=== PATIENT | female | born 1935 | race Caucasian/White ===

== ENCOUNTER → 2017-11-07 12:40 | Outpatient (CLI) | payer OTHER, SELFPAY ==
[2017-11-07 14:00] LABS: Urine Amphetamines Negative (Negative); Urine Barbiturates Negative (Negative); Urine Benzodiazepines Negative (Negative); Urine Cocaine Negative (Negative); Urine MDMA Negative (Negative); Urine Methadone Negative (Negative); Urine Methamphetamines Negative (Negative); Urine Morphine/Opi cutoff 2000 Negative (Negative); Urine Oxycodone Positive (Negative); Urine Phencyclidine Negative (Negative); Urine Tetrahydrocannabinol Negative (Negative); Urine Tricyclic Antidepressant Negative (Negative)
== END ==
PROVIDERS: PCP Internal Medicine; Visit Provider Internal Medicine
DX: Z79.899 Other long term (current) drug therapy (principal)
CPT/HCPCS: 80305

== ENCOUNTER → 2017-11-22 13:54 | Outpatient (CLI) | payer OTHER, SELFPAY ==
[2017-11-22 14:29] LABS: Add Manual Diff / Slide Review NO; Basophils Percent Auto 0.5 % (0-2); Eosinophils Percent Auto 2.9 % (2-4); Hematocrit 40.4 % (36-46); Hemoglobin 13.3 g/dL (12.0-16.0); Lymphocytes Percent Auto 23.5 % (25-40); Mean Corpuscular HGB Conc 32.8 % (30-36); Mean Corpuscular Hemoglobin 29.3 PG (26-34); Mean Corpuscular Volume 89.1 fL (80-100); Monocytes Percent Auto 13.1 % (3-14); Neutrophils Absolute Auto 4000 /uL (3000-5900); Platelet Count 133 X10^3/uL (150-400); Red Blood Cell Count 4.54 X10^6/uL (4.0-5.2); Red Cell Distribution Width 14.6 % (11.6-14.8); White Blood Cell Count 6.6 X10^3/uL (4.5-11.0)
[2017-11-22 14:40] LABS: Alanine Aminotransferase 21 IU/L (9-52); Albumin Globulin Ratio 1.4 (1.0-2.8); Alkaline Phosphatase 94 U/L (38-126); Aspartate Aminotransferase 25 IU/L (14-36); BUN Creatinine Ratio 36.7 (6-22); Bilirubin Total 0.7 mg/dL (0.2-1.3); Blood Urea Nitrogen 22 mg/dL (7-17); Calcium 8.8 mg/dL (8.4-10.2); Carbon Dioxide 35 mmol/L (22-32); Chloride 103 mmol/L (98-107); Estimated Glomerular Filt Rate > 60.0 mL/min (>60); Globulin 2.9 g/dL (1.7-4.1); Glucose 83 mg/dL (80-110); HEMOLYSIS < 15 (0-50); Potassium 4.8 mmol/L (3.4-5.1); Sodium 144 mmol/L (137-145); Total Protein 6.9 g/dL (6.3-8.2)
[2017-11-22 14:44] LABS: HEMOLYSIS < 15 (0-50); Iron 53 ug/dL (37-170)
[2017-11-22 14:54] LABS: Percent Iron Saturation 18 % (15-50); Total Iron Binding Capacity 296 ug/dL (265-497); Transferrin 226 mg/dL (206-381)
--- NOTE | 2017-11-22 16:47 | PC.NURSE ---
provider visit set for 11/24 to review labs
== END ==
PROVIDERS: Family Provider Internal Medicine; PCP Internal Medicine; Visit Provider Nurse Practitioner Gerontology
DX: D50.8 Other iron deficiency anemias (principal)
CPT/HCPCS: 36415; 80053; 83540; 83550; 85025

== ENCOUNTER 2018-01-09 09:51 | Observation (INO) | payer OTHER, SELFPAY ==
[2018-01-09] VITALS (10 sets, daily range): BP systolic 104–146; BP diastolic 52–79; PULSE 66–105; RESP 16–18; TEMP 36.3–37.2; O2SAT 92–100; BMI 33.3
--- NOTE | 2018-01-09 | DI.MRI.S_ITS ---
PROCEDURE: MR ANGIO HEAD WO CON INDICATIONS: CVA TECHNIQUE: Noncontrast axial 3-D [id number] MR angiogram, with 3-dimensional maximum intensity projection (MIP) reformats of the internal carotid arteries and posterior circulation then performed. COMPARISON: [facility], , STROKE PROTOCOL A, 12/25/2007, 10:51. FINDINGS: Image quality: Degraded by motion artifact. Flow is grossly present within the bilateral internal carotid arteries, the bilateral anterior and middle cerebral arteries. Flow is grossly present within the bilateral vertebral arteries, the basilar arteries, and the bilateral posterior cerebral arteries. Assessment for stenoses, aneurysms is significantly limited. IMPRESSION: Limited examination demonstrating grossly intact flow within the major intracranial vasculature. Dictated by: Ju Bran M.D. on 01/09/2018 at 16:55 Approved by: Ju Bran M.D. on 01/09/2018 at 16:56
--- NOTE | 2018-01-09 10:41 | PC.NURSE ---
Patient with no new motor deficits; No sensations deficits noted; Patient confused last night around 3am. found patient looking into her purse to shut off her alarm; Also, this morning, patient unable to answer simple question.
--- NOTE | 2018-01-09 10:46 | DI.CT.S_ITS ---
PROCEDURE: CT HEAD/BRAIN WO CON INDICATIONS: AMS TECHNIQUE: Noncontrast 4.5 mm thick angled axial sections acquired from the foramen magnum to the vertex, with coronal and sagittal reformats. For radiation dose reduction, the following was used: automated exposure control, adjustment of mA and/or kV according to patient size. COMPARISON: [facility], , STROKE PROTOCOL A, 12/25/2007, 10:51. FINDINGS: Image quality: Diagnostic. CSF spaces: Basal cisterns are patent. No extra-axial fluid collections. Ventricles are mildly prominent. There is corresponding parenchymal volume loss. Brain: No midline shift. No intracranial masses or hemorrhage. Aponte-white matter interface is normal. Subtle areas of low attenuation within the deep white matter of the supratentorial brain is present. There is a partly calcified ovoid mass that appears to be extra-axial and dural-based identified adjacent to the left occipital lobe that is positioned just above the level of the folds, measuring 1.5 x 1.4 cm x 2.0 cm. In retrospect, this lesion was present on the previous MRI from 12/25/07 and has not significantly changed in size, compatible with a benign process. Skull and face: Calvarium and visualized facial bones are intact, without suspicious lesions. Hyperostosis frontalis is present. Sinuses: Visualized sinuses and mastoids are clear. IMPRESSION: 1. No acute intracranial hemorrhage. 2. Mild chronic small vessel ischemic changes and parenchymal volume loss. 3. Probable meningioma along the posterior right occipital region, not significantly changed in retrospect since 2007. Dictated by: Armani Carlisle M.D. on 01/09/2018 at 10:31 Approved by: Armani Carlisle M.D. on 01/09/2018 at 10:37
--- NOTE | 2018-01-09 10:53 | ED.GENADULT ---
HPI - General Adult General Chief complaint: Neuro Symptoms/Deficit Stated complaint: Confusion, difficulty with urination Time Seen by Provider: 01/09/18 10:26 Source: patient and family Mode of arrival: EMS Limitations: no limitations History of Present Illness HPI narrative: Patient is an 82-year-old female brought in by in by EMS for concerns of possible urinary symptoms and also confusion. The patient's is with her. He states that every night they set her alarm to go off at 3 o'clock in the morning for the patient to get up and urinate. Patient's states that the alarm did go off and the patient woke up however when he woke up he found the patient very confused. He stated that in talking with her she was confused and was slurring her words. He states that the symptoms lasted less than 5 min. He stated that he got her to the bathroom where she urinated then put her back in bed. He states that when they woke up this morning he talked with her and she seemed normal and then when he brought her some tea in bed he again thought that she was confused and was slurring her words. Again the symptoms lasted less than 5 min. The patient denies any other symptoms at the time. Related Data Home Medications Medication Instructions Recorded Confirmed cyanocobalamin (vitamin B-12) 50 mcg PO BID #0 03/05/11 01/09/18 [Vitamin B-12] [VITAMIN D] 1 cap PO BID #0 04/20/17 01/09/18 metoprolol succinate [Toprol XL] 50 mg PO SEE INSTRUCTIONS #0 06/27/17 01/09/18 aspirin 81 mg PO BID 08/29/17 01/09/18 furosemide [Lasix] 20 mg PO DAILY PRN 08/29/17 01/09/18 omega-3 fatty acids-fish oil [Fish 500 mg QAM 08/29/17 01/09/18 Oil] Wheelchair: Manual Lightweight 1 ea MISCELLANEOUS DIRECTED 01/09/18 01/09/18 folic acid 4 tab PO DAILY 01/09/18 01/09/18 gabapentin [Neurontin] 600 mg PO QIDP PRN 01/09/18 01/09/18 pantoprazole 40 mg PO BID 01/09/18 01/09/18 Previous Rx's Medication Instructions Recorded citalopram 20 mg PO QDAY #60 tab 09/06/16 solifenacin 10 mg tablet 10 mg PO HS #90 tab 11/28/17 mirabegron ER 50 mg 50 mg PO DAILY #90 tab 12/26/17 tablet,extended release 24 hr oxycodone 10 mg tablet 10 - 20 mg PO Q4HP PRN #150 tab 01/03/18 triamcinolone acetonide 0.025 % 1 applictn TOP TID PRN #80 gram 01/03/18 topical cream Allergies Allergy/AdvReac Type Severity Reaction Status Date / Time meloxicam [MELOXICAM] AdvReac Mild bloody Verified 01/03/18 14:17 dark stool Review of Systems Constitutional Denies fever(s) and Denies headache(s) Eyes Denies change in vision and Denies diplopia ENT Ears, Nose, Mouth, and Throat: Denies dizziness and Denies headache(s) Cardiovascular Denies chest pain, Denies syncope, Denies palpitations and Denies dyspnea Respiratory Denies dyspnea Gastrointestinal Gastrointestinal: Denies abdominal pain, Denies nausea and Denies vomiting Genitourinary Reports dysuria Musculoskeletal Denies myalgias and Denies arthralgias Integumentary/Breasts Denies rash Neurologic Reports abnormal speech, Reports confusion, Denies dizziness, Denies syncope, Denies headache(s) and Reports lack of coordination Psychiatric Reports confusion Endocrine Denies palpitations Hematologic/Lymphatic Denies easy bleeding and Denies easy bruising [facility] Medical History Asthma (Chronic) Other iron deficiency anemia (Chronic 12/02/14) Paroxysmal atrial fibrillation (Chronic) Low back pain (Chronic 10/02/13) Mixed hyperlipidemia (Chronic) Essential hypertension (Chronic) Cardiac dysrhythmia, unspecified (Chronic) Gastroesophageal reflux disease without esophagitis (Chronic) 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) Peripheral edema (Chronic 11/01/16) Surgical History Anesthesia (Resolved) History of cholecystectomy (Resolved) History of gastric bypass (~03/2004) S/P total abdominal hysterectomy and bilateral salpingo-oophorectomy Status post appendectomy Status post discectomy Social History marital status: number of children: 1 household members: spouse lives independently: Yes caregiver/support person: No housing: house pets and animals: Yes education level: college occupational status: other (Retired) current occupational exposures/hazards: No Previous occupational history: [employer]: [place] travel history: over 6 months ago ([employer].) leisure activities: reading and other (Watch TV, Movies, Cooking) Smoking Status: Never smoker Tobacco: How many years used: 0 quit status: quit date established (Never Started) second hand exposure: No alcohol intake: never substance use type: marijuana (In the past) Exam Initial Vital Signs Initial Vital Signs: Vital Signs Temperature 98.3 F 01/09/18 10:16 Pulse Rate 73 01/09/18 10:16 Respiratory Rate 16 01/09/18 10:16 Blood Pressure 118/69 01/09/18 10:16 Pulse Oximetry 98 01/09/18 10:16 Const General: cooperative, comfortable, well developed, well groomed and No acute distress Orientation: alert, awake and oriented x3 HENMT Head: normal to inspection and normocephalic Eyes Pupils: PERRL EOM: EOM intact bilaterally Resp Effort & Inspection: normal respiratory effort Auscultation: clear to auscultation bilaterally Cardio Rate: regular rate Rhythm: abnormal rhythm Pulses: radial pulses present GI Inspection: non-distended Palpation: soft and No tender Skin Lesions: no lesions Rashes: no rashes Neuro General: alert, awake and oriented x3 Cranial Nerves: CN's II-XI intact bilaterally Speech: speech normal Other: 3/5 strength left lower extremity 4/5 strength right lower extremity. This decrease in strength left lower extremity is not new for her. 5/5 strength bilateral upper extremities Extrem General: normal to inspection and capillary refill normal Course Orders Ordered: ED Orders 01/09/18 12:30 Urine Culture Stat Urine Microscopic Stat 01/09/18 13:47 MR stroke Stat US carotid doppler BI Stat Education, smoking cessation ONGOING 01/09/18 14:27 Consult to Physical Therapy Evaluate & Treat Aspirin (Aspirin Ec) 81 mg PO BID JOHANN Citalopram Hydrobromide (Celexa) 20 mg PO DAILY JOHANN Cyanocobalamin (Vitamin B-12) 50 mcg PO BID JOHANN Enoxaparin Sodium (Lovenox) 95 mg 1 mg/kg (95 mg) SUBCUT BID [facility] Folic Acid (Folic Acid) 1 mg PO DAILY [facility] Metoprolol Succinate (Toprol Xl) 75 mg PO QPM [facility] Last Admin: 01/09/18 17:07 Dose: 75 mg Myrbetriq 50 Mg 50 mg PO DAILY [facility] Oxycodone HCl (Percolone) 10 mg PO Q4H PRN PRN Reason: Pain, Mild (1-3) Oxycodone HCl (Percolone) 20 mg PO Q4HR PRN PRN Reason: Pain, Moderate (4-6) Last Admin: 01/09/18 17:07 Dose: 20 mg Pantoprazole Sodium (Protonix) 40 mg PO DAILY [facility] Solifenacin (Vesicare) 10 mg PO BEDTIME [facility] Discontinued Medications Aspirin (Aspirin Chew) 324 mg PO NOW ONE Stop: 01/09/18 12:30 Last Admin: 01/09/18 12:49 Dose: 324 mg Enoxaparin Sodium (Lovenox) 90 mg 1 mg/kg (90 mg) SUBCUT NOW ONE Stop: 01/09/18 13:48 Last Admin: 01/09/18 17:12 Dose: 90 mg Oxycodone/Acetaminophen (Percocet 5/325) 2 tab PO NOW ONE Stop: 01/09/18 12:45 Last Admin: 01/09/18 12:48 Dose: 2 tab Vital Signs - 8 hr 01/09/18 13:07 01/09/18 14:13 01/09/18 16:11 Temperature 97.4 F L Pulse Rate 76 Respiratory Rate 16 Blood Pressure 110/64 146/79 H Pulse Oximetry 100 95 01/09/18 19:39 Temperature 98.9 F Pulse Rate 92 H Respiratory Rate 16 Blood Pressure 104/52 L Pulse Oximetry 92 Medical Decision Making Lab Data Lab results reviewed: Yes I reviewed the patient's lab results. Result diagrams: 01/09/18 11:00 01/09/18 11:00 Lab Results 01/09/18 01/09/18 01/09/18 Range/Units 11:00 11:00 11:00 WBC 6.6 (4.5-11.0) X10^3/uL RBC 4.62 (4.0-5.2) X10^6/uL Hgb 13.7 (12.0-16.0) g/dL Hct 41.6 (36-46) % MCV 90.0 (80-100) fL MCH 29.6 (26-34) PG MCHC 32.9 (30-36) % RDW 14.4 (11.6-14.8) % Plt Count 141 L (150-400) X10^3/uL Neut % (Auto) 57.3 (50-75) % Lymph % (Auto) 26.9 (25-40) % [place] % (Auto) 12.4 (3-14) % Eos % (Auto) 2.9 (2-4) % Baso % (Auto) 0.5 (0-2) % Neut # (Auto) 3800 (9437-4188) /uL PT 13.4 H (10.1-12.7) SECONDS INR 1.2 (0.9-1.3) APTT 31 (26.4-36.2) SECONDS Sodium (137-145) mmol/L Potassium (3.4-5.1) mmol/L Chloride (98-107) mmol/L Carbon Dioxide (22-32) mmol/L BUN (7-17) mg/dL Creatinine (0.52-1.04) mg/dL Estimated GFR (>60) mL/min BUN/Creatinine Ratio (6-22) Glucose (80-110) mg/dL Calcium (8.4-10.2) mg/dL Ammonia < 9.0 L (9-30) umol/L Urine RBC (0-5/HPF) Urine WBC (0-5/HPF) Ur Squamous Epith Cells Ur Transition Epith Cell (0-5/HPF) Urine Bacteria (None) Urine Mucus (Negative) Ur Culture Indicated? Micro UA Comment 01/09/18 01/09/18 Range/Units 11:00 12:30 WBC (4.5-11.0) X10^3/uL RBC (4.0-5.2) X10^6/uL Hgb (12.0-16.0) g/dL Hct (36-46) % MCV (80-100) fL MCH (26-34) PG MCHC (30-36) % RDW (11.6-14.8) % Plt Count (150-400) X10^3/uL Neut % (Auto) (50-75) % Lymph % (Auto) (25-40) % [place] % (Auto) (3-14) % Eos % (Auto) (2-4) % Baso % (Auto) (0-2) % Neut # (Auto) (5135-4131) /uL PT (10.1-12.7) SECONDS INR (0.9-1.3) APTT (26.4-36.2) SECONDS Sodium 142 (137-145) mmol/L Potassium 4.7 (3.4-5.1) mmol/L Chloride 100 (98-107) mmol/L Carbon Dioxide 33 H (22-32) mmol/L BUN 17 (7-17) mg/dL Creatinine 0.60 (0.52-1.04) mg/dL Estimated GFR > 60.0 (>60) mL/min BUN/Creatinine Ratio 28.3 H (6-22) Glucose 94 (80-110) mg/dL Calcium 9.3 (8.4-10.2) mg/dL Ammonia (9-30) umol/L Urine RBC 5-10/hpf H (0-5/HPF) Urine WBC 10-30/hpf H (0-5/HPF) Ur Squamous Epith Cells 1-5 /hpf Ur Transition Epith Cell 1-5/hpf (0-5/HPF) Urine Bacteria Many (>30) H (None) Urine Mucus 2+ H (Negative) Ur Culture Indicated? Specimen cultured Micro UA Comment Not Reportable Urine Dip Bedside Urine Glucose Negative Bedside Urine Bilirubin - Negative Bedside Urine Ketone - Negative Urine Specific Hermann 1.025 Bedside Urine Occult Blood ++ Bedside Urine pH 6.0 Bedside Urine Protein + 30 Bedside Urine Urobilinogen 1+ 2mg Bedside Urine Nitrite + Positive Bedside Urine Leukocytes +++ 500 Esterase Point of care testing: Urine Dip Bedside Urine Glucose Negative Bedside Urine Bilirubin - Negative Bedside Urine Ketone - Negative Urine Specific Hermann 1.025 Bedside Urine Occult Blood ++ Bedside Urine pH 6.0 Bedside Urine Protein + 30 Bedside Urine Urobilinogen 1+ 2mg Bedside Urine Nitrite + Positive Bedside Urine Leukocytes +++ [address] scan - head: Radiologist's impression: PROCEDURE: CT HEAD/BRAIN WO CON INDICATIONS: AMS TECHNIQUE: Noncontrast 4.5 mm thick angled axial sections acquired from the foramen magnum to the vertex, with coronal and sagittal reformats. For radiation dose reduction, the following was used: automated exposure control, adjustment of mA and/or kV according to patient size. COMPARISON: [facility], , STROKE PROTOCOL A, 12/25/2007, 10:51. FINDINGS: Image quality: Diagnostic. CSF spaces: Basal cisterns are patent. No extra-axial fluid collections. Ventricles are mildly prominent. There is corresponding parenchymal volume loss. Brain: No midline shift. No intracranial masses or hemorrhage. Aponte-white matter interface is normal. Subtle areas of low attenuation within the deep white matter of the supratentorial brain is present. There is a partly calcified ovoid mass that appears to be extra-axial and dural-based identified adjacent to the left occipital lobe that is positioned just above the level of the folds, measuring 1.5 x 1.4 cm x 2.0 cm. In retrospect, this lesion was present on the previous MRI from 12/25/07 and has not significantly changed in size, compatible with a benign process. Skull and face: Calvarium and visualized facial bones are intact, without suspicious lesions. Hyperostosis frontalis is present. Sinuses: Visualized sinuses and mastoids are clear. IMPRESSION: 1. No acute intracranial hemorrhage. 2. Mild chronic small vessel ischemic changes and parenchymal volume loss. 3. Probable meningioma along the posterior right occipital region, not significantly changed in retrospect since 2007. Dictated by: Armani Carlisle M.D. on 01/09/2018 at 10:31 Approved by: Armani Carlisle M.D. on 01/09/2018 at 10:37 ECG Data Attestation: I personally reviewed and interpreted this ECG as follows: Prior ECG tracings: not available for review Interpretation: Atrial fibrillation Ventricular rate is 78 LVH Normal QRS Normal QTC Nonspecific ST T wave changes MDM Narrative Medical decision making narrative: Patient does have nitrite positive urine which does explain her dysuria. She did have fairly well-defined episodes of confusion last evening and then also this morning. Given her history of atrial fibrillation there is concern for TIA. Head CT shows no signs of a head bleed. Discussed case with Dr. Bland who will admit for a TIA workup. I discussed the admission with the patient and her were at bedside. They expressed understanding and agreement this plan. Discharge Plan Departure Patient Disposition: Admitted as Observation Clinical Impression: TIA (transient ischemic attack) Discharge Date/Time: 01/09/18 13:26 Interventions: ED Discharge Assessment Last Done: 01/09/18 13:07 Admit Date/Time: 01/09/18 12:33 Admit Provider: Oj Bland
--- NOTE | 2018-01-09 10:53 | PC.NURSE ---
Left leg weakness - chronic;
[2018-01-09 11:13] LABS: Add Manual Diff / Slide Review NO; Basophils Percent Auto 0.5 % (0-2); Eosinophils Percent Auto 2.9 % (2-4); Hematocrit 41.6 % (36-46); Hemoglobin 13.7 g/dL (12.0-16.0); Lymphocytes Percent Auto 26.9 % (25-40); Mean Corpuscular HGB Conc 32.9 % (30-36); Mean Corpuscular Hemoglobin 29.6 PG (26-34); Monocytes Percent Auto 12.4 % (3-14); Neutrophils Absolute Auto 3800 /uL (3000-5900); Neutrophils Percent Auto 57.3 % (50-75); Platelet Count 141 X10^3/uL (150-400); Red Blood Cell Count 4.62 X10^6/uL (4.0-5.2); Red Cell Distribution Width 14.4 % (11.6-14.8); White Blood Cell Count 6.6 X10^3/uL (4.5-11.0)
[2018-01-09 11:21] LABS: INR 1.2 (0.9-1.3); Prothrombin Time 13.4 SECONDS (10.1-12.7)
[2018-01-09 11:23] LABS: PTT Partial Thromboplastin Tim 31 SECONDS (26.4-36.2)
[2018-01-09 11:26] LABS: Ammonia (NH3) < 9.0 umol/L (9-30)
[2018-01-09 11:27] LABS: BUN Creatinine Ratio 28.3 (6-22); Blood Urea Nitrogen 17 mg/dL (7-17); Calcium 9.3 mg/dL (8.4-10.2); Carbon Dioxide 33 mmol/L (22-32); Chloride 100 mmol/L (98-107); Estimated Glomerular Filt Rate > 60.0 mL/min (>60); Glucose 94 mg/dL (80-110); HEMOLYSIS < 15 (0-50); Potassium 4.7 mmol/L (3.4-5.1); Sodium 142 mmol/L (137-145)
[2018-01-09] MEDS: OXYCODONE/ACETAMINOPHEN 5/325 TABLET 2 TAB PO (12:48)
[2018-01-09] MEDS: ASPIRIN 81 MG TAB 324 MG PO (12:49)
--- NOTE | 2018-01-09 12:52 | PM.HP.1 ---
History of Present Illness Date Patient Seen: 01/09/18 Time Patient Seen: 14:13 Chief complaint: Confusion, difficulty with urination Narrative: Very pleasant 82-year-old female who apparently he has had some confusion. Patient has difficulty with urinary incontinence so set an alarm to get up in the night to make sure she empties her bladder. awoke hearing the alarm going off inpatient not answering the alarm. He found her room injuring through her person was confused disoriented. He helped her to the restroom where she did manage to empty her bladder went back to bed and he did not think much of it When they both awoke the next morning spouse says patient seemed to be fine in normal state of health and mental status Later he found her confused disoriented and decided at that point he should summoned medics. She was transported [facility] where she may have had some altered affect but no clear or focal neurologic findings. Patient has been reporting increased weakness and difficulty with transfers and basic ambulation, to the point where she did not really want her to leave her to go to town for food etc. This is highly unusual for this patient. Did have a low-grade fever after which she received a flu shot in the clinic last week and has off and on urinary symptoms chronically perhaps slightly exaggerated currently Initial workup in the ED was unremarkable Patient with history of paroxysmal atrial fibrillation now found to be back in atrial fibrillation. She has not been felt to be a candidate for anticoagulation because of evidence of bleeding as well as chronic iron deficiency anemia. 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) Peripheral edema (Chronic 11/01/16) Surgical History Anesthesia (Resolved) History of cholecystectomy (Resolved) History of gastric bypass (~03/2004) S/P total abdominal hysterectomy and bilateral salpingo-oophorectomy Status post appendectomy Status post discectomy Family & Social History Family History: Reviewed 01/09/18 by Oj Bland MD Social History: household members spouse lives independently Yes caregiver/support person No Safety & Behavioral: Feels Safe in Current Yes Environment Been Physically Hurt or No Threatened By a Person Tobacco & Substance use: Smoking Status Never smoker alcohol intake current Meds Home Medications Medication Instructions Recorded Confirmed Type cyanocobalamin (vitamin B-12) 50 mcg PO BID #0 03/05/11 01/09/18 History [Vitamin B-12] citalopram 20 mg PO QDAY #60 tab 09/06/16 01/09/18 Rx [VITAMIN D] 1 cap PO BID #0 04/20/17 01/09/18 History metoprolol succinate [Toprol XL] 50 mg PO SEE INSTRUCTIONS #0 06/27/17 01/09/18 History aspirin 81 mg PO BID 08/29/17 01/09/18 History furosemide [Lasix] 20 mg PO DAILY PRN 08/29/17 01/09/18 History omega-3 fatty acids-fish oil [Fish 500 mg QAM 08/29/17 01/09/18 History Oil] solifenacin 10 mg tablet 10 mg PO HS #90 tab 11/28/17 01/09/18 Rx mirabegron ER 50 mg 50 mg PO DAILY #90 tab 12/26/17 01/09/18 Rx tablet,extended release 24 hr oxycodone 10 mg tablet 10 - 20 mg PO Q4HP PRN #150 tab 01/03/18 01/09/18 Rx triamcinolone acetonide 0.025 % 1 applictn TOP TID PRN #80 gram 01/03/18 01/09/18 Rx topical cream Wheelchair: Manual Lightweight 1 ea MISCELLANEOUS DIRECTED 01/09/18 01/09/18 History folic acid 4 tab PO DAILY 01/09/18 01/09/18 History gabapentin [Neurontin] 600 mg PO QIDP PRN 01/09/18 01/09/18 History pantoprazole 40 mg PO BID 01/09/18 01/09/18 History Allergies Allergy/AdvReac Type Severity Reaction Status Date / Time meloxicam [MELOXICAM] AdvReac Mild bloody Verified 01/03/18 14:17 dark stool Review of Systems Constitutional Constitutional: Denies excessive sweating, Denies fever(s), Denies headache(s), Reports weakness, Denies weight gain and Denies weight loss Eyes Eyes: Denies change in vision, Denies itchy eyes, Denies loss of vision and Denies other visual disturbances ENT Ears, Nose, Mouth, and Throat: No difficulty swallowing, No headache(s) and No neck pain Cardiovascular Cardiovascular: Denies chest pain, Denies fainting, Denies fast heart rate, Denies irregular heart rhythm, Denies rapid, pounding, or irregular heartbeat, Denies shortness of breath, Denies shortness of breath with activity and Denies slow heart rate Respiratory Respiratory: Denies dyspnea and Denies dyspnea on exertion Gastrointestinal Gastrointestinal: Denies abdominal pain, Denies bloating, Denies change in bowel habits, Denies change in stool character, Denies dysphagia, Denies nausea, Denies vomiting and Denies hematemesis Genitourinary Genitourinary: Denies hematuria, Reports urinary frequency ( chronic off and on), Reports difficulty voiding ( chronic) and Reports urinary incontinence ( chronic) Musculoskeletal Musculoskeletal: Denies myalgias, Denies arthralgias, Denies limited range of motion and Denies neck pain Integumentary/Breasts Skin/Breast: Denies bleeding lesions, Denies change in pigmentation, Denies changing lesions, Denies new lesions, Denies rash, Denies skin swelling, Denies sores and Denies jaundice Neurologic Neurologic: Denies behavioral changes, Denies syncope, Denies headache(s), Denies loss of vision, Denies memory loss and Reports weakness Psychiatric Psychiatric: Denies behavioral changes, Denies change in appetite, Denies difficulty concentrating, Denies auditory hallucinations, Denies memory loss, Denies mood swings and Denies suicidal ideation Endocrine Endocrine: Denies excessive sweating and Denies palpitations Hematologic/Lymphatic Hematologic/Lymphatic: Denies easy bleeding, Denies easy bruising and Denies lymphadenopathy Allergic/Immunologic Allergic/Immunologic: Denies itchy eyes Exam Vital Signs (past 8 hours): - 01/09/18 10:16 01/09/18 11:29 Temperature 98.3 F Pulse Rate 73 105 H Respiratory Rate 16 17 Blood Pressure 118/69 Blood Pressure [Right Arm] 130/76 Pulse Oximetry 98 94 Oxygen Delivery Method Room Air Narrative Exam Narrative: HEENT-unremarkable, normocephalic atraumatic Neck-no lymphadenopathy no bruits Lungs-clear anteriorly and posteriorly no wheezes no crackles good breath sounds Heart-irregular rate and rhythm no murmur rub or gallop normal S1-S2 Abdomen-positive bowel tones soft nontender nondistended no hepatosplenomegaly no masses palpable Neuro-normal to screening exam, gait not tested Extremities-no cyanosis clubbing or edema Objective Labs Result Diagrams: 01/09/18 11:00 01/09/18 11:00 Labs: Laboratory Results - last 24 hr 01/09/18 01/09/18 01/09/18 11:00 11:00 11:00 WBC 6.6 RBC 4.62 Hgb 13.7 Hct 41.6 MCV 90.0 MCH 29.6 MCHC 32.9 RDW 14.4 Plt Count 141 L Neut % (Auto) 57.3 Lymph % (Auto) 26.9 [place] % (Auto) 12.4 Eos % (Auto) 2.9 Baso % (Auto) 0.5 Neut # (Auto) 3800 PT 13.4 H INR 1.2 APTT 31 Sodium Potassium Chloride Carbon Dioxide BUN Creatinine Estimated GFR BUN/Creatinine Ratio Glucose Calcium Ammonia < 9.0 L 01/09/18 11:00 WBC RBC Hgb Hct MCV MCH MCHC RDW Plt Count Neut % (Auto) Lymph % (Auto) [place] % (Auto) Eos % (Auto) Baso % (Auto) Neut # (Auto) PT INR APTT Sodium 142 Potassium 4.7 Chloride 100 Carbon Dioxide 33 H BUN 17 Creatinine 0.60 Estimated GFR > 60.0 BUN/Creatinine Ratio 28.3 H Glucose 94 Calcium 9.3 Ammonia Assessment & Plan Plan: Assessment/Plan Narrative: 1. Probable TIA-patient with symptoms of increased weakness and confusion consistent with a TIA. Etiology most likely would be related to her recurrent paroxysmal atrial fibrillation and lack of anticoagulation. However she could also have some other metabolic issues such as UTI or perhaps some reaction to her influenza vaccination. At this point she will be undergoing a neurologic workup with an MRI stroke protocol of the brain which includes angiography as well as a carotid ultrasound. I do think she would be more likely to benefit from anticoagulation then be harmed at this point given that her anemia has been felt to be due to poor absorption and has been corrected as well as lack of evidence of GI bleeding with normal blood count here fairly recently. Therefore I will give her Lovenox and depending on outcome of results will decide if that should be long-term anticoagulation or not If she shows evidence of a UTI or some other infectious etiology will treat as appropriate 2. Weakness - patient with significant difficulty transferring out of the wheelchair to the bed. Will have Physical therapy see her as well prior to her returning home 3. Atrial fibrillation - patient with adequate rate control for now. Continue with her metoprolol which is a chronic medication. Again anticoagulation probable as above 4. Iron deficiency anemia -when last checked iron levels and anemia were corrected. Continue with oral iron 5. Hypertension - continue usual medications 6. Reflux- continue with usual medications 7. VTE prophylaxis- patient will be anticoagulated because of the atrial fibrillation as above 8. Code status- patient has previously requested full code which is her current status.
--- NOTE | 2018-01-09 13:47 | DI.MRI.S_ITS ---
PROCEDURE: MR HEAD/BRAIN WO CON INDICATIONS: TIA/CONFUSION TECHNIQUE: Non-contrast axial T1 spin echo, axial T2 fast spin echo, sagittal and axial FLAIR, coronal T2 fast spin echo, axial gradient echo, axial diffusion and ADC through the brain. COMPARISON: [facility], MR, STROKE PROTOCOL A, 12/25/2007, 10:51. [facility], CT, CT HEAD/BRAIN WO CON, 01/09/2018, 11:03. FINDINGS: Image quality: Prominent artifact is present throughout the examination, limiting areas of fine detail evaluation. CSF spaces: Ventricles appear symmetric in size and shape. Basal cisterns are patent. No extra-axial fluid collections. Brain: No intracranial bleeds or mass effects. There is cerebral volume loss for age. There are periventricular and deep white matter chronic small vessel ischemic changes. Brainstem appears normal. Diffusion-weighted images show no acute ischemic insults. No chronic ischemic insults. Normal intravascular flow voids are present. Empty sella is incidentally noted, consistent with congenital variation. Skull and face: Calvarial bone marrow is normal in signal. Orbits are normal. Sinuses: Sinuses and mastoids are clear. IMPRESSION: 1. Significantly limited exam secondary to artifact. 2. No gross acute intracranial process. However, as noted above, multiple areas of the exam are significantly limited in evaluation. Dictated by: Adrienne Soliman M.D. on 01/09/2018 at 16:40 Approved by: Adrienne Soliman M.D. on 01/09/2018 at 16:43
--- NOTE | 2018-01-09 13:47 | DI.US.S_ITS ---
PROCEDURE: US CAROTID DOPPLER BI INDICATIONS: TIA TECHNIQUE: Color and pulse Doppler interrogation was performed of both carotid systems, with image documentation and velocity measurements. COMPARISON: None. FINDINGS: Stenosis calculations are based on SRU (Society of Radiologists in Ultrasound) criteria. Right side: The right common carotid artery is normal in course and caliber. Echogenic plaque is evident within the region of the right carotid bulb with approximately 20-30% narrowing of the lumen of the vessel. An additional plaque is noted within the proximal aspect of the right proximal internal carotid artery, which results in approximately 40% narrowing of the lumen of the vessel. This plaque is somewhat irregular. An irregular heartbeat is noted. Waveforms and flow velocities within the right carotid system are within normal limits. Brachial blood pressure: 117/82 mm Hg. Common carotid artery peak systolic velocity: 70 cm/sec. Internal carotid artery peak systolic velocity: 66 cm/sec. Internal carotid artery end diastolic velocity: 12 cm/sec. External carotid artery peak systolic velocity: 87 cm/sec. ICA/CCA peak systolic ratio: 0.95. Percent internal carotid artery stenosis: Less than 50%. Vertebral artery: Flow direction is antegrade. Left side: The left common carotid artery is normal in course and caliber without significant atherosclerosis. However, there is atherosclerotic echogenic plaque identified within the left carotid bulb, which narrows the lumen of the vessel by approximately 20%. No additional plaque is evident. Flow velocities and waveforms throughout the left carotid system are within normal limits. Incidental note is made of an irregular heartbeat. Brachial blood pressure: 146/79 mm Hg. Common carotid artery peak systolic velocity: 78 cm/sec. Internal carotid artery peak systolic velocity: 69 cm/sec. Internal carotid artery end diastolic velocity: 10 cm/sec. External carotid artery peak systolic velocity: 51 cm/sec. ICA/CCA peak systolic ratio: 0.89. Percent internal carotid artery stenosis: Less than 50%. Vertebral artery: Flow direction is antegrade. IMPRESSION: 1. Mild atherosclerosis of the bilateral carotid arteries (right greater than left) without evidence of a hemodynamically significant stenosis. 2. Irregular plaque is noted within the proximal right internal carotid artery which is of uncertain significance. Dictated by: Armani Carlisle M.D. on 01/09/2018 at 13:57 Approved by: Armani Carlisle M.D. on 01/09/2018 at 14:02
[2018-01-09 14:37] LABS: Bacteria Urine Many (>30); Culture Indicated Urine Specimen Cultured; Mucus Urine 2+ (Negative); RBC Urine 5-10/HPF (0-5/HPF); Squamous Epithelial Cell Urine 1-5 /HPF; Transitional Epi Cells Urine 1-5/HPF (0-5/HPF); WBC Urine 10-30/HPF (0-5/HPF)
--- NOTE | 2018-01-09 15:03 | PT.IPTN ---
Physical Therapy Treatment Note M3 PT-IP Subjective Start: 01/09/18 15:03 Freq: NEEDED Status: Active Protocol: Document 01/09/18 14:40 [facility] (Rec: 01/09/18 15:03 [facility] [id number]) Subjective Physical Therapy Visit Type Type Patient Unavailable Visit Start Time 14:40 Notes Checked on pt and pt was not in room. Will check back in AM .
[2018-01-09] MEDS: METOPROLOL ER 25 MG TABLET 75 MG PO (17:07)
[2018-01-09] MEDS: OXYCODONE IR 5 MG TABLET 20 MG PO ×2 (17:07→23:46)
[2018-01-09] MEDS: ENOXAPARIN 100 MG/ML SYRINGE 90 MG SUBCUT (17:12)
--- NOTE | 2018-01-09 19:47 | PC.NURSE ---
Pt having relatively uneventful evening. Alert/oriented. Two person assist to BSC. HL intact/patent. Tele shows a-fib per ICU staff. Med w/ percolone at 1700 w/ good relief. Call light w/in reach, bed alarm on for pt safety. Continue w/plan of care.
[2018-01-10 00:47] VITALS: BP 138/93; PULSE 102; RESP 20; TEMP 36.8; O2SAT 92
[2018-01-10 01:34] VITALS: O2SAT 95
--- NOTE | 2018-01-10 01:44 | PC.NURSE ---
Pt assisted to BSC w/o incidence. Denies discomfort. HL intact/patent. Tele shows NSR per ICU staff. Call light w/in reach, bed al;arm on for pt safety.
[2018-01-10 04:16] VITALS: BP 149/89; PULSE 76; RESP 20; TEMP 36.7; O2SAT 96
[2018-01-10] MEDS: OXYCODONE IR 5 MG TABLET 20 MG PO ×3 (04:20→12:24)
[2018-01-10 07:00] VITALS: BP 155/98; PULSE 93; RESP 18; TEMP 36.6; O2SAT 95
[2018-01-10 07:50] VITALS: O2SAT 98
[2018-01-10] MEDS: CITALOPRAM 20 MG TABLET PO (08:25)
[2018-01-10] MEDS: PANTOPRAZOLE 40 MG TABLET PO (08:25)
[2018-01-10] MEDS: CYANOCOBALAMIN (VITAMIN B-12) 100 MCG TABLET 50 MCG PO (08:25)
[2018-01-10] MEDS: FOLIC ACID 1 MG TABLET PO (08:26)
--- NOTE | 2018-01-10 08:45 | PM.PN.1 ---
Subjective Date Patient Seen: 01/10/18 Time Patient Seen: 08:45 Interval history: Patient has not yet been up with physical therapy No new obvious issues. Remains in atrial fibrillation. Exam Vital Signs (past 8 hours): - 01/10/18 00:47 01/10/18 01:34 01/10/18 04:16 Temperature 98.2 F 98.1 F Pulse Rate 102 H 76 Respiratory Rate 20 20 Blood Pressure 138/93 H 149/89 H Pulse Oximetry 92 95 96 Oxygen Delivery Method Room Air Oxygen Flow Rate 0 Narrative Exam Narrative: Unchanged from previous Objective Imaging MRI - head: Radiologist's impression: No obvious issues/stroke/mass etc. Angiography appears normal although significant motion artifact affects details ECG: Remains in atrial fibrillation on telemetry Labs Result Diagrams: 01/09/18 11:00 01/09/18 11:00 Labs: Laboratory Results - last 24 hr 01/09/18 01/09/18 01/09/18 11:00 11:00 11:00 WBC 6.6 RBC 4.62 Hgb 13.7 Hct 41.6 MCV 90.0 MCH 29.6 MCHC 32.9 RDW 14.4 Plt Count 141 L Neut % (Auto) 57.3 Lymph % (Auto) 26.9 [place] % (Auto) 12.4 Eos % (Auto) 2.9 Baso % (Auto) 0.5 Neut # (Auto) 3800 PT 13.4 H INR 1.2 APTT 31 Sodium Potassium Chloride Carbon Dioxide BUN Creatinine Estimated GFR BUN/Creatinine Ratio Glucose Calcium Ammonia < 9.0 L Urine RBC Urine WBC Ur Squamous Epith Cells Ur Transition Epith Cell Urine Bacteria Urine Mucus Ur Culture Indicated? Micro UA Comment 01/09/18 01/09/18 11:00 12:30 WBC RBC Hgb Hct MCV MCH MCHC RDW Plt Count Neut % (Auto) Lymph % (Auto) [place] % (Auto) Eos % (Auto) Baso % (Auto) Neut # (Auto) PT INR APTT Sodium 142 Potassium 4.7 Chloride 100 Carbon Dioxide 33 H BUN 17 Creatinine 0.60 Estimated GFR > 60.0 BUN/Creatinine Ratio 28.3 H Glucose 94 Calcium 9.3 Ammonia Urine RBC 5-10/hpf H Urine WBC 10-30/hpf H Ur Squamous Epith Cells 1-5 /hpf Ur Transition Epith Cell 1-5/hpf Urine Bacteria Many (>30) H Urine Mucus 2+ H Ur Culture Indicated? Specimen cultured Micro UA Comment Not Reportable Assessment & Plan Plan: Assessment/Plan Narrative: 1. Probable TIA-patient's imaging has been unremarkable. Still believe atrial fibrillation is most likely etiology and she would benefit more than be harmed by long-term anticoagulation. Continue with Lovenox this morning by will plan to initiate Pradaxa either this evening or upon discharge later today Patient's UA is positive in that could be a source of symptoms. Patient does report increased urinary incontinence. Will also treat with oral antibiotic therapy. 2. Weakness - patient with significant difficulty transferring out of the wheelchair to the bed. Has yet to be seen by Physical therapy as she was out of or off the floor for her scan when they came yesterday. Still like that to happen before consideration of discharge 3. Atrial fibrillation - patient with adequate rate control for now. Continue with her metoprolol which is a chronic medication. Planning for Pradaxa as an outpatient. 4. Iron deficiency anemia -when last checked iron levels and anemia were corrected. Continue with oral iron 5. Hypertension - continue usual medications 6. Reflux- continue with usual medications 7. VTE prophylaxis- patient will be anticoagulated because of the atrial fibrillation as above Quality VTE Deep Vein Thrombosis/Pulmonary Embolism Present on Admission: No
--- NOTE | 2018-01-10 09:08 | CM.DANOTE ---
DCP: Case received, EMR reviewed and met with patient. Introduced self and role. DCP template completeed with information currently available. Patient is an 82 year old female who admitted yesterday afternoon to the care of the hospitalist team. PCP: Dr. Bland. Payer: confirmed: [facility]. Patient came to hospital with symptoms of increased confusion and weakness. Patient carries diagnosis of A-Fib. Met with patient in room. Alert and oriented. Stated that she lives with her , who is very supportive. P: DCP to follow closely. Goal if for patient to return home when stable. Nazia Maguire RN/It Help Desk Analyst
[2018-01-10] MEDS: ENOXAPARIN 100 MG/ML SYRINGE 95 MG SUBCUT (09:11)
--- NOTE | 2018-01-10 10:12 | PT.IIE ---
Addendum entered and electronically signed by Christa Chowdhury PT 01/10/18 12:19: I certify I directly supervised and guided this session. Beatriz Chowdhury DPT Original Note: Current Diagnoses Other iron deficiency anemias (01/09/18) Surgical History (Last Reviewed 01/09/18 @ 20:07 by Brandan Pollard DO) Anesthesia (Resolved) History of cholecystectomy (Resolved) History of gastric bypass (~03/2004) S/P total abdominal hysterectomy and bilateral salpingo-oophorectomy Status post appendectomy Status post discectomy Medical History (Last Reviewed 01/09/18 @ 20:07 by Brandan Pollard DO) Asthma (Chronic) Other iron deficiency anemia (Chronic 12/02/14) Paroxysmal atrial fibrillation (Chronic) Low back pain (Chronic 10/02/13) Mixed hyperlipidemia (Chronic) Essential hypertension (Chronic) Cardiac dysrhythmia, unspecified (Chronic) Gastroesophageal reflux disease without esophagitis (Chronic) 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 Mobility and Gait Prior ambulation tolerances were modified independent ~50 ft with 4ww mostly for getting to/from the car for outings and for inhome mobility. A power wheelchair is used for longer distances (mod indep). Pt avoided stairs, total assist required when forced to use stairs. Prior Functional Level (Other details) Pt occasionally needed physical assist to get in/out of bed. Her reports this was < 10% of the time. reports the patient has had 1 fall in the last month and estimates she fell 4 -5X in the last year. Social History Household Members spouse Living Arrangements House Number of Floors (Floors) One Floor Number of Stairs To Enter/Railing? Ramp for access. Another entry by stairs, but pt does not use. Home Environment High Toilet Walk in Shower Ramp Home Equipment Front Wheel Walker Four Wheel Walker Power Wheelchair/Scooter Grab Bars Near Toilet Grab Bars In Shower Additional Social History Comment avaliable for / assist. Daughter lives in [place] and can be avaliable for occasional assist. Also several closeby neighbors/friends that could help intermittently if needed. M2 PT-IP Current Condition Start: 01/09/18 15:03 Freq: NEEDED Status: Active Protocol: Document 01/10/18 10:12 (Rec: 01/10/18 11:39 [email or web address]) Physical Therapy Current Condition Current Condition Evaluation Date 01/10/18 Treatment Diagnosis difficulty walking; s/p TIA Onset Date 01/09/2018 Weight Bearing Status Weight Bearing Status Full Weight Bearing M3 PT-IP Subjective Start: 01/09/18 15:03 Freq: NEEDED Status: Active Protocol: Document 01/10/18 10:12 (Rec: 01/10/18 11:39 [email or web address]) Subjective Physical Therapy Visit Type Type Initial Evaluation Visit Start Time 10:12 Visit Stop Time 10:54 Total Visit Minutes 42 Number of SENIOR BUSINESS DEVELOPMENT MANAGER Visits 0 Physical Therapy Visit Comments Patient Comments Pt states feeling ok. Not excited to be in the hospital but agreeable to mobilize with PT today including ambulation . Patient Goals Pt plans to return home with her . M4 PT-IP Mobility and Gait Start: 01/09/18 15:03 Freq: NEEDED Status: Active Protocol: Document 01/10/18 10:12 (Rec: 01/10/18 11:39 [email or web address]) PT-Bed Mobility Assessment Supine to Sit Supine to Sit Standby Assistance Sit to Supine Sit to Supine Standby Assistance Scooting Scooting to Edge of Bed Standby Assistance PT-Transfer Assessment Sit to and From Stand Sit to and from Stand Minimal Assistance 1 Person Assistance Equipment Transfer Assistive Device Gait Belt Front Wheeled Walker Orthotic/Prosthetic Devices or Brace: No Transfers Transfer Destination Bed Chair Comments Mobility Comments Pt performs supine <> seated EOB slowly with SBA by pivoting on her buttocks and moves legs in small increments but is able to complete. Sit > stand with fww is completed with [place] x1 especially at intiaition and then to help her balance while she reaches for her walker. Stand > sit is completed with min A to help control decent and not plop down at the last second. Gait Assessment Gait Gait Assistance Required: Contact Guard Assist Distance (Feet) 10 Able to Maintain Weight Bearing Status Yes During Gait Assistive Devices Assistive Device Front Wheeled Walker Orthotic/Prosthetic Devices or Brace: No Gait Deviations General Gait Pattern Antalgic Decreased Stride Length Decreased Feet Clearance Flexed Trunk Factors Limiting Gait Function Factors Limiting Gait Function Decreased Activity Tolerance Decreased Strength Limited Range of Motion Pain Poor Balance Poor Safety Awareness Comments Gait Comments Pt ambulates 3 x10 ft. with CGA for balance with a forefoot strike pattern L > R. She maneuvers fww needing no cues. PT-Balance Assessment Sitting Balance and Reactions Static Sitting Balance Ability Good Dynamic Sitting Balance Ability Fair Standing Balance and Reactions Static Standing Balance Ability Poor Dynamic Standing Balance Ability Poor Device Used fww M5 PT-IP Objective Assessments Start: 01/09/18 15:03 Freq: NEEDED Status: Active Protocol: Document 01/10/18 10:12 (Rec: 01/10/18 11:39 [email or web address]) Orientation Orientation/Cognition Level of Alertness Alert Orientation Name Birthday Place Situation Language Function Ability Word Finding Difficulties Safety Awareness Decreased Safety Awareness Comments Pt needs increased time for responses and had difficulty remembering the year of her . Strength Lower Extremity Strength Assessment Bilaterally Impaired Comments Strength Comments R leg grossly 4-/5. L leg 3-/ 5. Pt lacks active L dorsiflexion. Other Assessments Other Other Assessments VSS supine/HOB elevated BP 122 /56 HR 92 Standing EOB after 15 steps [id number] BP 121/87 HR 116. After ambulation 10 ft. BP 150/85 HR 109. Pt denies nausea or dizziness throughout session. M6 PT-IP Treatment Start: 01/09/18 15:03 Freq: NEEDED Status: Active Protocol: Document 01/10/18 10:12 (Rec: 01/10/18 11:39 [email or web address]) Physical Therapy Treatment Other Treatments Other Treatment Performed Caregiver/Spouse training included gait belt doning/ doffing and hand placement. Also included safeguarding during sit <> stand transfers and ambulation. Caregiver/ Spouse was able to demonstrate all these techniques appropriately with PT as SBA for safety and states feeling comfortable with concepts and performance. M7 PT-IP Assessment and Plan Start: 01/09/18 15:03 Freq: NEEDED Status: Active Protocol: Document 01/10/18 10:12 (Rec: 01/10/18 11:39 [email or web address]) PT Summary Assessment and Plan Potential Rehabilitation Potential Good Status of Condition at Evaluation Stable Summary Impairments Pain ROM Strength Balance Cognition Bed Mobility Transfers Gait Activity Tolerance Progress Towards Goals Progressing Toward Goals Assessment Summary Pt with impaired mobility, difficulty walking and increased risk for falls s/p TIA. She is currently requiring [place] x1 for sit <> stands, and CGA for balance during ambulation with fww. Her demonstrates good safehandling technique during caregiver training. Recommend d/c home with 24/7 assist of her as well as HH to f /u on progressing pt functional mobilities and strategies to reduce fall risk . Goals Bed Mobility Goal Independent Transfer Goal Standby Assistance Gait Goal Standby Assistance Gait Distance 50 Other Goals STG: Pt will walk 50 ft with fww CGA. LTG: Pt will walk 50 ft with 4ww SBA. Days to Meet Goals 3 Frequency of Treatment Frequency Of Treatment Once a Day Treatment Plan Physical Therapy Treatment Plan Bed Mobility Training Transfer Training Gait Training Therapeutic Exercise Balance Retraining Discharge Planning Neuromuscular Re-ed Coordination Retraining Other Recommendations and Next Treatment Ambulation. LE strengthening. Focus Balance. Recommendations To Nursing Amount of Assist Needed 1 Person Assist Discharge Recommendations PT Discharge Recommendations Home with 24/7 Assist Home Health Equipment Needed for Home Before Recommended shower bench/chair Discharge
[2018-01-10 11:02] VITALS: TEMP 36.8
--- NOTE | 2018-01-10 12:09 | PM.DS.1 ---
History of Present Illness Chief complaint: Confusion, difficulty with urination Narrative: Very pleasant 82-year-old female who apparently he has had some confusion. Patient has difficulty with urinary incontinence so set an alarm to get up in the night to make sure she empties her bladder. awoke hearing the alarm going off inpatient not answering the alarm. He found her room injuring through her person was confused disoriented. He helped her to the restroom where she did manage to empty her bladder went back to bed and he did not think much of it When they both awoke the next morning spouse says patient seemed to be fine in normal state of health and mental status Later he found her confused disoriented and decided at that point he should summoned medics. She was transported [facility] Emergency Department where she may have had some altered affect but no clear or focal neurologic findings. Patient has been reporting increased weakness and difficulty with transfers and basic ambulation, to the point where she did not really want her to leave her to go to town for food etc. This is highly unusual for this patient. Did have a low-grade fever after which she received a flu shot in the clinic last week and has off and on urinary symptoms chronically perhaps slightly exaggerated currently Initial workup in the ED was unremarkable Patient with history of paroxysmal atrial fibrillation now found to be back in atrial fibrillation. She has not been felt to be a candidate for anticoagulation because of evidence of bleeding as well as chronic iron deficiency anemia. 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 Metabolic encephalopathy (question TIA verses urinary tract infection) 2. Probable TIA 3. UTI 4. Obesity 5. Chronic atrial fibrillation 6. Iron deficiency anemia, resolved 7. Weakness Hospital Course: Patient was admitted because of confusion increased weakness. Certainly seem like a possible TIA with high risk features including her chronic atrial fibrillation for which she has not been anticoagulated due to issues with iron deficiency anemia and previous GI bleeding. In addition she had a positive UA as well as symptoms to suggest possible urinary tract source of infection as a possible cause of her increased weakness and confusion MRI of the brain failed to reveal anything remarkable although poor study because of motion artifact. Carotid ultrasound was essentially unremarkable. Patient continued to be somewhat weaker than baseline but overall mental status seemed to improve the time of discharge. She was felt safe to go home with home health services by Physical therapy She will be continued on antibiotic therapy for UTI in addition she was started on chronic anticoagulation with Pradaxa and had her aspirin discontinue. Was felt as though the risk of non anticoagulation in the setting of this possible TIA outweigh the risk of continued given that it has been many many many months since she had evidence of GI bleed in her anemia has been corrected with oral supplementation. Her knee was felt to be due to poor absorption because of her prior bariatric surgery Her other medical problems including her obesity her atrial fibrillation etc were stable during this hospitalization Status at Discharge Cognitive/behavioral status at discharge: Back to baseline Functional status at discharge: uses cane/walker Overall status at discharge: patient is progressing back to baseline Time Spent with Patient Less than 30 minutes Exam Vital Signs (past 8 hours): - 01/10/18 04:16 01/10/18 07:00 01/10/18 11:02 Temperature 98.1 F 97.8 F 98.2 F Pulse Rate 76 93 H Respiratory Rate 20 18 Blood Pressure 149/89 H 155/98 H Pulse Oximetry 96 95 Oxygen Delivery Method Room Air Oxygen Flow Rate 0 Objective Labs Result Diagrams: 01/09/18 11:00 01/09/18 11:00 Labs: Laboratory Results - last 24 hr 01/09/18 12:30 Urine RBC 5-10/hpf H Urine WBC 10-30/hpf H Ur Squamous Epith Cells 1-5 /hpf Ur Transition Epith Cell 1-5/hpf Urine Bacteria Many (>30) H Urine Mucus 2+ H Ur Culture Indicated? Specimen cultured Micro UA Comment Not Reportable Discharge Plan Discharge Plan Patient Disposition: Home Health Service Transfer to: Home Health, Other Discharge comment: Home Health PT/OT Discharge Med Rec/Prescriptions Prescriptions: New sulfamethoxazole-trimethoprim 800-160 mg Tablet 1 tab PO BID Qty: 14 RF: 0 pantoprazole 40 mg Tablet,Delayed Release (Dr/Ec) 40 mg PO DAILY Qty: 30 RF: 4 folic acid 1 mg Tablet 1 mg PO DAILY Qty: 90 RF: 0 dabigatran etexilate [Pradaxa] 75 mg Capsule 150 mg PO BID Qty: 60 RF: 3 Continue cyanocobalamin (vitamin B-12) [Vitamin B-12] 50 MCG tablet 50 mcg PO BID Qty: 0 RF: 0 citalopram 10 MG tablet 20 mg PO QDAY Qty: 60 RF: 9 [VITAMIN D] 1 cap PO BID Qty: 0 RF: 0 metoprolol succinate [Toprol XL] 50 MG tablet extended release 24 hr 50 mg PO SEE INSTRUCTIONS Qty: 0 RF: 0 solifenacin [Vesicare] 10 mg tablet 10 mg PO HS Qty: 90 RF: 3 mirabegron [Myrbetriq] 50 mg tablet extended release 24 hr 50 mg PO DAILY Qty: 90 RF: 3 oxycodone 10 mg tablet 10 - 20 mg PO Q4HP PRN (Reason: pain) Qty: 150 RF: 0 triamcinolone acetonide 0.025 % cream 1 applictn TOP TID PRN (Reason: rash) Qty: 80 RF: 3 furosemide [Lasix] 20 mg Tablet 20 mg PO DAILY PRN (Reason: Edema) RF: 0 omega-3 fatty acids-fish oil [Fish Oil] 300-500 mg Capsule 500 mg QAM RF: 0 gabapentin [Neurontin] 600 mg tablet 600 mg PO QIDP PRN (Reason: pain) RF: 0 pantoprazole 40 mg tablet,delayed release (DR/EC) 40 mg PO BID RF: 0 folic acid 1 mg tablet 4 tab PO DAILY RF: 0 Wheelchair: Manual Lightweight 1 ea miscellaneous DIRECTED RF: 0 Discontinued aspirin 81 mg Tablet,Delayed Release (Dr/Ec) 81 mg PO BID RF: 0 Follow up/Referrals: Oj Mathew MD [Primary Care Provider] - 2 Weeks (appt:01/23 @ 3:30 (check in at 3:15) with dr mathew [phone]) Provider Discharge Instructions Diet: Diet as Tolerated and Regular Visit Report/Discharge Packet Instructions: DI for Transient Ischemic Attack, DI for Urinary Tract Infection (UTI) Visit Report Forms: Stroke Signs & Symptoms Discharge Data Primary Care Provider: Oj Mathew Attending Provider: Oj Mathew Admit Date/Time: 01/09/18 12:33 Quality VTE Deep Vein Thrombosis/Pulmonary Embolism Present on Admission: No
[2018-01-10] MEDS: ASPIRIN EC 81 MG TABLET PO (12:29)
[2018-01-10] MEDS: TRIMETH/SULFA 160/800 (DS) TABLET 1 TAB PO (12:29)
--- NOTE | 2018-01-10 14:13 | CM.DPC ---
DCP Cont: Patient is to be discharged today. Dr. Bland put in order for home health physical and occupational therapy. Had him sign face to face. Called [facility] health, per 's selection. Fiona Katya, has Medicare/[place]. Faxed order and face to face. P: Patient to discharge home today, and will receive home health services for physical and occupational therapy. Nazia Maguire RN/Paint Line Production Supervisor
--- NOTE | 2018-01-10 14:40 | PC.NURSE ---
Discharge: Feels ready for d/c home. Seen by PT and cleared by them, will be getting home PT. Seen by md this am and questions were answered then by him. Spouse feels ready for d/c home. Reviewed d/c instructions w/patient and spouse. New rx called to their pharmacy. Questions answered. Pt d/c home via auto w/spouse.
[2018-01-17 22:24] LABS: Acetylcholine Rec Blocking AB <15 (<15)
== END 2018-01-10 14:30 | disposition home health service (06) ==
LOC: ED 12:33 → AC 12:34
PROVIDERS: Admitting Provider Internal Medicine; Emergency Provider Emergency Medicine; PCP Internal Medicine; Visit Provider Internal Medicine
DX: R29.818 Other symptoms and signs involving the nervous system (principal); R53.1 Weakness; I48.0 Paroxysmal atrial fibrillation; D50.9 Iron deficiency anemia, unspecified; I10 Essential (primary) hypertension; K21.9 Gastro-esophageal reflux disease without esophagitis; R41.0 Disorientation, unspecified
CPT/HCPCS: 36415; 70450; 70544; 70553; 80048; 81003; 81015; 82140; 83519; 85025; 85610; 85730; 87077; 87086; 87186; 93005; 93010; 93880; 97162; 97530; 99219; 99225; 99283; 99285; 99291; G0378; A9579; J1650

== ENCOUNTER → 2018-02-21 14:44 | Outpatient (CLI) | payer OTHER, SELFPAY ==
[2018-01-09 14:13] VITALS: BMI 33.3
[2018-02-21 15:34] LABS: Hematocrit 42.3 % (36-46); Hemoglobin 13.7 g/dL (12.0-16.0); Mean Corpuscular HGB Conc 32.4 % (30-36); Mean Corpuscular Hemoglobin 29.5 PG (26-34); Mean Corpuscular Volume 91.1 fL (80-100); Platelet Count 150 X10^3/uL (150-400); Red Blood Cell Count 4.64 X10^6/uL (4.0-5.2); Red Cell Distribution Width 14.4 % (11.6-14.8); White Blood Cell Count 7.2 X10^3/uL (4.5-11.0)
[2018-02-21 16:43] LABS: HEMOLYSIS < 15 (0-50); Iron 85 ug/dL (37-170)
[2018-02-21 16:52] LABS: Transferrin 202 mg/dL (206-381)
[2018-02-21 16:54] LABS: Percent Iron Saturation 32 % (15-50); Total Iron Binding Capacity 266 ug/dL (265-497)
== END ==
PROVIDERS: PCP Internal Medicine; Visit Provider Internal Medicine
DX: D50.8 Other iron deficiency anemias (principal)
CPT/HCPCS: 36415; 83540; 83550; 85027

== ENCOUNTER → 2018-03-30 15:54 | Outpatient (CLI) | payer OTHER, SELFPAY ==
[2018-01-09 14:13] VITALS: BMI 33.3
== END ==
PROVIDERS: PCP Internal Medicine; Visit Provider Specialist
DX: N39.46 Mixed incontinence (principal)
CPT/HCPCS: 87077; 87086; 87186

== ENCOUNTER 2018-04-13 15:05 | Emergency (ER) | payer OTHER, SELFPAY ==
[2018-01-09 14:13] VITALS: BMI 33.3
[2018-04-13 15:14] VITALS: BP 123/77; PULSE 63; RESP 15; TEMP 37.2; O2SAT 100; BMI 32.4
--- NOTE | 2018-04-13 15:23 | DI.CT.S_ITS ---
PROCEDURE: CT HEAD/BRAIN WO CON INDICATIONS: head injury,blood thinners TECHNIQUE: Noncontrast 4.5 mm thick angled axial sections acquired from the foramen magnum to the vertex, with coronal and sagittal reformats. For radiation dose reduction, the following was used: automated exposure control, adjustment of mA and/or kV according to patient size. COMPARISON: [facility], MR, STROKE PROTOCOL A, 12/25/2007, 10:51. [facility], CT, CT HEAD/BRAIN WO CON, 01/09/2018, 11:03. FINDINGS: Image quality: Excellent. CSF spaces: Basal cisterns are patent. No extra-axial fluid collections. The ventricles are symmetric in size and shape. Brain: No intracranial bleeds or new masses. At the posterior right occipital lobe contiguous with the tentorium laterally there is a faintly calcified ovoid structure with maximal craniocaudad dimension of 2 cm, previously present, and most consistent with a meningioma with reference to a prior MRI didn't include this portion of the brain in 2007. There is cerebral volume loss for age, with resultant ventricular and sulcal prominence. There are periventricular and deep white matter chronic small vessel ischemic changes. There is intracranial internal carotid artery atherosclerosis. Skull and face: Calvarium and visualized facial bones appear intact, without suspicious lesions. Sinuses: Visualized sinuses and mastoids are clear. IMPRESSION: No acute disease, no intracranial hemorrhage found. Faintly calcified meningioma at the tentorium laterally of the area of the posterior right occipital lobe. This was also present in 2008. Dictated by: Ken Gonzalez M.D. on 04/13/2018 at 15:46 Approved by: Ken Gonzalez M.D. on 04/13/2018 at 15:50
--- NOTE | 2018-04-13 15:49 | ED_ITS ---
HPI - Head Injury General Chief complaint: Head Injury Stated complaint: glf hit head on stool,says on blood thinners Time Seen by Provider: 04/13/18 15:49 Source: patient Mode of arrival: EMS Limitations: no limitations History of Present Illness HPI Narrative: Patient is an 82-year-old female on anticoagulation who stated that she slipped off a stool that she was standing on at home. She did fall and hit the back of her head. No loss of consciousness. No other injuries reported from the event. Was ambulatory afterwards. No interventions prior to arrival. Related Data Home Medications Medication Instructions Recorded Confirmed cyanocobalamin (vitamin B-12) 50 mcg PO BID #0 03/05/11 03/23/18 [Vitamin B-12] [VITAMIN D] 1 cap PO BID #0 04/20/17 03/23/18 metoprolol succinate [Toprol XL] 50 mg PO QAM #0 06/27/17 04/13/18 furosemide [Lasix] 20 mg PO DAILY PRN 08/29/17 03/23/18 omega-3 fatty acids-fish oil [Fish 500 mg QAM 08/29/17 03/23/18 Oil] Wheelchair: Manual Lightweight 1 ea MISCELLANEOUS DIRECTED 01/09/18 03/23/18 citalopram 20 mg PO DAILY 04/13/18 04/13/18 metoprolol succinate 75 mg PO QPM 04/13/18 04/13/18 pantoprazole 40 mg PO BID 04/13/18 04/13/18 Previous Rx's Medication Instructions Recorded solifenacin 10 mg tablet 10 mg PO HS #90 tab 11/28/17 mirabegron ER 50 mg 50 mg PO DAILY #90 tab 12/26/17 tablet,extended release 24 hr triamcinolone acetonide 0.025 % 1 applictn TOP TID PRN #80 gram 01/03/18 topical cream dabigatran etexilate 150 mg capsule 150 mg PO BID #60 cap 01/12/18 trimethoprim 100 mg tablet 100 mg PO BEDTIME #30 tab 01/23/18 sulfamethoxazole 800 1 tab PO BID #14 tab 01/27/18 mg-trimethoprim 160 mg tablet gabapentin 600 mg tablet 600 mg PO QIDP PRN #120 tab 01/30/18 folic acid 1 mg tablet 2 mg PO BID #360 tab 02/21/18 oxycodone 10 mg tablet 10 - 20 mg PO Q4HP PRN #150 tab 04/10/18 Allergies Allergy/AdvReac Type Severity Reaction Status Date / Time meloxicam [MELOXICAM] AdvReac Mild bloody Verified 04/13/18 15:14 dark stool Review of Systems Constitutional Denies fatigue, Denies frequent falls and Denies headache(s) Eyes Denies blurry vision and Denies diplopia ENT Ears, Nose, Mouth, and Throat: Denies vertigo, Denies dizziness and Denies headache(s) Cardiovascular Denies chest pain, Denies palpitations and Denies dyspnea Respiratory Denies dyspnea Gastrointestinal Gastrointestinal: Denies abdominal pain, Denies nausea and Denies vomiting Genitourinary Denies dysuria Musculoskeletal Denies back pain, Denies myalgias, Denies arthralgias and Denies limited range of motion Integumentary/Breasts Denies lesions and Denies rash Neurologic Denies behavioral changes, Denies confusion, Denies vertigo, Denies dizziness, Denies frequent falls and Denies headache(s) Psychiatric Denies behavioral changes and Denies confusion Endocrine Denies fatigue and Denies palpitations Hematologic/Lymphatic Reports easy bleeding PFSH Social History marital status: number of children: 1 household members: spouse lives independently: Yes caregiver/support person: No housing: house pets and animals: Yes education level: college occupational status: other (Retired) current occupational exposures/hazards: No 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: [employer] travel history: over 6 months ago ([employer]ots of Travels.) leisure activities: reading and other (Watch TV, Movies, Cooking) Smoking Status: Never smoker Tobacco: How many years used: 0 quit status: quit date established (Never Started) second hand exposure: No alcohol intake: never substance use type: marijuana (In the past) Exam Initial Vital Signs Initial Vital Signs: Vital Signs Temperature 98.9 F 04/13/18 15:14 Pulse Rate 63 04/13/18 15:14 Respiratory Rate 15 04/13/18 15:14 Blood Pressure 123/77 04/13/18 15:14 Pulse Oximetry 100 04/13/18 15:14 Const General: cooperative, healthy appearing, comfortable, well developed, well groomed and No acute distress Orientation: alert, awake and oriented x3 HENMT Head: normal to inspection, normocephalic and atraumatic Chest Chest: normal inspection of the chest Resp Effort & Inspection: normal respiratory effort Auscultation: clear to auscultation bilaterally Cardio Rate: regular rate Back/Spine/Pelvis Cervical Spine: cervical muscular tenderness, No cervical spinal tenderness, No step off deformity and No cervical ROM abnormal Skin Rashes: no rashes Wounds: no wounds Neuro General: alert, awake and oriented x3 Cranial Nerves: CN's II-XI intact bilaterally Cognition: normal cognition Speech: speech normal Extrem General: normal to inspection, full ROM, capillary refill normal and No edema Psych Appearance: grossly normal and well kempt Course Orders Ordered: ED Orders 04/13/18 15:23 CT head/brain wo con Stat Vital Signs - 8 hr 04/13/18 15:14 04/13/18 16:37 04/13/18 16:44 Temperature 98.9 F Pulse Rate 63 75 75 Respiratory Rate 15 16 20 Blood Pressure 123/77 125/90 Pulse Oximetry 100 100 95 MDM - Head Injury Imaging Data CT scan - head: Radiologist's impression: PROCEDURE: CT HEAD/BRAIN WO CON INDICATIONS: head injury,blood thinners TECHNIQUE: Noncontrast 4.5 mm thick angled axial sections acquired from the foramen magnum to the vertex, with coronal and sagittal reformats. For radiation dose reduction, the following was used: automated exposure control, adjustment of mA and/or kV according to patient size. COMPARISON: [facility], MR, STROKE PROTOCOL A, 12/25/2007, 10:51. [facility], CT, CT HEAD/BRAIN WO CON, 01/09/2018, 11:03. FINDINGS: Image quality: Excellent. CSF spaces: Basal cisterns are patent. No extra-axial fluid collections. The ventricles are symmetric in size and shape. Brain: No intracranial bleeds or new masses. At the posterior right occipital lobe contiguous with the tentorium laterally there is a faintly calcified ovoid structure with maximal craniocaudad dimension of 2 cm, previously present, and most consistent with a meningioma with reference to a prior MRI didn't include this portion of the brain in 2007. There is cerebral volume loss for age, with resultant ventricular and sulcal prominence. There are periventricular and deep white matter chronic small vessel ischemic changes. There is intracranial internal carotid artery atherosclerosis. Skull and face: Calvarium and visualized facial bones appear intact, without suspicious lesions. Sinuses: Visualized sinuses and mastoids are clear. IMPRESSION: No acute disease, no intracranial hemorrhage found. Faintly calcified meningioma at the tentorium laterally of the area of the posterior right occipital lobe. This was also present in 2008. Dictated by: Ken Gonzalez M.D. on 04/13/2018 at 15:46 Approved by: Ken Gonzalez M.D. on 04/13/2018 at 15:50 [facility] Narrative Medical decision making narrative: Patient was initially classified as a modified trauma secondary to a fall with hitting her head on anticoagulation. Her cervical spine was cleared by nexus criteria. Head CT shows no signs of bleed. Her head CT was performed before any blood was drawn. I did not feel the need to draw all coagulation studies on her given her negative head CT. There was no other findings found on her physical exam. She did ambulate around the emergency department that any problems. Hold on further workup for now. Patient was given return precautions. She expressed understanding and agreement plan. Discharge Plan Departure Patient Disposition: Home Clinical Impression: Fall, Closed head injury Discharge Date/Time: 04/13/18 16:44 Interventions: ED Discharge Assessment Last Done: 04/13/18 16:44 Instructions: How to Prevent Falls Activity Restrictions/Additional Instructions: call your primary care doctor for follow-up. Continue all of your medications. Return to the emergency department for any new or worsening symptoms Prescriptions: No Action cyanocobalamin (vitamin B-12) [Vitamin B-12] 50 MCG tablet 50 mcg PO BID Qty: 0 RF: 0 [VITAMIN D] 1 cap PO BID Qty: 0 RF: 0 metoprolol succinate [Toprol XL] 50 MG tablet extended release 24 hr 50 mg PO QAM Qty: 0 RF: 0 solifenacin [Vesicare] 10 mg tablet 10 mg PO HS Qty: 90 RF: 3 mirabegron [Myrbetriq] 50 mg tablet extended release 24 hr 50 mg PO DAILY Qty: 90 RF: 3 dabigatran etexilate 150 mg capsule 150 mg PO BID Qty: 60 RF: 6 sulfamethoxazole-trimethoprim [Bactrim DS] 800-160 mg tablet 1 tab PO BID Qty: 14 RF: 0 gabapentin [Neurontin] 600 mg tablet 600 mg PO QIDP PRN (Reason: pain) Qty: 120 RF: 1 oxycodone 10 mg tablet 10 - 20 mg PO Q4HP PRN (Reason: pain) Qty: 150 RF: 0 trimethoprim 100 mg tablet 100 mg PO BEDTIME Qty: 30 RF: 2 folic acid 1 mg tablet 2 mg PO BID Qty: 360 RF: 3 triamcinolone acetonide 0.025 % cream 1 applictn TOP TID PRN (Reason: rash) Qty: 80 RF: 3 metoprolol succinate 50 mg Tablet Extended Release 24 Hr 75 mg PO QPM RF: 0 citalopram 10 MG tablet 20 mg PO DAILY RF: 0 pantoprazole 40 mg tablet,delayed release (DR/EC) 40 mg PO BID RF: 0 furosemide [Lasix] 20 mg Tablet 20 mg PO DAILY PRN (Reason: Edema) RF: 0 omega-3 fatty acids-fish oil [Fish Oil] 300-500 mg Capsule 500 mg QAM RF: 0 Wheelchair: Manual Lightweight 1 ea miscellaneous DIRECTED RF: 0
[2018-04-13 16:37] VITALS: PULSE 75; RESP 16; O2SAT 100
[2018-04-13 16:44] VITALS: BP 125/90; PULSE 75; RESP 20; O2SAT 95
== END 2018-04-13 16:44 | disposition home or self-care (01) ==
PROVIDERS: Emergency Provider Emergency Medicine; PCP Internal Medicine
DX: S09.90XA Unspecified injury of head, initial encounter (principal); W19.XXXA Unspecified fall, initial encounter
CPT/HCPCS: 70450; 99283

== ENCOUNTER 2018-05-29 09:57 | Emergency (ER) | payer OTHER, SELFPAY ==
[2018-01-09 14:13] VITALS: BMI 33.3
--- NOTE | 2018-05-29 11:09 | ED.EXTPRO ---
HPI - Extremity Problem General Chief complaint: Extremity Problem,Nontraumatic Stated complaint: POSSIBLE BLOOD CLOT IN LEFT LEG Time Seen by Provider: 05/29/18 11:08 Source: patient Mode of arrival: ambulatory Limitations: no limitations History of Present Illness HPI Narrative: Patient is an 82-year-old female who presents with bilateral leg pain. He is worried that she may have a blood clot in her left leg. She has no prior history of DVT. She says her left leg is definitely more swollen and red that has been. It has been ongoing for the last 3 days. She is followed by Oncology for iron deficiency anemia but no known cancer. She denies any recent trips or car rides. He has no fever or chills. She has not had any fever MD Complaint: extremity pain and extremity swelling Onset (ago): day(s) (3) Location: left Related Data Home Medications Medication Instructions Recorded Confirmed Vitamin B-12 50 mcg PO BID #0 03/05/11 05/29/18 [VITAMIN D] 1 cap PO BID #0 04/20/17 05/29/18 metoprolol succinate [Toprol XL] 50 mg PO QAM #0 06/27/17 05/29/18 furosemide [Lasix] 20 mg PO DAILY PRN 08/29/17 05/29/18 Wheelchair: Manual Lightweight 1 ea MISCELLANEOUS DIRECTED 01/09/18 05/29/18 citalopram 20 mg PO DAILY 04/13/18 05/29/18 metoprolol succinate 75 mg PO QPM 04/13/18 05/29/18 Vesicare 10 mg PO BEDTIME 05/29/18 05/29/18 Previous Rx's Medication Instructions Recorded mirabegron ER 50 mg 50 mg PO DAILY #90 tab 12/26/17 tablet,extended release 24 hr triamcinolone acetonide 0.025 % 1 applictn TOP TID PRN #80 gram 01/03/18 topical cream dabigatran etexilate 150 mg capsule 150 mg PO BID #60 cap 01/12/18 folic acid 1 mg tablet 2 mg PO BID #360 tab 02/21/18 trimethoprim 100 mg tablet 100 mg PO BEDTIME #30 tab 04/17/18 gabapentin 600 mg tablet 600 mg PO QIDP PRN #120 tab 05/08/18 oxycodone 10 mg tablet 10 - 20 mg PO Q4HP PRN #150 tab 05/23/18 cephalexin 500 mg PO TID #21 tab 05/29/18 pantoprazole 40 mg tablet,delayed 40 mg PO BID #60 tab 05/29/18 release Allergies Allergy/AdvReac Type Severity Reaction Status Date / Time meloxicam [MELOXICAM] AdvReac Mild bloody Verified 05/11/18 14:11 dark stool Review of Systems Review of Systems ROS Unobtainable: All systems reviewed & are unremarkable except as noted in HPI and below Constitutional Denies chills, Denies fever(s), Denies lethargy and Denies weakness Cardiovascular Denies chest pain, Denies irregular heart rhythm, Denies lightheadedness, Denies palpitations, Denies dyspnea, Denies dyspnea on exertion and Denies orthopnea Respiratory Denies cough, Denies dyspnea, Denies dyspnea on exertion and Denies wheezing Gastrointestinal Gastrointestinal: Denies abdominal pain, Denies change in bowel habits, Denies diarrhea, Denies nausea and Denies vomiting Musculoskeletal Reports as per HPI, Denies back pain, Denies muscle weakness, Denies numbness and Denies tingling Integumentary/Breasts Reports erythema Neurologic Denies numbness, Denies tingling and Denies weakness Endocrine Denies palpitations Allergic/Immunologic Denies wheezing [facility] Medical History Asthma (Chronic) Other iron deficiency anemia (Chronic 12/02/14) Paroxysmal atrial fibrillation (Chronic) Low back pain (Chronic 10/02/13) Mixed hyperlipidemia (Chronic) Essential hypertension (Chronic) Cardiac dysrhythmia, unspecified (Chronic) Gastroesophageal reflux disease without esophagitis (Chronic) 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) Peripheral edema (Chronic 11/01/16) Surgical History Anesthesia (Resolved) History of cholecystectomy (Resolved) History of gastric bypass (~03/2004) S/P total abdominal hysterectomy and bilateral salpingo-oophorectomy Status post appendectomy Status post discectomy Social History marital status: number of children: 1 household members: spouse lives independently: Yes caregiver/support person: No housing: house pets and animals: Yes education level: college occupational status: other (Retired) current occupational exposures/hazards: No 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: [employer] travel history: over 6 months ago ([place] Travels.) leisure activities: reading and other (Watch TV, Movies, Cooking) Smoking Status: Never smoker Tobacco: How many years used: 0 quit status: quit date established (Never Started) second hand exposure: No alcohol intake: never substance use type: marijuana (In the past) Social History marital status: number of children: 1 household members: spouse lives independently: Yes caregiver/support person: No housing: house pets and animals: Yes education level: college occupational status: other (Retired) current occupational exposures/hazards: No 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: [employer] travel history: over 6 months ago ([place]ots of Travels.) leisure activities: reading and other (Watch TV, Movies, Cooking) Smoking Status: Never smoker Tobacco: How many years used: 0 quit status: quit date established (Never Started) second hand exposure: No alcohol intake: never substance use type: marijuana (In the past) Exam Initial Vital Signs Initial Vital Signs: Vital Signs Temperature 98 F 05/29/18 11:24 Pulse Rate 60 05/29/18 11:24 Respiratory Rate 14 05/29/18 11:24 Blood Pressure 100/72 05/29/18 11:24 Pulse Oximetry 96 05/29/18 11:24 GENERAL: Alert pleasant well-appearing female HEENT: Head atraumatic,EOMI, pupils reactive, CARDIOVASCULAR: Regular rate and rhythm without murmurs, rubs or gallops. RESPIRATORY: Breath sounds equal bilaterally, no wheezes rales or rhonchi. ABDOMEN: Soft, nontender. Normoactive bowel sounds all 4 quadrants. No guarding or rebound. : No CVA tenderness EXTREMITIES: Normal range of motion, no clubbing or edema. Neurovascularly intact NEUROLOGICAL: Alert and oriented x4.Normal gait and speech. SKIN: Left leg minimal erythema slight swelling. Erythema seem a scattered, non circumferential but does not go beyond mid leg. Definitely before knee. Course Orders Ordered: ED Orders 05/29/18 11:15 Basic Metabolic Panel Stat Complete Blood Count AUTO DIFF Stat 05/29/18 11:21 periph venous low extrem lt Stat Vital Signs - 8 hr 05/29/18 11:24 05/29/18 13:07 Temperature 98 F Pulse Rate 60 60 Respiratory Rate 14 18 Blood Pressure 100/72 130/76 Pulse Oximetry 96 MDM - Extremity (Nontraumatic) Lab Data Result diagrams: 05/29/18 11:15 05/29/18 11:15 Lab Results 05/29/18 05/29/18 Range/Units 11:15 11:15 WBC 6.4 (4.5-11.0) X10^3/uL RBC 4.61 (4.0-5.2) X10^6/uL Hgb 13.7 (12.0-16.0) g/dL Hct 42.2 (36-46) % MCV 91.6 (80-100) fL MCH 29.8 (26-34) PG MCHC 32.5 (30-36) % RDW 14.1 (11.6-14.8) % Plt Count 140 L (150-400) X10^3/uL Neut % (Auto) 52.7 (50-75) % Lymph % (Auto) 29.9 (25-40) % [place] % (Auto) 13.0 (3-14) % Eos % (Auto) 3.7 (2-4) % Baso % (Auto) 0.7 (0-2) % Neut # (Auto) 3400 (7334-2282) /uL Lymph # (Auto) 1900 (6076-2023) /uL [place] # (Auto) 800 (0-900) /uL Eos # (Auto) 200 (0-450) /uL Baso # (Auto) 0 (0-100) /uL Sodium 138 (137-145) mmol/L Potassium 4.4 (3.4-5.1) mmol/L Chloride 99 (98-107) mmol/L Carbon Dioxide 33 H (22-32) mmol/L BUN 17 (7-17) mg/dL Creatinine 0.70 (0.52-1.04) mg/dL Estimated GFR > 60.0 (>60) mL/min BUN/Creatinine Ratio 24.3 H (6-22) Glucose 81 (80-110) mg/dL Calcium 9.0 (8.4-10.2) mg/dL Imaging Data Venous US: Radiologist's impression: PROCEDURE: US PERIPH VENOUS LOW EXTREM LT INDICATIONS: EDEMA, PAIN, ERYTHEMA TECHNIQUE: Real-time imaging, as well as color and pulse Doppler interrogation, were performed of the lower extremity deep veins from the inguinal ligament to the popliteal fossa. COMPARISON: [facility], [place], PVE UNILATERAL LEFT, 07/29/2016, 17:48. [facility], , PVE UNILATERAL LEFT, 11/13/2015, 15:07. FINDINGS: The deep veins are normally compressible, and free of intraluminal thrombus. Color and pulse Doppler demonstrate normal phasic intraluminal flow. There is normal augmentation response to distal compression maneuver. IMPRESSION: 1. No evidence of deep venous thrombosis in the left lower extremity. Dictated by: Paul Stafford M.D. on 05/29/2018 at 11:[address] [facility] Narrative Medical decision making narrative: At this time patient has mild erythema no signs of sepsis. At this time recommend outpatient antibiotics close follow-up. Discharge Plan Departure Patient Disposition: Home Clinical Impression: Cellulitis and abscess of left leg Discharge Date/Time: 05/29/18 13:08 Interventions: ED Discharge Assessment Last Done: 05/29/18 13:07 Instructions: DI for Cellulitis -- Adult Activity Restrictions/Additional Instructions: *You have been diagnosed with cellulitis left leg *What to do: Monitor redness, at this time no indication for hospitalization *Continue to take medications as directed -->safeway in [place] Keflex 500 mg 3 times a day *Follow up with your primary care provider in 2-3 days *Return to ER if you should have worsening redness, fever, confusion or any new, worsening or concerning symptoms Prescriptions: New cephalexin 500 mg tablet 500 mg PO TID Qty: 21 RF: 0 No Action Vitamin B-12 50 MCG tablet 50 mcg PO BID Qty: 0 RF: 0 [VITAMIN D] 1 cap PO BID Qty: 0 RF: 0 metoprolol succinate [Toprol XL] 50 MG tablet extended release 24 hr 50 mg PO QAM Qty: 0 RF: 0 mirabegron [Myrbetriq] 50 mg tablet extended release 24 hr 50 mg PO DAILY Qty: 90 RF: 3 dabigatran etexilate 150 mg capsule 150 mg PO BID Qty: 60 RF: 6 trimethoprim 100 mg tablet 100 mg PO BEDTIME Qty: 30 RF: 2 gabapentin [Neurontin] 600 mg tablet 600 mg PO QIDP PRN (Reason: pain) Qty: 120 RF: 1 oxycodone 10 mg tablet 10 - 20 mg PO Q4HP PRN (Reason: pain) Qty: 150 RF: 0 pantoprazole 40 mg tablet,delayed release (DR/EC) 40 mg PO BID Qty: 60 RF: 3 folic acid 1 mg tablet 2 mg PO BID Qty: 360 RF: 3 triamcinolone acetonide 0.025 % cream 1 applictn TOP TID PRN (Reason: rash) Qty: 80 RF: 3 metoprolol succinate 50 mg Tablet Extended Release 24 Hr 75 mg PO QPM RF: 0 citalopram 10 MG tablet 20 mg PO DAILY RF: 0 Vesicare 10 mg tablet 10 mg PO BEDTIME RF: 0 furosemide [Lasix] 20 mg Tablet 20 mg PO DAILY PRN (Reason: Edema) RF: 0 Wheelchair: Manual Lightweight 1 ea miscellaneous DIRECTED RF: 0 Referrals: Oj Bland MD [Primary Care Provider] -
--- NOTE | 2018-05-29 11:21 | DI.US.S_ITS ---
PROCEDURE: US PERIPH VENOUS LOW EXTREM LT INDICATIONS: EDEMA, PAIN, ERYTHEMA TECHNIQUE: Real-time imaging, as well as color and pulse Doppler interrogation, were performed of the lower extremity deep veins from the inguinal ligament to the popliteal fossa. COMPARISON: [facility], , PVE UNILATERAL LEFT, 07/29/2016, 17:48. [facility], , PVE UNILATERAL LEFT, 11/13/2015, 15:07. FINDINGS: The deep veins are normally compressible, and free of intraluminal thrombus. Color and pulse Doppler demonstrate normal phasic intraluminal flow. There is normal augmentation response to distal compression maneuver. IMPRESSION: 1. No evidence of deep venous thrombosis in the left lower extremity. Dictated by: Paul Stafford M.D. on 05/29/2018 at 11:02 Approved by: Paul Stafford M.D. on 05/29/2018 at 11:03
[2018-05-29 11:24] VITALS: BP 100/72; PULSE 60; RESP 14; TEMP 36.6; O2SAT 96
--- NOTE | 2018-05-29 11:39 | PC.NURSE ---
Unable to doppler pulse in left foot but could palpate right foot pedal pulse without difficulty. Then Makenzie from [place] showed up for a doppler study.
[2018-05-29 11:57] LABS: Add Manual Diff / Slide Review NO; Basophils Absolute Auto 0 /uL (0-100); Basophils Percent Auto 0.7 % (0-2); Eosinophils Absolute Auto 200 /uL (0-450); Eosinophils Percent Auto 3.7 % (2-4); Hematocrit 42.2 % (36-46); Hemoglobin 13.7 g/dL (12.0-16.0); Lymphocytes Absolute Auto 1900 /uL (1100-4500); Lymphocytes Percent Auto 29.9 % (25-40); Mean Corpuscular HGB Conc 32.5 % (30-36); Mean Corpuscular Hemoglobin 29.8 PG (26-34); Mean Corpuscular Volume 91.6 fL (80-100); Monocytes Absolute Auto 800 /uL (0-900); Neutrophils Absolute Auto 3400 /uL (1500-7000); Neutrophils Percent Auto 52.7 % (50-75); Platelet Count 140 X10^3/uL (150-400); Red Blood Cell Count 4.61 X10^6/uL (4.0-5.2); Red Cell Distribution Width 14.1 % (11.6-14.8); White Blood Cell Count 6.4 X10^3/uL (4.5-11.0)
[2018-05-29 12:08] LABS: BUN Creatinine Ratio 24.3 (6-22); Blood Urea Nitrogen 17 mg/dL (7-17); Carbon Dioxide 33 mmol/L (22-32); Chloride 99 mmol/L (98-107); Estimated Glomerular Filt Rate > 60.0 mL/min (>60); Glucose 81 mg/dL (80-110); HEMOLYSIS < 15 (0-50); Potassium 4.4 mmol/L (3.4-5.1); Sodium 138 mmol/L (137-145)
[2018-05-29 13:07] VITALS: BP 130/76; PULSE 60; RESP 18
== END 2018-05-29 13:08 | disposition home or self-care (01) ==
PROVIDERS: Emergency Provider Emergency Medicine; Family Provider Internal Medicine; PCP Internal Medicine
DX: L03.116 Cellulitis of left lower limb (principal); L02.416 Cutaneous abscess of left lower limb
CPT/HCPCS: 36415; 80048; 85025; 93971; 99282; 99284

== ENCOUNTER → 2018-08-17 12:14 | Outpatient (CLI) | payer OTHER, SELFPAY ==
[2018-01-09 14:13] VITALS: BMI 33.3
== END ==
PROVIDERS: Family Provider Internal Medicine; PCP Internal Medicine; Visit Provider Specialist
DX: N39.46 Mixed incontinence (principal); R30.0 Dysuria
CPT/HCPCS: 87077; 87086; 87186

== ENCOUNTER 2018-09-23 10:16 | Emergency (ER) | payer OTHER, SELFPAY ==
[2018-01-09 14:13] VITALS: BMI 33.3
--- NOTE | 2018-09-23 10:22 | ED.FALL ---
HPI - Fall General Chief Complaint: Head Injury Stated Complaint: GLF/ Hit head on blood thinners Time Seen by Provider: 09/23/18 10:22 Source: EMS Limitations: no limitations History of Present Illness HPI Narrative: Patient is an 83-year-old female on Pradaxa for atrial fibrillation presenting after ground level fall. She was getting up out of bed when she says her left knee gave out on her and she fell backwards hitting her head. She did not lose consciousness she has no laceration. She says her knee gives out on her often. She is able to bend and flex it. She has no hip pain no numbness or tingling. She was not dizzy lightheaded or having heart palpitations prior to her fall. She says she gets around by walker and has a gait belt. Unknown if she falls frequently. MD complaint: fall Related Data Home Medications Medication Instructions Recorded Confirmed Vitamin B-12 50 mcg PO BID #0 03/05/11 08/17/18 [VITAMIN D] 1 cap PO BID #0 04/20/17 08/17/18 metoprolol succinate [Toprol XL] 50 mg PO QAM #0 06/27/17 08/17/18 Wheelchair: Manual Lightweight 1 ea MISCELLANEOUS DIRECTED 01/09/18 08/17/18 metoprolol succinate 75 mg PO QPM 04/13/18 08/17/18 Vesicare 10 mg PO BEDTIME 05/29/18 08/17/18 Previous Rx's Medication Instructions Recorded mirabegron ER 50 mg 50 mg PO DAILY #90 tab 12/26/17 tablet,extended release 24 hr triamcinolone acetonide 0.025 % 1 applictn TOP TID PRN #80 gram 01/03/18 topical cream folic acid 1 mg tablet 2 mg PO BID #360 tab 02/21/18 citalopram 10 mg tablet 20 mg PO DAILY #90 tab 07/14/18 dabigatran etexilate 150 mg capsule 150 mg PO BID #60 cap 08/18/18 furosemide 20 mg tablet 20 mg PO DAILY #30 tab 08/24/18 trimethoprim 100 mg tablet 100 mg PO BEDTIME #90 tab 08/25/18 gabapentin 600 mg tablet 600 mg PO QIDP PRN #120 tab 09/08/18 oxycodone 10 mg tablet 10 - 20 mg PO Q4HP PRN #150 tab 09/14/18 pantoprazole 40 mg tablet,delayed 40 mg PO BID #60 tab 09/22/18 release Allergies Allergy/AdvReac Type Severity Reaction Status Date / Time meloxicam [MELOXICAM] AdvReac Mild bloody Verified 08/17/18 12:05 dark stool Review of Systems Review of Systems ROS Unobtainable: All systems reviewed & are unremarkable except as noted in HPI and below Constitutional Denies chills, Denies fever(s), Denies lethargy and Denies weakness Eyes Denies blurry vision, Denies change in vision, Denies diplopia, Denies eye discharge, Denies irritation and Denies loss of vision ENT Ears, Nose, Mouth, and Throat: Denies change in voice, Denies neck pain and Denies sore throat Cardiovascular Denies chest pain, Reports irregular heart rhythm, Denies lightheadedness, Denies dyspnea and Denies dyspnea on exertion Respiratory Denies cough, Denies dyspnea, Denies dyspnea on exertion and Denies wheezing Gastrointestinal Gastrointestinal: Denies abdominal pain, Denies change in bowel habits, Denies diarrhea, Denies nausea and Denies vomiting Genitourinary Denies hematuria, Denies flank pain, Denies urinary incontinence and Denies urinary urgency Musculoskeletal Denies neck pain Integumentary/Breasts Denies pruritus, Denies erythema, Denies rash and Denies wounds Neurologic Denies loss of vision and Denies weakness Allergic/Immunologic Denies wheezing Exam Initial Vital Signs Initial Vital Signs: Vital Signs Temperature 98.5 F 09/23/18 10:25 Pulse Rate 84 09/23/18 10:25 Respiratory Rate 16 09/23/18 10:25 Blood Pressure 109/65 09/23/18 10:25 Pulse Oximetry 96 09/23/18 10:25 GENERAL: Alert overweight female no acute distress a and O x3 HEENT: Head small contusion noted on the superior scalp area no lacerations no depressions no crepitation. EOMI, LILIA Neck is supple no vertebral tenderness no step-off CARDIOVASCULAR: Irregularly irregular no murmurs RESPIRATORY: Breath sounds equal bilaterally, no wheezes rales or rhonchi. ABDOMEN: Soft, nontender. Normoactive bowel sounds all 4 quadrants. No guarding or rebound. EXTREMITIES: Normal range of motion, no clubbing or edema. Neurovascularly intact. Pelvis is stable no pain with either hip with internal and external rotation. She is able to flex and extend her left knee peripheral pulses intact. NEUROLOGICAL: Alert and oriented x4.Normal gait and speech. Cranial nerves II through XII grossly intact. Service Order Expediter strength equal bilaterally able to push and pull equally. SKIN: Warm, dry, no laceration, no petechiae, no rashes or lesions. 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) Peripheral edema (Chronic 11/01/16) Surgical History Anesthesia (Resolved) History of cholecystectomy (Resolved) History of gastric bypass (~03/2004) S/P total abdominal hysterectomy and bilateral salpingo-oophorectomy Status post appendectomy Status post discectomy Social History marital status: number of children: 1 household members: spouse lives independently: Yes caregiver/support person: No housing: house pets and animals: Yes education level: college occupational status: other (Retired) current occupational exposures/hazards: No 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[employer] travel history: over 6 months ago ([employer] Travel[employer].) leisure activities: reading and other (Watch TV, Movies, Cooking) Smoking Status: Never smoker Tobacco: How many years used: 0 quit status: quit date established (Never Started) second hand exposure: No alcohol intake: never substance use type: marijuana (In the past) Social History marital status: number of children: 1 household members: spouse lives independently: Yes caregiver/support person: No housing: house pets and animals: Yes education level: college occupational status: other (Retired) current occupational exposures/hazards: No 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[employer] travel history: over 6 months ago ([employer] Travel[employer].) leisure activities: reading and other (Watch TV, Movies, Cooking) Smoking Status: Never smoker Tobacco: How many years used: 0 quit status: quit date established (Never Started) second hand exposure: No alcohol intake: never substance use type: marijuana (In the past) Course Orders Ordered: ED Orders 09/23/18 10:31 CT head/brain wo con Stat Vital Signs - 8 hr 09/23/18 10:25 Temperature 98.5 F Pulse Rate 84 Respiratory Rate 16 Blood Pressure [Left Arm] 109/65 Pulse Oximetry 96 MDM - Fall Imaging Data CT scan - head: Radiologist's impression: PROCEDURE: CT HEAD/BRAIN WO CON INDICATIONS: fall on coumadin TECHNIQUE: Noncontrast 4.5 mm thick angled axial sections acquired from the foramen magnum to the vertex, with coronal and sagittal reformats. For radiation dose reduction, the following was used: automated exposure control, adjustment of mA and/or kV according to patient size. COMPARISON: [facility], CT, CT HEAD/BRAIN WO CON, 04/13/2018, 15:28. FINDINGS: Image quality: Diagnostic. CSF spaces: Basal cisterns are patent. No extra-axial fluid collections. Ventricles are normal in size and shape. Brain: No midline shift. No intracranial hemorrhage. There continues to be a partly calcified dural-based mass identified involving the right inferior occipital region along the tentorium, measuring up to 1.7 cm in diameter, which is similar to the previous exam. No additional parenchymal lesions are evident. Aponte-white matter interface is normal. Skull and face: Calvarium and visualized facial bones are intact, without suspicious lesions. Sinuses: Visualized sinuses and mastoids are clear. IMPRESSION: 1. No acute intracranial hemorrhage. 2. Unchanged meningioma overlying the right tentorium. Dictated by: Armani Carlisle M.D. on 09/23/2018 at 10:00 [facility] Narrative Medical decision making narrative: Patient has no other signs of injury. Head CT is stable meningioma is stable. No intracranial bleeding. Patient feels able to go home. Discharge Plan Departure Patient Disposition: Home Clinical Impression: Head injury Qualifiers: Encounter type: initial encounter Qualified Code(s): S09.90XA - Unspecified injury of head, initial encounter Discharge Date/Time: 09/23/18 11:57 Interventions: ED Discharge Assessment Last Done: 09/23/18 11:45 Activity Restrictions/Additional Instructions: *You have been diagnosed with closed head injury *What to do: You are on blood thinners which can still cause bleeding in her brain. However head CT today is no different from previous head CTs. You do have a known meningioma in your brain which remains unchanged *Continue to take medications as directed Please speak with your PCP in regards to continuing your anticoagulation. Frequent falls can put 2 at risk for bleeding *Follow up with your primary care provider in 2-3 days *Return to ER if you should have confusion, difficulty speaking, weakness, facial droop or any new, worsening or concerning symptoms Prescriptions: No Action Vitamin B-12 50 MCG tablet 50 mcg PO BID Qty: 0 RF: 0 [VITAMIN D] 1 cap PO BID Qty: 0 RF: 0 metoprolol succinate [Toprol XL] 50 MG tablet extended release 24 hr 50 mg PO QAM Qty: 0 RF: 0 mirabegron [Myrbetriq] 50 mg tablet extended release 24 hr 50 mg PO DAILY Qty: 90 RF: 3 citalopram 10 mg tablet 20 mg PO DAILY Qty: 90 RF: 3 dabigatran etexilate 150 mg capsule 150 mg PO BID Qty: 60 RF: 6 furosemide [Lasix] 20 mg tablet 20 mg PO DAILY Qty: 30 RF: 6 trimethoprim 100 mg tablet 100 mg PO BEDTIME Qty: 90 RF: 1 gabapentin [Neurontin] 600 mg tablet 600 mg PO QIDP PRN (Reason: pain) Qty: 120 RF: 11 oxycodone 10 mg tablet 10 - 20 mg PO Q4HP PRN (Reason: pain) Qty: 150 RF: 0 pantoprazole 40 mg tablet,delayed release (DR/EC) 40 mg PO BID Qty: 60 RF: 3 folic acid 1 mg tablet 2 mg PO BID Qty: 360 RF: 3 triamcinolone acetonide 0.025 % cream 1 applictn TOP TID PRN (Reason: rash) Qty: 80 RF: 3 metoprolol succinate 50 mg Tablet Extended Release 24 Hr 75 mg PO QPM RF: 0 Vesicare 10 mg tablet 10 mg PO BEDTIME RF: 0 Wheelchair: Manual Lightweight 1 ea miscellaneous DIRECTED RF: 0 Referrals: Oj Bland MD [Primary Care Provider] -
[2018-09-23 10:25] VITALS: BP 109/65; PULSE 84; RESP 16; TEMP 36.9; O2SAT 96
--- NOTE | 2018-09-23 10:31 | DI.CT.S_ITS ---
PROCEDURE: CT HEAD/BRAIN WO CON INDICATIONS: fall on coumadin TECHNIQUE: Noncontrast 4.5 mm thick angled axial sections acquired from the foramen magnum to the vertex, with coronal and sagittal reformats. For radiation dose reduction, the following was used: automated exposure control, adjustment of mA and/or kV according to patient size. COMPARISON: [facility], CT, CT HEAD/BRAIN WO CON, 04/13/2018, 15:28. FINDINGS: Image quality: Diagnostic. CSF spaces: Basal cisterns are patent. No extra-axial fluid collections. Ventricles are normal in size and shape. Brain: No midline shift. No intracranial hemorrhage. There continues to be a partly calcified dural-based mass identified involving the right inferior occipital region along the tentorium, measuring up to 1.7 cm in diameter, which is similar to the previous exam. No additional parenchymal lesions are evident. Aponte-white matter interface is normal. Skull and face: Calvarium and visualized facial bones are intact, without suspicious lesions. Sinuses: Visualized sinuses and mastoids are clear. IMPRESSION: 1. No acute intracranial hemorrhage. 2. Unchanged meningioma overlying the right tentorium. Dictated by: Armani Carlisle M.D. on 09/23/2018 at 10:00 Approved by: Armani Carlisle M.D. on 09/23/2018 at 10:03
--- NOTE | 2018-09-23 11:03 | PC.NURSE ---
Pt refusing q15 vitals, They already did them and I don't want to do anymore.
== END 2018-09-23 11:57 | disposition home or self-care (01) ==
PROVIDERS: Emergency Provider Emergency Medicine; PCP Internal Medicine
DX: S09.90XA Unspecified injury of head, initial encounter (principal); W06.XXXA Fall from bed, initial encounter; Z79.02 Long term (current) use of antithrombotics/antiplatelets
CPT/HCPCS: 70450; 99282; 99284

== ENCOUNTER 2018-10-02 17:01 | Emergency (ER) | payer OTHER, SELFPAY ==
[2018-01-09 14:13] VITALS: BMI 33.3
[2018-10-02 17:08] VITALS: BP 138/108; PULSE 80; RESP 22; TEMP 37.1; O2SAT 95
--- NOTE | 2018-10-02 17:32 | DI.RAD.S_ITS ---
PROCEDURE: XR CHEST 1V INDICATIONS: shortness of breath TECHNIQUE: One view of the chest was acquired. COMPARISON: [facility], CHEST 1 VIEW, 07/29/2016, 18:45. [facility], CHEST 2 VIEW, 05/24/2017, 15:05. FINDINGS: Surgical changes and devices: Postsurgical changes are redemonstrated within the lower cervical spine and right upper quadrant of the abdomen. Lungs and pleura: Lungs are clear. There is mild elevation of the left hemidiaphragm again noted. No pleural effusions or pneumothorax. Mediastinum: Mediastinal contours appear unchanged. Heart size is mildly enlarged. Bones and chest wall: No suspicious bony lesions. Overlying soft tissues appear unremarkable. IMPRESSION: 1. No acute cardiopulmonary disease. Dictated by: Paul Stafford M.D. on 10/02/2018 at 17:48 Approved by: Paul Stafford M.D. on 10/02/2018 at 17:50
--- NOTE | 2018-10-02 17:37 | ED.WEAKNESS ---
HPI - Weakness <Adela MooreELISA - Last Filed: 10/02/18 22:09> General Chief complaint: Weakness Stated complaint: General weakness Time Seen by Provider: 10/02/18 17:17 Source: patient and family Mode of arrival: ambulatory Limitations: no limitations History of Present Illness HPI Narrative: 83-year-old female who is currently on Pradaxa for atrial fibrillation and with a history of week knees that occasionally give out, presents emergency department today, complaining of increased weakness and fatigue. She states that this has started yesterday and she noticed it was more difficult to stand. Her had to use a gait belt and was unable to bear her weight completely because of the weakness. She complains of shortness of breath and that she had an irregular stool 2 days ago but has since then had a regular stool. She has also stated that she has diffuse abdominal pain. Patient reports she is unable to control her bowels or bladder occasionally but she states this has been going on for a over a year. Denies chest pain, numbness and tingling, saddle paresthesias, syncope, falls, head trauma, vomiting, diarrhea, dysuria, flank pain, or edema. Patient states she has been taking her medication as directed. Complaint: generalized weakness Onset (ago): day(s) Duration: constant Location: generalized Migration: none Relieving factors: none Exacerbating factors: none Related Data Home Medications Medication Instructions Recorded Confirmed Vitamin B-12 50 mcg PO BID #0 03/05/11 10/02/18 [VITAMIN D] 1 cap PO BID #0 04/20/17 10/02/18 Wheelchair: Manual Lightweight 1 ea MISCELLANEOUS DIRECTED 01/09/18 10/02/18 metoprolol succinate 75 mg PO QPM 04/13/18 10/02/18 solifenacin [Vesicare] 10 mg PO BEDTIME 05/29/18 10/02/18 metoprolol succinate [Toprol XL] 50 mg PO QAM 10/02/18 10/02/18 Previous Rx's Medication Instructions Recorded mirabegron ER 50 mg 50 mg PO DAILY #90 tab 12/26/17 tablet,extended release 24 hr triamcinolone acetonide 0.025 % 1 applictn TOP TID PRN #80 gram 01/03/18 topical cream folic acid 1 mg tablet 2 mg PO BID #360 tab 02/21/18 citalopram 10 mg tablet 20 mg PO DAILY #90 tab 07/14/18 dabigatran etexilate 150 mg capsule 150 mg PO BID #60 cap 08/18/18 furosemide 20 mg tablet 20 mg PO DAILY #30 tab 08/24/18 trimethoprim 100 mg tablet 100 mg PO BEDTIME #90 tab 08/25/18 gabapentin 600 mg tablet 600 mg PO QIDP PRN #120 tab 09/08/18 pantoprazole 40 mg tablet,delayed 40 mg PO BID #60 tab 09/22/18 release oxycodone 10 mg tablet 10 - 20 mg PO Q4HP PRN #150 tab 09/27/18 nitrofurantoin macrocrystal 100 mg PO QID 5 Days #20 cap 10/02/18 Allergies Allergy/AdvReac Type Severity Reaction Status Date / Time meloxicam [MELOXICAM] AdvReac Mild bloody Verified 09/29/18 11:23 dark stool Review of Systems <ELISA Goss - Last Filed: 10/02/18 22:09> Review of Systems REVIEW OF SYSTEMS: GENERAL: Denies fever, chills, malaise, or wt. loss. HENT: No head trauma, hearing loss, rhinorrhea, epistaxis, sinus pressure, sore throat, or dysphagia. EYES: No loss of vision, double vision, eye pain, or irritation. CARDIOVASCULAR: No chest pain, palpitations, edema, syncope, or orthopnea. RESPIRATORY: No shortness of breath, cough, or wheeze. GASTROINTESTINAL: Complains of nausea and abdominal pain, see HPI. GENITOURINARY: No flank pain, urinary incontinence, hesitancy, frequency, or dysuria. MUSCULOSKELETAL: No pain, weakness, or deformities. INTEGUMENTARY: No rash, lesions, or pruritus. NEURO: No numbness, tingling, memory loss, confusion, or headaches. PSYCH: No behavior or mood changes. ENDOCRINOLOGY: No hair loss of temperature intolerance. HEMATOLOGY: No easy bruising. LYMPHATIC: No lymphadenopathy. 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) Peripheral edema (Chronic 11/01/16) Surgical History Anesthesia (Resolved) History of cholecystectomy (Resolved) History of gastric bypass (~03/2004) S/P total abdominal hysterectomy and bilateral salpingo-oophorectomy Status post appendectomy Status post discectomy Social History marital status: number of children: 1 household members: spouse lives independently: Yes caregiver/support person: No housing: house pets and animals: Yes education level: college occupational status: other (Retired) current occupational exposures/hazards: No 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: [employer] travel history: over 6 months ago ([employer] Travel[employer].) leisure activities: reading and other (Watch TV, Movies, Cooking) Smoking Status: Never smoker Tobacco: How many years used: 0 quit status: quit date established (Never Started) second hand exposure: No alcohol intake: never substance use type: marijuana (In the past) Social History marital status: number of children: 1 household members: spouse lives independently: Yes caregiver/support person: No housing: house pets and animals: Yes education level: college occupational status: other (Retired) current occupational exposures/hazards: No 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: [employer] travel history: over 6 months ago ([employer] Travel[employer].) leisure activities: reading and other (Watch TV, Movies, Cooking) Smoking Status: Never smoker Tobacco: How many years used: 0 quit status: quit date established (Never Started) second hand exposure: No alcohol intake: never substance use type: marijuana (In the past) Exam <ELISA Goss - Last Filed: 10/02/18 22:09> Initial Vital Signs Initial Vital Signs: Vital Signs Temperature 98.7 F 10/02/18 17:08 Pulse Rate 80 10/02/18 17:08 Respiratory Rate 22 10/02/18 17:08 Blood Pressure 138/108 H 10/02/18 17:08 Pulse Oximetry 95 10/02/18 17:08 PHYSICAL EXAMINATION: GENERAL: Well groomed, alert, and cooperative Answers questions promptly and appropriately. Vital signs noted. is at bedside. HENT: Normocephalic, atraumatic. Oral mucosa is pink and moist, no caries or lesions present. Pharynx without erythema. EYES: PERRLA, EOMIs, conjunctiva pink, sclera white, no periorbital swelling. LYMPH: No lymphadenopathy. CARDIOVASCULAR: S1 and S2 sounds normal. Regular rate and rhythm, no murmurs, clicks, or bruits. No pedal edema. RESPIRATORY: Normal respiratory rate, trachea midline, airway patent. No stridor, nasal flaring or accessory muscle use. Lungs are clear in all germain without wheeze, rhonchi, or crackles. GASTROINTESTINAL: Bowel sounds normoactive. Abdomen is soft and non-tender. No organomegaly. MUSCULOSKELETAL: Patient was not able to ambulate, her norm per her was that she has decreased strength in her legs. However this was increased due to her weakness. Equal tone and mass bilaterally. EXTREMITIES: CMS intact. No pedal edema. SKIN: Warm, dry, soft, appropriate color for ethnicity. No lesions, rashes, or wounds. NEURO: Alert and Oriented X 3. No sensory deficit PSYCH: Appropriate affect and mood. <Masha Lewis DO - Last Filed: 10/03/18 00:43> Initial Vital Signs Initial Vital Signs: Vital Signs Temperature 98.7 F 10/02/18 17:08 Pulse Rate 80 10/02/18 17:08 Respiratory Rate 22 10/02/18 17:08 Blood Pressure 138/108 H 10/02/18 17:08 Pulse Oximetry 95 10/02/18 17:08 Course <ELISA Goss - Last Filed: 10/02/18 22:09> Orders Ordered: ED Orders 10/02/18 17:11 EKG-12 Lead Routine 10/02/18 17:32 XR chest 1V Stat 10/02/18 17:51 Complete Blood Count AUTO DIFF Stat Comprehensive Metabolic Panel Stat Partial Thromboplastin Time Stat Prothrombin Time INR Stat Troponin & CK Cardiac Panel Stat 10/02/18 17:53 CT head/brain wo con Stat 10/02/18 18:53 Urinalysis and Microscopic Stat Urine Culture Stat Discontinued Medications Nitrofurantoin Macrocrystals (Macrobid 100mg Prepack) 1 bottle MISC SEEINSTR ONE Stop: 10/02/18 19:53 Last Admin: 10/02/18 20:09 Dose: 1 bottle Consultations Consultation #1: Spoke with Dr. Bland about possible admit as patient exhibits increasing weakness, and has been was requesting patient be admitted as it is difficult to care for her. However, as per discussion she does not meet any admission criteria this has been ongoing problem. Dr. Bland has agreed to initiate home health care. Consultation #2: Patient staffed with Dr. Lewis. Vital Signs - 8 hr 10/02/18 17:08 10/02/18 18:30 10/02/18 19:30 Temperature 98.7 F Pulse Rate 80 54 L Respiratory Rate 22 23 21 Blood Pressure 138/108 H Blood Pressure [Right Arm] 125/81 126/58 L Pulse Oximetry 95 94 100 <Masha Lewis DO - Last Filed: 10/03/18 00:43> Orders Ordered: ED Orders 10/02/18 17:11 EKG-12 Lead Routine 10/02/18 17:32 XR chest 1V Stat 10/02/18 17:51 Complete Blood Count AUTO DIFF Stat Comprehensive Metabolic Panel Stat Partial Thromboplastin Time Stat Prothrombin Time INR Stat Troponin & CK Cardiac Panel Stat 10/02/18 17:53 CT head/brain wo con Stat 10/02/18 18:53 Urinalysis and Microscopic Stat Urine Culture Stat Discontinued Medications Nitrofurantoin Macrocrystals (Macrobid 100mg Prepack) 1 bottle MISC SEEINSTR ONE Stop: 10/02/18 19:53 Last Admin: 10/02/18 20:09 Dose: 1 bottle Vital Signs - 8 hr 10/02/18 17:08 10/02/18 18:30 10/02/18 19:30 Temperature 98.7 F Pulse Rate 80 54 L Respiratory Rate 22 23 21 Blood Pressure 138/108 H Blood Pressure [Right Arm] 125/81 126/58 L Pulse Oximetry 95 94 100 MDM - Weakness <ELISA Goss - Last Filed: 10/02/18 22:09> Medical Records Attestation: I reviewed the patient's medical records. Lab Data Attestation: I reviewed the patient's lab results. Result diagrams: 10/02/18 17:51 10/02/18 17:51 Lab Results 10/02/18 10/02/18 10/02/18 Range/Units 17:51 17:51 17:51 WBC 7.3 (4.5-11.0) X10^3/uL RBC 4.59 (4.0-5.2) X10^6/uL Hgb 13.4 (12.0-16.0) g/dL Hct 42.3 (36-46) % MCV 92.2 (80-100) fL MCH 29.1 (26-34) PG MCHC 31.6 (30-36) % RDW 14.4 (11.6-14.8) % Plt Count 151 (150-400) X10^3/uL Neut % (Auto) 64.2 (50-75) % Lymph % (Auto) 20.4 L (25-40) % Lucas % (Auto) 12.5 (3-14) % Eos % (Auto) 2.4 (2-4) % Baso % (Auto) 0.5 (0-2) % Neut # (Auto) 4700 (0569-9195) /uL Lymph # (Auto) 1500 (6773-6334) /uL Lucas # (Auto) 900 (0-900) /uL Eos # (Auto) 200 (0-450) /uL Baso # (Auto) 0 (0-100) /uL PT 14.1 H (10.1-12.7) SECONDS INR 1.2 (0.9-1.3) APTT 33 D (26.4-36.2) SECONDS Sodium 141 (137-145) mmol/L Potassium 4.4 (3.4-5.1) mmol/L Chloride 98 (98-107) mmol/L Carbon Dioxide 35 H (22-32) mmol/L BUN 16 (7-17) mg/dL Creatinine 0.60 (0.52-1.04) mg/dL Estimated GFR > 60.0 (>60) mL/min BUN/Creatinine Ratio 26.7 H (6-22) Glucose 105 (80-110) mg/dL Calcium 9.0 (8.4-10.2) mg/dL Total Bilirubin 1.0 (0.2-1.3) mg/dL AST 25 (14-36) IU/L ALT 18 (9-52) IU/L Alkaline Phosphatase 110 (38-126) U/L Total Creatine Kinase 37 (30-135) U/L CK-MB (CK-2) TNP CK-MB (CK-2) Rel Index TNP Troponin I < 0.012 (0.01-0.034) ng/mL Total Protein 7.2 (6.3-8.2) g/dL Albumin 4.0 (3.5-5.0) g/dL Globulin 3.2 (1.7-4.1) g/dL Albumin/Globulin Ratio 1.3 (1.0-2.8) Urine Color Urine Appearance Urine pH (4.5-8.0) Ur Specific Warren (1.000-1.035) Urine Protein (Negative) Urine Glucose (UA) (Negative) g/dL Urine Ketones (NEGATIVE) Urine Occult Blood (Negative) Urine Nitrate (Negative) Urine Bilirubin (NEGATIVE) Urine Urobilinogen (0.2) E.U./dL Ur Leukocyte Esterase (NEGATIVE) Urine RBC (0-5/HPF) Urine WBC (0-5/HPF) Ur Squamous Epith Cells (0-5/HPF) Urine Bacteria (None) Ur Culture Indicated? 10/02/18 Range/Units 18:53 WBC (4.5-11.0) X10^3/uL RBC (4.0-5.2) X10^6/uL Hgb (12.0-16.0) g/dL Hct (36-46) % MCV (80-100) fL MCH (26-34) PG MCHC (30-36) % RDW (11.6-14.8) % Plt Count (150-400) X10^3/uL Neut % (Auto) (50-75) % Lymph % (Auto) (25-40) % Lucas % (Auto) (3-14) % Eos % (Auto) (2-4) % Baso % (Auto) (0-2) % Neut # (Auto) (3335-6466) /uL Lymph # (Auto) (0756-0608) /uL Lucas # (Auto) (0-900) /uL Eos # (Auto) (0-450) /uL Baso # (Auto) (0-100) /uL PT (10.1-12.7) SECONDS INR (0.9-1.3) APTT (26.4-36.2) SECONDS Sodium (137-145) mmol/L Potassium (3.4-5.1) mmol/L Chloride (98-107) mmol/L Carbon Dioxide (22-32) mmol/L BUN (7-17) mg/dL Creatinine (0.52-1.04) mg/dL Estimated GFR (>60) mL/min BUN/Creatinine Ratio (6-22) Glucose (80-110) mg/dL Calcium (8.4-10.2) mg/dL Total Bilirubin (0.2-1.3) mg/dL AST (14-36) IU/L ALT (9-52) IU/L Alkaline Phosphatase (38-126) U/L Total Creatine Kinase (30-135) U/L CK-MB (CK-2) CK-MB (CK-2) Rel Index Troponin I (0.01-0.034) ng/mL Total Protein (6.3-8.2) g/dL Albumin (3.5-5.0) g/dL Globulin (1.7-4.1) g/dL Albumin/Globulin Ratio (1.0-2.8) Urine Color Yellow Urine Appearance Slightly cloudy Urine pH 8.0 (4.5-8.0) Ur Specific Warren 1.015 (1.000-1.035) Urine Protein Negative (Negative) Urine Glucose (UA) Negative (Negative) g/dL Urine Ketones Negative (NEGATIVE) Urine Occult Blood Trace-intact (Negative) Urine Nitrate Positive (Negative) Urine Bilirubin Negative (NEGATIVE) Urine Urobilinogen 1.0 (0.2) E.U./dL Ur Leukocyte Esterase 3+ H (NEGATIVE) Urine RBC None seen (0-5/HPF) Urine WBC >100/hpf H (0-5/HPF) Ur Squamous Epith Cells 1-5 /hpf (0-5/HPF) Urine Bacteria Many (>30) H (None) Ur Culture Indicated? Specimen cultured ECG Data Interpretation: Rate 94, QTC 401, atrial fibrillation. No axis deviation, T-wave inversion in V1 and lead 3. No ST depression or elevation, no ectopy. This EKG was also viewed by Dr. Pollard. [facility] Narrative Medical decision making narrative: I suspect patient's increased weakness is due to her urinary tract infection, Macrobid was prescribed as this was 1 of the only antibiotics that was susceptible on her last urine culture as per patient's chart. Attempted admission due to social aspect of difficulty moving around her house, patient did not meet admission criteria. Less likely cardiac in nature due to negative enzymes, negative chest x-ray, and EKG without acute changes (other than AFib which she is normally in), less likely an acute abdomen due to lack of abdominal pain or elevated white blood cells. Patient did not exhibit any symptoms of urosepsis at this time as she does not exhibited fever, no white blood cell count, or altered mental status. Close follow-up instructions were given and return precautions discussed. Extensive conversation with had with patient and they were encouraged to obtain home healthcare to their primary care provider. <Masha Lewis, DO - Last Filed: 10/03/18 00:43> Lab Data Attestation: I reviewed the patient's lab results. Lab Results 10/02/18 10/02/18 10/02/18 Range/Units 17:51 17:51 17:51 WBC 7.3 (4.5-11.0) X10^3/uL RBC 4.59 (4.0-5.2) X10^6/uL Hgb 13.4 (12.0-16.0) g/dL Hct 42.3 (36-46) % MCV 92.2 (80-100) fL MCH 29.1 (26-34) PG MCHC 31.6 (30-36) % RDW 14.4 (11.6-14.8) % Plt Count 151 (150-400) X10^3/uL Neut % (Auto) 64.2 (50-75) % Lymph % (Auto) 20.4 L (25-40) % Lucas % (Auto) 12.5 (3-14) % Eos % (Auto) 2.4 (2-4) % Baso % (Auto) 0.5 (0-2) % Neut # (Auto) 4700 (5783-9305) /uL Lymph # (Auto) 1500 (0135-2427) /uL Lucas # (Auto) 900 (0-900) /uL Eos # (Auto) 200 (0-450) /uL Baso # (Auto) 0 (0-100) /uL PT 14.1 H (10.1-12.7) SECONDS INR 1.2 (0.9-1.3) APTT 33 D (26.4-36.2) SECONDS Sodium 141 (137-145) mmol/L Potassium 4.4 (3.4-5.1) mmol/L Chloride 98 (98-107) mmol/L Carbon Dioxide 35 H (22-32) mmol/L BUN 16 (7-17) mg/dL Creatinine 0.60 (0.52-1.04) mg/dL Estimated GFR > 60.0 (>60) mL/min BUN/Creatinine Ratio 26.7 H (6-22) Glucose 105 (80-110) mg/dL Calcium 9.0 (8.4-10.2) mg/dL Total Bilirubin 1.0 (0.2-1.3) mg/dL AST 25 (14-36) IU/L ALT 18 (9-52) IU/L Alkaline Phosphatase 110 (38-126) U/L Total Creatine Kinase 37 (30-135) U/L CK-MB (CK-2) TNP CK-MB (CK-2) Rel Index TNP Troponin I < 0.012 (0.01-0.034) ng/mL Total Protein 7.2 (6.3-8.2) g/dL Albumin 4.0 (3.5-5.0) g/dL Globulin 3.2 (1.7-4.1) g/dL Albumin/Globulin Ratio 1.3 (1.0-2.8) Urine Color Urine Appearance Urine pH (4.5-8.0) Ur Specific Warren (1.000-1.035) Urine Protein (Negative) Urine Glucose (UA) (Negative) g/dL Urine Ketones (NEGATIVE) Urine Occult Blood (Negative) Urine Nitrate (Negative) Urine Bilirubin (NEGATIVE) Urine Urobilinogen (0.2) E.U./dL Ur Leukocyte Esterase (NEGATIVE) Urine RBC (0-5/HPF) Urine WBC (0-5/HPF) Ur Squamous Epith Cells (0-5/HPF) Urine Bacteria (None) Ur Culture Indicated? 07/15/19 Range/Units 18:53 WBC (4.5-11.0) X10^3/uL RBC (4.0-5.2) X10^6/uL Hgb (12.0-16.0) g/dL Hct (36-46) % MCV (80-100) fL MCH (26-34) PG MCHC (30-36) % RDW (11.6-14.8) % Plt Count (150-400) X10^3/uL Neut % (Auto) (50-75) % Lymph % (Auto) (25-40) % Lucas % (Auto) (3-14) % Eos % (Auto) (2-4) % Baso % (Auto) (0-2) % Neut # (Auto) (6110-9313) /uL Lymph # (Auto) (2404-2197) /uL Lucas # (Auto) (0-900) /uL Eos # (Auto) (0-450) /uL Baso # (Auto) (0-100) /uL PT (10.1-12.7) SECONDS INR (0.9-1.3) APTT (26.4-36.2) SECONDS Sodium (137-145) mmol/L Potassium (3.4-5.1) mmol/L Chloride (98-107) mmol/L Carbon Dioxide (22-32) mmol/L BUN (7-17) mg/dL Creatinine (0.52-1.04) mg/dL Estimated GFR (>60) mL/min BUN/Creatinine Ratio (6-22) Glucose (80-110) mg/dL Calcium (8.4-10.2) mg/dL Total Bilirubin (0.2-1.3) mg/dL AST (14-36) IU/L ALT (9-52) IU/L Alkaline Phosphatase (38-126) U/L Total Creatine Kinase (30-135) U/L CK-MB (CK-2) CK-MB (CK-2) Rel Index Troponin I (0.01-0.034) ng/mL Total Protein (6.3-8.2) g/dL Albumin (3.5-5.0) g/dL Globulin (1.7-4.1) g/dL Albumin/Globulin Ratio (1.0-2.8) Urine Color Yellow Urine Appearance Slightly cloudy Urine pH 8.0 (4.5-8.0) Ur Specific Warren 1.015 (1.000-1.035) Urine Protein Negative (Negative) Urine Glucose (UA) Negative (Negative) g/dL Urine Ketones Negative (NEGATIVE) Urine Occult Blood Trace-intact (Negative) Urine Nitrate Positive (Negative) Urine Bilirubin Negative (NEGATIVE) Urine Urobilinogen 1.0 (0.2) E.U./dL Ur Leukocyte Esterase 3+ H (NEGATIVE) Urine RBC None seen (0-5/HPF) Urine WBC >100/hpf H (0-5/HPF) Ur Squamous Epith Cells 1-5 /hpf (0-5/HPF) Urine Bacteria Many (>30) H (None) Ur Culture Indicated? Specimen cultured ECG Data Attestation: I personally reviewed and interpreted this ECG as follows: Prior ECG tracings: available for review Interpretation: Atrial fibrillation rate [address] changes similar to previous EKGs Discharge Plan Departure Patient Disposition: Home Clinical Impression: Weakness Urinary tract infection Qualifiers: Urinary tract infection type: acute cystitis Hematuria presence: without hematuria Qualified Code(s): N30.00 - Acute cystitis without hematuria Discharge Date/Time: 10/02/18 20:19 Interventions: ED Discharge Assessment Last Done: 10/02/18 20:16 Instructions: DI for Urinary Tract Infection (UTI) Activity Restrictions/Additional Instructions: Thank you for entrusting me with your care today. As discussed, you have a urinary tract infection. The rest of your labs are unremarkable. I prescribed an antibiotic, please take this as directed. Call tomorrow make a follow-up appointment with your primary care provider for recheck this week. Return to the emergency department if he develops fevers, chest pain, vomiting, significant worsening weakness, or shortness of breath. I also spoke with Dr. Bland who states that he will work on getting home health care arranged. Please follow up with him for this. Your prescriptions were sent to [facility]. Prescriptions: New nitrofurantoin macrocrystal 100 mg capsule 100 mg PO QID 5 Days Qty: 20 RF: 0 No Action Vitamin B-12 50 MCG tablet 50 mcg PO BID Qty: 0 RF: 0 [VITAMIN D] 1 cap PO BID Qty: 0 RF: 0 mirabegron [Myrbetriq] 50 mg tablet extended release 24 hr 50 mg PO DAILY Qty: 90 RF: 3 citalopram 10 mg tablet 20 mg PO DAILY Qty: 90 RF: 3 dabigatran etexilate 150 mg capsule 150 mg PO BID Qty: 60 RF: 6 furosemide [Lasix] 20 mg tablet 20 mg PO DAILY Qty: 30 RF: 6 trimethoprim 100 mg tablet 100 mg PO BEDTIME Qty: 90 RF: 1 gabapentin [Neurontin] 600 mg tablet 600 mg PO QIDP PRN (Reason: pain) Qty: 120 RF: 11 pantoprazole 40 mg tablet,delayed release (DR/EC) 40 mg PO BID Qty: 60 RF: 3 folic acid 1 mg tablet 2 mg PO BID Qty: 360 RF: 3 triamcinolone acetonide 0.025 % cream 1 applictn TOP TID PRN (Reason: rash) Qty: 80 RF: 3 oxycodone 10 mg tablet 10 - 20 mg PO Q4HP PRN (Reason: pain) Qty: 150 RF: 0 metoprolol succinate 50 mg Tablet Extended Release 24 Hr 75 mg PO QPM RF: 0 solifenacin [Vesicare] 10 mg tablet 10 mg PO BEDTIME RF: 0 metoprolol succinate [Toprol XL] 50 mg tablet extended release 24 hr 50 mg PO QAM RF: 0 Wheelchair: Manual Lightweight 1 ea miscellaneous DIRECTED RF: 0 Referrals: Oj Bland MD [Primary Care Provider] - <Masha Lewis DO - Last Filed: 10/03/18 00:43> Cosign ED Attending Josie Attestation: I was immediately available in the department for consultation. Documentation has been reviewed. I agree with assessment and plan.
--- NOTE | 2018-10-02 17:41 | ED_ITS ---
HPI - Weakness <Adela MooreELISA - Last Filed: 10/02/18 22:09> General Chief complaint: Weakness Stated complaint: General weakness Time Seen by Provider: 10/02/18 17:17 Source: patient and family Mode of arrival: ambulatory Limitations: no limitations History of Present Illness HPI Narrative: 83-year-old female who is currently on Pradaxa for atrial fibrillation and with a history of week knees that occasionally give out, presents emergency department today, complaining of increased weakness and fatigue. She states that this has started yesterday and she noticed it was more difficult to stand. Her had to use a gait belt and was unable to bear her weight completely because of the weakness. She complains of shortness of breath and that she had an irregular stool 2 days ago but has since then had a regular stool. She has also stated that she has diffuse abdominal pain. Patient reports she is unable to control her bowels or bladder occasionally but she states this has been going on for a over a year. Denies chest pain, numbness and tingling, saddle paresthesias, syncope, falls, head trauma, vomiting, diarrhea, dysuria, flank pain, or edema. Patient states she has been taking her medication as directed. Complaint: generalized weakness Onset (ago): day(s) Duration: constant Location: generalized Migration: none Relieving factors: none Exacerbating factors: none Related Data Home Medications Medication Instructions Recorded Confirmed Vitamin B-12 50 mcg PO BID #0 03/05/11 10/02/18 [VITAMIN D] 1 cap PO BID #0 04/20/17 10/02/18 Wheelchair: Manual Lightweight 1 ea MISCELLANEOUS DIRECTED 01/09/18 10/02/18 metoprolol succinate 75 mg PO QPM 04/13/18 10/02/18 solifenacin [Vesicare] 10 mg PO BEDTIME 05/29/18 10/02/18 metoprolol succinate [Toprol XL] 50 mg PO QAM 10/02/18 10/02/18 Previous Rx's Medication Instructions Recorded mirabegron ER 50 mg 50 mg PO DAILY #90 tab 12/26/17 tablet,extended release 24 hr triamcinolone acetonide 0.025 % 1 applictn TOP TID PRN #80 gram 01/03/18 topical cream folic acid 1 mg tablet 2 mg PO BID #360 tab 02/21/18 citalopram 10 mg tablet 20 mg PO DAILY #90 tab 07/14/18 dabigatran etexilate 150 mg capsule 150 mg PO BID #60 cap 08/18/18 furosemide 20 mg tablet 20 mg PO DAILY #30 tab 08/24/18 trimethoprim 100 mg tablet 100 mg PO BEDTIME #90 tab 08/25/18 gabapentin 600 mg tablet 600 mg PO QIDP PRN #120 tab 09/08/18 pantoprazole 40 mg tablet,delayed 40 mg PO BID #60 tab 09/22/18 release oxycodone 10 mg tablet 10 - 20 mg PO Q4HP PRN #150 tab 09/27/18 nitrofurantoin macrocrystal 100 mg PO QID 5 Days #20 cap 10/02/18 Allergies Allergy/AdvReac Type Severity Reaction Status Date / Time meloxicam [MELOXICAM] AdvReac Mild bloody Verified 09/29/18 11:23 dark stool Review of Systems <ELISA Goss - Last Filed: 10/02/18 22:09> Review of Systems REVIEW OF SYSTEMS: GENERAL: Denies fever, chills, malaise, or wt. loss. HENT: No head trauma, hearing loss, rhinorrhea, epistaxis, sinus pressure, sore throat, or dysphagia. EYES: No loss of vision, double vision, eye pain, or irritation. CARDIOVASCULAR: No chest pain, palpitations, edema, syncope, or orthopnea. RESPIRATORY: No shortness of breath, cough, or wheeze. GASTROINTESTINAL: Complains of nausea and abdominal pain, see HPI. GENITOURINARY: No flank pain, urinary incontinence, hesitancy, frequency, or dysuria. MUSCULOSKELETAL: No pain, weakness, or deformities. INTEGUMENTARY: No rash, lesions, or pruritus. NEURO: No numbness, tingling, memory loss, confusion, or headaches. PSYCH: No behavior or mood changes. ENDOCRINOLOGY: No hair loss of temperature intolerance. HEMATOLOGY: No easy bruising. LYMPHATIC: No lymphadenopathy. 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) Peripheral edema (Chronic 11/01/16) Surgical History Anesthesia (Resolved) History of cholecystectomy (Resolved) History of gastric bypass (~03/2004) S/P total abdominal hysterectomy and bilateral salpingo-oophorectomy Status post appendectomy Status post discectomy Social History marital status: number of children: 1 household members: spouse lives independently: Yes caregiver/support person: No housing: house pets and animals: Yes education level: college occupational status: other (Retired) current occupational exposures/hazards: No 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: [employer] travel history: over 6 months ago ([employer] Travel[employer].) leisure activities: reading and other (Watch TV, Movies, Cooking) Smoking Status: Never smoker Tobacco: How many years used: 0 quit status: quit date established (Never Started) second hand exposure: No alcohol intake: never substance use type: marijuana (In the past) Social History marital status: number of children: 1 household members: spouse lives independently: Yes caregiver/support person: No housing: house pets and animals: Yes education level: college occupational status: other (Retired) current occupational exposures/hazards: No 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: [employer] travel history: over 6 months ago ([employer] Travel[employer].) leisure activities: reading and other (Watch TV, Movies, Cooking) Smoking Status: Never smoker Tobacco: How many years used: 0 quit status: quit date established (Never Started) second hand exposure: No alcohol intake: never substance use type: marijuana (In the past) Exam <ELISA Goss - Last Filed: 10/02/18 22:09> Initial Vital Signs Initial Vital Signs: Vital Signs Temperature 98.7 F 10/02/18 17:08 Pulse Rate 80 10/02/18 17:08 Respiratory Rate 22 10/02/18 17:08 Blood Pressure 138/108 H 10/02/18 17:08 Pulse Oximetry 95 10/02/18 17:08 PHYSICAL EXAMINATION: GENERAL: Well groomed, alert, and cooperative Answers questions promptly and appropriately. Vital signs noted. is at bedside. HENT: Normocephalic, atraumatic. Oral mucosa is pink and moist, no caries or lesions present. Pharynx without erythema. EYES: PERRLA, EOMIs, conjunctiva pink, sclera white, no periorbital swelling. LYMPH: No lymphadenopathy. CARDIOVASCULAR: S1 and S2 sounds normal. Regular rate and rhythm, no murmurs, clicks, or bruits. No pedal edema. RESPIRATORY: Normal respiratory rate, trachea midline, airway patent. No stridor, nasal flaring or accessory muscle use. Lungs are clear in all germain without wheeze, rhonchi, or crackles. GASTROINTESTINAL: Bowel sounds normoactive. Abdomen is soft and non-tender. No organomegaly. MUSCULOSKELETAL: Patient was not able to ambulate, her norm per her was that she has decreased strength in her legs. However this was increased due to her weakness. Equal tone and mass bilaterally. EXTREMITIES: CMS intact. No pedal edema. SKIN: Warm, dry, soft, appropriate color for ethnicity. No lesions, rashes, or wounds. NEURO: Alert and Oriented X 3. No sensory deficit PSYCH: Appropriate affect and mood. <Masha Lewis DO - Last Filed: 10/03/18 00:43> Initial Vital Signs Initial Vital Signs: Vital Signs Temperature 98.7 F 10/02/18 17:08 Pulse Rate 80 10/02/18 17:08 Respiratory Rate 22 10/02/18 17:08 Blood Pressure 138/108 H 10/02/18 17:08 Pulse Oximetry 95 10/02/18 17:08 Course <ELISA Goss - Last Filed: 10/02/18 22:09> Orders Ordered: ED Orders 10/02/18 17:11 EKG-12 Lead Routine 10/02/18 17:32 XR chest 1V Stat 10/02/18 17:51 Complete Blood Count AUTO DIFF Stat Comprehensive Metabolic Panel Stat Partial Thromboplastin Time Stat Prothrombin Time INR Stat Troponin & CK Cardiac Panel Stat 10/02/18 17:53 CT head/brain wo con Stat 10/02/18 18:53 Urinalysis and Microscopic Stat Urine Culture Stat Discontinued Medications Nitrofurantoin Macrocrystals (Macrobid 100mg Prepack) 1 bottle MISC SEEINSTR ONE Stop: 10/02/18 19:53 Last Admin: 10/02/18 20:09 Dose: 1 bottle Consultations Consultation #1: Spoke with Dr. Bland about possible admit as patient exhibits increasing weakness, and has been was requesting patient be admitted as it is difficult to care for her. However, as per discussion she does not meet any admission criteria this has been ongoing problem. Dr. Bland has agreed to initiate home health care. Consultation #2: Patient staffed with Dr. Lewis. Vital Signs - 8 hr 10/02/18 17:08 10/02/18 18:30 10/02/18 19:30 Temperature 98.7 F Pulse Rate 80 54 L Respiratory Rate 22 23 21 Blood Pressure 138/108 H Blood Pressure [Right Arm] 125/81 126/58 L Pulse Oximetry 95 94 100 <Masha Lewis DO - Last Filed: 10/03/18 00:43> Orders Ordered: ED Orders 10/02/18 17:11 EKG-12 Lead Routine 10/02/18 17:32 XR chest 1V Stat 10/02/18 17:51 Complete Blood Count AUTO DIFF Stat Comprehensive Metabolic Panel Stat Partial Thromboplastin Time Stat Prothrombin Time INR Stat Troponin & CK Cardiac Panel Stat 10/02/18 17:53 CT head/brain wo con Stat 10/02/18 18:53 Urinalysis and Microscopic Stat Urine Culture Stat Discontinued Medications Nitrofurantoin Macrocrystals (Macrobid 100mg Prepack) 1 bottle MISC SEEINSTR ONE Stop: 10/02/18 19:53 Last Admin: 10/02/18 20:09 Dose: 1 bottle Vital Signs - 8 hr 10/02/18 17:08 10/02/18 18:30 10/02/18 19:30 Temperature 98.7 F Pulse Rate 80 54 L Respiratory Rate 22 23 21 Blood Pressure 138/108 H Blood Pressure [Right Arm] 125/81 126/58 L Pulse Oximetry 95 94 100 MDM - Weakness <ELISA Goss - Last Filed: 10/02/18 22:09> Medical Records Attestation: I reviewed the patient's medical records. Lab Data Attestation: I reviewed the patient's lab results. Result diagrams: 10/02/18 17:51 10/02/18 17:51 Lab Results 10/02/18 10/02/18 10/02/18 Range/Units 17:51 17:51 17:51 WBC 7.3 (4.5-11.0) X10^3/uL RBC 4.59 (4.0-5.2) X10^6/uL Hgb 13.4 (12.0-16.0) g/dL Hct 42.3 (36-46) % MCV 92.2 (80-100) fL MCH 29.1 (26-34) PG MCHC 31.6 (30-36) % RDW 14.4 (11.6-14.8) % Plt Count 151 (150-400) X10^3/uL Neut % (Auto) 64.2 (50-75) % Lymph % (Auto) 20.4 L (25-40) % Harrison % (Auto) 12.5 (3-14) % Eos % (Auto) 2.4 (2-4) % Baso % (Auto) 0.5 (0-2) % Neut # (Auto) 4700 (6934-5057) /uL Lymph # (Auto) 1500 (9673-9242) /uL Harrison # (Auto) 900 (0-900) /uL Eos # (Auto) 200 (0-450) /uL Baso # (Auto) 0 (0-100) /uL PT 14.1 H (10.1-12.7) SECONDS INR 1.2 (0.9-1.3) APTT 33 D (26.4-36.2) SECONDS Sodium 141 (137-145) mmol/L Potassium 4.4 (3.4-5.1) mmol/L Chloride 98 (98-107) mmol/L Carbon Dioxide 35 H (22-32) mmol/L BUN 16 (7-17) mg/dL Creatinine 0.60 (0.52-1.04) mg/dL Estimated GFR > 60.0 (>60) mL/min BUN/Creatinine Ratio 26.7 H (6-22) Glucose 105 (80-110) mg/dL Calcium 9.0 (8.4-10.2) mg/dL Total Bilirubin 1.0 (0.2-1.3) mg/dL AST 25 (14-36) IU/L ALT 18 (9-52) IU/L Alkaline Phosphatase 110 (38-126) U/L Total Creatine Kinase 37 (30-135) U/L CK-MB (CK-2) TNP CK-MB (CK-2) Rel Index TNP Troponin I < 0.012 (0.01-0.034) ng/mL Total Protein 7.2 (6.3-8.2) g/dL Albumin 4.0 (3.5-5.0) g/dL Globulin 3.2 (1.7-4.1) g/dL Albumin/Globulin Ratio 1.3 (1.0-2.8) Urine Color Urine Appearance Urine pH (4.5-8.0) Ur Specific [place] (1.000-1.035) Urine Protein (Negative) Urine Glucose (UA) (Negative) g/dL Urine Ketones (NEGATIVE) Urine Occult Blood (Negative) Urine Nitrate (Negative) Urine Bilirubin (NEGATIVE) Urine Urobilinogen (0.2) E.U./dL Ur Leukocyte Esterase (NEGATIVE) Urine RBC (0-5/HPF) Urine WBC (0-5/HPF) Ur Squamous Epith Cells (0-5/HPF) Urine Bacteria (None) Ur Culture Indicated? 10/02/18 Range/Units 18:53 WBC (4.5-11.0) X10^3/uL RBC (4.0-5.2) X10^6/uL Hgb (12.0-16.0) g/dL Hct (36-46) % MCV (80-100) fL MCH (26-34) PG MCHC (30-36) % RDW (11.6-14.8) % Plt Count (150-400) X10^3/uL Neut % (Auto) (50-75) % Lymph % (Auto) (25-40) % Harrison % (Auto) (3-14) % Eos % (Auto) (2-4) % Baso % (Auto) (0-2) % Neut # (Auto) (5578-2610) /uL Lymph # (Auto) (8186-6038) /uL Harrison # (Auto) (0-900) /uL Eos # (Auto) (0-450) /uL Baso # (Auto) (0-100) /uL PT (10.1-12.7) SECONDS INR (0.9-1.3) APTT (26.4-36.2) SECONDS Sodium (137-145) mmol/L Potassium (3.4-5.1) mmol/L Chloride (98-107) mmol/L Carbon Dioxide (22-32) mmol/L BUN (7-17) mg/dL Creatinine (0.52-1.04) mg/dL Estimated GFR (>60) mL/min BUN/Creatinine Ratio (6-22) Glucose (80-110) mg/dL Calcium (8.4-10.2) mg/dL Total Bilirubin (0.2-1.3) mg/dL AST (14-36) IU/L ALT (9-52) IU/L Alkaline Phosphatase (38-126) U/L Total Creatine Kinase (30-135) U/L CK-MB (CK-2) CK-MB (CK-2) Rel Index Troponin I (0.01-0.034) ng/mL Total Protein (6.3-8.2) g/dL Albumin (3.5-5.0) g/dL Globulin (1.7-4.1) g/dL Albumin/Globulin Ratio (1.0-2.8) Urine Color Yellow Urine Appearance Slightly cloudy Urine pH 8.0 (4.5-8.0) Ur Specific [place] 1.015 (1.000-1.035) Urine Protein Negative (Negative) Urine Glucose (UA) Negative (Negative) g/dL Urine Ketones Negative (NEGATIVE) Urine Occult Blood Trace-intact (Negative) Urine Nitrate Positive (Negative) Urine Bilirubin Negative (NEGATIVE) Urine Urobilinogen 1.0 (0.2) E.U./dL Ur Leukocyte Esterase 3+ H (NEGATIVE) Urine RBC None seen (0-5/HPF) Urine WBC >100/hpf H (0-5/HPF) Ur Squamous Epith Cells 1-5 /hpf (0-5/HPF) Urine Bacteria Many (>30) H (None) Ur Culture Indicated? Specimen cultured ECG Data Interpretation: Rate 94, QTC 401, atrial fibrillation. No axis deviation, T- wave inversion in V1 and lead 3. No ST depression or elevation, no ectopy. This EKG was also viewed by Dr. Pollard. MDM Narrative Medical decision making narrative: I suspect patient's increased weakness is due to her urinary tract infection, Macrobid was prescribed as this was 1 of the onl y antibiotics that was susceptible on her last urine culture as per patient's chart. Attempted admission due to social aspect of difficulty moving around her house, patient did not meet admission criteria. Less likely cardiac in nature due to negative enzymes, negative chest x-ray, and EKG without acute changes (other than AFib which she is normally in), less likely an acute abdomen due to lack of abdominal pain or elevated white blood cells. Patient did not exhibit any symptoms of urosepsis at this time as she does not exhibited fever, no white blood cell count, or altered mental status. Close follow-up instructions were given and return precautions discussed. Extensive conversation with had with patient and they were encouraged to obtain home healthcare to their primary care provider. <Masha Lewis, DO - Last Filed: 10/03/18 00:43> Lab Data Attestation: I reviewed the patient's lab results. Lab Results 10/02/18 10/02/18 10/02/18 Range/Units 17:51 17:51 17:51 WBC 7.3 (4.5-11.0) X10^3/uL RBC 4.59 (4.0-5.2) X10^6/uL Hgb 13.4 (12.0-16.0) g/dL Hct 42.3 (36-46) % MCV 92.2 (80-100) fL MCH 29.1 (26-34) PG MCHC 31.6 (30-36) % RDW 14.4 (11.6-14.8) % Plt Count 151 (150-400) X10^3/uL Neut % (Auto) 64.2 (50-75) % Lymph % (Auto) 20.4 L (25-40) % Harrison % (Auto) 12.5 (3-14) % Eos % (Auto) 2.4 (2-4) % Baso % (Auto) 0.5 (0-2) % Neut # (Auto) 4700 (4570-0656) /uL Lymph # (Auto) 1500 (2526-8698) /uL Harrison # (Auto) 900 (0-900) /uL Eos # (Auto) 200 (0-450) /uL Baso # (Auto) 0 (0-100) /uL PT 14.1 H (10.1-12.7) SECONDS INR 1.2 (0.9-1.3) APTT 33 D (26.4-36.2) SECONDS Sodium 141 (137-145) mmol/L Potassium 4.4 (3.4-5.1) mmol/L Chloride 98 (98-107) mmol/L Carbon Dioxide 35 H (22-32) mmol/L BUN 16 (7-17) mg/dL Creatinine 0.60 (0.52-1.04) mg/dL Estimated GFR > 60.0 (>60) mL/min BUN/Creatinine Ratio 26.7 H (6-22) Glucose 105 (80-110) mg/dL Calcium 9.0 (8.4-10.2) mg/dL Total Bilirubin 1.0 (0.2-1.3) mg/dL AST 25 (14-36) IU/L ALT 18 (9-52) IU/L Alkaline Phosphatase 110 (38-126) U/L Total Creatine Kinase 37 (30-135) U/L CK-MB (CK-2) TNP CK-MB (CK-2) Rel Index TNP Troponin I < 0.012 (0.01-0.034) ng/mL Total Protein 7.2 (6.3-8.2) g/dL Albumin 4.0 (3.5-5.0) g/dL Globulin 3.2 (1.7-4.1) g/dL Albumin/Globulin Ratio 1.3 (1.0-2.8) Urine Color Urine Appearance Urine pH (4.5-8.0) Ur Specific [place] (1.000-1.035) Urine Protein (Negative) Urine Glucose (UA) (Negative) g/dL Urine Ketones (NEGATIVE) Urine Occult Blood (Negative) Urine Nitrate (Negative) Urine Bilirubin (NEGATIVE) Urine Urobilinogen (0.2) E.U./dL Ur Leukocyte Esterase (NEGATIVE) Urine RBC (0-5/HPF) Urine WBC (0-5/HPF) Ur Squamous Epith Cells (0-5/HPF) Urine Bacteria (None) Ur Culture Indicated? 07/15/19 Range/Units 18:53 WBC (4.5-11.0) X10^3/uL RBC (4.0-5.2) X10^6/uL Hgb (12.0-16.0) g/dL Hct (36-46) % MCV (80-100) fL MCH (26-34) PG MCHC (30-36) % RDW (11.6-14.8) % Plt Count (150-400) X10^3/uL Neut % (Auto) (50-75) % Lymph % (Auto) (25-40) % Harrison % (Auto) (3-14) % Eos % (Auto) (2-4) % Baso % (Auto) (0-2) % Neut # (Auto) (0597-6186) /uL Lymph # (Auto) (6793-0358) /uL Harrison # (Auto) (0-900) /uL Eos # (Auto) (0-450) /uL Baso # (Auto) (0-100) /uL PT (10.1-12.7) SECONDS INR (0.9-1.3) APTT (26.4-36.2) SECONDS Sodium (137-145) mmol/L Potassium (3.4-5.1) mmol/L Chloride (98-107) mmol/L Carbon Dioxide (22-32) mmol/L BUN (7-17) mg/dL Creatinine (0.52-1.04) mg/dL Estimated GFR (>60) mL/min BUN/Creatinine Ratio (6-22) Glucose (80-110) mg/dL Calcium (8.4-10.2) mg/dL Total Bilirubin (0.2-1.3) mg/dL AST (14-36) IU/L ALT (9-52) IU/L Alkaline Phosphatase (38-126) U/L Total Creatine Kinase (30-135) U/L CK-MB (CK-2) CK-MB (CK-2) Rel Index Troponin I (0.01-0.034) ng/mL Total Protein (6.3-8.2) g/dL Albumin (3.5-5.0) g/dL Globulin (1.7-4.1) g/dL Albumin/Globulin Ratio (1.0-2.8) Urine Color Yellow Urine Appearance Slightly cloudy Urine pH 8.0 (4.5-8.0) Ur Specific [place] 1.015 (1.000-1.035) Urine Protein Negative (Negative) Urine Glucose (UA) Negative (Negative) g/dL Urine Ketones Negative (NEGATIVE) Urine Occult Blood Trace-intact (Negative) Urine Nitrate Positive (Negative) Urine Bilirubin Negative (NEGATIVE) Urine Urobilinogen 1.0 (0.2) E.U./dL Ur Leukocyte Esterase 3+ H (NEGATIVE) Urine RBC None seen (0-5/HPF) Urine WBC >100/hpf H (0-5/HPF) Ur Squamous Epith Cells 1-5 /hpf (0-5/HPF) Urine Bacteria Many (>30) H (None) Ur Culture Indicated? Specimen cultured ECG Data Attestation: I personally reviewed and interpreted this ECG as follows: Prior ECG tracings: available for review Interpretation: Atrial fibrillation rate [address] changes similar to previous EKGs Discharge Plan Departure Patient Disposition: Home Clinical Impression: Weakness Urinary tract infection Qualifiers: Urinary tract infection type: acute cystitis Hematuria presence: without hematuria Qualified Code(s): N30.00 - Acute cystitis without hematuria Discharge Date/Time: 10/02/18 20:19 Interventions: ED Discharge Assessment Last Done: 10/02/18 20:16 Instructions: DI for Urinary Tract Infection (UTI) Activity Restrictions/Additional Instructions: Thank you for entrusting me with your care today. As discussed, you have a urinary tract infection. The rest of your labs are unremarkable. I prescribed an antibiotic, please take this as directed. Call tomorrow make a follow-up ap pointment with your primary care provider for recheck this week. Return to the emergency department if he develops fevers, chest pain, vomiting, significant worsening weakness, or shortness of breath. I also spoke with Dr. Bland who states that he will work on getting home health care arranged. Please follow up with him for this. Your prescriptions were sent to [facility]. Prescriptions: New nitrofurantoin macrocrystal 100 mg capsule 100 mg PO QID 5 Days Qty: 20 RF: 0 No Action Vitamin B-12 50 MCG tablet 50 mcg PO BID Qty: 0 RF: 0 [VITAMIN D] 1 cap PO BID Qty: 0 RF: 0 mirabegron [Myrbetriq] 50 mg tablet extended release 24 hr 50 mg PO DAILY Qty: 90 RF: 3 citalopram 10 mg tablet 20 mg PO DAILY Qty: 90 RF: 3 dabigatran etexilate 150 mg capsule 150 mg PO BID Qty: 60 RF: 6 furosemide [Lasix] 20 mg tablet 20 mg PO DAILY Qty: 30 RF: 6 trimethoprim 100 mg tablet 100 mg PO BEDTIME Qty: 90 RF: 1 gabapentin [Neurontin] 600 mg tablet 600 mg PO QIDP PRN (Reason: pain) Qty: 120 RF: 11 pantoprazole 40 mg tablet,delayed release (DR/EC) 40 mg PO BID Qty: 60 RF: 3 folic acid 1 mg tablet 2 mg PO BID Qty: 360 RF: 3 triamcinolone acetonide 0.025 % cream 1 applictn TOP TID PRN (Reason: rash) Qty: 80 RF: 3 oxycodone 10 mg tablet 10 - 20 mg PO Q4HP PRN (Reason: pain) Qty: 150 RF: 0 metoprolol succinate 50 mg Tablet Extended Release 24 Hr 75 mg PO QPM RF: 0 solifenacin [Vesicare] 10 mg tablet 10 mg PO BEDTIME RF: 0 metoprolol succinate [Toprol XL] 50 mg tablet extended release 24 hr 50 mg PO QAM RF: 0 Wheelchair: Manual Lightweight 1 ea miscellaneous DIRECTED RF: 0 Referrals: Oj Bland MD [Primary Care Provider] - <Masha Lewis DO - Last Filed: 10/03/18 00:43> Cosign ED Attending Cosalecature Attestation: I was immediately available in the department for consultation. Documentation has been reviewed. I agree with assessment and plan.
--- NOTE | 2018-10-02 17:53 | DI.CT.S_ITS ---
PROCEDURE: CT HEAD/BRAIN WO CON INDICATIONS: Worst headache post fall 1 week ago. TECHNIQUE: Noncontrast 4.5 mm thick angled axial sections acquired from the foramen magnum to the vertex, with coronal and sagittal reformats. For radiation dose reduction, the following was used: automated exposure control, adjustment of mA and/or kV according to patient size. COMPARISON: [facility], CT, CT HEAD/BRAIN WO CON, 01/09/2018, 11:03. [facility], MR, MR HEAD/BRAIN WO CON, 01/09/2018, 16:04. [facility], CT, CT HEAD/BRAIN WO CON, 04/13/2018, 15:28. [facility], CT, CT HEAD/BRAIN WO CON, 09/23/2018, 10:33. FINDINGS: Image quality: There is mild motion artifact. CSF spaces: Basal cisterns are patent. No extra-axial fluid collections. The ventricles are symmetric in size and shape. There is mild cerebral volume loss, with resultant ventricular and sulcal prominence. Brain: No intracranial hemorrhage or midline shift. There is a calcified right extra-axial mass along the tentorium redemonstrated measuring up to approximately 1.7 x 1.5 cm in transverse dimension by 2.0 cm in craniocaudal dimension. The findings are compatible with a meningioma. There are subcortical, periventricular and deep white matter hypodensities consistent with mild chronic small vessel ischemic changes. There is intracranial internal carotid artery atherosclerosis. Skull and face: Calvarium and visualized facial bones appear intact, without suspicious lesions. Sinuses: Visualized sinuses and mastoids are clear. IMPRESSION: 1. No definite acute intracranial abnormality. 2. Mild chronic white matter small vessel ischemic changes and cerebral volume loss. 3. Right extra-axial mass along the tentorium consistent with meningioma appears stable compared to the prior studies. Dictated by: Paul Stafford M.D. on 10/02/2018 at 18:16 Approved by: Paul Stafford M.D. on 10/02/2018 at 18:20
[2018-10-02 18:01] LABS: Add Manual Diff / Slide Review NO; Basophils Absolute Auto 0 /uL (0-100); Basophils Percent Auto 0.5 % (0-2); Eosinophils Absolute Auto 200 /uL (0-450); Eosinophils Percent Auto 2.4 % (2-4); Hematocrit 42.3 % (36-46); Hemoglobin 13.4 g/dL (12.0-16.0); Lymphocytes Absolute Auto 1500 /uL (1100-4500); Lymphocytes Percent Auto 20.4 % (25-40); Mean Corpuscular HGB Conc 31.6 % (30-36); Mean Corpuscular Hemoglobin 29.1 PG (26-34); Mean Corpuscular Volume 92.2 fL (80-100); Monocytes Absolute Auto 900 /uL (0-900); Monocytes Percent Auto 12.5 % (3-14); Neutrophils Absolute Auto 4700 /uL (1500-7000); Neutrophils Percent Auto 64.2 % (50-75); Platelet Count 151 X10^3/uL (150-400); Red Blood Cell Count 4.59 X10^6/uL (4.0-5.2); Red Cell Distribution Width 14.4 % (11.6-14.8); White Blood Cell Count 7.3 X10^3/uL (4.5-11.0)
[2018-10-02 18:18] LABS: Alanine Aminotransferase 18 IU/L (9-52); Albumin Globulin Ratio 1.3 (1.0-2.8); Alkaline Phosphatase 110 U/L (38-126); Aspartate Aminotransferase 25 IU/L (14-36); BUN Creatinine Ratio 26.7 (6-22); Blood Urea Nitrogen 16 mg/dL (7-17); Carbon Dioxide 35 mmol/L (22-32); Chloride 98 mmol/L (98-107); Creatine Kinase 37 U/L (30-135); Estimated Glomerular Filt Rate > 60.0 mL/min (>60); Globulin 3.2 g/dL (1.7-4.1); Glucose 105 mg/dL (80-110); HEMOLYSIS 23 (0-50); INR 1.2 (0.9-1.3); Potassium 4.4 mmol/L (3.4-5.1); Prothrombin Time 14.1 SECONDS (10.1-12.7); Sodium 141 mmol/L (137-145); Total Protein 7.2 g/dL (6.3-8.2)
[2018-10-02 18:21] LABS: PTT Partial Thromboplastin Tim 33 SECONDS (26.4-36.2)
[2018-10-02 18:30] VITALS: BP 125/81; PULSE 54; RESP 23; O2SAT 94
[2018-10-02 18:30] LABS: Troponin I < 0.012 ng/mL (0.01-0.034)
[2018-10-02 18:59] LABS: RBC Urine None Seen (0-5/HPF)
[2018-10-02 19:00] LABS: Bilirubin Urine UA NEGATIVE (NEGATIVE); Color Urine UA YELLOW; Glucose Urine UA NEGATIVE (Negative); Ketones Urine UA NEGATIVE (NEGATIVE); Leukocyte Esterase Urine UA 3+ (NEGATIVE); Nitrite Urine UA POSITIVE (Negative); Occult Blood Urine UA TRACE-INTACT (Negative); Protein Urine UA NEGATIVE (Negative); Specific Gravity Urine UA 1.015 (1.000-1.035)
--- NOTE | 2018-10-02 19:04 | PC.NURSE ---
I/O catheter for sample only. Pt incontinent and did trisha care along with changed underwear with fresh pads.
[2018-10-02 19:13] LABS: Appearance Urine UA Slightly Cloudy; Bacteria Urine Many (>30); Culture Indicated Urine Specimen Cultured; Squamous Epithelial Cell Urine 1-5 /HPF (0-5/HPF); WBC Urine >100/HPF (0-5/HPF)
[2018-10-02 19:30] VITALS: BP 126/58; RESP 21; O2SAT 100
--- NOTE | 2018-10-02 19:49 | PC.NURSE ---
Pt required assistance with changing urinairy incontenence pad. Pt has great difficulties with bed mobility, unable to fully roll from one side to the other without heavy 1 assist. Provider notified and aware.
[2018-10-02] MEDS: NITROFURANTOIN 100MG PREPACK 1 BOTTLE MISC (20:09)
== END 2018-10-02 20:19 | disposition home or self-care (01) ==
PROVIDERS: Emergency Provider Nurse Practitioner; PCP Internal Medicine
DX: R53.1 Weakness (principal); N30.00 Acute cystitis without hematuria; R51 Headache; I48.91 Unspecified atrial fibrillation; W19.XXXA Unspecified fall, initial encounter; Z79.01 Long term (current) use of anticoagulants
CPT/HCPCS: 36591; 70450; 71045; 80053; 81001; 82550; 84484; 85025; 85610; 85730; 87077; 87086; 87186; 93005; 99283; 99285

== ENCOUNTER 2018-10-03 17:05 | Observation (INO) | payer OTHER, SELFPAY ==
[2018-01-09 14:13] VITALS: BMI 33.3
--- NOTE | 2018-10-03 17:10 | DI.RAD.S_ITS ---
PROCEDURE: XR CHEST 1V INDICATIONS: Shortness of breath TECHNIQUE: One view of the chest was acquired. COMPARISON: [facility], , XR CHEST 1V, 10/02/2018, 17:39. FINDINGS: Surgical changes and devices: Stable postoperative changes from prior anterior cervical fusion. Surgical clips in the right upper quadrant. Lungs and pleura: Lungs are clear. No pleural effusions or pneumothorax. Mediastinum: Mediastinal contours appear normal. Heart size is normal. Bones and chest wall: No suspicious bony lesions. Overlying soft tissues appear unremarkable. IMPRESSION: Stable examination of the chest. No acute cardiopulmonary abnormalities. Dictated by: Lauri Ruth M.D. on 10/03/2018 at 17:54 Approved by: Lauri Ruth M.D. on 10/03/2018 at 17:58
--- NOTE | 2018-10-03 17:10 | ED.SOB ---
HPI - SOB/Dyspnea General Chief Complaint: Shortness of Breath/Dyspnea Stated Complaint: SOB, UTI Time Seen by Provider: 10/03/18 17:07 Source: patient, family and EMS Mode of arrival: EMS Limitations: no limitations History of Present Illness Patient is an 83-year-old female who was seen here in the emergency department yesterday for weakness. Had a workup and was diagnosed with a urinary tract infection. Was sent home with oral Macrobid. Patient states that throughout today she continues to have lower extremity weakness. She also states she was starting to have shortness of breath. They called the nursing line and her primary provider's office who told her to come back to the emergency department. EMS reports that her oxygen saturations were in the low 90s and they placed her on 2 L by nasal cannula which increased her saturations to the mid 90s. Patient states she felt much better on the oxygen. Upon arrival patient was complaining of her back pain but this is not new. She was also complaining of left-sided abdominal pain. This was after nursing did an abdominal exam and the patient stated that her abdomen hurt. Upon further questioning this also does not appear to be new symptoms. She does have lower extremity swelling. She did not take her Lasix today. No fevers. Patient's is at bedside who states that her weakness over the past couple days has been so bad to where he essentially has to pick her up in carry her around the house. She does have a motorized wheelchair at the house but she is unable to make it to the wheelchair. Related Data Home Medications Medication Instructions Recorded Confirmed Vitamin B-12 50 mcg PO BID #0 03/05/11 10/03/18 [VITAMIN D] 1 cap PO BID #0 04/20/17 10/03/18 Wheelchair: Manual Lightweight 1 ea MISCELLANEOUS DIRECTED 01/09/18 10/03/18 metoprolol succinate 75 mg PO QPM 04/13/18 10/03/18 solifenacin [Vesicare] 10 mg PO BEDTIME 05/29/18 10/03/18 metoprolol succinate [Toprol XL] 50 mg PO QAM 10/02/18 10/03/18 Previous Rx's Medication Instructions Recorded mirabegron ER 50 mg 50 mg PO DAILY #90 tab 12/26/17 tablet,extended release 24 hr triamcinolone acetonide 0.025 % 1 applictn TOP TID PRN #80 gram 01/03/18 topical cream folic acid 1 mg tablet 2 mg PO BID #360 tab 02/21/18 citalopram 10 mg tablet 20 mg PO DAILY #90 tab 07/14/18 dabigatran etexilate 150 mg capsule 150 mg PO BID #60 cap 08/18/18 furosemide 20 mg tablet 20 mg PO DAILY #30 tab 08/24/18 trimethoprim 100 mg tablet 100 mg PO BEDTIME #90 tab 08/25/18 gabapentin 600 mg tablet 600 mg PO QIDP PRN #120 tab 09/08/18 pantoprazole 40 mg tablet,delayed 40 mg PO BID #60 tab 09/22/18 release oxycodone 10 mg tablet 10 - 20 mg PO Q4HP PRN #150 tab 09/27/18 nitrofurantoin macrocrystal 100 mg PO QID 5 Days #20 cap 10/02/18 Allergies Allergy/AdvReac Type Severity Reaction Status Date / Time meloxicam [MELOXICAM] AdvReac Mild bloody Verified 09/29/18 11:23 dark stool Review of Systems Constitutional Reports fatigue, Denies fever(s) and Reports weakness ENT Ears, Nose, Mouth, and Throat: Denies dizziness, Reports disequilibrium and Denies sore throat Cardiovascular Denies chest pain and Reports dyspnea Respiratory Denies cough and Reports dyspnea Gastrointestinal Gastrointestinal: Reports abdominal pain, Denies change in bowel habits, Denies nausea and Denies vomiting Genitourinary Denies dysuria Musculoskeletal Reports abnormal gait, Reports back pain, Reports muscle weakness and Denies tingling Integumentary/Breasts Denies rash Neurologic Denies abnormal speech, Reports abnormal gait, Denies dizziness, Denies tingling, Reports disequilibrium and Reports weakness Endocrine Reports fatigue Hematologic/Lymphatic Comments: On Pradaxa Allergic/Immunologic Denies urticaria [facility] Medical History Asthma (Chronic) Other iron deficiency anemia (Chronic 12/02/14) Paroxysmal atrial fibrillation (Chronic) Low back pain (Chronic 10/02/13) Mixed hyperlipidemia (Chronic) Essential hypertension (Chronic) Cardiac dysrhythmia, unspecified (Chronic) Gastroesophageal reflux disease without esophagitis (Chronic) 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) Peripheral edema (Chronic 11/01/16) Surgical History Anesthesia (Resolved) History of cholecystectomy (Resolved) History of gastric bypass (~03/2004) S/P total abdominal hysterectomy and bilateral salpingo-oophorectomy Status post appendectomy Status post discectomy Social History marital status: number of children: 1 household members: spouse lives independently: Yes caregiver/support person: No housing: house pets and animals: Yes education level: college occupational status: other (Retired) current occupational exposures/hazards: No 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: [employer] travel history: over 6 months ago (Lots of Travels.) leisure activities: reading and other (Watch TV, Movies, Cooking) Smoking Status: Never smoker Tobacco: How many years used: 0 quit status: quit date established (Never Started) second hand exposure: No alcohol intake: never substance use type: marijuana (In the past) Social History marital status: number of children: 1 household members: spouse lives independently: Yes caregiver/support person: No housing: house pets and animals: Yes education level: college occupational status: other (Retired) current occupational exposures/hazards: No 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: [employer] travel history: over 6 months ago ([employer] of Travels.) leisure activities: reading and other (Watch TV, Movies, Cooking) Smoking Status: Never smoker Tobacco: How many years used: 0 quit status: quit date established (Never Started) second hand exposure: No alcohol intake: never substance use type: marijuana (In the past) Exam Initial Vital Signs Initial Vital Signs: Vital Signs Temperature 98.7 F 10/03/18 17:11 Pulse Rate 83 10/03/18 17:11 Respiratory Rate 22 10/03/18 17:11 Blood Pressure 139/94 H 10/03/18 17:11 Pulse Oximetry 93 10/03/18 17:11 Const General: cooperative, well groomed and No acute distress Nutritional Appearance: overweight Orientation: alert, awake and oriented x3 HENMT Head: normal to inspection and normocephalic Resp Effort & Inspection: normal respiratory effort, no cough, labored, no stridor and tachypneic Auscultation: clear to auscultation bilaterally Cardio Rate: regular rate Rhythm: abnormal rhythm irregularly irregular Pulses: radial pulses present GI Inspection: non-distended Palpation: soft, No firm and tender (Left-sided abdomen) General: No CVA tenderness Skin Lesions: no lesions Rashes: no rashes Neuro General: alert, awake and oriented x3 Gait: other (Patient unable to stand at bedside) Motor: muscle tone abnormal (2/5 strength bilateral lower extremity) Extrem General: edema (Three + pitting edema bilateral lower extremities) Psych Appearance: grossly normal and well kempt Scores GCS [place] coma scale eye opening: Spontaneous [place] coma scale verbal response: Orientated [place] coma scale motor response: Obey commands [place] coma scale total score: 15 Course Orders Ordered: ED Orders 10/03/18 16:40 B Type Natriuretic Peptide Stat Complete Blood Count AUTO DIFF Stat Comprehensive Metabolic Panel Stat Lipase Stat Troponin I Stat 10/03/18 17:10 XR chest 1V Stat 10/03/18 17:11 EKG-12 Lead Stat Morphine Sulfate (Morphine) 4 mg IV Q4HR PRN PRN Reason: Pain, Mild (1-3) Ondansetron HCl (Zofran) 4 mg IV Q4HR PRN PRN Reason: Nausea And Vomiting Discontinued Medications Furosemide (Lasix) 40 mg IV NOW ONE Stop: 10/03/18 19:03 Oxycodone/Acetaminophen (Percocet 5/325) 2 tab PO NOW ONE Stop: 10/03/18 19:03 Vital Signs - 8 hr 10/03/18 17:11 10/03/18 18:30 Temperature 98.7 F Pulse Rate 83 104 H Respiratory Rate 22 19 Blood Pressure 139/94 H Blood Pressure [Left Arm] 140/93 H Pulse Oximetry 93 93 MDM - SOB/Dyspnea Medical Records Attestation: I reviewed the patient's medical records. Lab Data Attestation: I reviewed the patient's lab results. Result diagrams: 10/03/18 16:40 10/03/18 16:40 Lab Results 10/03/18 10/03/18 Range/Units 16:40 16:40 WBC 8.2 (4.5-11.0) X10^3/uL RBC 4.50 (4.0-5.2) X10^6/uL Hgb 13.6 (12.0-16.0) g/dL Hct 41.1 (36-46) % MCV 91.4 (80-100) fL MCH 30.1 (26-34) PG MCHC 33.0 (30-36) % RDW 14.3 (11.6-14.8) % Plt Count 146 L (150-400) X10^3/uL Neut % (Auto) 68.0 (50-75) % Lymph % (Auto) 18.0 L (25-40) % [place] % (Auto) 12.5 (3-14) % Eos % (Auto) 1.1 L (2-4) % Baso % (Auto) 0.4 (0-2) % Neut # (Auto) 5600 (0972-0977) /uL Lymph # (Auto) 1500 (3977-0123) /uL [place] # (Auto) 1000 H (0-900) /uL Eos # (Auto) 100 (0-450) /uL Baso # (Auto) 0 (0-100) /uL Sodium 139 (137-145) mmol/L Potassium 4.3 (3.4-5.1) mmol/L Chloride 99 (98-107) mmol/L Carbon Dioxide 33 H (22-32) mmol/L BUN 13 (7-17) mg/dL Creatinine 0.50 L (0.52-1.04) mg/dL Estimated GFR > 60.0 (>60) mL/min BUN/Creatinine Ratio 26.0 H (6-22) Glucose 108 (80-110) mg/dL Calcium 9.2 (8.4-10.2) mg/dL Total Bilirubin 1.2 (0.2-1.3) mg/dL AST 23 (14-36) IU/L ALT 19 (9-52) IU/L Alkaline Phosphatase 109 (38-126) U/L Troponin I < 0.012 (0.01-0.034) ng/mL B-Natriuretic Peptide 487 H (<100) Total Protein 7.3 (6.3-8.2) g/dL Albumin 4.1 (3.5-5.0) g/dL Globulin 3.2 (1.7-4.1) g/dL Albumin/Globulin Ratio 1.3 (1.0-2.8) Lipase 21 L (23-300) U/L ECG Data Attestation: I personally reviewed and interpreted this ECG as follows: Prior ECG tracings: not available for review Interpretation: Atrial fibrillation Ventricular rate of 90 Normal axis Normal QRS Normal QTC No ST T wave changes MDM Narrative Medical decision making narrative: Patient was hypoxic at points to the high 80s on room air lying in bed. Her symptoms did seem to improve quite a bit with the oxygen by nasal cannula. Her BNP is greater than 400 today. She does have bilateral lower extremity swelling. She states she has never been diagnosed with congestive heart failure. Is given Lasix here in the emergency department. The abdominal pain in her back pain are not new. Will hold on any radiologic studies for now. I did discuss the case with Dr. Gamboa who is on-call for her patient's primary provider. Patient is unable to stand at bedside. She is a fall risk. She does have bilateral lower extremity weakness. After this discussion we will admit for diuresis and to see physical therapy. Holding orders were placed. Discussed the admission with the patient and the was at bedside. They expressed understanding and agreement. Discharge Plan Departure Patient Disposition: Admitted as Observation Clinical Impression: Hypoxia, Weakness, Shortness of breath Urinary tract infection Qualifiers: Urinary tract infection type: site unspecified Hematuria presence: without hematuria Qualified Code(s): N39.0 - Urinary tract infection, site not specified Admit Date/Time: 10/03/18 19:12 Admit Provider: Sanjeev Gamboa
[2018-10-03 17:11] VITALS: BP 139/94; PULSE 83; RESP 22; TEMP 37.1; O2SAT 93; BMI 34.6
[2018-10-03 17:17] LABS: Add Manual Diff / Slide Review NO; Basophils Absolute Auto 0 /uL (0-100); Basophils Percent Auto 0.4 % (0-2); Eosinophils Absolute Auto 100 /uL (0-450); Eosinophils Percent Auto 1.1 % (2-4); Hematocrit 41.1 % (36-46); Hemoglobin 13.6 g/dL (12.0-16.0); Lymphocytes Absolute Auto 1500 /uL (1100-4500); Mean Corpuscular Hemoglobin 30.1 PG (26-34); Mean Corpuscular Volume 91.4 fL (80-100); Monocytes Absolute Auto 1000 /uL (0-900); Monocytes Percent Auto 12.5 % (3-14); Neutrophils Absolute Auto 5600 /uL (1500-7000); Platelet Count 146 X10^3/uL (150-400); Red Cell Distribution Width 14.3 % (11.6-14.8); White Blood Cell Count 8.2 X10^3/uL (4.5-11.0)
[2018-10-03 17:29] LABS: Alanine Aminotransferase 19 IU/L (9-52); Albumin 4.1 g/dL (3.5-5.0); Albumin Globulin Ratio 1.3 (1.0-2.8); Alkaline Phosphatase 109 U/L (38-126); Aspartate Aminotransferase 23 IU/L (14-36); Bilirubin Total 1.2 mg/dL (0.2-1.3); Blood Urea Nitrogen 13 mg/dL (7-17); Calcium 9.2 mg/dL (8.4-10.2); Carbon Dioxide 33 mmol/L (22-32); Chloride 99 mmol/L (98-107); Estimated Glomerular Filt Rate > 60.0 mL/min (>60); Globulin 3.2 g/dL (1.7-4.1); Glucose 108 mg/dL (80-110); HEMOLYSIS < 15 (0-50); Lipase 21 U/L (23-300); Potassium 4.3 mmol/L (3.4-5.1); Sodium 139 mmol/L (137-145); Total Protein 7.3 g/dL (6.3-8.2)
[2018-10-03 17:41] LABS: Troponin I < 0.012 ng/mL (0.01-0.034)
[2018-10-03 17:43] LABS: B Type Natriuretic Peptide 487 (<100)
[2018-10-03 18:30] VITALS: BP 140/93; PULSE 104; RESP 19; O2SAT 93
[2018-10-03] MEDS: FUROSEMIDE 40 MG/4 ML VIAL IV (19:16)
[2018-10-03] MEDS: OXYCODONE/ACETAMINOPHEN 5/325 TABLET 2 TAB PO (19:21)
[2018-10-03 19:52] VITALS: BP 163/99; PULSE 92; RESP 22; O2SAT 95
[2018-10-03 20:00] VITALS: BP 141/88; PULSE 120; RESP 17; TEMP 36.4; O2SAT 96
[2018-10-03 20:33] VITALS: BMI 34.6
[2018-10-03 22:44] VITALS: BP 141/88; PULSE 103
[2018-10-03] MEDS: METOPROLOL ER 25 MG TABLET 75 MG PO (22:44)
[2018-10-03] MEDS: DABIGATRAN 75 MG CAPSULE 150 MG PO (22:45)
[2018-10-03] MEDS: PANTOPRAZOLE 40 MG TABLET PO (22:45)
[2018-10-03 23:30] VITALS: BP 126/64; PULSE 89; RESP 16; TEMP 36.6; O2SAT 92
[2018-10-04] VITALS (13 sets, daily range): BP systolic 97–134; BP diastolic 59–81; PULSE 74–104; RESP 16–19; TEMP 36.1–37.1; O2SAT 88–97
--- NOTE | 2018-10-04 05:59 | PC.NURSE ---
Addendum entered by Marilee Askew R.N. 10/04/18 06:39: Pt appears to be resting comfortably in bed and that SOB has resolved with the 4mg IV Morphine. Original Note: Shift note: Pt c/o SOB, VSS at 120/67 O2 95 on 1.5L by NC, HR 98, hx of chronic bilat knee pain that is stable. Pt reports its the same SOB that brought her into the hospital. Will medicate for pain per MAR for both SOB/Pain and knee pain.
[2018-10-04] MEDS: MORPHINE 2 MG/ML INJ 4 MG IV ×2 (06:02)
--- NOTE | 2018-10-04 07:36 | DI.ECHO.S_ITS ---
[place] +---------+ Hospital +---------+ : : [address] : : : : [id number] : : : : Phone: [phone] Echocardiogram Report + + :Name: JEANNE DUDLEY Study Date: 10/04/2018 Height: 66 in : :[facility] Exam Location: IS Weight: 208 lb : : Gender: Female BSA: 2.0 m2 : :: 1935 Age: 83 yrs BP: 134/77 mmHg: :Reason For Study: HYPOXIA : : Performed By: Nelson Mendes : :Referring: HAYLEY FARRIS R : + + Interpretation Summary The left ventricle is normal in size. The ejection fraction is estimated to be 60-65%. There has been no significant change in LVEF since the previous study. Flattened septum is consistent with RV pressure overload. The right ventricle is mildly dilated. Right ventricular systolic function is mildly reduced. There has been no significant change in LV function since the previous study. There is moderate to severe mitral regurgitation. Compared to the prior echo study, there has been an increase in the severity of mitral regurgitation. There is moderate tricuspid regurgitation. Compared to the prior echo exam, there has been an increase in TR severity. The right ventricular systolic pressure is estimated to be at least 51 mmHg based on an estimated right atrial pressure of 15 mm Hg. Compared to the prior echo exam, there has been an increase in the severity of pulmonary hypertension. Procedure: A two-dimensional transthoracic echocardiogram with color flow and Doppler was performed. The study quality was technically good. There is no prior echocardiogram noted for this patient. The patient was in atrial fibrillation with rapid ventricular response during the exam with a heart rate exceeding 100 bpm. The patient had a heart rate of 77-111 beats per minute. Left Ventricle: The left ventricle is normal in size. There is normal left ventricular wall thickness. There is no thrombus. The ejection fraction is estimated to be 60-65%. There has been no significant change since the previous study. Flattened septum is consistent with RV pressure overload. Right Ventricle: The right ventricle is mildly dilated. Right ventricular systolic function is mildly reduced. There has been no significant change since the previous study. Atria: The left atrium is severely dilated. The left atrium has remained unchanged in size since the prior echo exam. The right atrium is moderate to severely dilated. The right atrium has mildly increased in size since the prior echo exam. The interatrial septum is intact with no evidence for an atrial septal defect. Mitral Valve: There is mild mitral annular calcification. The mitral valve chordae are thickened and/or calcified. There is moderate to severe mitral regurgitation. The mitral regurgitant jet is eccentrically directed. Compared to the prior echo study, there has been an increase in the severity of mitral regurgitation. Aortic Valve: The aortic valve is trileaflet. The aortic valve opens well. There is mild aortic valve sclerosis. There is mild aortic regurgitation. Compared to the prior echo study, there has been an increase in the severity of aortic regurgitation. Tricuspid Valve: The tricuspid valve is normal. There is moderate tricuspid regurgitation. The right ventricular systolic pressure is estimated to be at least 51 mmHg based on an estimated right atrial pressure of 15 mm Hg. Compared to the prior echo exam, there has been an increase in TR severity. Compared to the prior echo exam, there has been an increase in the severity of pulmonary hypertension. Pulmonic Valve: The pulmonic valve is not well seen, but is grossly normal. There is trace pulmonic regurgitation. Great Vessels: The aortic root is normal size. The dimensions of the ascending aorta are normal. The pulmonary artery is normal size. The IVC is dilated (diameter is greater than 2.1 cm) and it collapses less than 50% with a sniff. This suggests a high right atrial pressure of 15 mm Hg. Pericardium/ Pleura There is no pericardial effusion. There is no pleural effusion. MMode/2D Measurements & Calculations LVIDd: 4.4 cm LVOT diam: 1.9 cm LVIDs: 2.3 cm Ao root diam: 3.1 cm FS: 46.4 % Aortic Jxn: 2.9 cm EPSS: 0.17 cm asc Aorta Diam: 3.0 cm IVSd: 0.71 cm Ao Arch Diam (Prox Trans): 2.4 cm LVPWd: 0.97 cm LV terrazas. diameter/BSA (cm/m^2): 2.2 LV sys. diameter/BSA (cm/m^2): 1.2 LA dimension: 4.2 cm RA long axis: 6.2 cm LA A2 area: 33.2 cm2 RA area: 25.2 cm2 LA A4 area: 32.7 cm2 RA vol: 87.0 ml LA length (vol): 7.4 cm RA : 42.8 ml/m2 LA vol: 123.6 ml IVC diam: 2.7 cm LA vol index: 60.8 ml/m2 RVD1 (basal): 3.7 cm RVD2 (mid): 3.7 cm Doppler Measurements & Calculations Ao V2 max: 176.1 cm/sec LVOT Max John: 135.7 cm/sec Ao V2 mean: 129.4 cm/sec LV V1 max P.4 mmHg Ao max P.5 mmHg LV V1 VTI: 25.4 cm Ao mean P.3 mmHg MICHELLE(I,D): 2.1 cm2 Ao V2 VTI: 33.2 cm MICHELLE(V,D): 2.1 cm2 sev ratio: 0.76 MICHELLE indexed to BSA (cm^2/m^2): 1.0 MV E max john: 135.0 cm/sec TR max john: 300.5 cm/sec MV A max john: 1.9 cm/sec TR max P.1 mmHg MV E/A: 72.8 PA V2 max: 94.6 cm/sec Med Peak E' John: 6.8 cm/sec PA V2 mean: 64.9 cm/sec E/E' med: 19.9 PA mean P.9 mmHg Lat Peak E' John: 8.8 cm/sec PA pr(Accel): 31.6 mmHg E/E' lat: 15.4 PA Accel Time: 0.11 sec E/e' average: 17.6 MV dec time: 0.12 sec MVA(VTI): 3.7 cm2 MV V2 mean: 97.3 cm/sec SV(LVOT): 68.4 ml MV mean P.3 mmHg MV V2 VTI: 18.3 cm Reading Physician:JOSE
--- NOTE | 2018-10-04 07:41 | PM.HP.1 ---
History of Present Illness Date Patient Seen: 10/04/18 Time Patient Seen: 07:42 Chief complaint: SOB, UTI Narrative: 83-year-old female admitted because of weakness and hypoxia. She presented to the emergency department day prior to admission and day of admission with increased weakness. Patient unable to support her own weight and therefore assist with transfers etc. 1st visit to ED only finding was a probable UTI with normal white blood cell count and no other evidence of more significant infection. She was sent home with oral antibiotic therapy. Continued to be weak at home and then became more dyspneic. EMS was summoned again she was found to have oxygen saturations in the high 80% range and low 90% range and was transported back to the ER for evaluation Repeat evaluation in the ER was equally unremarkable. BNP 487. No repeat imaging was performed. Chest x-ray done day prior to admission did not show evidence of congestive heart failure. Patient been seen in the clinic last week because of increased weakness and is also complaining of increased lower extremity edema. She had been much less active than usual. Patient denies any chest pain any infectious kind of symptoms such as fever chills sore throat cough etc. no GI symptoms although chronic abdominal pain does persist. 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) Peripheral edema (Chronic 11/01/16) Surgical History Anesthesia (Resolved) History of cholecystectomy (Resolved) History of gastric bypass (~03/2004) S/P total abdominal hysterectomy and bilateral salpingo-oophorectomy Status post appendectomy Status post discectomy Social History marital status: number of children: 1 household members: spouse lives independently: Yes caregiver/support person: No housing: house pets and animals: Yes education level: college occupational status: other (Retired) current occupational exposures/hazards: No 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: [place] travel history: over 6 months ago ([employer] Travel[employer].) leisure activities: reading and other (Watch TV, Movies, Cooking) Smoking Status: Never smoker Tobacco: How many years used: 0 quit status: quit date established (Never Started) second hand exposure: No alcohol intake: never substance use type: marijuana (In the past) Family & Social History Social History: household members spouse Prior Living Arrangements House lives independently Yes caregiver/support person No Safety & Behavioral: Feels Safe in Current Yes Environment Been Physically Hurt or No Threatened By a Person Suicidal Ideation Description None Tobacco & Substance use: Smoking Status Never smoker alcohol intake never alcohol intake frequency holiday/special occasion Substance Use Type does not use Meds Home Medications Medication Instructions Recorded Confirmed Type Vitamin B-12 50 mcg PO BID #0 03/05/11 10/03/18 History [VITAMIN D] 1 cap PO BID #0 04/20/17 10/03/18 History mirabegron ER 50 mg 50 mg PO DAILY #90 tab 12/26/17 10/03/18 Rx tablet,extended release 24 hr triamcinolone acetonide 0.025 % 1 applictn TOP TID PRN #80 gram 01/03/18 10/03/18 Rx topical cream Wheelchair: Manual Lightweight 1 ea MISCELLANEOUS DIRECTED 01/09/18 10/03/18 History folic acid 1 mg tablet 2 mg PO BID #360 tab 02/21/18 10/03/18 Rx metoprolol succinate 75 mg PO QPM 04/13/18 10/03/18 History solifenacin [Vesicare] 10 mg PO BEDTIME 05/29/18 10/03/18 History citalopram 10 mg tablet 20 mg PO DAILY #90 tab 07/14/18 10/03/18 Rx dabigatran etexilate 150 mg capsule 150 mg PO BID #60 cap 08/18/18 10/03/18 Rx furosemide 20 mg tablet 20 mg PO DAILY #30 tab 08/24/18 10/03/18 Rx trimethoprim 100 mg tablet 100 mg PO BEDTIME #90 tab 08/25/18 10/03/18 Rx gabapentin 600 mg tablet 600 mg PO QIDP PRN #120 tab 09/08/18 10/03/18 Rx pantoprazole 40 mg tablet,delayed 40 mg PO BID #60 tab 09/22/18 10/03/18 Rx release oxycodone 10 mg tablet 10 - 20 mg PO Q4HP PRN #150 tab 09/27/18 10/03/18 Rx metoprolol succinate [Toprol XL] 50 mg PO QAM 10/02/18 10/03/18 History nitrofurantoin macrocrystal 100 mg PO QID 5 Days #20 cap 10/02/18 10/03/18 Rx Allergies Allergy/AdvReac Type Severity Reaction Status Date / Time meloxicam [MELOXICAM] AdvReac Mild bloody Verified 09/29/18 11:23 dark stool Review of Systems Constitutional Constitutional: Denies excessive sweating, Denies fever(s), Reports frequent falls, Denies headache(s), Reports lack of energy, Reports weakness, Denies weight gain and Denies weight loss Eyes Eyes: Denies change in vision, Denies itchy eyes, Denies loss of vision and Denies other visual disturbances ENT Ears, Nose, Mouth, and Throat: No difficulty swallowing, No headache(s) and No neck pain Cardiovascular Cardiovascular: Denies chest pain, Denies fainting, Denies fast heart rate, Denies irregular heart rhythm, Denies rapid, pounding, or irregular heartbeat, Reports shortness of breath, Reports shortness of breath with activity and Denies slow heart rate Respiratory Respiratory: Denies cough, Denies hemoptysis, Denies excessive phlegm production, Reports dyspnea, Reports dyspnea on exertion and Denies wheezing Gastrointestinal Gastrointestinal: Denies bloating, Denies change in bowel habits, Denies change in stool character, Denies dysphagia, Denies nausea, Denies vomiting and Denies hematemesis Genitourinary Genitourinary: Denies hematuria, Denies urinary frequency and Denies difficulty voiding Musculoskeletal Musculoskeletal: Denies abnormal gait, Denies myalgias, Denies arthralgias, Denies limited range of motion and Denies neck pain Integumentary/Breasts Skin/Breast: Denies bleeding lesions, Denies change in pigmentation, Denies changing lesions, Denies new lesions, Denies rash, Denies skin swelling, Denies sores and Denies jaundice Neurologic Neurologic: Denies abnormal gait, Denies behavioral changes, Denies confusion, Denies syncope, Reports frequent falls, Denies headache(s), Denies loss of vision, Denies memory loss and Reports weakness Psychiatric Psychiatric: Denies behavioral changes, Denies change in appetite, Denies confusion, Denies difficulty concentrating, Denies auditory hallucinations, Denies memory loss, Denies mood swings and Denies suicidal ideation Endocrine Endocrine: Denies excessive sweating and Denies palpitations Hematologic/Lymphatic Hematologic/Lymphatic: Denies easy bleeding, Denies easy bruising and Denies lymphadenopathy Allergic/Immunologic Allergic/Immunologic: Denies itchy eyes and Denies wheezing Exam Vital Signs (past 8 hours): - 10/04/18 00:18 10/04/18 00:24 10/04/18 06:00 Temperature 98.2 F Pulse Rate 89 95 H Respiratory Rate 18 Blood Pressure 126/64 120/67 Pulse Oximetry 96 92 Oxygen Delivery Method Nasal Cannula Oxygen Flow Rate 2 Narrative Exam Narrative: Elderly female in no obvious distress lying in her hospital bed HEENT-unremarkable Neck-no lymphadenopathy no bruits Lungs-diminished breath sounds with perhaps scattered end expiratory wheezes Heart-regular rate and rhythm Abdomen-benign, obese which limits exam, positive bowel tones Extremities-trace edema at the ankles bilaterally, left slightly worse than right, that appears chronic Objective Labs Result Diagrams: 10/03/18 16:40 10/03/18 16:40 Labs: Laboratory Results - last 24 hr 10/03/18 10/03/18 16:40 16:40 WBC 8.2 RBC 4.50 Hgb 13.6 Hct 41.1 MCV 91.4 MCH 30.1 MCHC 33.0 RDW 14.3 Plt Count 146 L Neut % (Auto) 68.0 Lymph % (Auto) 18.0 L [place] % (Auto) 12.5 Eos % (Auto) 1.1 L Baso % (Auto) 0.4 Neut # (Auto) 5600 Lymph # (Auto) 1500 [place] # (Auto) 1000 H Eos # (Auto) 100 Baso # (Auto) 0 Sodium 139 Potassium 4.3 Chloride 99 Carbon Dioxide 33 H BUN 13 Creatinine 0.50 L Estimated GFR > 60.0 BUN/Creatinine Ratio 26.0 H Glucose 108 Calcium 9.2 Total Bilirubin 1.2 AST 23 ALT 19 Alkaline Phosphatase 109 Troponin I < 0.012 B-Natriuretic Peptide 487 H Total Protein 7.3 Albumin 4.1 Globulin 3.2 Albumin/Globulin Ratio 1.3 Lipase 21 L Assessment & Plan Assessment & Plan narrative: 1. Hypoxia/acute respiratory failure-I believe patient needs to be evaluated for pulmonary emboli even though she is anticoagulated with Pradaxa because of her atrial fibrillation. She is at high risk for development given her obesity and her inactivity however more likely than not because of the Pradaxa as she does not have pulmonary emboli. CT scan will also allow me to more carefully evaluate her pulmonary parenchyma looking for potential etiologies for her mild hypoxia. Patient may have some element of volume overload and should be treated with IV Lasix. Echocardiogram will be performed. Patient had avoided taking her Lasix at home for reasons that are not clear probably due to difficulty getting up to the bathroom. Patient clearly with her obesity is at high risk of hypoventilation obesity syndrome that may well be playing a role here as well. She is minimally hypoxic but may be contributing to her overall weakness. Patient with longstanding history of asthma but does not appear to have symptoms consistent with the pure asthmatic exacerbation. 2. Weakness-no clear etiology for this. Patient with significant obesity and overall multiple medical problems including arthritis prior iron deficiency anemia paroxysmal atrial fibrillation low back pain etc. Will have her seen by physical therapy occupational therapy and discharge planning staff. I anticipate she would likely benefit from placement in alternate facility for rehabilitation for some period of time. 3. UTI-patient growing gram-negative rods thus far from her urine obtained previously. Will continue her oral antibiotic therapy at this point given normal white count and no evidence of fever or systemic infection at this point. 4. Paroxysmal atrial fibrillation-continue with current meds including her Pradaxa 5. Asthma-no evidence of active asthma or obstructive lung disease at this point. Will have albuterol available as needed however 6. Low back pain-patient uses oxycodone at a rate of about 8 tablets per day at home (10 mg). Will continue that here for now. We had some discussion about slowly reducing this dose over time. Patient reports chronic back pain as well as pain in her knees etc. 7. DVT prophylaxis-continue with Pradaxa for now which should suffice. 8. Code status-patient requests full code status in the event of a sudden cardiac or respiratory arrest. This is entirely appropriate and consistent with prior wishes. Overall patient with increasing weakness of uncertain etiology. We will look for etiologies here as well as etiologies for her hypoxia but my suspicion is nothing new will be discovered. Patient likely his merely failing at home because of her size and multiple comorbidities and likely needs placement in an alternate living facility. Quality VTE Deep Vein Thrombosis/Pulmonary Embolism Present on Admission: No
--- NOTE | 2018-10-04 07:49 | DI.CT.S_ITS ---
PROCEDURE: CT ANGIO CHEST PE PROTOCOL INDICATIONS: hypoxia TECHNIQUE: After the administration of intravenous contrast, 2 mm thick sections acquired from the pulmonary apices to the posterior costophrenic angles. 3-dimensional maximum intensity projection (MIP) coronal and sagittal reformats were then acquired through the thorax. For radiation dose reduction, the following was used: automated exposure control, adjustment of mA and/or kV according to patient size. COMPARISON: [facility], CT, IVP (ABD & PEL WWO CONTRAST), 07/03/2012, 10:27. FINDINGS: Image quality: Excellent. Pulmonary arteries: Pulmonary arteries are normal in size, and demonstrate no intraluminal filling defects to suggest central pulmonary embolism. Lungs and pleura: Minimal bibasilar dependent change. No pleural effusions or pneumothorax. Central and peripheral airways are patent. Mediastinum: The left ventricle is mildly enlarged. The left atrium is enlarged. There is dense calcification of the mitral valve annulus. Shotty symmetric hilar and mediastinal adenopathy. Thoracic aorta is normal in caliber and enhancement. Esophagus is normal in caliber, without hiatal hernia. Bones and chest wall: No suspicious bony lesions. Ribs and thoracic spine appear intact throughout. Thyroid gland is unremarkable. No axillary or supraclavicular adenopathy. Abdomen: Question cirrhotic changes in the liver. The left lobe is prominent and there is a question of surface nodularity. Cholecystectomy clips. Remote gastric bypass. IMPRESSION: 1. No evidence of pulmonary emboli. 2. Minimal bibasilar dependent change. 3. Mild enlargement of left ventricle. Left atrial enlargement. 4. Shotty mediastinal adenopathy Dictated by: Izaiah Cardenas M.D. on 10/04/2018 at 8:50 Approved by: Izaiah Cardenas M.D. on 10/04/2018 at 9:03
[2018-10-04] MEDS: OXYCODONE IR 10 MG TABLET 20 MG PO ×3 (08:06→20:00)
--- NOTE | 2018-10-04 10:17 | OT.IP.TRT ---
Occupational Therapy Treatment Note M3 OT- IP Subjective and Pain Start: 10/04/18 10:16 Freq: Status: Active Protocol: Document 10/04/18 10:16 [facility] (Rec: 10/04/18 10:17 [facility] [id number]) OT- Subjective Occupational Therapy Visit Type Type Administrative Note Notes Nursing states not appropriate to be seen this morning and to check back in PM for OT eval.
[2018-10-04] MEDS: GABAPENTIN 600 MG TABLET PO ×4 (10:25→20:00)
[2018-10-04] MEDS: FOLIC ACID 1 MG TABLET 2 MG PO ×2 (10:25→20:01)
[2018-10-04] MEDS: METOPROLOL ER 50 MG TABLET PO (10:25)
[2018-10-04] MEDS: PANTOPRAZOLE 40 MG TABLET PO ×2 (10:25→20:00)
[2018-10-04] MEDS: TRIMETH/SULFA 160/800 (DS) TABLET 1 TAB PO ×2 (10:25→20:00)
[2018-10-04] MEDS: FUROSEMIDE 40 MG/4 ML VIAL IV ×2 (10:25→20:00)
[2018-10-04] MEDS: DABIGATRAN 75 MG CAPSULE 150 MG PO ×2 (10:25→20:01)
[2018-10-04] MEDS: CITALOPRAM 20 MG TABLET PO (10:25)
[2018-10-04] MEDS: SODIUM CHLORIDE 0.9% FLUSH 10 ML IV ×2 (10:26→20:00)
--- NOTE | 2018-10-04 11:05 | PT.IPTN ---
Physical Therapy Treatment Note M3 PT-IP Subjective Start: 10/04/18 12:52 Freq: NEEDED Status: Active Protocol: Document 10/04/18 11:05 AB (Rec: 10/04/18 12:54 AB [id number]) Subjective Physical Therapy Visit Type Notes per nurse, pt is not ready for PT this morning and to check back in the afternoon. talked to the nurse mid morning and stated that pt may be ready at ~ 1 pm as pt will be getting her pain meds around that time . will check on pt this afternoon.
--- NOTE | 2018-10-04 13:30 | PT.IIE ---
Surgical History (Last Reviewed 10/04/18 @ 07:44 by jO Bland MD) Anesthesia (Resolved) History of cholecystectomy (Resolved) History of gastric bypass (~03/2004) S/P total abdominal hysterectomy and bilateral salpingo-oophorectomy Status post appendectomy Status post discectomy Medical History (Last Updated 10/04/18 @ 08:20 by Oj Bland MD) Obesity, morbid (Chronic) Mixed incontinence urge and stress (Chronic) Asthma (Chronic) Other iron deficiency anemia (Chronic 12/02/14) Paroxysmal atrial fibrillation (Chronic) Low back pain (Chronic 10/02/13) Mixed hyperlipidemia (Chronic) Essential hypertension (Chronic) Cardiac dysrhythmia, unspecified (Chronic) Gastroesophageal reflux disease without esophagitis (Chronic) 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 pt stated that she uses her power w/c for mobility indoors/ outdoors but able to ambulate using 4WW ~ 6 ft bed <>chair; per uses a bedside commode for toileting needs.. spouse has been assisting pt with transfers/ambulation and spouse stated that pt is unsteady on her legs and is wobbly that he has to hold on to her and assist her. Activities of Daily Living and IADL's spouse assists pt with ADLs Social History Household Members spouse Living Arrangements House Number of Floors (Floors) One Floor Number of Stairs To Enter/Railing? has a ramp to enter Home Environment High Toilet Walk in Shower Home Equipment Front Wheel Walker Four Wheel Walker Power Wheelchair/Scooter Shower Seat without Backrest Hand Held Shower Grab Bars Near Toilet Grab Bars In Shower M2 PT-IP Current Condition Start: 10/04/18 12:52 Freq: NEEDED Status: Active Protocol: Document 10/04/18 13:30 AB (Rec: 10/04/18 15:53 AB [id number]) Physical Therapy Current Condition Current Condition Evaluation Date 10/04/18 Treatment Diagnosis hypoxia; UTI; generalized weakness Onset Date 10/03/18 Precautions Other Precautions falls; O2 sat M3 PT-IP Subjective Start: 10/04/18 12:52 Freq: NEEDED Status: Active Protocol: Document 10/04/18 13:30 AB (Rec: 10/04/18 15:53 AB [id number]) Subjective Physical Therapy Visit Type Type Initial Evaluation Visit Start Time 13:30 Visit Stop Time 14:16 Total Visit Minutes 46 Number of RETAIL ACCOUNT MANAGER Visits 0 Physical Therapy Visit Comments Patient Comments pt agreeable to do PT Therapy Pain Assessment Pain Present Pain Present Denied Pain M4 PT-IP Mobility and Gait Start: 10/04/18 12:52 Freq: NEEDED Status: Active Protocol: Document 10/04/18 13:30 AB (Rec: 10/04/18 15:53 AB [id number]) PT-Bed Mobility Assessment Supine to Sit Supine to Sit Minimal Assistance 1 Person Assistance PT-Transfer Assessment Sit to and From Stand Sit to and from Stand Maximum Assistance 2 Person Assistance Use of Upper Extremities Equipment Transfer Assistive Device Gait Belt Front Wheeled Walker Orthotic/Prosthetic Devices or Brace: No Transfers Transfer Destination Chair Bedside Commode Transfer Technique Stand Step Pivot Transfer Ability Level of Assist Maximum Assistance 2 Person Assistance Use of Upper Extremities Comments Mobility Comments pt completed supine to sit min A and cues. pt was able to maintain sitting on EOB SBA. pt completed sit to stand x 2 attempts requiring max A x 2 and max cues. pt completed stand step transfer using FWW bed to bedside commode. pt was able to maintain standing using FWW for support max A and assisted with hygiene care and brief management. pt completed sit to stand from the bedside commode max A x 2 and max cues. pt completed stand step transfer commode to the chair using FWW max A x 2 and max cues. pt required cues to increase LE elevation and weight shifting. Left pt with OT. PT-Balance Assessment Sitting Balance and Reactions Static Sitting Balance Ability Good Dynamic Sitting Balance Ability Good Standing Balance and Reactions Static Standing Balance Ability Poor Dynamic Standing Balance Ability Poor M5 PT-IP Objective Assessments Start: 10/04/18 12:52 Freq: NEEDED Status: Active Protocol: Document 10/04/18 13:30 AB (Rec: 10/04/18 15:53 AB [id number]) Orientation Orientation/Cognition Level of Alertness Alert Orientation Name Place Situation Safety Awareness Decreased Safety Awareness Memory Description Short Term Impaired Gross Range of Motion Lower Extremity ROM Assessment Bilaterally Impaired Impairments L ankle DF tightness Strength Lower Extremity Strength Assessment Bilaterally Impaired Hip 3-/5 Knee 3+/5 Ankle L DF: 1/5 R DF 2+/5 Sensation Assessment Sensation Gross Sensation Left LE Impaired Light Touch Impaired Proprioception (Position) Impaired M6 PT-IP Treatment Start: 10/04/18 12:52 Freq: NEEDED Status: Active Protocol: Document 10/04/18 13:30 AB (Rec: 10/04/18 15:53 AB [id number]) Physical Therapy Treatment Education Education Provided Safety M7 PT-IP Assessment and Plan Start: 10/04/18 12:52 Freq: NEEDED Status: Active Protocol: Document 10/04/18 13:30 AB (Rec: 10/04/18 15:53 AB [id number]) PT Summary Assessment and Plan Potential Rehabilitation Potential Fair Status of Condition at Evaluation Evolving Summary Impairments Pain ROM Strength Balance Coordination Sensation Tone Cognition Bed Mobility Transfers Gait Activity Tolerance Assessment Summary pt requiring 2 person max A with mobility and will require SNF rehab to improve strength and mobility. pt also has decrease activity tolerance with O2 sat decreasing to ~ 84 - 89% with activity with use of O2. Goals Bed Mobility Goal Minimal Assistance Transfer Goal Minimal Assistance Front Wheeled Walker Gait Goal Minimal Assistance Front Wheel Walker Gait Distance 6 Days to Meet Goals 10 Frequency of Treatment Frequency Of Treatment Once a Day Treatment Plan Physical Therapy Treatment Plan Bed Mobility Training Transfer Training Gait Training Therapeutic Exercise Balance Retraining Discharge Planning Neuromuscular Re-ed Coordination Retraining Manual Therapy Recommendations To Nursing Amount of Assist Needed 2 Person Assist Discharge Recommendations PT Discharge Recommendations SNF Rehab
--- NOTE | 2018-10-04 13:38 | CM.DPC ---
DCP Cont: Faxed new referral clinicals for review to [facility] at fax # [phone]. Fax confirmation scanned in. Kimberlee Huggins, Jair Prepress Technician
--- NOTE | 2018-10-04 15:58 | CM.DANOTE ---
DCP/Assessment: Reviewed chart. Patient is a 83yr old female admitted to [facility] with SOB/UTI. PCP is Dr. Bland. Primary payor is 1)[facility]. Met with patient and spouse/Hipolito at bedside explained CM/SW role. Patient alert and oriented at time of visit. Patient reports that she has been having increased pain/weakness throughout her body. Spouse reports that patient spends most of her time in electric w/c due to symptoms. Patient does have FWW and used to use more frequently. Spouse hopes for patient to get stronger prior to returning home. Patient alert and oriented during interview. Unclear on how motivated patient is to do rehabilitation but she is agreeable. Spouse would like patient to go to SNF for short stay. First choice is [facility] in [place] second is [facility]. CHIMNEY SUPERVISOR BRICK asked THOMAS/Kimberlee to fax to both. Spoke with both facilities and they do take [facility] and will review. In the meantime, no notes available from rehab to fax to [facility] to obtain SNF authorization. THOMAS/Kimberlee will check in AM and fax to [facility] with request for SNF authorization. Patient and spouse report that patient is currently on HH through [facility]. Spouse does not believe that this is enough. Patient has been to the ED twice within the last week. P: Pending. [facility] reviewing. Need [facility] authorization. If approved will need to complete PASRR. MARLON Damon Discharge Planning/Care Management CM Discharge Assessment Start: 10/04/18 15:51 Freq: Status: Active Protocol: Document 10/04/18 15:52 KJS (Rec: 10/04/18 15:57 KJS [id number]) Discharge Planning Assessment Assigned Senior Product Development Scientist MARLON Damon Contact Information Hipolito Cesar (spouse) [phone] Advance Directives? Yes History Provided By Patient Significant Other Medical Record Prior Living Arrangements House Household Members spouse Type of transporation used prior to Relies on Others admit Independent with ADL's No Is patient alert and oriented? Yes Needs Assistance With Home Chores / Shopping Caregiver for Another No DME Already Rented / Owned Wheelchair FWW / Walker Patient/Family Preference Longterm Facility Comment 1st choice [facility] 2nd [facility] Comment Clinical has been faxed to both. Awaiting therapy evalaution results to start [facility] authorization. Comment Pending [facility] authorization Discharge Plan Longterm Facility Transportation Arrangement Pending Referrals Initiated Longterm Medicare Choice List Provided Yes SNF/HH Preference see above Has Agency SNF been contacted Yes Whiteboard Updated in Patient Room with Yes name and ext. # of Senior Product Development Scientist Review Status In Process Next Review Type Continued Stay Review
--- NOTE | 2018-10-04 16:14 | OT.IP.EVAL ---
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) Peripheral edema (Chronic 11/01/16) Surgical History (Last Reviewed 10/04/18 @ 07:44 by Oj Bland MD) Anesthesia (Resolved) History of cholecystectomy (Resolved) History of gastric bypass (~03/2004) S/P total abdominal hysterectomy and bilateral salpingo-oophorectomy Status post appendectomy Status post discectomy Occupational Therapy Inpatient Evaluation/Re-Eval M1 PT/OT-IP Prior Functional Status Start: 10/04/18 12:52 Freq: NEEDED Status: Active Protocol: Document 10/04/18 15:39 [facility] (Rec: 10/04/18 16:14 [facility] [email or web address]) Medical Review Prior Functional Status Medical History Reviewed Yes Communication Independent. Mobility and Gait Pt states prior only able to walk 5-6 steps to get to her electric wheelchair with 4WW. Activities of Daily Living and IADL's Per pt 3 months ago was able to do all ADl's and only having to supervise while showering. Social History Household Members spouse Living Arrangements House Number of Floors (Floors) One Floor Number of Stairs To Enter/Railing? Pt has a ramp to enter. Home Environment High Toilet Walk in Shower Built-In Shower Seat Home Equipment Four Wheel Walker Power Wheelchair/Scooter Bedside Commode Shower Seat without Backrest Grab Bars Near Toilet Grab Bars In Shower M2 OT-IP Current Condition Start: 10/04/18 10:16 Freq: Status: Active Protocol: Document 10/04/18 15:39 [facility] (Rec: 10/04/18 16:14 [facility] [id number]) Occupational Therapy Current Condition Current Condition Evaluation Date 10/04/18 Treatment Diagnosis Hypoxia, UTI, weakness Diagnosis Onset Date 10/03/18 Weight Bearing Status Weight Bearing Status Weight Bear as Tolerated M3 OT- IP Subjective and Pain Start: 10/04/18 10:16 Freq: Status: Active Protocol: Document 10/04/18 15:39 [facility] (Rec: 10/04/18 16:14 [facility] [email or web address]) OT- Subjective Occupational Therapy Visit Type Type Initial Evaluation Visit Start Time 13:30 Visit Stop Time 14:30 Total Visit Minutes 60 Occupational Therapy Visit Comments Patient Comments Pt agreeable to try to get up. Patient/Caregiver Goals Pt wanting to go to rehab to get stronger before going home. OT Pain Assessment Pain When Pain Assessed At Rest Pain Present Pain Present Denied Pain M4 OT- IP ADL's Start: 10/04/18 10:16 Freq: Status: Active Protocol: Document 10/04/18 15:39 [facility] (Rec: 10/04/18 16:14 [facility] [email or web address]) OT ADL-Grooming General Evaluation Grooming Ability Standby Assistance Areas Needing Assistance Retrieving/Set-up of Grooming Items Comments OT Grooming Comments Pt able to wash her face after set-up while sitting on the BSC. OT ADL-Dressing General Eval Lower Body Dressing Ability Maximum Assistance Areas Needing Assistance Underpants/Brief Socks Comments OT Dressing Comments Pt max A for socks and assist to uriel/doff brief. OT ADL-Toileting General Evaluation Toileting Ability Maximum Assistance Areas Needing Assistance Manage Clothing Perform Perineal Hygiene Devices Toileting Assistive Devices Commode Comments OT Toileting Comments MAX A X 1 to complete all hygiene and assist with brief while therapist able to stand with pt MODA X 2 with FWW. OT ADL-Bathing Comments OT Bathing Comments Sponge bath more appropriate at this time. M5 OT- IP IADL's Start: 10/04/18 10:16 Freq: Status: Active Protocol: Document 10/04/18 15:39 [facility] (Rec: 10/04/18 16:14 [facility] [email or web address]) OT-Instrumental Activities of Daily Living Home Safety Awareness Home Safety Comments At this time pt confused and would need assist for all ADL and IADL needs. Prior 1 week ago per pt able to pay bills and take her own medication from pill organizer . M6 OT- IP Functional Cognition Start: 10/04/18 10:16 Freq: Status: Active Protocol: Document 10/04/18 15:39 [facility] (Rec: 10/04/18 16:14 [facility] [email or web address]) Cognitive Factors Limiting Selfcare Function Cognitive Ability Level of Alertness Alert Confusional State Patient Orientation Name Month Year Day of Week Place Situation Attention Span Ability Capable of Focused Attention Capable of Sustained Attention Ability to Follow Commands Able to Follow One Step Commands with Increased Time Able to Follow One Step Commands with Repetition Memory Description Short Term Impaired Safety Awareness Underestimates Need for Assistance Problem Solving Ability Unable to Identify Errors Needs Assist to Identify Solutions Cognitive Comments Cognitive Assessment Comments Pt needing concrete commands and step by step directions to help sequence for mobility needs for hand placement, FWW use and overall safety. OT- Vision and Hearing OT- Hearing Assessment OT- Hearing Assessment WFL OT- Vision Assessment Visual Acuity Glasses For Reading Vision Assessment Comments Pt not able to read the clock correctly and getting confused . M7 OT- IP Mobility and Balance Start: 10/04/18 10:16 Freq: Status: Active Protocol: Document 10/04/18 15:39 [facility] (Rec: 10/04/18 16:14 [facility] [email or web address]) OT- Bed Mobility Assessment Rolling Type of Rolling Roll to Right Level of Assistance Minimal Assistance 1 Person Assistance Supine to Sit Supine to Sit Assist Minimal Assistance 1 Person Assistance OT-Transfer Assessment Sit to and From Stand Sit to and from Stand Moderate Assistance 2 Person Assistance Transfers Transfer Ability Moderate Assistance 2 Person Assistance Technique Transfer Destination Bedside Commode Chair Transfer Technique Stand Step Pivot Devices Transfer Assistive Devices Gait Belt Front Wheeled Walker Comments Mobility Comments Pt needing REMI to help get left leg to the edge of the bed and then able to her herself to the edge of the bed with increased time. Pt needing MODA X 2 to stand and transfer to FWW with MODA X 2. Pt needing assist to guide FWW, steadying, vc to use her BUE on the FWW so able to move her feet. OT- Balance Assessment Sitting Balance and Reactions Static Sitting Balance Ability Good Dynamic Sitting Balance Ability Fair Standing Balance and Reactions Static Standing Balance Ability Poor M8 OT- IP Objective Assessments Start: 10/04/18 10:16 Freq: Status: Active Protocol: Document 10/04/18 15:39 [facility] (Rec: 10/04/18 16:14 [facility] [email or web address]) OT Gross Range of Motion Upper Extremity Range of Motion Assessment Bilaterally Impaired OT Strength Comments Strength Comments BUE 3-/5 to 4-/5 from proximal to distal. OT- Coordination Assessment Comments Coordination Comments Pt states has unable to do button or bra now and uses camisole instead. OT Sensation Assessment Comments Summary Comments Increased time for light touch in fingers. M9 OT- IP Assessment and Plan Start: 10/04/18 10:16 Freq: Status: Active Protocol: Document 10/04/18 15:39 [facility] (Rec: 10/04/18 16:14 [facility] [email or web address]) OT Summary Assessment and Plan Potential Rehabilitation Potential Fair Analytic Complexity at Evaluation Low Summary OT Impairments Strength Balance Coordination Sensation Functional Cognition Functional Mobility Grooming Dressing Toileting Bathing Toilet Transfers Shower Transfers Progress Towards Goals Slow Progress due to Medical Issues Slow Progress due to Activity Tolerance Slow Progress due to Cognition Assessment Summary Pt low complexity and main barrier is decreased strength, endurance, activity tolerance , and now use of O2 when up and confused at times. Pt far from baseline level as prior did not use O2 and past months progressively gotten weaker and relying on for assist now. Pt will benefit skilled rehab prior to going home. Goals Grooming Goal Minimal Assistance Dressing Goal Minimal Assistance Toileting Goal Minimal Assistance Bathing Goal Moderate Assistance Toilet Transfer Goal Minimal Assistance Shower Transfer Goal Moderate Assistance Patient/Caregiver Education Goal Caregiver Independent Assisting Patient Days to Meet Goals 7 Frequency of Treatment Frequency Of Treatment Once a Day Treatment Plan OT Treatment Plan ADL Training Functional Cognition Training Functional Mobility Patient/Family Education Discharge Planning Other Treatment Recommendations and Next Stand from recliner to do Treatment Focus grooming needs. Discharge Recommendations OT Discharge Recommendations SNF Rehab Home Equipment Needs FWW
[2018-10-04] MEDS: METOPROLOL ER 25 MG TABLET 75 MG PO (16:50)
[2018-10-04] MEDS: SOLIFENACIN 5 MG TABLET 10 MG PO (20:00)
--- NOTE | 2018-10-04 22:41 | PC.NURSE ---
Patient is A&O x4, pleasant and cooperative w/ staff and able to make needs known when nec. Patient spent most of munira up to chair. Patient is considered a max 2PA w/ FWW however, it was very difficult to ambulate patient back to bed even with a short pivot. It is recommened that patient prob should be a jael lift. VSS, call light w/in reach, bed in low pos. alarm active.
[2018-10-05] VITALS (12 sets, daily range): BP systolic 90–130; BP diastolic 53–78; PULSE 77–102; RESP 16–18; TEMP 36.6–36.9; O2SAT 87–98
[2018-10-05 06:25] LABS: BUN Creatinine Ratio 22.9 (6-22); Blood Urea Nitrogen 16 mg/dL (7-17); Calcium 8.8 mg/dL (8.4-10.2); Carbon Dioxide 38 mmol/L (22-32); Chloride 95 mmol/L (98-107); Estimated Glomerular Filt Rate > 60.0 mL/min (>60); Glucose 90 mg/dL (80-110); HEMOLYSIS < 15 (0-50); Magnesium 1.8 mg/dL (1.6-2.3); Potassium 4.3 mmol/L (3.4-5.1); Sodium 138 mmol/L (137-145)
--- NOTE | 2018-10-05 06:37 | PC.NURSE ---
Shift note: Pt has been drowsy but easily arousable to stimulation throughout the night, has remained on 2L O2 by NC with O2 saturations between 92-97%. Pt is incontinent and requires a 2PMAX assist to get out of bed and ambulate. Pt reported no pain throughout the night. Bed alarm activated as pt is a high fall risk d/t history of falls, weakness, and drowsiness.
--- NOTE | 2018-10-05 07:20 | P.PN_ITS ---
Subjective Date Patient Seen: 10/05/18 Interval history: Basically uneventful day yesterday. Head CT and echo done that were noted previously. Seen by Physical therapy and Occupational therapy both of whom indicate patient need residential placement as expected. No reversible cause or etiology of her weakness has been discovered Patient is growing E coli from her urine that has multiple resistances including to the antibiotic she is on here in the hospital. Exam Vital Signs (past 8 hours): - 10/05/18 00:40 10/05/18 04:54 Temperature 98.5 F 98.0 F Pulse Rate 78 77 Respiratory Rate 16 17 Blood Pressure 128/78 105/61 Pulse Oximetry 93 96 Fraction of Inspired Oxygen 24 Oxygen Delivery Method Nasal Cannula,Humidification Oxygen Flow Rate 2 Narrative Exam Narrative: Unchanged from previous Objective Labs Result Diagrams: 10/03/18 16:40 10/05/18 05:45 Labs: Laboratory Results - last 24 hr 10/05/18 05:45 Sodium 138 Potassium 4.3 Chloride 95 L Carbon Dioxide 38 H BUN 16 Creatinine 0.70 Estimated GFR > 60.0 BUN/Creatinine Ratio 22.9 H Glucose 90 Calcium 8.8 Magnesium 1.8 Assessment & Plan Assessment & Plan narrative: 1. UTI-we will switch to a second-generation cephalosporin which should be appropriate for treatment and provide some more systemic coverage than nitrofurantoin would if indeed the UTI has become more generalized infection and is a contributing factor in her weakness (which does not seem likely but is possible) 2. Weakness-continue with skilled therapies. Needs placement in residential 3. Hypoxia-multiple factors probably influencing this. Echo suggest perhaps some element of volume overload/right heart failure/pulmonary hypertension. Patient on calcium channel vanessa for her pulmonary hypertension and diuretic therapy should be continued of course. Continue with IV diuresis for now. Will need to continue on probably higher dose oral diuretic therapy upon discharge. Other medical problems are stable Plan for discharge to residential facility whenever and accepting inappropriate facility can be located. This could be as soon as tomorrow. Note: Greater than 30 minutes was spent evaluating the patient on the floor, including examining the patient, discussing clinical course with clinical and nursing staff, reviewing clinical course in the computer, preparing documentation and writing orders for continued management of care, discussing status with family as appropriate, reviewing plans for the next 24 hours with both patient/family and nursing staff as appropriate. Quality VTE Deep Vein Thrombosis/Pulmonary Embolism Present on Admission: No
[2018-10-05] MEDS: CITALOPRAM 20 MG TABLET PO (08:38)
[2018-10-05] MEDS: cefUROXime 250 MG TABLET 500 MG PO ×2 (08:38→20:47)
[2018-10-05] MEDS: METOPROLOL ER 50 MG TABLET PO (08:39)
[2018-10-05] MEDS: GABAPENTIN 600 MG TABLET PO ×4 (08:39→20:47)
[2018-10-05] MEDS: FOLIC ACID 1 MG TABLET 2 MG PO ×2 (08:39→20:47)
[2018-10-05] MEDS: DABIGATRAN 75 MG CAPSULE 150 MG PO ×2 (08:39→20:47)
[2018-10-05] MEDS: FUROSEMIDE 40 MG/4 ML VIAL IV ×2 (08:39→20:48)
[2018-10-05] MEDS: SODIUM CHLORIDE 0.9% FLUSH 10 ML IV ×2 (08:40→20:48)
[2018-10-05] MEDS: PANTOPRAZOLE 40 MG TABLET PO ×2 (08:40→20:47)
[2018-10-05] MEDS: OXYCODONE IR 10 MG TABLET 20 MG PO ×2 (09:00→13:02)
--- NOTE | 2018-10-05 11:20 | OT.IP.TRT ---
Occupational Therapy Treatment Note M2 OT-IP Current Condition Start: 10/04/18 10:16 Freq: Status: Active Protocol: Document 10/04/18 15:39 [facility] (Rec: 10/04/18 16:14 [facility] [email or web address]) Occupational Therapy Current Condition Current Condition Evaluation Date 10/04/18 Treatment Diagnosis Hypoxia, UTI, weakness Diagnosis Onset Date 10/03/18 Weight Bearing Status Weight Bearing Status Weight Bear as Tolerated M3 OT- IP Subjective and Pain Start: 10/04/18 10:16 Freq: Status: Active Protocol: Document 10/05/18 11:39 [facility] (Rec: 10/05/18 11:52 [facility] [id number]) OT- Subjective Occupational Therapy Visit Type Type Treatment Note Visit Start Time 11:02 Visit Stop Time 11:20 Total Visit Minutes 18 Notes here observing this session. Pt on 1.5 L O2 this session. Desats to high 80's briefly with activity. Provided education re: pursed lip breathing Occupational Therapy Visit Comments Patient Comments I feel better today. Patient/Caregiver Goals to get strong enough to go home OT Pain Assessment Pain When Pain Assessed After Treatment Pain Present Pain Present Denied Pain M4 OT- IP ADL's Start: 10/04/18 10:16 Freq: Status: Active Protocol: Document 10/05/18 11:39 [facility] (Rec: 10/05/18 11:52 [facility] [id number]) OT ADL-Grooming General Evaluation Grooming Ability Standby Assistance Areas Needing Assistance Retrieving/Set-up of Grooming Items Combing/Brushing Hair Face Washing Comments OT Grooming Comments seated in chair OT ADL-Oral Care General Eval Oral Care Ability Standby Assistance Areas of Assistance Brushing Teeth Retrieving/Set-Up of Items Devices Oral Care Devices Electric Toothbrush Comments Oral Care Comments seated in chair OT ADL-Dressing General Eval Lower Body Dressing Ability Moderate Assistance Areas Needing Assistance Underpants/Brief Comments OT Dressing Comments Pt needs mod assist to get incontinent brief over feet with clergy member and max assist to stock puller hips in standing. Pt stands with FWW while therapist assists with pulling pants over hips. Pt normally wears underpants with Poise pad at home. OT ADL-Bathing Bathing Type Bathing Type Sponge Bath General Evaluation Bathing Ability Maximal Assistance Comments OT Bathing Comments completed by MOTORIZED [employer] prior to therapist arrival . M6 OT- IP Functional Cognition Start: 10/04/18 10:16 Freq: Status: Active Protocol: Document 10/04/18 15:39 [facility] (Rec: 10/04/18 16:14 [facility] [email or web address]) Cognitive Factors Limiting Selfcare Function Cognitive Ability Level of Alertness Alert Attention Span Ability Capable of Focused Attention Capable of Sustained Attention Ability to Follow Commands Able to Follow One Step Commands Safety Awareness Underestimates Need for Assistance Problem Solving Ability Unable to Identify Errors Needs Assist to Identify Solutions Cognitive Comments Cognitive Assessment Comments Pt needing concrete commands and step by step directions to help sequence for mobility needs for hand placement, FWW use and overall safety. M7 OT- IP Mobility and Balance Start: 10/04/18 10:16 Freq: Status: Active Protocol: Document 10/05/18 11:39 [facility] (Rec: 10/05/18 11:52 [facility] [id number]) OT- Bed Mobility Assessment Rolling Level of Assistance Minimal Assistance 1 Person Assistance Head of Bed Elevated Bedrails Supine to Sit Supine to Sit Assist Minimal Assistance 1 Person Assistance Head of Bed Elevated Bedrails Scooting Scooting to Edge of Bed Contact Guard Assistance OT-Transfer Assessment Sit to and From Stand Sit to and from Stand Moderate Assistance 2 Person Assistance Use of Upper Extremities Devices Transfer Assistive Devices Gait Belt Front Wheeled Walker Comments Mobility Comments needs verbal cues to hand placement and to stand upright OT- Gait Assessment Gait Gait Assistance Required: Minimum Assistance 2 Person Assist Distance (Feet) 5 Assistive Devices Assistive Device Gait Belt Front Wheeled Walker Comments Gait Ability Comments needs assist with weight shifting and verbal cues to widen base of support OT- Balance Assessment Sitting Balance and Reactions Static Sitting Balance Ability Fair Dynamic Sitting Balance Ability Fair Standing Balance and Reactions Static Standing Balance Ability Fair Comments Other Balance Tests/Deviations/Treatment pt tends to lean backwards when sitting EOB M9 OT- IP Assessment and Plan Start: 10/04/18 10:16 Freq: Status: Active Protocol: Document 10/05/18 11:39 [facility] (Rec: 10/05/18 11:52 [facility] [id number]) OT Summary Assessment and Plan Potential Rehabilitation Potential Good Summary OT Impairments Strength Balance Functional Mobility Grooming Dressing Toileting Bathing Toilet Transfers Shower Transfers Progress Towards Goals Progressing Toward Goals Assessment Summary Pt demonstrating improved bed mobility/functional mobility with FWW today, but continues to require two person assist for safety with transfers and ambulation. Pt demonstrating increased participation in lower body dressing with clergy member requiring mod+ assist to don brief. Pt on 1.5L O2 this session and does desat with activity. Pt is below her baseline level of function and is not safe to return home alone with at this time. Pt motivated to improve with good effort and participation this session. Will continue OT plan of care. Goals Grooming Goal Independent Dressing Goal Minimal Assistance Toileting Goal Minimal Assistance Bathing Goal Moderate Assistance Toilet Transfer Goal Minimal Assistance Shower Transfer Goal Moderate Assistance Patient/Caregiver Education Goal Caregiver Independent Assisting Patient Days to Meet Goals 6 Frequency of Treatment Frequency Of Treatment Once a Day Treatment Plan OT Treatment Plan ADL Training Functional Cognition Training Functional Mobility Patient/Family Education Discharge Planning Discharge Recommendations OT Discharge Recommendations SNF Rehab Home Equipment Needs FWW
--- NOTE | 2018-10-05 11:25 | PT.IPTN ---
Physical Therapy Treatment Note M2 PT-IP Current Condition Start: 10/04/18 12:52 Freq: NEEDED Status: Active Protocol: Document 10/04/18 13:30 [facility] (Rec: 10/04/18 15:53 [facility] [id number]) Physical Therapy Current Condition Current Condition Evaluation Date 10/04/18 Treatment Diagnosis hypoxia; UTI; generalized weakness Onset Date 10/03/18 Precautions Other Precautions falls; O2 sat M3 PT-IP Subjective Start: 10/04/18 12:52 Freq: NEEDED Status: Active Protocol: Document 10/05/18 11:15 [facility] (Rec: 10/05/18 16:36 [facility] [email or web address]) Subjective Physical Therapy Visit Type Type Treatment Note Visit Start Time 11:00 Visit Stop Time 11:25 Total Visit Minutes 25 Number of V BELT INSPECTOR Visits 1 Physical Therapy Visit Comments Patient Comments Pt willing to get up. M4 PT-IP Mobility and Gait Start: 10/04/18 12:52 Freq: NEEDED Status: Active Protocol: Document 10/05/18 11:15 [facility] (Rec: 10/05/18 16:36 [facility] [email or web address]) PT-Bed Mobility Assessment Supine to Sit Supine to Sit Minimal Assistance 1 Person Assistance Scooting Scooting to Edge of Bed Contact Guard Assistance PT-Transfer Assessment Sit to and From Stand Sit to and from Stand Moderate Assistance 2 Person Assistance Use of Upper Extremities Equipment Transfer Assistive Device Gait Belt Front Wheeled Walker Orthotic/Prosthetic Devices or Brace: No Transfers Transfer Destination Chair Transfer Ability Level of Assist Moderate Assistance 2 Person Assistance Use of Upper Extremities Comments Mobility Comments Pt needed CGA for sitting EOB balance. She sit to stand x 2 with mod a x2. Gait Assessment Gait Gait Assistance Required: Minimum Assistance 2 Person Assist Distance (Feet) 6 Able to Maintain Weight Bearing Status Yes During Gait Assistive Devices Assistive Device Gait Belt Front Wheeled Walker Orthotic/Prosthetic Devices or Brace: No Gait Deviations General Gait Pattern Antalgic Decreased Stride Length Decreased Feet Clearance Lateral Trunk Lean Narrow Based Gait Factors Limiting Gait Function Factors Limiting Gait Function Decreased Activity Tolerance Decreased Strength Incoordination Poor Balance Respiratory Distress Comments Gait Comments O2 with activity 94% on 1.5 L. M5 PT-IP Objective Assessments Start: 10/04/18 12:52 Freq: NEEDED Status: Active Protocol: Document 10/04/18 13:30 [facility] (Rec: 10/04/18 15:53 [facility] [id number]) Orientation Orientation/Cognition Level of Alertness Alert Orientation Name Place Situation Safety Awareness Decreased Safety Awareness Memory Description Short Term Impaired Gross Range of Motion Lower Extremity ROM Assessment Bilaterally Impaired Impairments L ankle DF tightness Strength Lower Extremity Strength Assessment Bilaterally Impaired Hip 3-/5 Knee 3+/5 Ankle L DF: 1/5 R DF 2+/5 Sensation Assessment Sensation Gross Sensation Left LE Impaired Light Touch Impaired Proprioception (Position) Impaired M6 PT-IP Treatment Start: 10/04/18 12:52 Freq: NEEDED Status: Active Protocol: Document 10/05/18 11:15 [facility] (Rec: 10/05/18 16:36 [facility] [email or web address]) Physical Therapy Treatment Exercises Exercises Ankle Pumps M7 PT-IP Assessment and Plan Start: 10/04/18 12:52 Freq: NEEDED Status: Active Protocol: Document 10/05/18 11:15 [facility] (Rec: 10/05/18 16:36 [facility] [email or web address]) PT Summary Assessment and Plan Summary Assessment Summary Pt progressing slowly. She was able to ambulate with 2 person assist. She need assist for weight shift and cues for posture and LE advancement. PT would benefit from SNF rehab to improve functional mobility. Frequency of Treatment Frequency Of Treatment Once a Day Treatment Plan Physical Therapy Treatment Plan Bed Mobility Training Transfer Training Gait Training Therapeutic Exercise Balance Retraining Discharge Planning Neuromuscular Re-ed Coordination Retraining Manual Therapy Recommendations To Nursing Amount of Assist Needed 2 Person Assist Discharge Recommendations PT Discharge Recommendations SNF Rehab
--- NOTE | 2018-10-05 14:28 | CM.DPC ---
Addendum entered by MARLON Ludwig 10/05/18 14:29: ADD: [place] [facility] [place] would likely be Tuesday and wanting to make sure pt does not need bariatric bed (she does not) but unable to call [facility] back today to update. Call from Aleisha at [facility] confirming that pt was approved for SNF auth today and notified pt as well. HANNAH met bedside with pt, spouse, and 2 adult Dtrs and explained role and updated on above information and they confirm that they do not want [facility] for SNF. They understand that MD would need to justify pt needs to remain in the hospital medically to stay until Sat for [facility] and they state their back up SNF would be a referral to both [facility] and [facility] (as both Dtrs live in [facility] and are [employer]UL[employer] FEEDER and RN). HANNAH completed PASRR and faxed that along with clinicals to both [facility] and [facility] and left msgs for both admissions requesting review. Family also requested private pay information to review for eventual d/c home after SNF. Plan: SW to follow for [facility] and [facility] review and confirm with [facility] that pt not needing bariatric equipment at d/c towards possible d/c Tuesday or Sat if medically stable. MARLON Ludwig Original Note: WIP SNF Planning: Per MD, pt likely to be medically stable for d/c to SNF tomorrow Tuesday10/06/18 if pt remains stable. HANNAH faxed clinicals to [facility] to review for SNF auth and called and left ms to confirm clinicals were received and who pt's assigned [facility] would be. HANNAH spoke to Madonna at [facility] who confirms that they could likely accept pt at d/c and faxed updated PT/OT notes and will complete PASRR and fax when available. HANNAH called [facility] and left msg for their admissions staff inquiring if they received previously faxed clinicals from yesterday and if they have reviewed and can accept as [facility] [place] spouse's first choice. Plan: HANNAH to follow for [facility] insurance auth for SNF and return call from [facility] to determine if they can accept. PASRR still to be completed. MARLON Ludwig
[2018-10-05] MEDS: METOPROLOL ER 25 MG TABLET 75 MG PO (17:23)
[2018-10-05] MEDS: OXYCODONE IR 10 MG TABLET PO ×2 (17:24→22:37)
[2018-10-05] MEDS: SOLIFENACIN 5 MG TABLET 10 MG PO (20:48)
[2018-10-06 04:00] VITALS: BP 113/63; PULSE 88; RESP 16; TEMP 36.7; O2SAT 97
[2018-10-06] MEDS: OXYCODONE IR 10 MG TABLET PO (06:54)
--- NOTE | 2018-10-06 07:56 | PM.PN.1 ---
Subjective Date Patient Seen: 10/06/18 Time Patient Seen: 07:57 Interval history: Patient had recently good day yesterday. Feels a we bit stronger. Definitely getting more rest here. Does think she is urinating more than usual although he has been unable to really capture that with her I's & O's. Exam Vital Signs (past 8 hours): - 10/06/18 04:00 Temperature 98.1 F Pulse Rate 88 Respiratory Rate 16 Blood Pressure 113/63 Pulse Oximetry 97 Fraction of Inspired Oxygen 26 Oxygen Delivery Method Nasal Cannula Oxygen Flow Rate 2 Narrative Exam Narrative: Unchanged from previous Objective Labs Result Diagrams: 10/03/18 16:40 10/05/18 05:45 Assessment & Plan Assessment & Plan narrative: 1. UTI-patient continues on cefuroxime orally for this. No evidence of any further complications 2. Weakness-continue with skilled therapies. Needs placement in detention. It seems like this is scheduled for tomorrow to [facility] in [place] 3. Hypoxia-difficult to know she is really becoming hypoxic with activity. Difficult to ascertain her weight and/or output. At this point I am going to switch her diuretics around a little bit and going to add low-dose metolazone with careful monitoring of her electrolytes and renal function. I do think that some more vigorous diuresis would definitely be helpful here. Other medical problems are stable Plan for discharge to detention facility whenever and accepting inappropriate facility can be located. Note: Greater than 20 minutes was spent evaluating the patient on the floor, including examining the patient, discussing clinical course with clinical and nursing staff, reviewing clinical course in the computer, preparing documentation and writing orders for continued management of care, discussing status with family as appropriate, reviewing plans for the next 24 hours with both patient/family and nursing staff as appropriate. Quality VTE Deep Vein Thrombosis/Pulmonary Embolism Present on Admission: No
[2018-10-06 08:00] VITALS: BP 103/65; PULSE 84; RESP 17; TEMP 36.6; O2SAT 95
--- NOTE | 2018-10-06 08:01 | P.PN_ITS ---
Subjective Date Patient Seen: 10/06/18 Time Patient Seen: 07:57 Interval history: Patient had recently good day yesterday. Feels a we bit stronger. Definitely getting more rest here. Does think she is urinating more than usual although he has been unable to really capture that with her I's & O's. Exam Vital Signs (past 8 hours): - 10/06/18 04:00 Temperature 98.1 F Pulse Rate 88 Respiratory Rate 16 Blood Pressure 113/63 Pulse Oximetry 97 Fraction of Inspired Oxygen 26 Oxygen Delivery Method Nasal Cannula Oxygen Flow Rate 2 Narrative Exam Narrative: Unchanged from previous Objective Labs Result Diagrams: 10/03/18 16:40 10/05/18 05:45 Assessment & Plan Assessment & Plan narrative: 1. UTI-patient continues on cefuroxime orally for this. No evidence of any further complications 2. Weakness-continue with skilled therapies. Needs placement in halfway. It seems like this is scheduled for tomorrow to [facility] in [place] 3. Hypoxia-difficult to know she is really becoming hypoxic with activity. Difficult to ascertain her weight and/or output. At this point I am going to switch her diuretics around a little bit and going to add low-dose metolazone with careful monitoring of her electrolytes and renal function. I do think that some more vigorous diuresis would definitely be helpful here. Other medical problems are stable Plan for discharge to halfway facility whenever and accepting in appropriate facility can be located. Note: Greater than 20 minutes was spent evaluating the patient on the floor, including examining the patient, discussing clinical course with clinical and nursing staff, reviewing clinical course in the computer, preparing documentation and writing orders for continued management of care, discussing status with family as appropriate, reviewing plans for the next 24 hours with both patient/family and nursing staff as appropriate. Quality VTE Deep Vein Thrombosis/Pulmonary Embolism Present on Admission: No
[2018-10-06] MEDS: GABAPENTIN 600 MG TABLET PO ×2 (09:13→12:01)
[2018-10-06] MEDS: DABIGATRAN 75 MG CAPSULE 150 MG PO (09:13)
[2018-10-06] MEDS: cefUROXime 250 MG TABLET 500 MG PO (09:15)
[2018-10-06] MEDS: CITALOPRAM 20 MG TABLET PO (09:15)
[2018-10-06] MEDS: FOLIC ACID 1 MG TABLET 2 MG PO (09:15)
[2018-10-06] MEDS: PANTOPRAZOLE 40 MG TABLET PO (09:22)
[2018-10-06] MEDS: SODIUM CHLORIDE 0.9% FLUSH 10 ML IV (09:22)
[2018-10-06] MEDS: METOPROLOL ER 50 MG TABLET PO (09:22)
[2018-10-06] MEDS: metOLazone 2.5 MG TABLET PO (09:28)
--- NOTE | 2018-10-06 09:30 | PT.IPTN ---
Physical Therapy Treatment Note M2 PT-IP Current Condition Start: 10/04/18 12:52 Freq: NEEDED Status: Active Protocol: Document 10/04/18 13:30 AB (Rec: 10/04/18 15:53 AB [id number]) Physical Therapy Current Condition Current Condition Evaluation Date 10/04/18 Treatment Diagnosis hypoxia; UTI; generalized weakness Onset Date 10/03/18 Precautions Other Precautions falls; O2 sat M3 PT-IP Subjective Start: 10/04/18 12:52 Freq: NEEDED Status: Active Protocol: Document 10/06/18 09:30 GGD (Rec: 10/06/18 12:19 GGD [id number]) Subjective Physical Therapy Visit Type Type Treatment Note Visit Start Time 09:10 Visit Stop Time 09:30 Total Visit Minutes 20 Notes co treat with OT Number of MICROSTRATEGY DEVELOPER Visits 2 Physical Therapy Visit Comments Patient Comments Pt willing to work with therapy. Therapy Pain Assessment Pain When Pain Assessed At Rest Pain Present Pain Present Pain Reported Location Right Hip Intensity 4 Scale Used Numeric (1 - 10) M4 PT-IP Mobility and Gait Start: 10/04/18 12:52 Freq: NEEDED Status: Active Protocol: Document 10/06/18 09:30 GGD (Rec: 10/06/18 12:19 GGD [id number]) PT-Bed Mobility Assessment Supine to Sit Supine to Sit Minimal Assistance 1 Person Assistance Scooting Scooting to Edge of Bed Minimal Assistance PT-Transfer Assessment Sit to and From Stand Sit to and from Stand Maximum Assistance 2 Person Assistance Use of Upper Extremities Equipment Transfer Assistive Device Gait Belt Front Wheeled Walker Orthotic/Prosthetic Devices or Brace: No Transfers Transfer Destination Chair Transfer Technique Squat Pivot Transfer Ability Level of Assist Moderate Assistance 2 Person Assistance Use of Upper Extremities Comments Mobility Comments Pt stood at EOB x 3 with max A x 2 M5 PT-IP Objective Assessments Start: 10/04/18 12:52 Freq: NEEDED Status: Active Protocol: Document 10/04/18 13:30 AB (Rec: 10/04/18 15:53 AB [id number]) Orientation Orientation/Cognition Level of Alertness Alert Orientation Name Place Situation Safety Awareness Decreased Safety Awareness Memory Description Short Term Impaired Gross Range of Motion Lower Extremity ROM Assessment Bilaterally Impaired Impairments L ankle DF tightness Strength Lower Extremity Strength Assessment Bilaterally Impaired Hip 3-/5 Knee 3+/5 Ankle L DF: 1/5 R DF 2+/5 Sensation Assessment Sensation Gross Sensation Left LE Impaired Light Touch Impaired Proprioception (Position) Impaired M6 PT-IP Treatment Start: 10/04/18 12:52 Freq: NEEDED Status: Active Protocol: Document 10/05/18 11:15 GGD (Rec: 10/05/18 16:36 GGD [id number]) Physical Therapy Treatment Exercises Exercises Ankle Pumps M7 PT-IP Assessment and Plan Start: 10/04/18 12:52 Freq: NEEDED Status: Active Protocol: Document 10/06/18 09:30 GGD (Rec: 10/06/18 12:19 GGD [id number]) PT Summary Assessment and Plan Summary Assessment Summary Pt needed increase in assist for sit to stand. She was unable to come to full upright standing posture. She was unable to shift weight to take functional step. Pt was able to transfer with squat pivot to chair. Frequency of Treatment Frequency Of Treatment Once a Day Treatment Plan Physical Therapy Treatment Plan Bed Mobility Training Transfer Training Gait Training Therapeutic Exercise Balance Retraining Discharge Planning Neuromuscular Re-ed Coordination Retraining Manual Therapy Recommendations To Nursing Amount of Assist Needed 2 Person Assist Discharge Recommendations PT Discharge Recommendations SNF Rehab
[2018-10-06] MEDS: FUROSEMIDE 100 MG/10 ML VIAL 60 MG IV (09:31)
[2018-10-06] MEDS: OXYCODONE IR 10 MG TABLET 20 MG PO ×2 (09:52→13:02)
--- NOTE | 2018-10-06 10:19 | OT.IP.TRT ---
Occupational Therapy Treatment Note M2 OT-IP Current Condition Start: 10/04/18 10:16 Freq: Status: Active Protocol: Document 10/04/18 15:39 [facility] (Rec: 10/04/18 16:14 [facility] [id number]) Occupational Therapy Current Condition Current Condition Evaluation Date 10/04/18 Treatment Diagnosis Hypoxia, UTI, weakness Diagnosis Onset Date 10/03/18 Weight Bearing Status Weight Bearing Status Weight Bear as Tolerated M3 OT- IP Subjective and Pain Start: 10/04/18 10:16 Freq: Status: Active Protocol: Document 10/06/18 09:15 [facility] (Rec: 10/06/18 10:19 [facility] [id number]) OT- Subjective Occupational Therapy Visit Type Type Treatment Note Visit Start Time 09:15 Visit Stop Time 09:40 Total Visit Minutes 25 Occupational Therapy Visit Comments Patient Comments Pt agreeable to get up. Pt needing to be changed as wet. Patient/Caregiver Goals To go to skilled rehab. OT Pain Assessment Pain When Pain Assessed At Rest Pain Present Pain Present Pain Reported Location Right Hip Intensity 5 Scale Used Numeric (1 - 10) M4 OT- IP ADL's Start: 10/04/18 10:16 Freq: Status: Active Protocol: Document 10/06/18 09:15 [facility] (Rec: 10/06/18 10:19 [facility] [id number]) OT DJL-Ygib-Riohtal General Evaluation Self-Feeding Ability Standby Assistance Areas Needing Assistance Opening Containers Comments OT Self-Feeding Comments Independent after set-up. OT ADL-Grooming General Evaluation Areas Needing Assistance Retrieving/Set-up of Grooming Items Comments OT Grooming Comments After set-up pt able to do all grooming needs while sitting in the recliner. OT ADL-Oral Care General Eval Oral Care Ability Independent OT ADL-Dressing General Eval Lower Body Dressing Ability Maximum Assistance Areas Needing Assistance Underpants/Brief Comments OT Dressing Comments MAX A for all brief needs 1-2 person to assist. OT ADL-Toileting General Evaluation Toileting Ability Maximum Assistance Areas Needing Assistance Manage Clothing Perform Perineal Hygiene . M6 OT- IP Functional Cognition Start: 10/04/18 10:16 Freq: Status: Active Protocol: Document 10/06/18 09:15 [facility] (Rec: 10/06/18 10:19 [facility] [id number]) Cognitive Factors Limiting Selfcare Function Cognitive Ability Level of Alertness Alert Attention Span Ability Capable of Focused Attention Capable of Sustained Attention Ability to Follow Commands Able to Follow One Step Commands with Increased Time Able to Follow One Step Commands with Repetition Memory Description Short Term Impaired Safety Awareness Underestimates Need for Assistance Problem Solving Ability Unable to Identify Errors Needs Assist to Identify Solutions Cognitive Comments Cognitive Assessment Comments Pt continues to need concrete commands and step by step directions to help sequence for mobility needs for hand placement, FWW use and overall safety. Pt continues to need encouragement and directions to stand with FWW, needing cues to use her BUE on the handles of FWW and to straighten her legs. M7 OT- IP Mobility and Balance Start: 10/04/18 10:16 Freq: Status: Active Protocol: Document 10/06/18 09:15 [facility] (Rec: 10/06/18 10:19 [facility] [email or web address]) OT- Bed Mobility Assessment Rolling Level of Assistance Minimal Assistance 1 Person Assistance Head of Bed Elevated Bedrails Supine to Sit Supine to Sit Assist Minimal Assistance 1 Person Assistance Head of Bed Elevated Bedrails Scooting Scooting to Edge of Bed Minimal Assistance OT-Transfer Assessment Sit to and From Stand Sit to and from Stand Moderate Assistance 2 Person Assistance Use of Upper Extremities Transfers Transfer Ability Moderate Assistance 2 Person Assistance Technique Transfer Destination Chair Transfer Technique Squat Pivot Devices Transfer Assistive Devices Gait Belt Comments Mobility Comments Today pt only able to tolerate standing with FWW and MODA X 2. Pt feeling weak in her legs and right hip pain . Attempted to transfer and not able to lift her legs up, therefore able to educate pt on squat pivot transfer as pt able to use right hand to reach to recliner and assist from therapists one from front and back to help get pt to the recliner. OT- Balance Assessment Sitting Balance and Reactions Static Sitting Balance Ability Good Dynamic Sitting Balance Ability Fair Standing Balance and Reactions Static Standing Balance Ability Poor M8 OT- IP Objective Assessments Start: 10/04/18 10:16 Freq: Status: Active Protocol: Document 10/04/18 15:39 [facility] (Rec: 10/04/18 16:14 [facility] [id number]) OT Gross Range of Motion Upper Extremity Range of Motion Assessment Bilaterally Impaired OT Strength Comments Strength Comments BUE 3-/5 to 4-/5 from proximal to distal. OT- Coordination Assessment Comments Coordination Comments Pt states has unable to do button or bra now and uses camisole instead. OT Sensation Assessment Comments Summary Comments Increased time for light touch in fingers. M9 OT- IP Assessment and Plan Start: 10/04/18 10:16 Freq: Status: Active Protocol: Document 10/06/18 09:15 [facility] (Rec: 10/06/18 10:19 [facility] [id number]) OT Summary Assessment and Plan Potential Rehabilitation Potential Good Analytic Complexity at Evaluation Low Summary OT Impairments Strength Balance Functional Mobility Grooming Dressing Toileting Bathing Toilet Transfers Shower Transfers Progress Towards Goals Slow Progress due to Medical Issues Slow Progress due to Activity Tolerance Assessment Summary Today noted having right hip pain and therefore not able to tolerate transfer with FWW however able to do squat pivot transfer x MODA X 2. Pt will continue to benefit from skilled rehab prior to going home as pt's current needs to great for pt's to care for her. Pt continues with encouragement to be motivated to participate in therapy. Goals Grooming Goal Independent Dressing Goal Minimal Assistance Toileting Goal Minimal Assistance Bathing Goal Moderate Assistance Toilet Transfer Goal Minimal Assistance Shower Transfer Goal Moderate Assistance Patient/Caregiver Education Goal Caregiver Independent Assisting Patient Days to Meet Goals 5 Frequency of Treatment Frequency Of Treatment Once a Day Treatment Plan OT Treatment Plan ADL Training Functional Cognition Training Functional Mobility Patient/Family Education Discharge Planning Discharge Recommendations OT Discharge Recommendations SNF Rehab
[2018-10-06 10:35] VITALS: O2SAT 98
[2018-10-06 10:36] VITALS: O2SAT 94
[2018-10-06 11:11] VITALS: BP 105/51; PULSE 82
[2018-10-06] MEDS: FUROSEMIDE 40 MG/4 ML VIAL IV (11:56)
[2018-10-06 12:00] VITALS: BP 104/51; PULSE 82; RESP 16; TEMP 36.9; O2SAT 90
--- NOTE | 2018-10-06 13:27 | PC.NURSE ---
Day shift: Pt left unit in WC with spouse. Taken to private car by ANNABELLE and RADHA Hutchinson. Pt will need extra help getting in and out of car. Hipolito (spouse) has SNF packet. Pt has all personal belongings. MD teague signed in SNF packet. Pt has meds from pharmacy. Hipolito is driving Pt to SNF. Pt medicated for pain prior to the 1 hour car ride.
--- NOTE | 2018-10-06 14:45 | CM.DPNOTE ---
Addendum entered by MARLON Coreas 10/06/18 16:22: TC from gyn at [facility] asking for clarification on gabapentin dose which this CALL CENTER NURSE confirmed, per chart as 600 mg QID. JW Addendum entered by Joanne Estefany, CALL CENTER NURSE 10/06/18 15:47: TC from SWer at [facility] requesting an updated PASRR to reflect pt's Celexa on med list . According to chart review: there is no mention of depression in H+P or otherwise which is why the PASRR was completed w/o SMI for depression by CALL CENTER NURSE Isabela Claire, then reviewed by this CALL CENTER NURSE and faxed to [facility] today. This CALL CENTER NURSE completed an updated PASRR to include Celexa, stating pt is well managed on Celexa and followed by her PCP. PASRR and faxed to # [phone] as requested. JW Original Note: DC Note: Reviewed chart. Requested that [facility], call [facility] to inquire about a bed for pt and they said they don't have a bed today or tomorrow. Placed call to Eugenia P# [phone], doing admissions at [facility] today. She said they could admit pt today. Alerted pt/family and Dr Bland and they were agreeable to this plan. Also updated Isabel tinsley/ Luis Angel P# [phone] on DC date and dispo. Faxed completed DC ppk, signed med list, and completed PASRR to [facility] at F# [phone]. RN report given by RADHA Vega. Pt left by pov, required 3 people to get her into pov per Silvia, staff at [facility] made aware. P: DC to [facility] today via pov. [facility] auth in place. MARLON Coreas
--- NOTE | 2018-10-07 13:25 | CM.DPNOTE ---
Received VM from [place] asking for dispo date and facility. Faxed Dr Bland's last prog note yesterday 10.06.18 w/this information. JW
--- NOTE | 2018-10-19 09:23 | PM.DS.1 ---
History of Present Illness Chief complaint: SOB, UTI Narrative: 83-year-old female admitted because of weakness and hypoxia. She presented to the emergency department day prior to admission and day of admission with increased weakness. Patient unable to support her own weight and therefore assist with transfers etc. 1st visit to ED only finding was a probable UTI with normal white blood cell count and no other evidence of more significant infection. She was sent home with oral antibiotic therapy. Continued to be weak at home and then became more dyspneic. EMS was summoned again she was found to have oxygen saturations in the high 80% range and low 90% range and was transported back to the ER for evaluation Repeat evaluation in the ER was equally unremarkable. BNP 487. No repeat imaging was performed. Chest x-ray done day prior to admission did not show evidence of congestive heart failure. Patient been seen in the clinic last week because of increased weakness and is also complaining of increased lower extremity edema. She had been much less active than usual. Patient denies any chest pain any infectious kind of symptoms such as fever chills sore throat cough etc. no GI symptoms although chronic abdominal pain does persist. Discharge Providers Date of admission: 10/03/18 19:12 Discharge Date: 10/06/18 Primary care physician: Oj Bland MD Consults: 10/04/18 07:37 Consult to Discharge Planning Routine Comment: placement alt facility Consult to Occupational Therapy Evaluate & Treat Comment: weakness Physician Instructions: Evaluate and treat Consult to Physical Therapy Evaluate & Treat Comment: weakness Physician Instructions: Evaluate and Treat Discharge provider: Oj Bland MD Summary Discharge Diagnosis: 1. UTI 2. Acute respiratory failure with hypoxia, multiple etiologies present 3. Weakness with inability to walk 4. Morbid obesity 5. Asthma 6. Paroxysmal atrial fibrillation Hospital Course: Patient was admitted because of persistent weakness and multiple falls. She was found have a UTI with resistant organisms was treated with IV and then oral antibiotics based on sensitivities. She had no further symptoms. Patient continued to be globally weak was seen by Physical therapy and felt to benefit from placement at snf for continued rehabilitation. Patient also with some mild hypoxia thought to be multifactorial including a low-grade element of congestive heart failure her morbid obesity and obesity hypoventilation syndrome etc. She was treated with slightly increased doses of diuretics with some mild improvement Patient was able to be discharged to snf on the day of discharge. Status at Discharge Cognitive/behavioral status at discharge: at baseline, oriented Functional status at discharge: wheelchair bound Overall status at discharge: patient is progressing back to baseline Time Spent with Patient Greater than 30 minutes Exam Vital Signs (past 8 hours): Fraction of Inspired Oxygen 26 Oxygen Delivery Method Room Air Oxygen Flow Rate 1 Objective Labs Result Diagrams: 10/03/18 16:40 10/05/18 05:45 Discharge Plan Discharge Plan Patient Disposition: SNF Under care of provider: Facility Medical Staff Transportation: [facility] Labs: [facility] day 2 SNF stay Consult as needed: Dental, Hearing, Mental health, Podiatry and Vision I certify the postop hospital snf care is medically necessary on a continuing basis for any conditions for which he/ she received care during this hospitalization.: Yes The receiving facility has agreed to accept transfer and provide medical treatment.: Yes Discharge Med Rec/Prescriptions Prescriptions: New cefuroxime axetil 250 mg Tablet 500 mg PO BID Qty: 14 RF: 0 furosemide 40 mg tablet See Rx Instructions .ROUTE .COMPLEX Qty: 90 RF: 3 hydrochlorothiazide 25 mg tablet 25 mg PO DAILY Qty: 30 RF: 4 oxycodone 10 mg tablet 10 - 20 mg PO Q4HP PRN (Reason: pain) Qty: 150 RF: 0 Continued Vitamin B-12 50 MCG tablet 50 mcg PO BID Qty: 0 RF: 0 [VITAMIN D] 1 cap PO BID Qty: 0 RF: 0 mirabegron [Myrbetriq] 50 mg tablet extended release 24 hr 50 mg PO DAILY Qty: 90 RF: 3 citalopram 10 mg tablet 20 mg PO DAILY Qty: 90 RF: 3 dabigatran etexilate 150 mg capsule 150 mg PO BID Qty: 60 RF: 6 trimethoprim 100 mg tablet 100 mg PO BEDTIME Qty: 90 RF: 1 gabapentin [Neurontin] 600 mg tablet 600 mg PO QIDP PRN (Reason: pain) Qty: 120 RF: 11 pantoprazole 40 mg tablet,delayed release (DR/EC) 40 mg PO BID Qty: 60 RF: 3 folic acid 1 mg tablet 2 mg PO BID Qty: 360 RF: 3 triamcinolone acetonide 0.025 % cream 1 applictn TOP TID PRN (Reason: rash) Qty: 80 RF: 3 metoprolol succinate 50 mg Tablet Extended Release 24 Hr 75 mg PO QPM RF: 0 solifenacin [Vesicare] 10 mg tablet 10 mg PO BEDTIME RF: 0 metoprolol succinate [Toprol XL] 50 mg tablet extended release 24 hr 50 mg PO QAM RF: 0 Wheelchair: Manual Lightweight 1 ea miscellaneous DIRECTED RF: 0 Discontinued furosemide [Lasix] 20 mg tablet 20 mg PO DAILY Qty: 30 RF: 6 nitrofurantoin macrocrystal 100 mg capsule 100 mg PO QID 5 Days Qty: 20 RF: 0 Follow up/Referrals: Oj Bland MD [Primary Care Provider] - Discharge Health Status Multidrug resistant organism: No MDRO Precautions: [place] Provider Discharge Instructions Diet: Diet as Tolerated and Low-sodium Liquid consistency: Normal/Thin Food texture: Regular Discharge Data Primary Care Provider: Oj Bland Attending Provider: Oj Bland Admit Date/Time: 10/03/18 19:12 Discharges patient from system. Discharge Date/Time: 10/06/18 13:29 Quality VTE Deep Vein Thrombosis/Pulmonary Embolism Present on Admission: No
--- NOTE | 2018-10-19 09:27 | P.DS_ITS ---
History of Present Illness Chief complaint: SOB, UTI Narrative: 83-year-old female admitted because of weakness and hypoxia. She presented to the emergency department day prior to admission and day of admission with increased weakness. Patient unable to support her own weight and therefore assist with transfers etc. 1st visit to ED only finding was a probable UTI with normal white blood cell count and no other evidence of more significant infection. She was sent home with oral antibiotic therapy. Continued to be weak at home and then became more dyspneic. EMS was summoned again she was found to have oxygen saturations in the high 80% range and low 90% range and was transported back to the ER for evaluation Repeat evaluation in the ER was equally unremarkable. BNP 487. No repeat imaging was performed. Chest x-ray done day prior to admission did not show evidence of congestive heart failure. Patient been seen in the clinic last week because of increased weakness and is also complaining of increased lower extremity edema. She had been much less active than usual. Patient denies any chest pain any infectious kind of symptoms such as fever chills sore throat cough etc. no GI symptoms although chronic abdominal pain does persist. Discharge Providers Date of admission: 10/03/18 19:12 Discharge Date: 10/06/18 Primary care physician: Oj Bland MD Consults: 10/04/18 07:37 Consult to Discharge Planning Routine Comment: placement alt facility Consult to Occupational Therapy Evaluate & Treat Comment: weakness Physician Instructions: Evaluate and treat Consult to Physical Therapy Evaluate & Treat Comment: weakness Physician Instructions: Evaluate and Treat Discharge provider: Oj Bland MD Summary Discharge Diagnosis: 1. UTI 2. Acute respiratory failure with hypoxia, multiple etiologies present 3. Weakness with inability to walk 4. Morbid obesity 5. Asthma 6. Paroxysmal atrial fibrillation Hospital Course: Patient was admitted because of persistent weakness and multiple falls. She was found have a UTI with resistant organisms was treated with IV and then oral antibiotics based on sensitivities. She had no further symptoms. Patient continued to be globally weak was seen by Physical therapy and felt to benefit from placement at [facility] for continued rehabilitation. Patient also with some mild hypoxia thought to be multifactorial including a low-grade element of congestive heart failure her morbid obesity and obesity hypoventilation syndrome etc. She was treated with slightly increased doses of diuretics with some mild improvement Patient was able to be discharged to [facility] on the day of discharge. Status at Discharge Cognitive/behavioral status at discharge: at baseline, oriented Functional status at discharge: wheelchair bound Overall status at discharge: patient is progressing back to baseline Time Spent with Patient Greater than 30 minutes Exam Vital Signs (past 8 hours): Fraction of Inspired Oxygen 26 Oxygen Delivery Method Room Air Oxygen Flow Rate 1 Objective Labs Result Diagrams: 10/03/18 16:40 10/05/18 05:45 Discharge Plan Discharge Plan Patient Disposition: SNF Under care of provider: Facility Medical Staff Transportation: [facility] Labs: [facility] day 2 SNF stay Consult as needed: Dental, Hearing, Mental health, Podiatry and Vision I certify the [facility] care is medically necessary on a continuing basis for any conditions for which he/ she received care during this hospitalization.: Yes The receiving facility has agreed to accept transfer and provide medical treatment.: Yes Discharge Med Rec/Prescriptions Prescriptions: New cefuroxime axetil 250 mg Tablet 500 mg PO BID Qty: 14 RF: 0 furosemide 40 mg tablet See Rx Instructions .ROUTE .COMPLEX Qty: 90 RF: 3 hydrochlorothiazide 25 mg tablet 25 mg PO DAILY Qty: 30 RF: 4 oxycodone 10 mg tablet 10 - 20 mg PO Q4HP PRN (Reason: pain) Qty: 150 RF: 0 Continued Vitamin B-12 50 MCG tablet 50 mcg PO BID Qty: 0 RF: 0 [VITAMIN D] 1 cap PO BID Qty: 0 RF: 0 mirabegron [Myrbetriq] 50 mg tablet extended release 24 hr 50 mg PO DAILY Qty: 90 RF: 3 citalopram 10 mg tablet 20 mg PO DAILY Qty: 90 RF: 3 dabigatran etexilate 150 mg capsule 150 mg PO BID Qty: 60 RF: 6 trimethoprim 100 mg tablet 100 mg PO BEDTIME Qty: 90 RF: 1 gabapentin [Neurontin] 600 mg tablet 600 mg PO QIDP PRN (Reason: pain) Qty: 120 RF: 11 pantoprazole 40 mg tablet,delayed release (DR/EC) 40 mg PO BID Qty: 60 RF: 3 folic acid 1 mg tablet 2 mg PO BID Qty: 360 RF: 3 triamcinolone acetonide 0.025 % cream 1 applictn TOP TID PRN (Reason: rash) Qty: 80 RF: 3 metoprolol succinate 50 mg Tablet Extended Release 24 Hr 75 mg PO QPM RF: 0 solifenacin [Vesicare] 10 mg tablet 10 mg PO BEDTIME RF: 0 metoprolol succinate [Toprol XL] 50 mg tablet extended release 24 hr 50 mg PO QAM RF: 0 Wheelchair: Manual Lightweight 1 ea miscellaneous DIRECTED RF: 0 Discontinued furosemide [Lasix] 20 mg tablet 20 mg PO DAILY Qty: 30 RF: 6 nitrofurantoin macrocrystal 100 mg capsule 100 mg PO QID 5 Days Qty: 20 RF: 0 Follow up/Referrals: Oj Bland MD [Primary Care Provider] - Discharge Health Status Multidrug resistant organism: No MDRO Precautions: [place] Provider Discharge Instructions Diet: Diet as Tolerated and Low-sodium Liquid consistency: Normal/Thin Food texture: Regular Discharge Data Primary Care Provider: Oj Bland Attending Provider: Oj Bland Admit Date/Time: 10/03/18 19:12 Discharges patient from system. Discharge Date/Time: 10/06/18 13:29 Quality VTE Deep Vein Thrombosis/Pulmonary Embolism Present on Admission: No
== END 2018-10-06 13:29 ==
LOC: ED 19:10 → AC 19:13
PROVIDERS: Admitting Provider Family Medicine; Emergency Provider Emergency Medicine; PCP Internal Medicine; Visit Provider Internal Medicine
DX: J96.01 Acute respiratory failure with hypoxia (principal); R06.02 Shortness of breath; N39.0 Urinary tract infection, site not specified; R53.1 Weakness; J45.909 Unspecified asthma, uncomplicated; D50.8 Other iron deficiency anemias; I48.0 Paroxysmal atrial fibrillation; Z79.01 Long term (current) use of anticoagulants; E66.01 Morbid (severe) obesity due to excess calories; I10 Essential (primary) hypertension; R60.9 Edema, unspecified; M54.5 Low back pain
CPT/HCPCS: 36415; 71045; 71275; 80048; 80053; 83690; 83735; 83880; 84484; 85025; 93005; 93306; 94760; 94762; 96374; 96375; 96376; 97116; 97162; 97165; 97530; 97535; 99217; 99219; 99224; 99283; 99285; G0378; J1940; J2270; Q9967

== ENCOUNTER → 2018-10-25 15:15 | Outpatient (CLI) | payer OTHER, SELFPAY ==
[2018-10-23 14:38] VITALS: BMI 34.6
[2018-10-25 15:36] LABS: RBC Urine None Seen (0-5/HPF)
[2018-10-25 15:40] LABS: Appearance Urine UA CLOUDY; Bilirubin Urine UA NEGATIVE (NEGATIVE); Color Urine UA YELLOW; Glucose Urine UA NEGATIVE (Negative); Ketones Urine UA NEGATIVE (NEGATIVE); Leukocyte Esterase Urine UA 3+ (NEGATIVE); Nitrite Urine UA NEGATIVE (Negative); Occult Blood Urine UA TRACE-LYSED (Negative); Protein Urine UA NEGATIVE (Negative); Urobilinogen Urine UA 0.2 E.U./dL (0.2)
[2018-10-25 15:53] LABS: Bacteria Urine Many (>30); Culture Indicated Urine Specimen Cultured; Squamous Epithelial Cell Urine 1-5 /HPF (0-5/HPF); WBC Urine 10-30/HPF (0-5/HPF)
== END ==
PROVIDERS: PCP Internal Medicine; Visit Provider Nurse Practitioner Family
DX: R30.0 Dysuria (principal)
CPT/HCPCS: 81001; 87077; 87086; 87186

== ENCOUNTER → 2018-11-17 14:44 | Outpatient (CLI) | payer OTHER, SELFPAY ==
[2018-10-23 14:38] VITALS: BMI 34.6
[2018-11-17 16:09] LABS: BUN Creatinine Ratio 27.1 (6-22); Blood Urea Nitrogen 19 mg/dL (7-17); Calcium 8.8 mg/dL (8.4-10.2); Carbon Dioxide 36 mmol/L (22-32); Chloride 98 mmol/L (98-107); Estimated Glomerular Filt Rate > 60.0 mL/min (>60); Glucose 86 mg/dL (80-110); HEMOLYSIS < 15 (0-50); Magnesium 1.9 mg/dL (1.6-2.3); Potassium 4.2 mmol/L (3.4-5.1); Sodium 139 mmol/L (137-145)
== END ==
PROVIDERS: PCP Internal Medicine; Visit Provider Internal Medicine
DX: E78.2 Mixed hyperlipidemia (principal); I10 Essential (primary) hypertension; N39.0 Urinary tract infection, site not specified; R53.1 Weakness
CPT/HCPCS: 36415; 80048; 83735; 87077; 87086; 87186

== ENCOUNTER 2018-11-30 17:40 | Emergency (ER) | payer OTHER, SELFPAY ==
[2018-10-23 14:38] VITALS: BMI 34.6
[2018-11-30 17:49] VITALS: BP 90/48; PULSE 110; RESP 19; TEMP 37.2; O2SAT 96
--- NOTE | 2018-11-30 18:16 | PC.NURSE ---
pt report, right lower leg pain, onset last night, on arrival right foot hot to touch, ++distal cms. denies injuries/trauma,denies fever,vomiting.
[2018-11-30 18:19] VITALS: BP 98/49; PULSE 86; RESP 16; TEMP 37.1; O2SAT 97
--- NOTE | 2018-11-30 18:20 | ED.SKABFB ---
HPI - Skin/Abscess/Foreign Bdy General Chief complaint: Skin/Abscess/Foreign Body Stated complaint: Cellulitis R lower leg Time Seen by Provider: 11/30/18 18:01 Source: patient and family Mode of arrival: wheelchair Limitations: no limitations History of Present Illness HPI narrative: Patient is an 83-year-old female here for evaluation of right foot pain and concern for an infection in her right lower extremity. Patient states that her symptoms started at 0100 hours in the morning. I have been consistent since then. She did take a pain pill at home which did improve her pain somewhat. She did report a fever from her home health nurse. She does have a history of atrial fibrillation. Is on anticoagulation for this. She stated that she thought that she had some shortness of breath prior to coming here to the emergency department however family at bedside stated that he did not appreciate any change in her breathing. She has no specific trauma. States the pain is located the top of her right foot. She has been in contact with her primary doctor and also her home health nurse. There was sent to the emergency department for evaluation because of concerns for an infection in the right leg. Related Data Home Medications Medication Instructions Recorded Confirmed Wheelchair: Manual Lightweight 1 ea MISCELLANEOUS DIRECTED 01/09/18 11/17/18 solifenacin [Vesicare] 10 mg PO BEDTIME 05/29/18 11/17/18 metoprolol succinate [Toprol XL] 50 mg PO QAM 10/02/18 11/17/18 d-mannose See Rx Instructions PO DAILY gram 11/17/18 11/17/18 Previous Rx's Medication Instructions Recorded triamcinolone acetonide 0.025 % 1 applictn TOP TID PRN #80 gram 01/03/18 topical cream dabigatran etexilate 150 mg capsule 150 mg PO BID #60 cap 08/18/18 gabapentin 600 mg tablet 600 mg PO QIDP PRN #120 tab 09/08/18 pantoprazole 40 mg tablet,delayed 40 mg PO BID #60 tab 09/22/18 release nitrofurantoin macrocrystal 100 mg 100 mg PO BEDTIME #90 cap 10/31/18 capsule potassium chloride 20 mEq 20 meq PO BID #60 tab 10/31/18 tablet,extended release furosemide 40 mg tablet 40 mg PO BID #180 tab 11/06/18 nystatin 100,000 unit/gram topical 1 applictn TOP BID #30 gram 11/10/18 powder citalopram 20 mg tablet 20 mg PO DAILY #90 tab 11/17/18 oxycodone 10 mg tablet 10 - 20 mg PO Q4HP PRN #150 tab 11/17/18 cephalexin [Keflex] 500 mg PO QID 7 Days #28 cap 11/30/18 Allergies Allergy/AdvReac Type Severity Reaction Status Date / Time meloxicam [MELOXICAM] AdvReac Mild bloody Verified 11/17/18 14:02 dark stool Review of Systems Constitutional Constitutional: Reports fever(s) Cardiovascular Cardiovascular: Denies chest pain and Denies dyspnea Respiratory Respiratory: Denies dyspnea Musculoskeletal Comments: Right foot pain Integumentary/Breasts Comments: Redness to the skin of the right lower extremity Neurologic Neurologic: Denies behavioral changes Psychiatric Psychiatric: Denies behavioral changes Hematologic/Lymphatic Comments: On anticoagulation [facility] Medical History Asthma (Chronic) Cardiac dysrhythmia, unspecified (Chronic) Essential hypertension (Chronic) Gastroesophageal reflux disease without esophagitis (Chronic) Low back pain (Chronic 10/02/13) Mixed hyperlipidemia (Chronic) Mixed incontinence urge and stress (Chronic) Obesity, morbid (Chronic) Other iron deficiency anemia (Chronic 12/02/14) Paroxysmal atrial fibrillation (Chronic) Peripheral edema (Chronic 11/01/16) 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) Surgical History Anesthesia (Resolved) History of cholecystectomy (Resolved) History of gastric bypass (~03/2004) S/P total abdominal hysterectomy and bilateral salpingo-oophorectomy Status post appendectomy Status post discectomy Social History marital status: number of children: 1 household members: spouse lives independently: Yes caregiver/support person: No housing: house pets and animals: Yes education level: college occupational status: other current occupational exposures/hazards: No 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 travel history: over 6 months ago leisure activities: reading and other Smoking Status: Never smoker Tobacco: How many years used: 0 quit status: quit date established second hand exposure: No alcohol intake: never substance use type: marijuana Social History marital status: number of children: 1 household members: spouse lives independently: Yes caregiver/support person: No housing: house pets and animals: Yes education level: college occupational status: other current occupational exposures/hazards: No 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 travel history: over 6 months ago leisure activities: reading and other Smoking Status: Never smoker Tobacco: How many years used: 0 quit status: quit date established second hand exposure: No alcohol intake: never substance use type: marijuana Exam Initial Vital Signs Initial Vital Signs: Vital Signs Temperature 98.9 F 11/30/18 17:49 Pulse Rate 110 H 11/30/18 17:49 Respiratory Rate 19 11/30/18 17:49 Blood Pressure 90/48 L 11/30/18 17:49 Pulse Oximetry 96 11/30/18 17:49 Const General: cooperative, comfortable, well developed and well groomed Orientation: alert and awake HENNV Head: normal to inspection and normocephalic Cardio Rate: tachycardic Rhythm: abnormal rhythm Pulses: dorsalis pedis present on the right Skin Other: Patient with redness located mainly on the anterior aspect of the right lower extremity. The distal 1/3 of the tibia. Is warm to the touch. No breaks in the skin. Neuro Sensory Exam: no sensory deficits noted Extrem Other: Patient able to flex and sent of the right ankle on the right knee without abnormalities Psych Appearance: grossly normal and well kempt Course Orders Ordered: ED Orders 11/30/18 17:50 Basic Metabolic Panel Stat Complete Blood Count AUTO DIFF Stat Lactate (Lactic Acid) Stat Procalcitonin Stat Discontinued Medications Cephalexin HCl (Keflex) 500 mg PO NOW ONE Stop: 11/30/18 19:21 Last Admin: 11/30/18 19:25 Dose: 500 mg Documented by: [email or web address] Vital Signs Vital signs: Vital Signs - 8 hr 11/30/18 17:49 11/30/18 18:19 11/30/18 18:49 Temperature 98.9 F 98.7 F Pulse Rate 110 H 86 76 Respiratory Rate 19 16 13 Blood Pressure 90/48 L Blood Pressure [Right Arm] 98/49 L 92/55 L Pulse Oximetry 96 97 94 11/30/18 19:27 Temperature Pulse Rate 84 Respiratory Rate 16 Blood Pressure Blood Pressure [Right Arm] 94/59 L Pulse Oximetry MDM - Skin/Abscess/Foreign Bdy Lab Data Attestation: I reviewed the patient's lab results. Result diagrams: 11/30/18 17:50 11/30/18 17:50 Labs: Lab Results 11/30/18 11/30/18 11/30/18 Range/Units 17:50 17:50 17:50 WBC 8.7 (4.5-11.0) X10^3/uL RBC 4.56 (4.0-5.2) X10^6/uL Hgb 13.6 (12.0-16.0) g/dL Hct 41.4 (36-46) % MCV 90.8 (80-100) fL MCH 29.9 (26-34) PG MCHC 32.9 (30-36) % RDW 14.5 (11.6-14.8) % Plt Count 167 (150-400) X10^3/uL Neut % (Auto) 69.5 (50-75) % Lymph % (Auto) 15.0 L (25-40) % [place] % (Auto) 14.3 H (3-14) % Eos % (Auto) 0.8 L (2-4) % Baso % (Auto) 0.4 (0-2) % Neut # (Auto) 6100 (5732-9090) /uL Lymph # (Auto) 1300 (0167-9515) /uL [place] # (Auto) 1200 H (0-900) /uL Eos # (Auto) 100 (0-450) /uL Baso # (Auto) 0 (0-100) /uL Sodium 137 (137-145) mmol/L Potassium 4.1 (3.4-5.1) mmol/L Chloride 95 L (98-107) mmol/L Carbon Dioxide 39 H (22-32) mmol/L BUN 14 (7-17) mg/dL Creatinine 0.60 (0.52-1.04) mg/dL Estimated GFR > 60.0 (>60) mL/min BUN/Creatinine Ratio 23.3 H (6-22) Glucose 109 (80-110) mg/dL Lactate 1.3 (0.7-2.1) mmol/L Calcium 8.8 (8.4-10.2) mg/dL Procalcitonin (<0.5) ng/mL 11/30/18 Range/Units 17:50 WBC (4.5-11.0) X10^3/uL RBC (4.0-5.2) X10^6/uL Hgb (12.0-16.0) g/dL Hct (36-46) % MCV (80-100) fL MCH (26-34) PG MCHC (30-36) % RDW (11.6-14.8) % Plt Count (150-400) X10^3/uL Neut % (Auto) (50-75) % Lymph % (Auto) (25-40) % [place] % (Auto) (3-14) % Eos % (Auto) (2-4) % Baso % (Auto) (0-2) % Neut # (Auto) (4981-0864) /uL Lymph # (Auto) (6227-9833) /uL [place] # (Auto) (0-900) /uL Eos # (Auto) (0-450) /uL Baso # (Auto) (0-100) /uL Sodium (137-145) mmol/L Potassium (3.4-5.1) mmol/L Chloride (98-107) mmol/L Carbon Dioxide (22-32) mmol/L BUN (7-17) mg/dL Creatinine (0.52-1.04) mg/dL Estimated GFR (>60) mL/min BUN/Creatinine Ratio (6-22) Glucose (80-110) mg/dL Lactate (0.7-2.1) mmol/L Calcium (8.4-10.2) mg/dL Procalcitonin < 0.05 (<0.5) ng/mL MDM Narrative Medical decision making narrative: Patient was afebrile here in the emergency department. She did have tenderness to palpation located mostly on the dorsum of the right foot. She does have redness on the distal 1/3 of the right lower extremity with warmness to the touch. There are no other breaks in the skin. She does have thickened toenails to the right foot which are not new. This could be the source for infection she does not have an elevated white blood cell count. Does not have a left shift. Her lactate and procalcitonin are negative. she is occasionally tachycardic does have paroxysmal atrial fibrillation is on anticoagulation for this. Patient is not septic. She did report improvement of her symptoms after pain medication which she has at home. She was given a 1st dose of antibiotics here in the emergency department and a prescription for the remainder of the course. So that they did not have to pick the prescription up this evening. Patient was asking to be admitted to the hospital however I do not feel that her cellulitis warrants inpatient admission. Do not feel that she has failed an outpatient treatment. Unfortunately I do not have a reason to admit her to the hospital. Patient and family did seem to be somewhat uncomfortable with this. Prior notes do say that the patient has a wheelchair at home. They were asking to be discharged to the could catch a [place] back to the [place] where they live. They were given return precautions and follow-up instructions Discharge Plan Departure Patient Disposition: Home Clinical Impression: Cellulitis Qualifiers: Site of cellulitis: extremity Site of cellulitis of extremity: lower extremity Laterality: right Qualified Code(s): L03.115 - Cellulitis of right lower limb Instructions: DI for Cellulitis -- Adult Activity Restrictions/Additional Instructions: Take the antibiotics as directed. You were given your 1st dose here in the emergency department. Contact your primary provider for follow-up. Return to the emergency department for any new or worsening symptoms Prescriptions: New cephalexin [Keflex] 500 mg capsule 500 mg PO QID 7 Days Qty: 28 RF: 0 No Action dabigatran etexilate 150 mg capsule 150 mg PO BID Qty: 60 RF: 6 gabapentin [Neurontin] 600 mg tablet 600 mg PO QIDP PRN (Reason: pain) Qty: 120 RF: 11 pantoprazole 40 mg tablet,delayed release (DR/EC) 40 mg PO BID Qty: 60 RF: 3 potassium chloride 20 mEq tablet extended release 20 meq PO BID Qty: 60 RF: 8 furosemide 40 mg tablet 40 mg PO BID Qty: 180 RF: 1 nystatin 100,000 unit/gram powder 1 applictn TOP BID Qty: 30 RF: 1 d-mannose powder See Rx Instructions PO DAILY RF: 0 citalopram 20 mg tablet 20 mg PO DAILY Qty: 90 RF: 3 oxycodone 10 mg tablet 10 - 20 mg PO Q4HP PRN (Reason: pain) Qty: 150 RF: 0 triamcinolone acetonide 0.025 % cream 1 applictn TOP TID PRN (Reason: rash) Qty: 80 RF: 3 nitrofurantoin macrocrystal 100 mg capsule 100 mg PO BEDTIME Qty: 90 RF: 3 solifenacin [Vesicare] 10 mg tablet 10 mg PO BEDTIME RF: 0 metoprolol succinate [Toprol XL] 50 mg tablet extended release 24 hr 50 mg PO QAM RF: 0 Wheelchair: Manual Lightweight 1 ea miscellaneous DIRECTED RF: 0 Referrals: Oj Bland MD [Primary Care Provider] -
[2018-11-30 18:26] LABS: Add Manual Diff / Slide Review NO; Basophils Absolute Auto 0 /uL (0-100); Basophils Percent Auto 0.4 % (0-2); Eosinophils Absolute Auto 100 /uL (0-450); Eosinophils Percent Auto 0.8 % (2-4); Hematocrit 41.4 % (36-46); Hemoglobin 13.6 g/dL (12.0-16.0); Lymphocytes Absolute Auto 1300 /uL (1100-4500); Mean Corpuscular HGB Conc 32.9 % (30-36); Mean Corpuscular Hemoglobin 29.9 PG (26-34); Mean Corpuscular Volume 90.8 fL (80-100); Monocytes Absolute Auto 1200 /uL (0-900); Monocytes Percent Auto 14.3 % (3-14); Neutrophils Absolute Auto 6100 /uL (1500-7000); Neutrophils Percent Auto 69.5 % (50-75); Platelet Count 167 X10^3/uL (150-400); Red Blood Cell Count 4.56 X10^6/uL (4.0-5.2); Red Cell Distribution Width 14.5 % (11.6-14.8); White Blood Cell Count 8.7 X10^3/uL (4.5-11.0)
[2018-11-30 18:36] LABS: Lactate (Lactic Acid) 1.3 mmol/L (0.7-2.1)
[2018-11-30 18:37] LABS: BUN Creatinine Ratio 23.3 (6-22); Blood Urea Nitrogen 14 mg/dL (7-17); Calcium 8.8 mg/dL (8.4-10.2); Carbon Dioxide 39 mmol/L (22-32); Chloride 95 mmol/L (98-107); Estimated Glomerular Filt Rate > 60.0 mL/min (>60); Glucose 109 mg/dL (80-110); HEMOLYSIS < 15 (0-50); Potassium 4.1 mmol/L (3.4-5.1); Sodium 137 mmol/L (137-145)
[2018-11-30 18:49] VITALS: BP 92/55; PULSE 76; RESP 13; O2SAT 94
[2018-11-30 19:14] LABS: Procalcitonin < 0.05 ng/mL (<0.5)
[2018-11-30] MEDS: cephALEXin 250 MG CAPSULE 500 MG PO (19:25)
[2018-11-30 19:27] VITALS: BP 94/59; PULSE 84; RESP 16
--- NOTE | 2018-11-30 19:40 | PC.NURSE ---
Phone call received at 1936 by woman named Judi Alberts stating that she is daughter of pt. Caller yelling and stating that she was very unhappy that pt was discharged home and was going to report [facility] to the state unless she spoke with Doctor providing pt care immediately. Caller was informed that pt had been discharged and Doctor was not immediately available, caller was given an option to speak with charge nurse and leave contact information for provider to contact her if he was available later. Caller was informed of privacy laws limiting discussing pt care. Caller continuing to yell at RN on phone stating that she wanted to talk to provider immediately stating she was a nurse and again was reporting [facility] to the [facility] for discharging pt home due to patients mobility status, caller was asked for contact phone number yelled it quickly and was asked to repeat it clearly so it could be accurately recorded, phone number [phone] obtained and caller ended phone call. Dr. Pollard aware of situation declined to speak with caller upon initial call and given pt caller contact information and Charge nurse aware. Pt and spouse denied further questions at DC and pt was able to transfer with assistance to and transfer with assistance into private vehicle upon DC.
== END 2018-11-30 19:24 | disposition home or self-care (01) ==
PROVIDERS: Emergency Provider Emergency Medicine; PCP Internal Medicine
DX: L03.115 Cellulitis of right lower limb (principal)
CPT/HCPCS: 36591; 80048; 83605; 84145; 85025; 99283

== ENCOUNTER 2018-12-15 11:47 | Emergency (ER) | payer OTHER, SELFPAY ==
[2018-10-23 14:38] VITALS: BMI 34.6
[2018-12-15 11:56] VITALS: BP 112/70; PULSE 67; RESP 18; TEMP 36.3; O2SAT 97; BMI 35.4
--- NOTE | 2018-12-15 13:47 | ED_ITS ---
HPI - Extremity Injury (Lower) General Chief Complaint: Extremity Injury, Lower Stated Complaint: possible cellulitis on feet Time Seen by Provider: 12/15/18 13:27 Source: patient Mode of arrival: Family Vehicle Limitations: no limitations History of Present Illness HPI Narrative: 83-year-old female who I evaluated in this emergency department within the past month for a right lower extremity cellulitis. I did send her home on Keflex. She stated that she took this medication. She states that her symptoms seemed to greatly improve if not resolved however couple days ago she started noticing redness to both of her feet and her lower extremities. No fevers. She has finished a course of antibiotics was not on them now. She is here for concerns of cellulitis in her lower extremities. Related Data Home Medications Medication Instructions Recorded Confirmed Wheelchair: Manual Lightweight 1 ea MISCELLANEOUS DIRECTED 01/09/18 11/17/18 solifenacin [Vesicare] 10 mg PO BEDTIME 05/29/18 11/17/18 metoprolol succinate [Toprol XL] 50 mg PO QAM 10/02/18 11/17/18 d-mannose See Rx Instructions PO DAILY gram 11/17/18 11/17/18 Previous Rx's Medication Instructions Recorded triamcinolone acetonide 0.025 % 1 applictn TOP TID PRN #80 gram 01/03/18 topical cream dabigatran etexilate 150 mg capsule 150 mg PO BID #60 cap 08/18/18 gabapentin 600 mg tablet 600 mg PO QIDP PRN #120 tab 09/08/18 pantoprazole 40 mg tablet,delayed 40 mg PO BID #60 tab 09/22/18 release nitrofurantoin macrocrystal 100 mg 100 mg PO BEDTIME #90 cap 10/31/18 capsule potassium chloride 20 mEq 20 meq PO BID #60 tab 10/31/18 tablet,extended release furosemide 40 mg tablet 40 mg PO BID #180 tab 11/06/18 nystatin 100,000 unit/gram topical 1 applictn TOP BID #30 gram 11/10/18 powder citalopram 20 mg tablet 20 mg PO DAILY #90 tab 11/17/18 cephalexin [Keflex] 500 mg PO QID 7 Days #28 cap 12/15/18 oxycodone 10 mg tablet 10 - 20 mg PO Q4HP PRN #50 tab 12/15/18 Allergies Allergy/AdvReac Type Severity Reaction Status Date / Time meloxicam [MELOXICAM] AdvReac Mild bloody Verified 11/17/18 14:02 dark stool Review of Systems Constitutional Constitutional: Denies fever(s) and Denies headache(s) ENT Ears, Nose, Mouth, and Throat: Denies headache(s) Cardiovascular Cardiovascular: Denies chest pain and Denies dyspnea Respiratory Respiratory: Denies dyspnea Gastrointestinal Gastrointestinal: Denies abdominal pain, Denies nausea and Denies vomiting Musculoskeletal Musculoskeletal: Denies myalgias and Denies arthralgias Integumentary/Breasts Comments: Bilateral red feet Neurologic Neurologic: Denies behavioral changes and Denies headache(s) Psychiatric Psychiatric: Denies behavioral changes Hematologic/Lymphatic Hematologic/Lymphatic: Denies easy bleeding and Denies easy bruising [facility] Medical History Asthma (Chronic) Cardiac dysrhythmia, unspecified (Chronic) Essential hypertension (Chronic) Gastroesophageal reflux disease without esophagitis (Chronic) Low back pain (Chronic 10/02/13) Mixed hyperlipidemia (Chronic) Mixed incontinence urge and stress (Chronic) Obesity, morbid (Chronic) Other iron deficiency anemia (Chronic 12/02/14) Paroxysmal atrial fibrillation (Chronic) Peripheral edema (Chronic 11/01/16) 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) Surgical History Anesthesia (Resolved) History of cholecystectomy (Resolved) History of gastric bypass (~03/2004) S/P total abdominal hysterectomy and bilateral salpingo-oophorectomy Status post appendectomy Status post discectomy Social History marital status: number of children: 1 household members: spouse lives independently: Yes caregiver/support person: No housing: house pets and animals: Yes education level: college occupational status: other current occupational exposures/hazards: No Previous occupational history: [employer]ational: [employer] travel history: over 6 months ago leisure activities: reading and other Smoking Status: Never smoker Tobacco: How many years used: 0 quit status: quit date established second hand exposure: No alcohol intake: never substance use type: marijuana Social History (Reviewed 12/15/18 @ 14:34 by FROYLAN Mcmahon marital status: number of children: 1 household members: spouse lives independently: Yes caregiver/support person: No housing: house pets and animals: Yes education level: college occupational status: other current occupational exposures/hazards: No Previous occupational history: [employer]/congregational: [employer] travel history: over 6 months ago leisure activities: reading and other Smoking Status: Never smoker Tobacco: How many years used: 0 quit status: quit date established second hand exposure: No alcohol intake: never substance use type: marijuana Exam Initial Vital Signs Initial Vital Signs: Vital Signs Temperature 97.3 F L 12/15/18 11:56 Pulse Rate 67 12/15/18 11:56 Respiratory Rate 18 12/15/18 11:56 Blood Pressure 112/70 12/15/18 11:56 Pulse Oximetry 97 12/15/18 11:56 Const General: cooperative, healthy appearing, comfortable and well developed Resp Effort & Inspection: normal respiratory effort Cardio Rate: regular rate Pulses: dorsalis pedis present bilaterally Skin Other: Patient with cool skin bilateral lower extremities. Blanching red rash from mid calf to toes bilaterally. No breaks in the skin. No drainage. Neuro General: alert and awake Sensory Exam: no sensory deficits noted Extrem Other: 1+ pitting edema left lower extremity. No edema right lower extremity. This is not new. Psych Appearance: grossly normal and well kempt Course Orders Ordered: ED Orders 12/15/18 14:10 Basic Metabolic Panel Stat Complete Blood Count AUTO DIFF Stat Lactate (Lactic Acid) Stat Procalcitonin Stat Vital Signs Vital signs: Vital Signs - 8 hr 12/15/18 11:56 Temperature 97.3 F L Pulse Rate 67 Respiratory Rate 18 Blood Pressure 112/70 Pulse Oximetry 97 MDM - Extremity Injury (Lower) Lab Data Attestation: I reviewed the patient's lab results. Result diagrams: 12/15/18 14:10 12/15/18 14:10 Labs: Lab Results 12/15/18 12/15/18 12/15/18 Range/Units 14:10 14:10 14:10 WBC 8.0 (4.5-11.0) X10^3/uL RBC 4.54 (4.0-5.2) X10^6/uL Hgb 13.6 (12.0-16.0) g/dL Hct 41.6 (36-46) % MCV 91.5 (80-100) fL MCH 29.9 (26-34) PG MCHC 32.7 (30-36) % RDW 14.5 (11.6-14.8) % Plt Count 197 (150-400) X10^3/uL Neut % (Auto) 60.0 (50-75) % Lymph % (Auto) 24.6 L (25-40) % [place] % (Auto) 11.7 (3-14) % Eos % (Auto) 3.0 (2-4) % Baso % (Auto) 0.7 (0-2) % Neut # (Auto) 4800 (5061-1845) /uL Lymph # (Auto) 2000 (3475-9432) /uL [place] # (Auto) 900 (0-900) /uL Eos # (Auto) 200 (0-450) /uL Baso # (Auto) 100 (0-100) /uL Sodium 139 (137-145) mmol/L Potassium 4.4 (3.4-5.1) mmol/L Chloride 96 L (98-107) mmol/L Carbon Dioxide 37 H (22-32) mmol/L BUN 14 (7-17) mg/dL Creatinine 0.60 (0.52-1.04) mg/dL Estimated GFR > 60.0 (>60) mL/min BUN/Creatinine Ratio 23.3 H (6-22) Glucose 89 (80-110) mg/dL Lactate (0.7-2.1) mmol/L Calcium 9.1 (8.4-10.2) mg/dL Procalcitonin < 0.05 (<0.5) ng/mL 12/15/18 Range/Units 14:10 WBC (4.5-11.0) X10^3/uL RBC (4.0-5.2) X10^6/uL Hgb (12.0-16.0) g/dL Hct (36-46) % MCV (80-100) fL MCH (26-34) PG MCHC (30-36) % RDW (11.6-14.8) % Plt Count (150-400) X10^3/uL Neut % (Auto) (50-75) % Lymph % (Auto) (25-40) % [place] % (Auto) (3-14) % Eos % (Auto) (2-4) % Baso % (Auto) (0-2) % Neut # (Auto) (8562-0283) /uL Lymph # (Auto) (0893-0441) /uL [place] # (Auto) (0-900) /uL Eos # (Auto) (0-450) /uL Baso # (Auto) (0-100) /uL Sodium (137-145) mmol/L Potassium (3.4-5.1) mmol/L Chloride (98-107) mmol/L Carbon Dioxide (22-32) mmol/L BUN (7-17) mg/dL Creatinine (0.52-1.04) mg/dL Estimated GFR (>60) mL/min BUN/Creatinine Ratio (6-22) Glucose (80-110) mg/dL Lactate 1.2 (0.7-2.1) mmol/L Calcium (8.4-10.2) mg/dL Procalcitonin (<0.5) ng/mL MDM Narrative Medical decision making narrative: Patient's labs are reassuring him point against an infection. I do suspect that her lower extremity redness is secondary to her sitting in a wheelchair. Lack of ambulatory status and venous stasis. It seems she has never had peripheral vascular studies in the past. The last time she was here she stated that it was only her right lower extremity. She did take the Keflex and the symptoms improved/resolved. States that the symptoms are new. Plan will be us to send the patient home with a prescription for antibiotics however she is not going to take these medications. She is going to hold them and if she develops new symptoms fevers, worsening pain, worsening redness or any other sores or drainage she will start taking them as directed. Did discuss keeping her legs elevated. She is going to contact her primary doctor on Tuesday to discuss the indications for referral to have per for vascular studies done. Patient expressed understanding and agreement with plan. Discharge Plan Departure Patient Disposition: Home Clinical Impression: Venous stasis dermatitis Qualifiers: Laterality: bilateral Qualified Code(s): I87.2 - Venous insufficiency (chronic) (peripheral) Instructions: DI for Edema Due to Venous Stasis Activity Restrictions/Additional Instructions: Like we discussed today I do think that the redness in your lower extremities is most likely due to vascular disease. Feel the antibiotics however hold on taking them unless your symptoms worsen like we discussed. On Tuesday do recommend you talk with your primary doctor about the indications for referral to have peripheral vascular studies performed. Return to the emergency department for any new or worsening symptoms Prescriptions: New cephalexin [Keflex] 500 mg capsule 500 mg PO QID 7 Days Qty: 28 RF: 0 No Action dabigatran etexilate 150 mg capsule 150 mg PO BID Qty: 60 RF: 6 gabapentin [Neurontin] 600 mg tablet 600 mg PO QIDP PRN (Reason: pain) Qty: 120 RF: 11 pantoprazole 40 mg tablet,delayed release (DR/EC) 40 mg PO BID Qty: 60 RF: 3 potassium chloride 20 mEq tablet extended release 20 meq PO BID Qty: 60 RF: 8 furosemide 40 mg tablet 40 mg PO BID Qty: 180 RF: 1 nystatin 100,000 unit/gram powder 1 applictn TOP BID Qty: 30 RF: 1 oxycodone 10 mg tablet 10 - 20 mg PO Q4HP PRN (Reason: pain) Qty: 50 RF: 0 d-mannose powder See Rx Instructions PO DAILY RF: 0 citalopram 20 mg tablet 20 mg PO DAILY Qty: 90 RF: 3 triamcinolone acetonide 0.025 % cream 1 applictn TOP TID PRN (Reason: rash) Qty: 80 RF: 3 nitrofurantoin macrocrystal 100 mg capsule 100 mg PO BEDTIME Qty: 90 RF: 3 solifenacin [Vesicare] 10 mg tablet 10 mg PO BEDTIME RF: 0 metoprolol succinate [Toprol XL] 50 mg tablet extended release 24 hr 50 mg PO QAM RF: 0 Wheelchair: Manual Lightweight 1 ea miscellaneous DIRECTED RF: 0 Referrals: Oj Bland MD [Primary Care Provider] -
[2018-12-15 14:21] LABS: Add Manual Diff / Slide Review NO; Basophils Absolute Auto 100 /uL (0-100); Basophils Percent Auto 0.7 % (0-2); Eosinophils Absolute Auto 200 /uL (0-450); Hematocrit 41.6 % (36-46); Hemoglobin 13.6 g/dL (12.0-16.0); Lymphocytes Absolute Auto 2000 /uL (1100-4500); Lymphocytes Percent Auto 24.6 % (25-40); Mean Corpuscular HGB Conc 32.7 % (30-36); Mean Corpuscular Hemoglobin 29.9 PG (26-34); Mean Corpuscular Volume 91.5 fL (80-100); Monocytes Absolute Auto 900 /uL (0-900); Monocytes Percent Auto 11.7 % (3-14); Neutrophils Absolute Auto 4800 /uL (1500-7000); Platelet Count 197 X10^3/uL (150-400); Red Blood Cell Count 4.54 X10^6/uL (4.0-5.2); Red Cell Distribution Width 14.5 % (11.6-14.8)
[2018-12-15 14:46] LABS: Lactate (Lactic Acid) 1.2 mmol/L (0.7-2.1)
[2018-12-15 14:57] LABS: BUN Creatinine Ratio 23.3 (6-22); Blood Urea Nitrogen 14 mg/dL (7-17); Calcium 9.1 mg/dL (8.4-10.2); Carbon Dioxide 37 mmol/L (22-32); Chloride 96 mmol/L (98-107); Estimated Glomerular Filt Rate > 60.0 mL/min (>60); Glucose 89 mg/dL (80-110); HEMOLYSIS 18 (0-50); Potassium 4.4 mmol/L (3.4-5.1); Sodium 139 mmol/L (137-145)
[2018-12-15 15:00] LABS: Procalcitonin < 0.05 ng/mL (<0.5)
== END 2018-12-15 16:19 | disposition home or self-care (01) ==
PROVIDERS: Emergency Provider Emergency Medicine; PCP Internal Medicine
DX: I87.2 Venous insufficiency (chronic) (peripheral) (principal)
CPT/HCPCS: 36415; 80048; 83605; 84145; 85025; 99283

== ENCOUNTER 2019-01-10 14:25 | Emergency (ER) | payer OTHER, SELFPAY ==
[2018-10-23 14:38] VITALS: BMI 34.6
[2019-01-10 14:33] VITALS: BP 92/57; PULSE 70; RESP 20; TEMP 37.2; O2SAT 95; BMI 33.3
--- NOTE | 2019-01-10 15:54 | ED.URI ---
HPI - URI/Sore Throat General Chief Complaint: Upper Respiratory Symptoms Stated Complaint: cough 2x days/ chest pains when coughing Time Seen by Provider: 01/10/19 15:47 Source: patient Mode of arrival: Wheelchair Limitations: no limitations History of Present Illness HPI Narrative: 83-year-old female nonsmoker with history of paroxysmal AFib, asthma and iron deficiency anemia presents with her in the chief complaint a worsening cough productive of yellowish sputum with chills and difficulty breathing for the past 2 days. She has become increasingly weak and when seen by her caregiver this morning was encouraged to presents to the emergency department for evaluation. She denies any chest pain. She is not dizzy nor weak or lightheaded. She denies nausea or vomiting. MD Complaint: cough Onset (ago): day(s) Duration: constant Severity: moderate Relieving factors: nothing Exacerbating factors: nothing Description of mucous: yellow Able to tolerate fluids by mouth: Yes Associated symptoms: chills, cough and shortness of breath Treatments prior to arrival: none Related Data Home Medications Medication Instructions Recorded Confirmed Wheelchair: Manual Lightweight 1 ea MISCELLANEOUS DIRECTED 01/09/18 01/10/19 solifenacin [Vesicare] 10 mg PO BEDTIME 05/29/18 01/10/19 metoprolol succinate [Toprol XL] 50 mg PO QAM 10/02/18 01/10/19 d-mannose See Rx Instructions PO DAILY gram 11/17/18 01/10/19 Previous Rx's Medication Instructions Recorded triamcinolone acetonide 0.025 % 1 applictn TOP TID PRN #80 gram 01/03/18 topical cream dabigatran etexilate 150 mg capsule 150 mg PO BID #60 cap 08/18/18 gabapentin 600 mg tablet 600 mg PO QIDP PRN #120 tab 09/08/18 pantoprazole 40 mg tablet,delayed 40 mg PO BID #60 tab 09/22/18 release nitrofurantoin macrocrystal 100 mg 100 mg PO BEDTIME #90 cap 10/31/18 capsule potassium chloride 20 mEq 20 meq PO BID #60 tab 10/31/18 tablet,extended release furosemide 40 mg tablet 40 mg PO BID #180 tab 11/06/18 nystatin 100,000 unit/gram topical 1 applictn TOP BID #30 gram 11/10/18 powder citalopram 20 mg tablet 20 mg PO DAILY #90 tab 11/17/18 oxycodone 10 mg tablet 10 - 20 mg PO Q4HP PRN #168 tab 12/29/18 Allergies Allergy/AdvReac Type Severity Reaction Status Date / Time meloxicam [MELOXICAM] AdvReac Mild bloody Verified 01/10/19 14:33 dark stool Review of Systems Constitutional Constitutional: Reports chills, Denies fatigue, Denies fever(s), Denies frequent falls, Denies lethargy and Reports weakness Eyes Eyes: Denies change in vision, Denies eye discharge, Denies irritation and Denies loss of vision ENT Ears, Nose, Mouth, and Throat: Denies change in voice, Denies dizziness, Denies neck pain, Denies sore throat and Denies throat swelling Cardiovascular Cardiovascular: Denies chest pain, Denies irregular heart rhythm, Denies lightheadedness, Denies palpitations, Reports dyspnea, Denies dyspnea on exertion and Denies orthopnea Respiratory Respiratory: Reports cough, Reports dyspnea, Denies dyspnea on exertion and Denies wheezing Gastrointestinal Gastrointestinal: Denies abdominal pain, Denies change in bowel habits, Denies diarrhea, Denies nausea and Denies vomiting Genitourinary Genitourinary: Denies hematuria, Denies flank pain, Denies urinary incontinence and Denies urinary urgency Musculoskeletal Musculoskeletal: Denies back pain, Denies muscle weakness, Denies neck pain, Denies numbness and Denies tingling Integumentary/Breasts Skin/Breast: Denies pruritus, Denies erythema, Denies rash and Denies wounds Neurologic Neurologic: Denies behavioral changes, Denies confusion, Denies dizziness, Denies frequent falls, Denies loss of vision, Denies numbness, Denies tingling and Reports weakness Psychiatric Psychiatric: Denies anxiety, Denies behavioral changes, Denies confusion, Denies depression, Denies homicidal ideation and Denies suicidal ideation Endocrine Endocrine: Denies fatigue, Denies flushing and Denies palpitations Hematologic/Lymphatic Hematologic/Lymphatic: Denies easy bruising Allergic/Immunologic Allergic/Immunologic: Denies urticaria, Denies throat swelling and Denies wheezing Patient History Social History marital status: number of children: 1 household members: spouse lives independently: Yes caregiver/support person: No housing: house pets and animals: Yes education level: college occupational status: other current occupational exposures/hazards: No 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 Well-nourished, well-developed patient, in mild distress. HEAD: Atraumatic. Normocephalic. EYES: Pupils equal round and reactive. Extraocular motions intact. No scleral icterus. No injection or drainage. ENT: Nose without bleeding, purulent drainage. Throat without erythema, tonsillar hypertrophy or exudate. Airway patent. NECK: Trachea midline. Non tender CARDIOVASCULAR: Regular rate and rhythm without murmurs, gallops, or rubs. RESPIRATORY: Clear to auscultation. Breath sounds equal bilaterally. No wheezes, rales, or rhonchi. GASTROINTESTINAL: Abdomen soft, non-tender, nondistended. EXTREMITIES: No edema or joint tenderness. BACK: Nontender without deformity or crepitance. No flank tenderness. NEURO: AOx3. SKIN: No rash or erythema of visible areas Initial Vital Signs Initial Vital Signs: Vital Signs Temperature 98.9 F 01/10/19 14:33 Pulse Rate 70 01/10/19 14:33 Respiratory Rate 20 01/10/19 14:33 Blood Pressure 92/57 L 01/10/19 14:33 Pulse Oximetry 95 01/10/19 14:33 Course Orders Ordered: ED Orders 01/10/19 16:05 Urinalysis Sreen (Dip Only) Stat Urine Culture Stat Urine Microscopic Stat 01/10/19 16:08 XR chest 2V Stat Measure peak expiratory flow ONCE RT Consult Eval and Treat Now 01/10/19 16:30 B Type Natriuretic Peptide Stat Complete Blood Count AUTO DIFF Stat Comprehensive Metabolic Panel Stat Lactate (Lactic Acid) Stat 01/10/19 17:13 Blood Culture Stat Vital Signs Vital signs: Vital Signs - 8 hr 01/10/19 14:33 01/10/19 16:11 01/10/19 17:15 Temperature 98.9 F Pulse Rate 70 85 68 Respiratory Rate 20 17 16 Blood Pressure 92/57 L Blood Pressure [Right Arm] 118/73 95/60 Pulse Oximetry 95 98 94 01/10/19 18:37 Temperature Pulse Rate Respiratory Rate 19 Blood Pressure 108/64 Blood Pressure [Right Arm] Pulse Oximetry 96 MDM - URI/Sore Throat Lab Data Result diagrams: 01/10/19 16:30 01/10/19 16:30 Labs: Lab Results 01/10/19 01/10/19 01/10/19 Range/Units 16:05 16:30 16:30 WBC 9.1 (4.5-11.0) X10^3/uL RBC 4.48 (4.0-5.2) X10^6/uL Hgb 13.4 (12.0-16.0) g/dL Hct 40.9 (36-46) % MCV 91.2 (80-100) fL MCH 29.8 (26-34) PG MCHC 32.7 (30-36) % RDW 14.9 H (11.6-14.8) % Plt Count 169 (150-400) X10^3/uL Neut % (Auto) 64.6 (50-75) % Lymph % (Auto) 20.3 L (25-40) % [place] % (Auto) 11.0 (3-14) % Eos % (Auto) 3.5 (2-4) % Baso % (Auto) 0.6 (0-2) % Neut # (Auto) 5900 (2238-3422) /uL Lymph # (Auto) 1800 (0996-4183) /uL [place] # (Auto) 1000 H (0-900) /uL Eos # (Auto) 300 (0-450) /uL Baso # (Auto) 100 (0-100) /uL Sodium 138 (137-145) mmol/L Potassium 3.8 (3.4-5.1) mmol/L Chloride 94 L (98-107) mmol/L Carbon Dioxide 37 H (22-32) mmol/L BUN 15 (7-17) mg/dL Creatinine 0.60 (0.52-1.04) mg/dL Estimated GFR > 60.0 (>60) mL/min BUN/Creatinine Ratio 25.0 H (6-22) Glucose 93 (80-110) mg/dL Lactate (0.7-2.1) mmol/L Calcium 8.9 (8.4-10.2) mg/dL Total Bilirubin 1.1 (0.2-1.3) mg/dL AST 24 (14-36) IU/L ALT 12 (9-52) IU/L Alkaline Phosphatase 110 (38-126) U/L B-Natriuretic Peptide (<100) Total Protein 7.1 (6.3-8.2) g/dL Albumin 4.0 (3.5-5.0) g/dL Globulin 3.1 (1.7-4.1) g/dL Albumin/Globulin Ratio 1.3 (1.0-2.8) Urine Color Yellow Urine Appearance Clear Urine pH 6.5 (4.5-8.0) Ur Specific [place] <=1.005 (1.000-1.035) Urine Protein Negative (Negative) Urine Glucose (UA) Negative (Negative) g/dL Urine Ketones Negative (NEGATIVE) Urine Occult Blood Trace-lysed (Negative) Urine Nitrate Positive (Negative) Urine Bilirubin Negative (NEGATIVE) Urine Urobilinogen 0.2 (0.2) E.U./dL Ur Leukocyte Esterase 3+ H (NEGATIVE) Urine RBC 1-5/hpf (0-5/HPF) Urine WBC 10-30/hpf H (0-5/HPF) Urine Bacteria None seen (None) Ur Culture Indicated? Specimen cultured 01/10/19 01/10/19 Range/Units 16:30 16:30 WBC (4.5-11.0) X10^3/uL RBC (4.0-5.2) X10^6/uL Hgb (12.0-16.0) g/dL Hct (36-46) % MCV (80-100) fL MCH (26-34) PG MCHC (30-36) % RDW (11.6-14.8) % Plt Count (150-400) X10^3/uL Neut % (Auto) (50-75) % Lymph % (Auto) (25-40) % [place] % (Auto) (3-14) % Eos % (Auto) (2-4) % Baso % (Auto) (0-2) % Neut # (Auto) (8889-2494) /uL Lymph # (Auto) (7116-1964) /uL [place] # (Auto) (0-900) /uL Eos # (Auto) (0-450) /uL Baso # (Auto) (0-100) /uL Sodium (137-145) mmol/L Potassium (3.4-5.1) mmol/L Chloride (98-107) mmol/L Carbon Dioxide (22-32) mmol/L BUN (7-17) mg/dL Creatinine (0.52-1.04) mg/dL Estimated GFR (>60) mL/min BUN/Creatinine Ratio (6-22) Glucose (80-110) mg/dL Lactate 0.9 (0.7-2.1) mmol/L Calcium (8.4-10.2) mg/dL Total Bilirubin (0.2-1.3) mg/dL AST (14-36) IU/L ALT (9-52) IU/L Alkaline Phosphatase (38-126) U/L B-Natriuretic Peptide 499 H (<100) Total Protein (6.3-8.2) g/dL Albumin (3.5-5.0) g/dL Globulin (1.7-4.1) g/dL Albumin/Globulin Ratio (1.0-2.8) Urine Color Urine Appearance Urine pH (4.5-8.0) Ur Specific [place] (1.000-1.035) Urine Protein (Negative) Urine Glucose (UA) (Negative) g/dL Urine Ketones (NEGATIVE) Urine Occult Blood (Negative) Urine Nitrate (Negative) Urine Bilirubin (NEGATIVE) Urine Urobilinogen (0.2) E.U./dL Ur Leukocyte Esterase (NEGATIVE) Urine RBC (0-5/HPF) Urine WBC (0-5/HPF) Urine Bacteria (None) Ur Culture Indicated? Imaging Data Chest x-ray: Radiologist's impression: [address] [address] XRay Report Signed Patient: Valencia Cesar CMR#: [id number] : 7Acct:[id number] Age/Sex: 83 / FDate of Service: 01/10/19 Loc: ED Accession Number: [id number] Procedure: XR chest 2V Ordering Provider: Remi Farah D.O. PROCEDURE: XR CHEST 2V INDICATIONS: shortness of breath TECHNIQUE: 2 views of the chest were acquired. COMPARISON: [facility], CT, CT ANGIO CHEST PE PROTOCOL, 10/04/2018, 7:46. [facility], CR, CHEST 2 VIEW, 05/24/2017, 15:05. [facility], CR, XR CHEST 1V, 10/02/2018, 17:39. [facility], CR, XR CHEST 1V, 10/03/2018, 17:34. FINDINGS: Surgical changes and devices: Stable post surgery changes from ACDF of the cervical spine. Right upper quadrant abdominal surgical clips. Lungs and pleura: Stable eventration of the left hemidiaphragm with streaky left basilar opacities likely representing scarring versus atelectasis. No focal consolidation. No pleural effusions or pneumothorax. Mediastinum: The cardiomediastinal contours remain stable. Heart size is normal. Bones and chest wall: No suspicious bony abnormalities. Soft tissues appear unremarkable. IMPRESSION: Stable examination of the chest without acute cardiopulmonary process. No focal consolidation. Dictated by: Lauri Ruth M.D. on 01/10/2019 at 16:23 Approved by: Lauri Ruth M.D. on 01/10/2019 at 16:27 [facility] Narrative Medical decision making narrative: 83-year-old female with increasing cough over the past 2 days. No fever, no chills. Chest x-ray and physical exam and labs are all very reassuring. Patient has urine noting a UTI, patient already has antibiotics filled and at home. Patient has extensive home support including PT, OT and daily nursing care. Patient given return precautions, encouraged to follow up closely, start taking her antibiotic for a UTI Discharge Plan Departure Patient Disposition: Home Clinical Impression: Acute UTI, Cough Discharge Date/Time: 01/10/19 18:38 Activity Restrictions/Additional Instructions: *You have been diagnosed with [cough, UTI] *What to do: *Take medications as directed *Follow up with your primary care provider in 2-3 days, call for an appointment. Let them know you were seen in the Emergency Department and that we ask that you be seen in follow up *Return to ER if you should have any new, worsening or concerning symptoms Prescriptions: No Action dabigatran etexilate 150 mg capsule 150 mg PO BID Qty: 60 RF: 6 gabapentin [Neurontin] 600 mg tablet 600 mg PO QIDP PRN (Reason: pain) Qty: 120 RF: 11 pantoprazole 40 mg tablet,delayed release (DR/EC) 40 mg PO BID Qty: 60 RF: 3 potassium chloride 20 mEq tablet extended release 20 meq PO BID Qty: 60 RF: 8 furosemide 40 mg tablet 40 mg PO BID Qty: 180 RF: 1 nystatin 100,000 unit/gram powder 1 applictn TOP BID Qty: 30 RF: 1 d-mannose powder See Rx Instructions PO DAILY RF: 0 citalopram 20 mg tablet 20 mg PO DAILY Qty: 90 RF: 3 triamcinolone acetonide 0.025 % cream 1 applictn TOP TID PRN (Reason: rash) Qty: 80 RF: 3 nitrofurantoin macrocrystal 100 mg capsule 100 mg PO BEDTIME Qty: 90 RF: 3 oxycodone 10 mg tablet 10 - 20 mg PO Q4HP PRN (Reason: pain) Qty: 168 RF: 0 solifenacin [Vesicare] 10 mg tablet 10 mg PO BEDTIME RF: 0 metoprolol succinate [Toprol XL] 50 mg tablet extended release 24 hr 50 mg PO QAM RF: 0 Wheelchair: Manual Lightweight 1 ea miscellaneous DIRECTED RF: 0 Referrals: Oj Bland MD [Primary Care Provider] -
--- NOTE | 2019-01-10 16:08 | DI.RAD.S_ITS ---
PROCEDURE: XR CHEST 2V INDICATIONS: shortness of breath TECHNIQUE: 2 views of the chest were acquired. COMPARISON: [facility], CT, CT ANGIO CHEST PE PROTOCOL, 10/04/2018, 7:46. [facility], CR, CHEST 2 VIEW, 05/24/2017, 15:05. [facility], CR, XR CHEST 1V, 10/02/2018, 17:39. [facility], CR, XR CHEST 1V, 10/03/2018, 17:34. FINDINGS: Surgical changes and devices: Stable post surgery changes from ACDF of the cervical spine. Right upper quadrant abdominal surgical clips. Lungs and pleura: Stable eventration of the left hemidiaphragm with streaky left basilar opacities likely representing scarring versus atelectasis. No focal consolidation. No pleural effusions or pneumothorax. Mediastinum: The cardiomediastinal contours remain stable. Heart size is normal. Bones and chest wall: No suspicious bony abnormalities. Soft tissues appear unremarkable. IMPRESSION: Stable examination of the chest without acute cardiopulmonary process. No focal consolidation. Dictated by: Lauri Ruth M.D. on 01/10/2019 at 16:23 Approved by: Lauri Ruth M.D. on 01/10/2019 at 16:27
[2019-01-10 16:11] VITALS: BP 118/73; PULSE 85; RESP 17; O2SAT 98
[2019-01-10 16:14] LABS: Appearance Urine UA CLEAR; Bilirubin Urine UA NEGATIVE (NEGATIVE); Color Urine UA YELLOW; Glucose Urine UA NEGATIVE (Negative); Ketones Urine UA NEGATIVE (NEGATIVE); Leukocyte Esterase Urine UA 3+ (NEGATIVE); Nitrite Urine UA POSITIVE (Negative); Occult Blood Urine UA TRACE-LYSED (Negative); Protein Urine UA NEGATIVE (Negative); Specific Gravity Urine UA <=1.005 (1.000-1.035); Urobilinogen Urine UA 0.2 E.U./dL (0.2)
[2019-01-10 16:15] LABS: Bacteria Urine None Seen; pH Urine UA 6.5 (4.5-8.0)
[2019-01-10 16:22] LABS: RBC Urine 1-5/HPF (0-5/HPF)
[2019-01-10 16:23] LABS: Culture Indicated Urine Specimen Cultured; WBC Urine 10-30/HPF (0-5/HPF)
[2019-01-10 16:46] LABS: Add Manual Diff / Slide Review NO; Basophils Absolute Auto 100 /uL (0-100); Basophils Percent Auto 0.6 % (0-2); Eosinophils Absolute Auto 300 /uL (0-450); Eosinophils Percent Auto 3.5 % (2-4); Hematocrit 40.9 % (36-46); Hemoglobin 13.4 g/dL (12.0-16.0); Lymphocytes Absolute Auto 1800 /uL (1100-4500); Lymphocytes Percent Auto 20.3 % (25-40); Mean Corpuscular HGB Conc 32.7 % (30-36); Mean Corpuscular Hemoglobin 29.8 PG (26-34); Mean Corpuscular Volume 91.2 fL (80-100); Monocytes Absolute Auto 1000 /uL (0-900); Neutrophils Absolute Auto 5900 /uL (1500-7000); Neutrophils Percent Auto 64.6 % (50-75); Platelet Count 169 X10^3/uL (150-400); Red Blood Cell Count 4.48 X10^6/uL (4.0-5.2); Red Cell Distribution Width 14.9 % (11.6-14.8); White Blood Cell Count 9.1 X10^3/uL (4.5-11.0)
[2019-01-10 17:02] LABS: Lactate (Lactic Acid) 0.9 mmol/L (0.7-2.1)
[2019-01-10 17:07] LABS: Alanine Aminotransferase 12 IU/L (9-52); Albumin Globulin Ratio 1.3 (1.0-2.8); Alkaline Phosphatase 110 U/L (38-126); Aspartate Aminotransferase 24 IU/L (14-36); Bilirubin Total 1.1 mg/dL (0.2-1.3); Blood Urea Nitrogen 15 mg/dL (7-17); Calcium 8.9 mg/dL (8.4-10.2); Carbon Dioxide 37 mmol/L (22-32); Chloride 94 mmol/L (98-107); Estimated Glomerular Filt Rate > 60.0 mL/min (>60); Globulin 3.1 g/dL (1.7-4.1); Glucose 93 mg/dL (80-110); HEMOLYSIS < 15 (0-50); Potassium 3.8 mmol/L (3.4-5.1); Sodium 138 mmol/L (137-145); Total Protein 7.1 g/dL (6.3-8.2)
[2019-01-10 17:15] VITALS: BP 95/60; PULSE 68; RESP 16; O2SAT 94
[2019-01-10 17:40] LABS: B Type Natriuretic Peptide 499 (<100)
[2019-01-10 18:37] VITALS: BP 108/64; RESP 19; O2SAT 96
== END 2019-01-10 18:38 | disposition home or self-care (01) ==
PROVIDERS: Emergency Provider Emergency Medicine; PCP Internal Medicine
DX: N39.0 Urinary tract infection, site not specified (principal); R06.02 Shortness of breath; R05 Cough
CPT/HCPCS: 36415; 71046; 80053; 81003; 81015; 83605; 83880; 85025; 87040; 87077; 87086; 87186; 99283; 99284

== ENCOUNTER → 2019-08-10 16:38 | Outpatient (CLI) | payer OTHER, SELFPAY ==
[2018-10-23 14:38] VITALS: BMI 34.6
[2019-08-10 17:05] LABS: RBC Urine None Seen (0-5/HPF)
[2019-08-10 18:35] LABS: Appearance Urine UA CLEAR; Bilirubin Urine UA NEGATIVE (NEGATIVE); Color Urine UA YELLOW; Glucose Urine UA NEGATIVE (Negative); Ketones Urine UA NEGATIVE (NEGATIVE); Leukocyte Esterase Urine UA 3+ (NEGATIVE); Nitrite Urine UA POSITIVE (Negative); Occult Blood Urine UA 3+ (Negative); Protein Urine UA NEGATIVE (Negative); Urobilinogen Urine UA 0.2 E.U./dL (0.2)
[2019-08-10 18:37] LABS: pH Urine UA 6.5 (4.5-8.0)
[2019-08-10 18:45] LABS: Bacteria Urine Moderate (10-30); Culture Indicated Urine Specimen Cultured; WBC Urine >100/HPF (0-5/HPF)
== END ==
PROVIDERS: PCP Internal Medicine; Referring Provider Internal Medicine; Visit Provider Internal Medicine
DX: R82.998 Other abnormal findings in urine (principal)
CPT/HCPCS: 81001; 87077; 87086; 87186

== ENCOUNTER 2019-09-13 13:06 | Emergency (ER) | payer OTHER, SELFPAY ==
[2018-10-23 14:38] VITALS: BMI 34.6
[2019-09-13 13:06] VITALS: BP 118/76; PULSE 88; RESP 20; TEMP 36.6; O2SAT 94
--- NOTE | 2019-09-13 13:26 | PC.NURSE ---
pts Hipolito at bedside
--- NOTE | 2019-09-13 14:07 | DI.RAD.S_ITS ---
PROCEDURE: XR CHEST 1V INDICATIONS: short of breath TECHNIQUE: One view of the chest was acquired. COMPARISON: [facility], CR, XR CHEST 2V, 01/10/2019, 16:09. FINDINGS: Surgical changes and devices: Postoperative changes of the lower cervical spine are not adequately characterized. Lungs and pleura: Coarse interstitial markings are seen within the bilateral perihilar regions and at the left lung base. There is mild elevation of the left diaphragm. Mediastinum: Mediastinal contours appear normal. Heart size is normal. There is aortic atherosclerosis. Bones and chest wall: No suspicious bony lesions. Prominent degenerative changes of the left shoulder are present, but not adequately characterized. There are also degenerative changes of the imaged spine which also are not well characterized. Overlying soft tissues appear unremarkable. IMPRESSION: 1. Coarse perihilar lung markings is most likely related to pulmonary vascular congestion. Interstitial pneumonia cannot be completely excluded. 2. Mild atelectasis versus pneumonia at the left lung base. Dictated by: Armani Carlisle M.D. on 09/13/2019 at 13:38 Approved by: Armani Carlisle M.D. on 09/13/2019 at 13:39
[2019-09-13 14:30] VITALS: BP 117/78; PULSE 67; RESP 22; O2SAT 100
[2019-09-13 14:31] LABS: Add Manual Diff / Slide Review NO; Basophils Absolute Auto 0 /uL (0-100); Basophils Percent Auto 0.7 % (0-2); Eosinophils Absolute Auto 200 /uL (0-450); Eosinophils Percent Auto 2.8 % (2-4); Hematocrit 38.1 % (36-46); Hemoglobin 12.3 g/dL (12.0-16.0); Lymphocytes Absolute Auto 1400 /uL (1100-4500); Mean Corpuscular HGB Conc 32.3 % (30-36); Mean Corpuscular Hemoglobin 27.3 PG (26-34); Mean Corpuscular Volume 84.5 fL (80-100); Monocytes Absolute Auto 900 /uL (0-900); Monocytes Percent Auto 13.1 % (3-14); Neutrophils Absolute Auto 4300 /uL (1500-7000); Neutrophils Percent Auto 63.4 % (50-75); Platelet Count 172 X10^3/uL (150-400); Red Cell Distribution Width 14.6 % (11.6-14.8); White Blood Cell Count 6.8 X10^3/uL (4.5-11.0)
--- NOTE | 2019-09-13 14:32 | ED_ITS ---
HPI - SOB/Dyspnea General Chief Complaint: Shortness of Breath/Dyspnea Stated Complaint: Low O2 Time Seen by Provider: 09/13/19 13:58 Source: patient and EMS Mode of arrival: EMS History of Present Illness HPI Narrative: Patient is an 84-year-old female who is overweight apparently bed-bound and requires Rica lift she has home health care to help care for her. She states that every time return her to put on the way relief she gets short of breath. Apparently they checked the oxygen level today and it was low her PCP told her to come to the ER for evaluation. She says it is not any worse than it has been previously. But they are doing what they were told. She denies any cough no chest pain. Her legs do for her. She she does is only in certain positions. MD Complaint: shortness of breath Exacerbating factors: movement Related Data Home Medications Medication Instructions Recorded Confirmed Wheelchair: Manual Lightweight 1 ea MISCELLANEOUS DIRECTED 01/09/18 06/05/19 d-mannose See Rx Instructions PO BID gram 04/30/19 06/05/19 Previous Rx's Medication Instructions Recorded triamcinolone acetonide 0.025 % 1 applictn TOP TID PRN #80 gram 01/03/18 topical cream gabapentin 600 mg tablet 600 mg PO QIDP PRN #120 tab 09/08/18 nitrofurantoin macrocrystal 100 mg 100 mg PO BEDTIME #90 cap 10/31/18 capsule nystatin 100,000 unit/gram topical 1 applictn TOP BID #30 gram 11/10/18 powder citalopram 20 mg tablet 20 mg PO DAILY #90 tab 11/17/18 solifenacin 10 mg tablet See Rx Instructions .ROUTE 01/15/19 .COMPLEX #90 tablet Wheelchair - Manual #1 ea 02/09/19 dabigatran etexilate 150 mg capsule 150 mg PO BID #180 cap 04/09/19 metoprolol succinate 50 mg 25 mg PO QAM #100 tab 04/30/19 tablet,extended release 24 hr pantoprazole 40 mg tablet,delayed See Rx Instructions .ROUTE 05/28/19 release .COMPLEX #60 tablet fluticasone propionate 50 2 spray NASAL BEDTIME #16 gram 06/05/19 mcg/actuation nasal spray,suspension furosemide 40 mg tablet 40 mg PO BID #180 tab 06/14/19 Rica Lift #1 ea 05/15/20 cefuroxime axetil 500 mg tablet 500 mg PO BID #20 tab 08/14/19 potassium chloride 20 mEq 20 meq PO BID #60 tab 08/15/19 tablet,extended release oxycodone 10 mg tablet 10 - 20 mg PO Q4HP PRN #168 tab 09/06/19 Allergies Allergy/AdvReac Type Severity Reaction Status Date / Time doxycycline AdvReac Intermediate rash Verified 06/06/19 15:43 meloxicam [MELOXICAM] AdvReac Mild bloody Verified 06/05/19 11:42 dark stool Review of Systems Review of Systems Narrative: GENERAL: Denies chills, fatigue, malaise, fever, sweats, travel HEENT: Denies sinus pain, ear pain, sore throat, difficulty swallowing, neck pain RESPIRATORY: See HPI CARDIOVASCULAR: Denies chest pain, palpitations, orthopnea, edema GASTROINTESTINAL: Denies nausea, vomiting, abdominal pain, diarrhea, constipation, melena. : Denies dysuria, frequency, incontinence, hematuria, urinary retention, flank pain. MUSCULOSKELETAL: Denies weakness, joint pain, or bony pain SKIN: No rash, no erythema, no pruritus NEUROLOGIC: Denies weakness, dizziness, headache, numbness, change in speech, confusion PSYCHIATRIC: No concerning psychosocial issues. 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) Surgical History Anesthesia (Resolved) History of cholecystectomy (Resolved) History of gastric bypass (~03/2004) S/P total abdominal hysterectomy and bilateral salpingo-oophorectomy Status post appendectomy Status post discectomy Social History (Reviewed 06/25/20 @ 14:35 by FROYLAN Hardy marital status: number of children: 1 household members: spouse lives independently: Yes caregiver/support person: No housing: house pets and animals: Yes education level: college occupational status: other current occupational exposures/hazards: No Previous occupational history: [employer] aidan/cheondoism: [place] travel history: over 6 months ago leisure activities: reading and other Smoking Status: Never smoker Tobacco: How many years used: 0 quit status: quit date established second hand exposure: No alcohol intake: never substance use type: marijuana Smoking Status: Never smoker alcohol intake frequency: holidays/special occasions only Substance Use Type: does not use Exam Initial Vital Signs Initial Vital Signs: Vital Signs Temperature 97.9 F 09/13/19 13:06 Pulse Rate 88 09/13/19 13:06 Respiratory Rate 20 09/13/19 13:06 Blood Pressure 118/76 09/13/19 13:06 Pulse Oximetry 94 09/13/19 13:06 GENERAL: Obese well-appearing female HEENT: Head atraumatic,EOMI, pupils reactive CARDIOVASCULAR: Regular rate and rhythm without murmurs, rubs or gallops. RESPIRATORY: Breath sounds equal bilaterally, no wheezes rales or rhonchi. ABDOMEN: Soft, nontender. Normoactive bowel sounds all 4 quadrants. No guarding or rebound. EXTREMITIES: Normal range of motion, no clubbing. +1 pitting edema bilaterally. Neurovascularly intact NEUROLOGICAL: Alert and oriented x4 SKIN: Mild erythema on her lower extremities Course Orders Ordered: ED Orders 09/13/19 14:06 EKG-12 Lead Stat 09/13/19 14:07 XR chest 1V Stat 09/13/19 14:24 Complete Blood Count AUTO DIFF Stat Comprehensive Metabolic Panel Stat NT-proBNP (BNP-Adult 18+) Stat Troponin & CK Cardiac Panel Stat 09/13/19 16:35 Urinalysis and Microscopic Stat Urine Culture Stat Discontinued Medications Furosemide (Lasix) 20 mg IV NOW ONE Stop: 09/13/19 16:07 Last Admin: 09/13/19 16:56 Dose: 20 mg Documented by: TATIANA Oxycodone HCl (Oxycontin) 10 mg PO NOW ONE Stop: 09/13/19 14:39 Last Admin: 09/13/19 14:45 Dose: 10 mg Documented by: TATIANA Vital Signs Vital signs: Vital Signs - 8 hr 06/25/20 13:06 09/13/19 14:30 09/13/19 16:43 Temperature 97.9 F Pulse Rate 88 67 74 Respiratory Rate 20 22 18 Blood Pressure 118/76 Blood Pressure [Right Arm] 117/78 113/71 Pulse Oximetry 94 100 94 09/13/19 18:30 Temperature Pulse Rate 83 Respiratory Rate 17 Blood Pressure Blood Pressure [Right Arm] 120/69 Pulse Oximetry 94 MDM - SOB/Dyspnea Lab Data Attestation: I reviewed the patient's lab results. Result diagrams: 09/13/19 14:24 09/13/19 14:24 Labs: Lab Results 09/13/19 09/13/19 09/13/19 Range/Units 14:24 14:24 16:35 WBC 6.8 (4.5-11.0) X10^3/uL RBC 4.50 (4.0-5.2) X10^6/uL Hgb 12.3 (12.0-16.0) g/dL Hct 38.1 (36-46) % MCV 84.5 (80-100) fL MCH 27.3 (26-34) PG MCHC 32.3 (30-36) % RDW 14.6 (11.6-14.8) % Plt Count 172 (150-400) X10^3/uL Neut % (Auto) 63.4 (50-75) % Lymph % (Auto) 20.0 L (25-40) % [place] % (Auto) 13.1 (3-14) % Eos % (Auto) 2.8 (2-4) % Baso % (Auto) 0.7 (0-2) % Neut # (Auto) 4300 (4168-0705) /uL Lymph # (Auto) 1400 (3303-7405) /uL [place] # (Auto) 900 (0-900) /uL Eos # (Auto) 200 (0-450) /uL Baso # (Auto) 0 (0-100) /uL Sodium 138 (137-145) mmol/L Potassium 4.2 (3.4-5.1) mmol/L Chloride 95 L (98-107) mmol/L Carbon Dioxide 39 H (22-32) mmol/L BUN 17 (7-17) mg/dL Creatinine 0.57 (0.52-1.04) mg/dL Estimated GFR > 60.0 (>60) mL/min BUN/Creatinine Ratio 29.8 H (6-22) Glucose 97 (80-110) mg/dL Calcium 9.1 (8.4-10.2) mg/dL Total Bilirubin 0.8 (0.2-1.3) mg/dL AST 29 (14-36) IU/L ALT 12 (<35) IU/L Alkaline Phosphatase 103 (38-126) U/L Total Creatine Kinase 25 L (30-135) U/L CK-MB (CK-2) TNP CK-MB (CK-2) Rel Index TNP Troponin I < 0.012 (0.01-0.034) ng/mL NT-Pro-B Natriuret Pep 1190 H (<450) pg/mL Total Protein 7.4 (6.3-8.2) g/dL Albumin 3.9 (3.5-5.0) g/dL Globulin 3.5 (1.7-4.1) g/dL Albumin/Globulin Ratio 1.1 (1.0-2.8) Urine Color Yellow Urine Appearance Turbid Urine pH 7.0 (4.5-8.0) Ur Specific [place] 1.015 (1.000-1.035) Urine Protein 1+ H (Negative) Urine Glucose (UA) Negative (Negative) g/dL Urine Ketones Negative (NEGATIVE) Urine Occult Blood 3+ H (Negative) Urine Nitrate Negative (Negative) Urine Bilirubin Negative (NEGATIVE) Urine Urobilinogen 0.2 (0.2) E.U./dL Ur Leukocyte Esterase 3+ H (NEGATIVE) Urine RBC 10-30/hpf H (0-5/HPF) Urine WBC >100/hpf H (0-5/HPF) Ur Squamous Epith Cells 0-1 /hpf (0-5/HPF) Amorphous Sediment 1+ Urine Bacteria Many (>30) H (None) Urine Mucus 1+ H (Negative) Ur Culture Indicated? Specimen cultured Imaging Data Chest x-ray: Radiologist's Impression: PROCEDURE: XR CHEST 1V INDICATIONS: short of breath TECHNIQUE: One view of the chest was acquired. COMPARISON: [facility], , XR CHEST 2V, 01/10/2019, 16:09. FINDINGS: Surgical changes and devices: Postoperative changes of the lower cervical spine are not adequately characterized. Lungs and pleura: Coarse interstitial markings are seen within the bilateral pe rihilar regions and at the left lung base. There is mild elevation of the left diaphragm. Mediastinum: Mediastinal contours appear normal. Heart size is normal. There is aortic atherosclerosis. Bones and chest wall: No suspicious bony lesions. Prominent degenerative changes of the left shoulder are present, but not adequately characterized. There are also degenerative changes of the imaged spine which also are not well characterized. Overlying soft tissues appear unremarkable. IMPRESSION: 1. Coarse perihilar lung markings is most likely related to pulmonary vascular congestion. Interstitial pneumonia cannot be completely excluded. 2. Mild atelectasis versus pneumonia at the left lung base. Dictated by: Armani Carlisle M.D. on 09/13/2019 at 13:38 ECG Data Attestation: I personally reviewed and interpreted this ECG as follows: Prior ECG tracings: available for review Interpretation: Atrial fibrillation rate [address] elevations similar to previous EKG MDM Narrative Medical decision making narrative: I discussed case with Dr. Bland her PCP. Patient is incontinent of urine and requires Lasix. Difficult to go up on Lasix dose due to her incontinence. She has also had frequent multi-drug resistant UTI. He will follow up on culture. She does not appear septic, but does appear to have a UTI. I do not believe patient have a PE because she is on Pradaxa be hypoxic. Patient states that she is frequently short of breath and has been for months whenever she is moved. Discharge Plan Departure Patient Disposition: Home Clinical Impression: Obesity, morbid UTI (urinary tract infection) Qualifiers: Urinary tract infection type: site unspecified Hematuria presence: without hematuria Qualified Code(s): N39.0 - Urinary tract infection, site not specified Discharge Date/Time: 09/13/19 19:07 Instructions: DI for Peripheral Edema -- Bilateral Activity Restrictions/Additional Instructions: *You have been diagnosed with edema *What to do: You have some fluid on her lungs causing your oxygen level to decrease. It also appears that you have a bladder infection and may require more antibiotics. Dr. Bland has been aware of this before started on an tibiotics will wait for the culture to come back. Please talk with him if he should need oxygen at night as well. *Continue to take medications as directed *Follow up with your primary care provider in 2-3 days *Return to ER if you should have increasing shortness of breath, worsening confusion or any new, worsening or concerning symptoms Prescriptions: No Action gabapentin [Neurontin] 600 mg tablet 600 mg PO QIDP PRN (Reason: pain) Qty: 120 RF: 11 nystatin 100,000 unit/gram powder 1 applictn TOP BID Qty: 30 RF: 1 solifenacin 10 mg tablet See Rx Instructions .ROUTE .COMPLEX Qty: 90 RF: 3 dabigatran etexilate 150 mg capsule 150 mg PO BID Qty: 180 RF: 1 pantoprazole 40 mg tablet,delayed release (DR/EC) See Rx Instructions .ROUTE .COMPLEX Qty: 60 RF: 3 furosemide 40 mg tablet 40 mg PO BID Qty: 180 RF: 1 (DME) Rica Lift Qty: 1 RF: 0 cefuroxime axetil 500 mg tablet 500 mg PO BID Qty: 20 RF: 1 potassium chloride 20 mEq tablet extended release 20 meq PO BID Qty: 60 RF: 8 oxycodone 10 mg tablet 10 - 20 mg PO Q4HP PRN (Reason: pain) Qty: 168 RF: 0 citalopram 20 mg tablet 20 mg PO DAILY Qty: 90 RF: 3 d-mannose Powder See Rx Instructions PO BID RF: 0 (DME) Wheelchair - Manual Qty: 1 RF: 0 metoprolol succinate [Toprol XL] 50 mg tablet extended release 24 hr 25 mg PO QAM Qty: 100 RF: 3 fluticasone propionate 50 mcg/actuation spray,suspension 2 spray NASAL BEDTIME Qty: 16 RF: 4 triamcinolone acetonide 0.025 % cream 1 applictn TOP TID PRN (Reason: rash) Qty: 80 RF: 3 nitrofurantoin macrocrystal 100 mg capsule 100 mg PO BEDTIME Qty: 90 RF: 3 Wheelchair: Manual Lightweight 1 ea miscellaneous DIRECTED RF: 0 Referrals: Oj Bland MD [Primary Care Provider] -
[2019-09-13 14:43] LABS: Alanine Aminotransferase 12 IU/L (<35); Albumin 3.9 g/dL (3.5-5.0); Albumin Globulin Ratio 1.1 (1.0-2.8); Alkaline Phosphatase 103 U/L (38-126); Aspartate Aminotransferase 29 IU/L (14-36); BUN Creatinine Ratio 29.8 (6-22); Bilirubin Total 0.8 mg/dL (0.2-1.3); Blood Urea Nitrogen 17 mg/dL (7-17); Calcium 9.1 mg/dL (8.4-10.2); Carbon Dioxide 39 mmol/L (22-32); Chloride 95 mmol/L (98-107); Creatine Kinase 25 U/L (30-135); Estimated Glomerular Filt Rate > 60.0 mL/min (>60); Globulin 3.5 g/dL (1.7-4.1); Glucose 97 mg/dL (80-110); HEMOLYSIS 19 (0-50); Potassium 4.2 mmol/L (3.4-5.1); Sodium 138 mmol/L (137-145); Total Protein 7.4 g/dL (6.3-8.2)
[2019-09-13] MEDS: OXYCODONE ER 10 MG TAB PO (14:45)
[2019-09-13 14:57] LABS: NT-proBNP (BNP-Adult 18+) 1190 pg/mL (<450); Troponin I < 0.012 ng/mL (0.01-0.034)
--- NOTE | 2019-09-13 14:59 | PC.NURSE ---
pulse ox 93 percent on room air.
[2019-09-13 16:43] VITALS: BP 113/71; PULSE 74; RESP 18; O2SAT 94
--- NOTE | 2019-09-13 16:46 | PC.NURSE ---
pt arrived to er with open wound on her tailbone. stage 4 .
[2019-09-13 16:53] LABS: Appearance Urine UA TURBID; Bilirubin Urine UA NEGATIVE (NEGATIVE); Color Urine UA YELLOW; Glucose Urine UA NEGATIVE (Negative); Ketones Urine UA NEGATIVE (NEGATIVE); Leukocyte Esterase Urine UA 3+ (NEGATIVE); Nitrite Urine UA NEGATIVE (Negative); Occult Blood Urine UA 3+ (Negative); Protein Urine UA 1+ (Negative); Specific Gravity Urine UA 1.015 (1.000-1.035); Urobilinogen Urine UA 0.2 E.U./dL (0.2)
[2019-09-13] MEDS: FUROSEMIDE 20 MG/2 ML VIAL IV (16:56)
[2019-09-13 16:58] LABS: RBC Urine 10-30/HPF (0-5/HPF); Squamous Epithelial Cell Urine 0-1 /HPF (0-5/HPF); WBC Urine >100/HPF (0-5/HPF)
[2019-09-13 16:59] LABS: Amorphous Sediment Urine 1+; Bacteria Urine Many (>30); Culture Indicated Urine Specimen Cultured; Mucus Urine 1+ (Negative)
[2019-09-13 18:30] VITALS: BP 120/69; PULSE 83; RESP 17; O2SAT 94
== END 2019-09-13 19:07 | disposition home or self-care (01) ==
PROVIDERS: Emergency Provider Emergency Medicine; PCP Internal Medicine
DX: N39.0 Urinary tract infection, site not specified (principal); E66.01 Morbid (severe) obesity due to excess calories; R06.02 Shortness of breath
CPT/HCPCS: 36415; 51701; 71045; 80053; 81001; 82550; 83880; 84484; 85025; 87077; 87086; 87186; 93005; 96374; 99285; J1940

== ENCOUNTER 2019-10-12 00:06 | Observation (INO) | payer OTHER, SELFPAY ==
[2018-10-23 14:38] VITALS: BMI 34.6
[2019-10-12] VITALS (14 sets, daily range): BP systolic 96–143; BP diastolic 50–95; PULSE 94–118; RESP 14–19; TEMP 36.1–36.6; O2SAT 92–100; BMI 37.4; BMI 37.2
--- NOTE | 2019-10-12 00:04 | DI.CT.S_ITS ---
PROCEDURE: CT STROKE INDICATIONS: stroke TECHNIQUE: Noncontrast 4.5 mm thick angled axial sections acquired from the foramen magnum to the vertex, with coronal reformats. For radiation dose reduction, the following was used: automated exposure control, adjustment of mA and/or kV according to patient size. COMPARISON: [facility], CT, CT HEAD/BRAIN WO CON, 09/23/2018, 10:33. [facility], MR, MR HEAD/BRAIN WO CON, 01/09/2018, 16:04. [facility], CT, CT HEAD/BRAIN WO CON, 01/09/2018, 11:03. FINDINGS: Image quality: Excellent. CSF spaces: Basal cisterns are patent. No extra-axial fluid collections. The ventricles are symmetric in size and shape. Brain: No intracranial bleeds. 1.5 by 1.6 x 1.7 cm partially calcified, right tentorial extra-axial mass which likely represents a meningioma is stable compared to prior exams. There is cerebral volume loss for age, with resultant ventricular and sulcal prominence. There are periventricular and deep white matter chronic small vessel ischemic changes. 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 There is intracranial internal carotid artery atherosclerosis. Skull and face: Calvarium and visualized facial bones appear intact, without suspicious lesions. Sinuses: Visualized sinuses and mastoids are clear. IMPRESSION: No acute intracranial disease process. This study fulfills neurological imaging criteria for inclusion or exclusion of acute stroke therapies based on available published neurological guidelines. Dictated by: Anabella Daniel MD, PhD on 10/12/2019 at 7:19 Approved by: Anabella Daniel MD, PhD on 10/12/2019 at 7:24
[2019-10-12 00:18] LABS: Add Manual Diff / Slide Review NO; Basophils Absolute Auto 100 /uL (0-100); Basophils Percent Auto 0.7 % (0-2); Eosinophils Absolute Auto 200 /uL (0-450); Eosinophils Percent Auto 2.6 % (2-4); Hematocrit 41.7 % (36-46); Lymphocytes Absolute Auto 2300 /uL (1100-4500); Lymphocytes Percent Auto 26.6 % (25-40); Mean Corpuscular HGB Conc 31.3 % (30-36); Mean Corpuscular Hemoglobin 26.3 PG (26-34); Monocytes Absolute Auto 1100 /uL (0-900); Monocytes Percent Auto 12.8 % (3-14); Neutrophils Absolute Auto 4800 /uL (1500-7000); Neutrophils Percent Auto 57.3 % (50-75); Platelet Count 174 X10^3/uL (150-400); Red Blood Cell Count 4.96 X10^6/uL (4.0-5.2); Red Cell Distribution Width 15.3 % (11.6-14.8); White Blood Cell Count 8.4 X10^3/uL (4.5-11.0)
--- NOTE | 2019-10-12 00:18 | ED.NEUROSD ---
HPI - Neuro Symptoms/Deficit General Chief Complaint: Neuro Symptoms/Deficit Stated Complaint: Code Stroke Time Seen by Provider: 10/12/19 00:10 Source: patient, family and EMS Mode of arrival: EMS Limitations: no limitations History of Present Illness HPI Narrative: 84-year-old female nonsmoker with history of AFib on Pradaxa, morbid obesity, hypertension, asthma, GERD presents by EMS for evaluation of stroke-like symptoms that started this evening. Her symptoms were 1st noticed at 10:30 p.m. at which point EMS was called. She had been in her normal state of health and was last seen normal at 8:00 p.m. when she lays down. Her symptoms include repetitive questioning and confusion as well as some left-sided facial droop. Paramedics report no muscle weakness or ataxia. She has had no fall or injury. She has had no fever or chills. She denies any chest pain, shortness of breath or cough. She denies abdominal pain. She denies any dysuria, frequency or urgency. Blood glucose was in the 110s on scene. She was activated as a code stroke and taken directly to CT scan Onset (ago): hour(s) Last Observed Normal: 20:00 Timing confirmed by: family member Location: speech and left face History of same: No Severity: moderate Quality: constant Relieving factors: none Exacerbating factors: none On Anticoagulants: Yes Associated symptoms: confusion Treatments Prior to Arrival: none Related Data Home Medications Medication Instructions Recorded Confirmed Wheelchair: Manual Lightweight 1 ea MISCELLANEOUS DIRECTED 01/09/18 10/12/19 d-mannose See Rx Instructions PO BID gram 04/30/19 10/12/19 Previous Rx's Medication Instructions Recorded triamcinolone acetonide 0.025 % 1 applictn TOP TID PRN #80 gram 01/03/18 topical cream nitrofurantoin macrocrystal 100 mg 100 mg PO BEDTIME #90 cap 10/31/18 capsule nystatin 100,000 unit/gram topical 1 applictn TOP BID #30 gram 11/10/18 powder citalopram 20 mg tablet 20 mg PO DAILY #90 tab 11/17/18 solifenacin 10 mg tablet See Rx Instructions .ROUTE 01/15/19 .COMPLEX #90 tablet Wheelchair - Manual #1 ea 02/09/19 metoprolol succinate 50 mg 25 mg PO QAM #100 tab 04/30/19 tablet,extended release 24 hr fluticasone propionate 50 2 spray NASAL BEDTIME #16 gram 06/05/19 mcg/actuation nasal spray,suspension furosemide 40 mg tablet 40 mg PO BID #180 tab 06/14/19 [place] Lift #1 ea 08/03/19 cefuroxime axetil 500 mg tablet 500 mg PO BID #20 tab 08/14/19 potassium chloride 20 mEq 20 meq PO BID #60 tab 08/15/19 tablet,extended release pantoprazole 40 mg tablet,delayed See Rx Instructions .ROUTE 09/21/19 release .COMPLEX #60 tablet dabigatran etexilate 150 mg capsule 150 mg PO BID #180 cap 10/04/19 gabapentin 600 mg tablet 600 mg PO QIDP PRN #120 tab 10/04/19 oxycodone 10 mg tablet 10 - 20 mg PO Q4HP PRN #168 tab 10/11/19 Allergies Allergy/AdvReac Type Severity Reaction Status Date / Time doxycycline AdvReac Intermediate rash Verified 06/06/19 15:43 meloxicam [MELOXICAM] AdvReac Mild bloody Verified 06/05/19 11:42 dark stool Review of Systems Constitutional Constitutional: Denies chills, Denies fatigue, Denies fever(s), Denies frequent falls, Denies lethargy and Denies weakness Eyes Eyes: Denies change in vision, Denies eye discharge, Denies irritation and Denies loss of vision ENT Ears, Nose, Mouth, and Throat: Denies change in voice, Denies dizziness, Denies neck pain, Denies sore throat and Denies throat swelling Cardiovascular Cardiovascular: Denies chest pain, Denies irregular heart rhythm, Denies lightheadedness, Denies palpitations, Denies dyspnea, Denies dyspnea on exertion and Denies orthopnea Respiratory Respiratory: Denies cough, Denies dyspnea, Denies dyspnea on exertion and Denies wheezing Gastrointestinal Gastrointestinal: Denies abdominal pain, Denies change in bowel habits, Denies diarrhea, Denies nausea and Denies vomiting Musculoskeletal Musculoskeletal: Denies neck pain and Denies numbness Integumentary/Breasts Skin/Breast: Denies pruritus, Denies erythema, Denies rash and Denies wounds Neurologic Neurologic: Reports abnormal speech, Denies behavioral changes, Denies confusion, Denies dizziness, Denies frequent falls, Denies loss of vision, Denies numbness and Denies weakness Psychiatric Psychiatric: Denies anxiety, Denies behavioral changes, Denies confusion, Denies depression, Denies homicidal ideation and Denies suicidal ideation Endocrine Endocrine: Denies fatigue, Denies flushing and Denies palpitations Hematologic/Lymphatic Hematologic/Lymphatic: Denies easy bruising Allergic/Immunologic Allergic/Immunologic: Denies urticaria, Denies throat swelling and Denies wheezing Patient History Medical History Asthma (Chronic) Asymptomatic bacteriuria (Chronic) Cardiac dysrhythmia, unspecified (Chronic) Essential hypertension (Chronic) Gastroesophageal reflux disease without esophagitis (Chronic) Low back pain (Chronic 10/02/13) Mixed hyperlipidemia (Chronic) Mixed incontinence urge and stress (Chronic) Obesity, morbid (Chronic) Other iron deficiency anemia (Chronic 12/02/14) Paroxysmal atrial fibrillation (Chronic) Peripheral edema (Chronic 11/01/16) 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) Surgical History Anesthesia (Resolved) History of cholecystectomy (Resolved) History of gastric bypass (~03/2004) S/P total abdominal hysterectomy and bilateral salpingo-oophorectomy Status post appendectomy Status post discectomy Social History marital status: number of children: 1 household members: spouse lives independently: Yes caregiver/support person: No housing: house pets and animals: Yes education level: college occupational status: other current occupational exposures/hazards: No Previous occupational history: [employer]/che[employer]ism: [place] travel history: over 6 months ago leisure activities: reading and other Smoking Status: Never smoker Tobacco: How many years used: 0 quit status: quit date established second hand exposure: No alcohol intake: never substance use type: marijuana Smoking Status: Never smoker alcohol intake frequency: holidays/special occasions only Substance Use Type: does not use Exam Narrative Exam Narrative: GENERAL: [84] year old patient appears stated age. Well-nourished, well-developed patient, in mild distress. Confused, struggling with communication HEAD: Atraumatic. Normocephalic. EYES: Pupils equal round and reactive. Extraocular motions intact. No scleral icterus. No injection or drainage. ENT: Nose without bleeding, purulent drainage. Throat without erythema, tonsillar hypertrophy or exudate. Airway patent. NECK: Trachea midline. Non tender CARDIOVASCULAR: Irregular rate and rhythm without murmurs, gallops, or rubs. RESPIRATORY: Clear to auscultation. Breath sounds equal bilaterally. No wheezes, rales, or rhonchi. GASTROINTESTINAL: Abdomen soft, non-tender, nondistended. EXTREMITIES: No edema or joint tenderness. BACK: Nontender without deformity or crepitance. No flank tenderness. NEURO: Awake, alert, oriented x3 SKIN: No rash or erythema of visible areas Initial Vital Signs Initial Vital Signs: Vital Signs Temperature 97.9 F 10/12/19 00:10 Pulse Rate 110 H 10/12/19 00:10 Respiratory Rate 18 10/12/19 00:10 Blood Pressure 109/72 10/12/19 00:10 Pulse Oximetry 98 10/12/19 00:10 Scores GCS Kali coma scale eye opening: Spontaneous Kali coma scale verbal response: Confused Kali coma scale motor response: Obey commands [place] coma scale total score: 14 NIH Stroke Scale Level of Conciousness: Alert, keenly responsive Ask month/age: Answers both questions correctly. Open/close eyes, close hand: Performs both tasks correctly Best gaze horizontal: Normal Visual germain: No visual loss Facial palsy: Minor paralysis, flattened nasolabial fold, asymmetry on smiling Left arm drift: No drift for full 10 sec Right arm drift: No drift for full 10 sec Left leg drift: Some effort against gravity, cannot maintain, drifts down to bed Right leg drift: Some effort against gravity, cannot maintain, drifts down to bed Limb ataxia: Absent Sensory on face/arms/legs: Normal, no sensory loss Best language: Mild to moderate, slurs some words Dysarthria: Mild to mod,some slurring Extinction or inattention: No abnormality Total NIH Stroke scale score: 7 Course Course Course Narrative: patient has elements of global encephalopathy and focal deficit. She was activated as code stroke, but not a TPA candidate due to use of anticoagulants and outside time frame as well as questionable etiology of her condition. Her urine demonstrates significant evidence of infection and cultures previously obtained suggest sensitivity to Rocephin. Orders Ordered: ED Orders 10/12/19 00:04 CT Stroke Stat Basic Metabolic Panel Stat Complete Blood Count AUTO DIFF Stat Partial Thromboplastin Time Stat Prothrombin Time INR Stat EKG-12 Lead Stat 10/12/19 01:15 Urinalysis and Microscopic Stat Urine Culture Stat Urine Drug Screen, Rapid Stat Sodium Chloride (Normal Saline 0.9%) 1,000 mls @ 100 mls/hr IV CONT JOHANN Discontinued Medications Sodium Chloride (Normal Saline 0.9%) 1,000 mls @ 150 mls/hr IV CONT JOHANN Last Admin: 10/12/19 01:42 Dose: 150 mls/hr Documented by: EVER Ceftriaxone Sodium/Dextrose (Rocephin) 1 gm in 50 mls @ 100 mls/hr IV NOW ONE Stop: 10/12/19 01:42 Last Admin: 10/12/19 01:43 Dose: 100 mls/hr Documented by: EVER Vital Signs Vital signs: Vital Signs - 8 hr 10/12/19 00:10 Temperature 97.9 F Pulse Rate 110 H Respiratory Rate 18 Blood Pressure 109/72 Pulse Oximetry 98 MDM - Neuro Symptoms/Deficit Lab Data Result diagrams: 10/11/19 11:50 10/11/19 11:50 Labs: Lab Results 10/11/19 10/11/19 10/11/19 Range/Units 11:50 11:50 11:50 WBC 8.4 (4.5-11.0) X10^3/uL RBC 4.96 (4.0-5.2) X10^6/uL Hgb 13.0 (12.0-16.0) g/dL Hct 41.7 (36-46) % MCV 84.0 (80-100) fL MCH 26.3 (26-34) PG MCHC 31.3 (30-36) % RDW 15.3 H (11.6-14.8) % Plt Count 174 (150-400) X10^3/uL Neut % (Auto) 57.3 (50-75) % Lymph % (Auto) 26.6 (25-40) % Bent % (Auto) 12.8 (3-14) % Eos % (Auto) 2.6 (2-4) % Baso % (Auto) 0.7 (0-2) % Neut # (Auto) 4800 (6527-7783) /uL Lymph # (Auto) 2300 (9906-3107) /uL Bent # (Auto) 1100 H (0-900) /uL Eos # (Auto) 200 (0-450) /uL Baso # (Auto) 100 (0-100) /uL PT 13.3 H (10.1-12.7) SECONDS INR 1.2 (0.9-1.3) APTT 41 H D (26.4-36.2) SECONDS Sodium 137 (137-145) mmol/L Potassium 5.2 H (3.4-5.1) mmol/L Chloride 98 (98-107) mmol/L Carbon Dioxide 33 H (22-32) mmol/L BUN 18 H (7-17) mg/dL Creatinine 0.67 (0.52-1.04) mg/dL Estimated GFR > 60.0 (>60) mL/min BUN/Creatinine Ratio 26.9 H (6-22) Glucose 95 (80-110) mg/dL Calcium 9.1 (8.4-10.2) mg/dL Urine Color Urine Appearance Urine pH (4.5-8.0) Ur Specific [place] (1.000-1.035) Urine Protein (Negative) Urine Glucose (UA) (Negative) g/dL Urine Ketones (NEGATIVE) Urine Occult Blood (Negative) Urine Nitrate (Negative) Urine Bilirubin (NEGATIVE) Urine Urobilinogen (0.2) E.U./dL Ur Leukocyte Esterase (NEGATIVE) Urine RBC (0-5/HPF) Urine WBC (0-5/HPF) Urine Bacteria (None) Ur Culture Indicated? Micro UA Comment U Opiates 300ng/mL cut (Negative) Ur Oxycodone Screen (Negative) Urine Methadone Screen (Negative) Ur Barbiturates Screen (Negative) U Tricyclic Antidepress (Negative) Ur Phencyclidine Scrn (Negative) Ur Amphetamines Screen (Negative) U Methamphetamines Scrn (Negative) Ur MDMA Scrn (Ecstasy) (Negative) U Benzodiazepines Scrn (Negative) Urine Cocaine Screen (Negative) U Marijuana (THC) Screen (Negative) 10/12/19 10/12/19 Range/Units 01:15 01:15 WBC (4.5-11.0) X10^3/uL RBC (4.0-5.2) X10^6/uL Hgb (12.0-16.0) g/dL Hct (36-46) % MCV (80-100) fL MCH (26-34) PG MCHC (30-36) % RDW (11.6-14.8) % Plt Count (150-400) X10^3/uL Neut % (Auto) (50-75) % Lymph % (Auto) (25-40) % Bent % (Auto) (3-14) % Eos % (Auto) (2-4) % Baso % (Auto) (0-2) % Neut # (Auto) (3470-0721) /uL Lymph # (Auto) (8239-0533) /uL Bent # (Auto) (0-900) /uL Eos # (Auto) (0-450) /uL Baso # (Auto) (0-100) /uL PT (10.1-12.7) SECONDS INR (0.9-1.3) APTT (26.4-36.2) SECONDS Sodium (137-145) mmol/L Potassium (3.4-5.1) mmol/L Chloride (98-107) mmol/L Carbon Dioxide (22-32) mmol/L BUN (7-17) mg/dL Creatinine (0.52-1.04) mg/dL Estimated GFR (>60) mL/min BUN/Creatinine Ratio (6-22) Glucose (80-110) mg/dL Calcium (8.4-10.2) mg/dL Urine Color Yellow Urine Appearance Slightly cloudy Urine pH 6.0 (4.5-8.0) Ur Specific [place] 1.010 (1.000-1.035) Urine Protein Trace H (Negative) Urine Glucose (UA) Negative (Negative) g/dL Urine Ketones Negative (NEGATIVE) Urine Occult Blood 1+ H (Negative) Urine Nitrate Negative (Negative) Urine Bilirubin Negative (NEGATIVE) Urine Urobilinogen 0.2 (0.2) E.U./dL Ur Leukocyte Esterase 3+ H (NEGATIVE) Urine RBC None seen (0-5/HPF) Urine WBC 10-30/hpf H (0-5/HPF) Urine Bacteria Moderate (10-30) H (None) Ur Culture Indicated? Specimen cultured Micro UA Comment . U Opiates 300ng/mL cut Negative (Negative) Ur Oxycodone Screen Positive H (Negative) Urine Methadone Screen Negative (Negative) Ur Barbiturates Screen Negative (Negative) U Tricyclic Antidepress Negative (Negative) Ur Phencyclidine Scrn Negative (Negative) Ur Amphetamines Screen Negative (Negative) U Methamphetamines Scrn Negative (Negative) Ur MDMA Scrn (Ecstasy) Negative (Negative) U Benzodiazepines Scrn Negative (Negative) Urine Cocaine Screen Negative (Negative) U Marijuana (THC) Screen Negative (Negative) Discharge Plan Departure Admit Date/Time: 10/12/19 01:29 Admit Provider: Oj Bland
[2019-10-12 00:21] LABS: INR 1.2 (0.9-1.3); Prothrombin Time 13.3 SECONDS (10.1-12.7)
[2019-10-12 00:23] LABS: PTT Partial Thromboplastin Tim 41 SECONDS (26.4-36.2)
[2019-10-12 00:25] LABS: BUN Creatinine Ratio 26.9 (6-22); Blood Urea Nitrogen 18 mg/dL (7-17); Calcium 9.1 mg/dL (8.4-10.2); Carbon Dioxide 33 mmol/L (22-32); Chloride 98 mmol/L (98-107); Estimated Glomerular Filt Rate > 60.0 mL/min (>60); Glucose 95 mg/dL (80-110); HEMOLYSIS < 15 (0-50); Potassium 5.2 mmol/L (3.4-5.1); Sodium 137 mmol/L (137-145)
[2019-10-12 01:25] LABS: UR Morphine/Opiate cutoff 300 Negative (Negative); Ur Creatinine Normal (Normal); Ur Specific Gravity Normal (Normal); Urine Amphetamines Negative (Negative); Urine Barbiturates Negative (Negative); Urine Benzodiazepines Negative (Negative); Urine Cocaine Negative (Negative); Urine MDMA Negative (Negative); Urine Methadone Negative (Negative); Urine Methamphetamines Negative (Negative); Urine Oxycodone Positive (Negative); Urine Phencyclidine Negative (Negative); Urine Tetrahydrocannabinol Negative (Negative); Urine Tricyclic Antidepressant Negative (Negative); Urine pH Normal (Normal)
[2019-10-12 01:33] LABS: RBC Urine None Seen (0-5/HPF)
[2019-10-12 01:34] LABS: Bilirubin Urine UA NEGATIVE (NEGATIVE); Color Urine UA YELLOW; Glucose Urine UA NEGATIVE (Negative); Ketones Urine UA NEGATIVE (NEGATIVE); Leukocyte Esterase Urine UA 3+ (NEGATIVE); Nitrite Urine UA NEGATIVE (Negative); Occult Blood Urine UA 1+ (Negative); Protein Urine UA TRACE (Negative); Urobilinogen Urine UA 0.2 E.U./dL (0.2)
[2019-10-12 01:35] LABS: Appearance Urine UA Slightly Cloudy; WBC Urine 10-30/HPF (0-5/HPF)
[2019-10-12 01:36] LABS: Bacteria Urine Moderate (10-30)
[2019-10-12 01:38] LABS: Culture Indicated Urine Specimen Cultured
[2019-10-12] MEDS: SODIUM CHLORIDE 0.9% 1,000 ML 150 ML IV (01:42)
[2019-10-12] MEDS: CEFTRIAXONE 1 GM/50 ML FROZ.PIGGY IV ×2 (01:43→15:00)
[2019-10-12 02:58] LABS: COVID19 -Nasal RAPID Negative (Negative)
--- NOTE | 2019-10-12 03:59 | PC.ADMIT ---
Addendum entered by Kristina Iraheta R.N. 10/12/19 06:13: Noted an additional pressure injury/open area in skin folds on left inner thigh/buttock juncture. Waffle cushion placed and pillow under feet to float heels Original Note: Patient admitted to room 215 from ER per stretcher. Is able to converse but is confused so spouse present and helping with admission questions. Is oriented to self, birthdate, age, year and place. NIH score is 8. Breath sounds diminished but CTA. Oxygen at 2L/min per NC with sat of 93%. Spouse reports patient had recent sleep study done but have not gotten the results as yet. Placed on continuous oximetry. HR irregular with rate in 90-100's; telemetry reading was afib CVR. Denies nausea. BT present and abdomen is soft. Is incontinent of B&B. Chronic edema present in bilateral LE. Feet/hands cool to touch and feet are red/purple but blanchable. Has pressure injury on coccyx which spouse reports she has had for approximately 1 month; will reposition q2h attempting to keep off back as much as possible. Patient reports feeling of numbness along entire left side of body. Has limited ROM in left upper extremity and able to lift left lower extremity just barely off bed; spouse reports this is her typical. Is wheelchair bound at home. Fall risk score is high and bed alarm is activated. Maintained on droplet/contact precautions until COVID test returned as negative, so no longer on isolation. Oriented to call light and bed controls. [email or web address] [facility] Admission Note: The patient,Valencia Cesar,84 y/o, was given written information regarding hospital policies, unit procedures and contact persons. Patient's smoking status: Never smoker. Vital Signs - 8 hr 10/12/19 00:10 10/12/19 00:28 10/12/19 01:00 Temperature 97.9 F Pulse Rate 110 H 118 H 111 H Respiratory Rate 18 16 19 Blood Pressure 109/72 109/72 143/95 H Pulse Oximetry 98 100 97 10/12/19 01:31 10/12/19 02:00 10/12/19 02:30 Temperature 96.9 F L Pulse Rate 112 H 110 H 106 H Respiratory Rate 15 14 16 Blood Pressure 110/62 117/71 119/50 L Pulse Oximetry 98 97 93
--- NOTE | 2019-10-12 08:10 | P.HP_ITS ---
History of Present Illness History of Present Illness Date Patient Seen: 10/12/19 Time Patient Seen: 08:10 Chief complaint: Code Stroke Narrative: 84-year-old female evaluated in the emergency department day of admission for possible stroke-like symptoms. Was last felt to be normal when she went to lay down for bed at about 20:00 on the 10 of October. Spouse found her to be somewhat confused repeating things and maybe some left-sided facial droop sometime later at approximately 22:30. EMS was summoned and no clear muscle weakness or new ataxia was identified. She had no falls. No fever chills. Blood sugar was 100+ by EMS She was brought to the ER as a potential stroke and was quickly evaluated. CT scan was unremarkable. Further evaluation suggested that she had very little in the way of new neurologic findings perhaps some left facial droop and or perhaps some dysarthria and or confusion although family member suggested her speech was normal She was found to have a persistently infected urine in a presented like this previously with an encephalopathy due to her urinary tract infection. She was admitted for treatment of her UTI as well as continue monitoring for potential worsening stroke symptoms. Patient has chronic atrial fibrillation is chronically anticoagulated. Has had frequent UTIs and most recently grew a relatively resistant E coli. Patient is almost completely wheelchair-bound and has difficulty with personal hygiene thus resulting in frequent UTIs it is believe. She has been on suppressive dose antibiotics as well as intermittent dosing for active UTIs which have in the past produced a change in mental status as above Patient History Medical History Asthma (Chronic) Asymptomatic bacteriuria (Chronic) Cardiac dysrhythmia, unspecified (Chronic) Chronic atrial fibrillation (Chronic) Essential hypertension (Chronic) Gastroesophageal reflux disease without esophagitis (Chronic) Low back pain (Chronic 10/02/13) Mixed hyperlipidemia (Chronic) Mixed incontinence urge and stress (Chronic) Obesity, morbid (Chronic) Other iron deficiency anemia (Chronic 12/02/14) Peripheral edema (Chronic 11/01/16) 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) Surgical History Anesthesia (Resolved) History of cholecystectomy (Resolved) History of gastric bypass (~03/2004) S/P total abdominal hysterectomy and bilateral salpingo-oophorectomy Status post appendectomy Status post discectomy Family & Social History Social History: household members spouse Prior Living Arrangements House lives independently Yes caregiver/support person No Safety & Behavioral: Feels Safe in Current Yes Environment Been Physically Hurt or No Threatened By a Person Suicidal Ideation Description None Tobacco & Substance use: Smoking Status Never smoker alcohol intake current alcohol intake frequency holiday/special occasion Substance Use Type does not use Meds Home Medications and Allergies Home Medications Medication Instructions Recorded Confirmed Type triamcinolone acetonide 0.025 % 1 applictn TOP TID PRN #80 gram 01/03/18 10/12/19 Rx topical cream Wheelchair: Manual Lightweight 1 ea MISCELLANEOUS DIRECTED 01/09/18 10/12/19 History nitrofurantoin macrocrystal 100 mg 100 mg PO BEDTIME #90 cap 10/31/18 10/12/19 Rx capsule nystatin 100,000 unit/gram topical 1 applictn TOP BID #30 gram 11/10/18 10/12/19 Rx powder citalopram 20 mg tablet 20 mg PO DAILY #90 tab 11/17/18 10/12/19 Rx solifenacin 10 mg tablet See Rx Instructions .ROUTE 01/15/19 10/12/19 Rx .COMPLEX #90 tablet Wheelchair - Manual #1 ea 02/09/19 10/12/19 Rx d-mannose See Rx Instructions PO BID gram 04/30/19 10/12/19 History metoprolol succinate 50 mg 25 mg PO QAM #100 tab 04/30/19 10/12/19 Rx tablet,extended release 24 hr fluticasone propionate 50 2 spray NASAL BEDTIME #16 gram 06/05/19 10/12/19 Rx mcg/actuation nasal spray,suspension furosemide 40 mg tablet 40 mg PO BID #180 tab 06/14/19 10/12/19 Rx Rica Lift #1 ea 08/03/19 10/12/19 Rx cefuroxime axetil 500 mg tablet 500 mg PO BID #20 tab 08/14/19 10/12/19 Rx potassium chloride 20 mEq 20 meq PO BID #60 tab 08/15/19 10/12/19 Rx tablet,extended release pantoprazole 40 mg tablet,delayed See Rx Instructions .ROUTE 09/21/19 10/12/19 Rx release .COMPLEX #60 tablet dabigatran etexilate 150 mg capsule 150 mg PO BID #180 cap 10/04/19 10/12/19 Rx gabapentin 600 mg tablet 600 mg PO QIDP PRN #120 tab 10/04/19 10/12/19 Rx oxycodone 10 mg tablet 10 - 20 mg PO Q4HP PRN #168 tab 10/11/19 10/12/19 Rx Allergies Allergy/AdvReac Type Severity Reaction Status Date / Time doxycycline AdvReac Intermediate rash Verified 06/06/19 15:43 meloxicam [MELOXICAM] AdvReac Mild bloody Verified 06/05/19 11:42 dark stool Review of Systems Constitutional Constitutional: Denies excessive sweating, Denies fever(s), Denies headache(s), Reports lethargy, Reports malaise and Reports weakness Eyes Eyes: Denies change in vision, Denies itchy eyes, Denies loss of vision and Denies other visual disturbances ENT Ears, Nose, Mouth, and Throat: No change in voice, No dysphagia, No dizziness, No otalgia, No headache(s), No hoarseness, No lip swelling, No neck pain, No sore throat, No throat swelling and No tongue swelling Cardiovascular Cardiovascular: Denies chest pain, Denies syncope, Denies rapid heart rate, Denies palpitations, Reports dyspnea, Reports dyspnea on exertion and Denies slow heart rate Respiratory Respiratory: Denies chest congestion, Denies cough, Denies hemoptysis, Reports dyspnea, Reports dyspnea on exertion, Denies stridor and Denies wheezing Gastrointestinal Gastrointestinal: Denies abdominal pain, Denies bloating, Denies change in bowel habits, Denies change in stool character, Denies dysphagia, Denies nausea, Denies vomiting and Denies hematemesis Genitourinary Genitourinary: Denies hematuria, Denies urinary frequency and Denies difficulty voiding Musculoskeletal Musculoskeletal: Denies neck pain Integumentary/Breasts Skin/Breast: Denies bleeding lesions, Denies change in pigmentation, Denies changing lesions, Denies new lesions, Denies rash, Denies skin swelling, Denies sores and Denies jaundice Neurologic Neurologic: Reports behavioral changes, Reports confusion, Denies dizziness, Denies syncope, Denies headache(s), Denies loss of vision, Denies memory loss and Reports weakness Psychiatric Psychiatric: Reports behavioral changes, Denies change in appetite, Reports co nfusion, Denies difficulty concentrating, Denies auditory hallucinations, Denies memory loss, Denies mood swings and Denies suicidal ideation Endocrine Endocrine: Denies excessive sweating, Denies flushing, Denies polyuria and Denies palpitations Hematologic/Lymphatic Hematologic/Lymphatic: Denies easy bleeding, Denies easy bruising and Denies lymphadenopathy Allergic/Immunologic Allergic/Immunologic: Denies urticaria, Denies itchy eyes, Denies lip swelling, Denies throat swelling, Denies tongue swelling and Denies wheezing Exam Vital Signs (past 8 hours): - 10/12/19 00:28 10/12/19 01:00 10/12/19 01:31 Temperature Pulse Rate 118 H 111 H 112 H Respiratory Rate 16 19 15 Blood Pressure 109/72 143/95 H 110/62 Pulse Oximetry 100 97 98 10/12/19 02:00 10/12/19 02:30 Temperature 96.9 F L Pulse Rate 110 H 106 H Respiratory Rate 14 16 Blood Pressure 117/71 119/50 L Pulse Oximetry 97 93 Oxygen Delivery Method Nasal Cannula Oxygen Flow Rate 2 Narrative Exam Narrative: Elderly female fairly somnolent lying in her hospital bed on the hospital floor but easily aroused although quickly closes eyes and tries to go back to sleep HEENT-normocephalic atraumatic PERRLA EOMs intact (to the best of my ability rae t given some limited cooperation due to somnolence) Neck-no bruits Lungs-good breath sounds no wheezes no crackles Heart-irregularly regular Abdomen-obese positive bowel tones Extremities-no clubbing or cyanosis Neuro-alert orient x3, recognizes me immediately, perhaps some limited movement left perioral facial muscles (difficult to get patient to fully cooperate), otherwise cranial nerves appear to be symmetric and intact 2 through 12, mild weakness left upper extremity (unsure of patient's effort), unable to hold arm up off of bed, gait not tested Objective Labs Result Diagrams: 10/11/19 11:50 10/11/19 11:50 Labs: Laboratory Results - last 24 hr 10/11/19 10/11/19 10/11/19 11:50 11:50 11:50 WBC 8.4 RBC 4.96 Hgb 13.0 Hct 41.7 MCV 84.0 MCH 26.3 MCHC 31.3 RDW 15.3 H Plt Count 174 Neut % (Auto) 57.3 Lymph % (Auto) 26.6 [place] % (Auto) 12.8 Eos % (Auto) 2.6 Baso % (Auto) 0.7 Neut # (Auto) 4800 Lymph # (Auto) 2300 [place] # (Auto) 1100 H Eos # (Auto) 200 Baso # (Auto) 100 PT 13.3 H INR 1.2 APTT 41 H D Sodium 137 Potassium 5.2 H Chloride 98 Carbon Dioxide 33 H BUN 18 H Creatinine 0.67 Estimated GFR > 60.0 BUN/Creatinine Ratio 26.9 H Glucose 95 Calcium 9.1 Urine Color Urine Appearance Urine pH Ur Specific Sig[place] Urine Protein Urine Glucose (UA) Urine Ketones Urine Occult Blood Urine Nitrate Urine Bilirubin Urine Urobilinogen Ur Leukocyte Esterase Urine RBC Urine WBC Urine Bacteria Ur Culture Indicated? Micro UA Comment U Opiates 300ng/mL cut Ur Oxycodone Screen Urine Methadone Screen Ur Barbiturates Screen U Tricyclic Antidepress Ur Phencyclidine Scrn Ur Amphetamines Screen U Methamphetamines Scrn Ur MDMA Scrn (Ecstasy) U Benzodiazepines Scrn Urine Cocaine Screen U Marijuana (THC) Screen COVID-19 PCR 10/12/19 10/12/19 10/12/19 01:15 01:15 02:00 WBC RBC Hgb Hct MCV MCH MCHC RDW Plt Count Neut % (Auto) Lymph % (Auto) [place] % (Auto) Eos % (Auto) Baso % (Auto) Neut # (Auto) Lymph # (Auto) [place] # (Auto) Eos # (Auto) Baso # (Auto) PT INR APTT Sodium Potassium Chloride Carbon Dioxide BUN Creatinine Estimated GFR BUN/Creatinine Ratio Glucose Calcium Urine Color Yellow Urine Appearance Slightly cloudy Urine pH 6.0 Ur Specific Sig[place] 1.010 Urine Protein Trace H Urine Glucose (UA) Negative Urine Ketones Negative Urine Occult Blood 1+ H Urine Nitrate Negative Urine Bilirubin Negative Urine Urobilinogen 0.2 Ur Leukocyte Esterase 3+ H Urine RBC None seen Urine WBC 10-30/hpf H Urine Bacteria Moderate (10-30) H Ur Culture Indicated? Specimen cultured Micro UA Comment . U Opiates 300ng/mL cut Negative Ur Oxycodone Screen Positive H Urine Methadone Screen Negative Ur Barbiturates Screen Negative U Tricyclic Antidepress Negative Ur Phencyclidine Scrn Negative Ur Amphetamines Screen Negative U Methamphetamines Scrn Negative Ur MDMA Scrn (Ecstasy) Negative U Benzodiazepines Scrn Negative Urine Cocaine Screen Negative U Marijuana (THC) Screen Negative COVID-19 PCR Negative Assessment & Plan Assessment & Plan narrative: 1. Possible stroke-at this point it is certainly possible that she has had a stroke. There was rather sudden onset of symptoms when she was perfectly fine earlier in the day in fact came to see Ophthalmology. She still has some questionable findings on exam currently although her cooperation is somewhat in question. Even if this was definitively proven to be a stroke that would not change current therapies or management. Therefore I am going to hold off on obtaining an MRI of the brain until we have a chance to see if treatment of her infection improves things from a neurological standpoint. Certainly will have Physical therapy see her and she should have a swallow evaluation as well. 2. UTI-patient previously grew E coli and was on oral medication for same at the time she presented (second-generation cephalosporin). Cultures have been obtained and she has been placed on appropriate IV antibiotics based on previous urinary cultures (3rd generation cephalosporin). 3. Metabolic encephalopathy-likely secondary problem 2. Above. Continue to monitor for improvement as infection is treated. This of course could be rather than a metabolic encephalopathy more stroke-like symptoms but I think time will help us with this differential diagnosis 4. Chronic atrial fibrillation-rate controlled and continues on chronic anti coagulation 5. Obesity with BMI 37-this will affect her management here in the hospital. Her obesity is resulted in her being basically nonambulatory and is complicated her personal hygiene and perineal care. That will be true here in the hospital as well. Also complicate any recovery should she have had a stroke and require skilled therapies for recovery, this will be of course affected by her obesity 6. Peripheral edema-continue with patient's diuretic therapy. Will try and minimize IV fluids 7. VTE prophylaxis-patient chronic anticoagulated because her atrial fibrillation as above, additional prophylaxis for VTE not indicated 8. Code status-patient is previously requested full code status in the event of a sudden cardiac or respiratory arrest, however after discussing with her this morning she would not want to be ?brought back? should she have a sudden stop of her heart or stop breathing etcetera. She would prefer is perfectly accepting of letting nature take its course in that being the end of her life. I emphasize that I do not predict that at this time that there is nothing about her presentation out make me think that is likely to happen but certainly in some situations are no way to predict this. Spouse is in the room and is in agreement and therefore should be made a no code do not resuscitate Patient clearly deserves inpatient hospitalization for evaluation management of her altered mental status her infectious etiologies with her inability to swallow safely per nursing staff and the confusing nature of her symptoms. Should be in the hospital greater than 48 hours to include 2 separate midnights at least. Quality VTE Deep Vein Thrombosis/Pulmonary Embolism Present on Admission: No
[2019-10-12] MEDS: NYSTATIN POWDER 15GM 1 APPLIC TOP ×2 (10:03→19:14)
[2019-10-12] MEDS: DABIGATRAN 75 MG CAPSULE 150 MG PO ×2 (10:04→20:38)
[2019-10-12] MEDS: FUROSEMIDE 40 MG TABLET PO ×2 (10:04→20:39)
[2019-10-12] MEDS: METOPROLOL ER 50 MG TABLET 25 MG PO (10:04)
[2019-10-12] MEDS: OXYCODONE IR 10 MG TABLET PO ×3 (10:04→20:39)
[2019-10-12] MEDS: CITALOPRAM 20 MG TABLET PO (10:05)
--- NOTE | 2019-10-12 10:34 | PT-IP ANOTE ---
Attempted to see pt this morning at 0940 with nursing staff and at bedside. Pt was sleeping soundly but was able to wake her up. Pt was oriented to self, date, age, year, place and situation but with her eye closed. Pt stated I am very weak and i just want to rest. Per EMR and nursing staff, pt has a possible stroke along with persistent UTI who is also bed bound and uses jael lift for transfer at baseline. Will attempt to see pt again this pm or tomorrow morning.
--- NOTE | 2019-10-12 14:08 | CM.DANOTE ---
Discharge Planning/Care Management DCP: assessment: case received, EMR reviewed and met with pt and then at length with her Hipolito. RN ONCOLOGY RESEARCH was in process of working with pt. Pt is an 84 year old female who admitted early this morning to care of PCP: Dr. Bland. Payer: [facility]. Admission status: INPT: confirmed by UR RADHA Miller. Hipolito confirms that he and his live on [facility]. [facility] is currently seeing pt and have now confirmed with [place] that is includes wound care re the open area in L inner thigh skin folds. RN is still in place. OT and PT saw pt for some time but are not currently part of the POC. Hipolito notes that the [place] team has been very helpful to his . Hipolito also says he has hired [employer] caregiver agency and they come in 4-5 hours a day in the morning at 7 days a week. He and the caregivers use a jael lift for all needed transfers. Pt and her share a díaz size bed and he says this works well for them. Pt transfers with the jael to her motorized w/c and is able to get about the home in this. With help of portable ramps she can go out to the deck and get out in the community to appts. (The ramps and motorized w/c/foldable) are able to fit in the back of their Subaru.) P: at this time Hipolito is hopeful that pt can return home with continuation of [facility] and the pvt care agency. He reports that Dr. Bladn expects to see pt again later this afternoon and that his partner Dr. Krueger will be on over the weeked. This d/c capacity planner will be on this weekend and will check in tomorrow and follow for d/c needs as POC unfolds. Will send initial clinicals to [place] and follow up accordingly. Resume HHorders will be needed at d/c. Face/Face remains current. CM Discharge Assessment Start: 10/12/19 14:05 Freq: Status: Active Protocol: Document 10/12/19 14:05 ITV (Rec: 10/12/19 14:08 ITV [id number]) Discharge Planning Assessment Advance Directives? Yes Advance Directives on File Yes History Provided By Patient,Family Member,Medical Record Prior Living Arrangements House Household Members spouse Type of transportation used prior to Relies on Others admit Independent with ADL's No Is patient alert and oriented? Yes DME Already Rented / Owned Other Comment motorized w/c which is able to fold up. ramps which are portable and can be put in their car. White-board Updated in Patient Room with Yes name and ext. # of Prevention Specialist Review Status In Process
--- NOTE | 2019-10-12 14:52 | ST.IPCSEOM ---
Visit Care Team Role Provider Type Remi Farah DO Emergency Provider Physician Referring Provider Specialty: Emergency Medicine Address: [address] [place] [address], [id number] Email: [email or web address] Oj Bland MD Admit Provider Physician Attending Provider Primary Care Provider Specialty: Internal Medicine Address: [address] [place] [address], [address], [place], [address] Email: [email or web address] Current Diagnoses Cerebral infarction, unspecified (10/12/19) Past Medical History (Last Reviewed 10/12/19 @ 08:15 by Oj Bland MD) Asthma (Chronic Medical) Asymptomatic bacteriuria (Chronic Medical) DO NOT TREAT UNLESS CLEAR SYMPTOMS Cardiac dysrhythmia, unspecified (Chronic Medical) Chronic atrial fibrillation (Chronic Medical) Essential hypertension (Chronic Medical) Gastroesophageal reflux disease without esophagitis (Chronic Medical) Low back pain (Chronic Medical 10/02/13) Mixed hyperlipidemia (Chronic Medical) Mixed incontinence urge and stress (Chronic Medical) Obesity, morbid (Chronic Medical) Other iron deficiency anemia (Chronic Medical 12/02/14) Peripheral edema (Chronic Medical 11/01/16) Primary osteoarthritis involving multiple joints (Chronic Medical 03/26/13) Speech-Language Pathology Swallow Evaluation 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 Was last felt to be normal when she went to lay down for bed at about 20:00 on the 10 of October. Spouse found her to be somewhat confused repeating things and maybe some left- sided facial droop sometime later at approximately 22:30. EMS was summoned and no clear muscle weakness or new ataxia was identified. She had no falls. No fever chills. Blood sugar was 100+ by EMS. She was brought to the ER as a potential stroke and was quickly evaluated. CT scan was unremarkable. Further evaluation suggested that she had very little in the way of new neurologic findings perhaps some left facial droop and or perhaps some dysarthria and or confusion although family member suggested her speech was normal. She was found to have a persistently infected urine in a presented like this previously with an encephalopathy due to her urinary tract infection. She was admitted for treatment of her UTI as well as continue monitoring for potential worsening stroke symptoms. Subjective Observations Pt was found sitting upright in bed and alert with spouse in room. Pt had just finished lunch. Pt was agreeable to TANKER TRUCK DRIVER entering room and proceeding with evaluation. Pt's speech was rated at 100% intelligible ; TANKER TRUCK DRIVER did not notice slurring of words or incomplete sentences. Evaluation Liquids Trialed Ice chips,Thin Solids Trialed Puree,Dysphagia Mechanical, Dysphagia Advanced,Regular Administration Type Tea Spoon,Cup Single Sip, Controlled Cup Sip,Cup Consecutive Sips,Straw, Dependent Feeding Oral Impairment Within Functional Limits Oral Strategies Upright at 90 degrees,Lingual Sweep,Controlled Bite/Sip Size Oral Phase Comments Formal OME was conducted at bedside. Some weakness noted in lip protrusion and tongue extension; these weaknesses however did not appear to impede the pt's speech or swallowing abilities. Examination of the oral structure was WNL; pt does not have dentures. Pt followed all verbal instructions appropriately. Pt's mastication of solids was appropriate and pt appeared to toelrate all consistencies. Upon regular texture solids, TANKER TRUCK DRIVER noted mild -moderate residue in the pt's oral cavity. A thin liquid rinse appeared to clear the oral cavity. Pharyngeal Impairment Within Functional Limits Pharyngeal Strategies Sitting Upright (90 deg),Small Bites and Sips Pharyngeal Phase Comments Laryngeal palpation indicates slightly reduced anterior movement of the hyoid bone and slightly reduced hyolaryngeal elevation. With noted weakness, pt appeared to manage all thin liquid and solid trials. Pt did not show overt s/sx or aspiration. No wet/gurgly voice noted. No throat clearing or coughing as well. Pt's oxygen remained between 94-97 during the evaluation. Findings Dysphagia Type No dysphagia noted at this time. Impressions Pt does not present with dysphagia at this time. Recommend continuing current diet orders. Pt does have noted weakness secondary to age, however appears to tolerate thin liquids and regular texture solids with no overt s/sx of aspiration. TANKER TRUCK DRIVER went over safe swallow precautions and swallowing education with pt and spouse. TANKER TRUCK DRIVER left safe swallow precautions in the room where pt can see to remind pt. TANKER TRUCK DRIVER recommended that they take the list upon discharge. Pt and spouse did not have any further questions prior to TANKER TRUCK DRIVER leaving the room. Diet Recommendations Liquids Order Thin Diet Order Regular Medication Recommendations As Tolerated Additional Dietary Needs Encourage to Self-Feed, Reminders to Use Strategies Aspiration Precautions Recommended Precautions Upright at 90 Degrees,Frequent Rest Periods,Small Bites/Sips ,Check for Pocketing Additional Precautions Minimize distractions, don't eat if tired Treatment Plan Appropriate for Therapy No Therapy Recommendations Pt does not demonstrate a need for ST at this time. If swallowing or speech worsens, further evaluation may be warranted.
[2019-10-12] MEDS: POTASSIUM CHLORIDE 20 MEQ TAB PO ×2 (14:54→20:39)
--- NOTE | 2019-10-12 14:55 | PT.IIE ---
Current Diagnoses Cerebral infarction, unspecified (10/12/19) Surgical History (Last Reviewed 10/12/19 @ 08:15 by Oj Bland MD) Anesthesia (Resolved) History of cholecystectomy (Resolved) History of gastric bypass (~03/2004) S/P total abdominal hysterectomy and bilateral salpingo-oophorectomy Status post appendectomy Status post discectomy Medical History (Last Reviewed 10/12/19 @ 08:15 by Oj Bland MD) Asthma (Chronic) Asymptomatic bacteriuria (Chronic) Cardiac dysrhythmia, unspecified (Chronic) Chronic atrial fibrillation (Chronic) Essential hypertension (Chronic) Gastroesophageal reflux disease without esophagitis (Chronic) Low back pain (Chronic 10/02/13) Mixed hyperlipidemia (Chronic) Mixed incontinence urge and stress (Chronic) Obesity, morbid (Chronic) Other iron deficiency anemia (Chronic 12/02/14) Peripheral edema (Chronic 11/01/16) 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 spouse assists pt with transfers: uses jael lift to transfer power w/c <>bed but uses a slide boar to transfer to the bedside comoode. pt stated that she does not ambulate but able to stand with assist with her caregivers assisting her. Activities of Daily Living and IADL's spouse assists with hygiene care/brief change spouse stated that pt is incontinent of bladder but is continent with her bowel. spouse stated that the HH aides usually uses the jael lift to assist pt to bedside commode or just change the pt in bed but spouse stated that he usually assists pt on to the bedside commode using a slide board transfer and assists pt with hygiene care and brief change from there. Social History Household Members spouse Living Arrangements House Number of Floors (Floors) One Floor Number of Stairs To Enter/Railing? ramp to enter Home Environment High Toilet,Walk in Shower, Ramp Home Equipment Front Wheel Walker,Four Wheel Walker,Power Wheelchair/ Scooter,Slide Board,Bedside Commode,Mechanical Lift,Grab Bars In Shower M2 PT-IP Current Condition Start: 10/12/19 08:38 Freq: NEEDED Status: Active Protocol: Document 10/12/19 14:55 AB (Rec: 10/12/19 16:59 AB [id number]) Physical Therapy Current Condition Current Condition Evaluation Date 10/12/19 Treatment Diagnosis UTI; possible stroke; generalized weakness Onset Date 10/12/19 M3 PT-IP Subjective Start: 10/12/19 08:38 Freq: NEEDED Status: Active Protocol: Document 10/12/19 14:55 AB (Rec: 10/12/19 16:59 AB [id number]) Subjective Physical Therapy Visit Type Type Initial Evaluation Visit Start Time 14:55 Visit Stop Time 16:00 Total Visit Minutes 65 Number of CIVIL ENGINEER LAND DEVELOPMENT Visits 0 Physical Therapy Visit Comments Patient Comments agreed to do PT; hesistant to participate Therapy Pain Assessment Pain When Pain Assessed During Mobility Location Buttock Scale Used pain scale not stated M4 PT-IP Mobility and Gait Start: 10/12/19 08:38 Freq: NEEDED Status: Active Protocol: Document 10/12/19 14:55 AB (Rec: 10/12/19 16:59 AB [id number]) PT-Bed Mobility Assessment Rolling Type of Rolling Log Rolling Level of Assist Maximal Assistance,2 Person Assistance Supine to Sit Supine to Sit Maximum Assistance,2 Person Assistance,Head of Bed Elevated,Bedrails Sit to Supine Sit to Supine Total Assistance,2 Person Assistance,Head of Bed Elevated,Bedrails Scooting Scooting to Edge of Bed Dependent Scooting Up and Down in Bed Dependent PT-Transfer Assessment Sit to and From Stand Sit to and from Stand Maximum Assistance,2 Person Assistance,Use of Upper Extremities Comments Mobility Comments pt completed supine to sit max A x 2 and max cue with HOB elevated. pt stated that she has lots of pillows behind her head at home. pt is dependent x 2-3 with scooting to EOB. pt was able to sit on EOB min A and cues. c/o feeling cold and pt needs to be cleaned up and brief change . informed NAC. pt completed sit to stand from EOB max A x 2 and max cues and used FWW for support max A x 2 to maintain standing balance. attempted scooting towards HOB but unable and is dependent with scooting and with sit to supine in bed. positioned pt in bed requiring total A x 2-3 . call light and table placed within reach. educated pt and spouse regarding mobility level and PT goals. also informed them regarding equipement need . will assess appropriateness of sit<>stand machine use . pt and spouse agreed. Gait Assessment Comments Gait Comments unable PT-Balance Assessment Sitting Balance and Reactions Static Sitting Balance Ability Fair Dynamic Sitting Balance Ability Poor Standing Balance and Reactions Static Standing Balance Ability Poor Dynamic Standing Balance Ability Poor Device Used FWW M5 PT-IP Objective Assessments Start: 10/12/19 08:38 Freq: NEEDED Status: Active Protocol: Document 10/12/19 14:55 AB (Rec: 10/12/19 16:59 AB [id number]) Orientation Orientation/Cognition Level of Alertness Alert Orientation Name,Place,Situation Safety Awareness Decreased Safety Awareness Gross Range of Motion Lower Extremity ROM Assessment Within Functional Limits Strength Lower Extremity Strength Assessment Bilaterally Impaired Hip 3+/5 Knee 3+/5 Ankle 3+/5 M6 PT-IP Treatment Start: 10/12/19 08:38 Freq: NEEDED Status: Active Protocol: Document 10/12/19 14:55 AB (Rec: 10/12/19 16:59 AB [id number]) Physical Therapy Treatment Education Education Provided Safety M7 PT-IP Assessment and Plan Start: 10/12/19 08:38 Freq: NEEDED Status: Active Protocol: Document 10/12/19 14:55 AB (Rec: 10/12/19 16:59 AB [id number]) PT Summary Assessment and Plan Potential Rehabilitation Potential Fair Status of Condition at Evaluation Evolving Summary Impairments Pain,ROM,Strength,Balance, Coordination,Sensation,Tone, Cognition,Bed Mobility, Transfers,Gait,Activity Tolerance Assessment Summary pt requires max A x 2 to total A x 2-3 for bed mobility . pt's spouse usually assists her at home but currently is requiring 2-3 person assist. d/c plan depending on progress but may require SNF rehab. will continue to assess progress. Goals Bed Mobility Goal Minimal Assistance Transfer Goal Minimal Assistance,Slide Board Days to Meet Goals 5 Frequency of Treatment Frequency Of Treatment Once a Day Treatment Plan Physical Therapy Treatment Plan Bed Mobility Training,Transfer Training,Therapeutic Exercise ,Balance Retraining,Discharge Planning,Hot or Cold Pack, Neuromuscular Re-ed, Coordination Retraining Other Recommendations and Next Treatment assess appropriateness for sit Focus <>stand machine; slide board transfer Recommendations To Nursing Amount of Assist Needed Mechanical Lift Discharge Recommendations PT Discharge Recommendations SNF Rehab Transportation Needs at Discharge Stretcher/Ambulance
--- NOTE | 2019-10-12 16:41 | PC.NURSE ---
Filipe has seen patient at the beginning of this shift. Dr. Bland in to see patient and pt's spouse (who following MD visit leaves hospital for the evening) as well as hospital stick feeder currently in to see patient. Pt admits to tailbone pain 09/27, but does not elaborate on nature of pain when asked. Pitting edema and erythema to left foot/ankle. Diminished, but clear breath sounds. Tele in place. Irregular apical rate. 02 2L nc sats 96%. Pt able to manage own secretions and demonstrates occasional strong, nonproductive cough.
--- NOTE | 2019-10-12 16:58 | PC.NURSE ---
Addendum entered by Jessica Degroot R.N. 10/12/19 23:27: NIH scale completed, but feel as though score of 11 does not accurately represent pt's baseline weakness. Noted pt has slight left facial droop, but no speech, vision or swallow difficulties. Baseline weakness LUE and LLE. Now resting quietly in bed with eyes closed without signs of distress or discomfort. Addendum entered by Jessica Degroot R.N. 10/12/19 22:48: Describes tailbone pain as dull in nature. States feeling comfortable with pain level 6/10. Quietly watching television. No further coughing episodes this evening shift. HR 102 per monitor and oxygen level 95% on 2L/min. Addendum entered by Jessica Degroot R.N. 10/12/19 19:18: Pt does not tolerate changes in position that involve lowering of head of bed. Desats to lower-high 80's on 02L per nc with turning in bed and repositioning for brief change, but recovers quickly with rest and encouragement to breathe through nares inhaling oxygen @ 2L/min. Photos taken of pt's open area left upper inner buttock and sacral region. Folds checked for erythema and noted very small amount left groin. This area was cleansed with warm water, dried and nystatin powder applied. Pt on waffle cushion turned slightly to left side in bed with head elevated. Pt's [id number] has checked in by telephone and been updated as per admission permission. Addendum entered by Jessica Degroot R.N. 10/12/19 18:04: Taking diet as per speech therapy direction. Set up and able to feed self with right hand. States left UE is at baseline. No further coughing. Addendum entered by Jessica Degroot R.N. 10/12/19 17:18: R.T. sees patient and pt no longer is coughing. R.T. auscultates lung sounds and states pt is clear. Original Note: Pt resting quietly in bed and spontaneous coughing begins to the point pt gags. Head of bed moved to bolt upright position and this song writer remains with pt. Pt produces scant amount light smiley sputum. Pt is able to manage own airway. When coughing stops pt takes sip water. Removes oxygen. Room air 92%. Breath sounds were just auscultated prior to coughing spell with diminished, but clear breath sounds. R.T. called for consultation. Pt reports does experience cough at home, but not to this degree. Pt is able to speak and manage own airway between coughing spells.
--- NOTE | 2019-10-12 17:24 | RT ---
Called to ascess pt, pt on 2 lpm nc and sao2 93%. no distress noted and pt color pink. Pt states no resp. history, pt clear and rn at bedside. Pt states she feels post nasal drip. no resp. interventions needed at this time
--- NOTE | 2019-10-12 17:24 | DIET.PN ---
Dietary Progress Note Assessment: 84y F admitted for code stroke though unclear actual etiology. Pt was cleared for thin liquids/regular texture foods by SLT. Pt is home bound and cared for by spouse. HT: 165.1cm WT: 101.5kg BMI: 37.2 MNA: 11 @ risk for malnutrition r/t homebound Nutrition Diagnosis: obesity r/t physical inactivity aeb pt is homebound and has reduced mobility. Interventions: Recc Heart Healthy Diet to support healthy weight and reduce risk for continued stroke like sx
[2019-10-12] MEDS: GABAPENTIN 600 MG TABLET PO (20:39)
[2019-10-12] MEDS: SOLIFENACIN 5 MG TABLET 10 MG PO (20:40)
[2019-10-12] MEDS: SODIUM CHLORIDE 0.9% 1,000 ML 100 ML IV (20:40)
[2019-10-12] MEDS: PANTOPRAZOLE 40 MG TABLET PO (20:41)
[2019-10-13] VITALS (14 sets, daily range): BP systolic 94–116; BP diastolic 50–79; PULSE 86–114; RESP 16–20; TEMP 36–37; O2SAT 87–96
--- NOTE | 2019-10-13 00:24 | PC.NURSE ---
Addendum entered by Kristina Iraheta R.N. 10/13/19 06:39: Slept most of night. Complaining of back pain this morning improved with repositioning and states pain is tolerable but then requested pain medication. Rates severity as 7/10 so medicated with Oxycodone. Original Note: Patient is alert and oriented tonight except did not know the day of the month. Speech does not seem to be slurred tonight. Breath sounds diminished at bases but CTA with sat of 96% on oxygen at 2L/min. HR irregular; telemetry reading was afib CVR. Denies nausea. BT present and abdomen is soft. Is incontinent of B&B. No change in skin from admission except feet are less purple but still reddened and blanchable. Feet and hands are warmer tonight as well. Is needing to be repositioned q2h as not able to move herself. Wearing bilateral calf SCD's. Denies pain. Fall risk score is high and bed alarm is activated.
[2019-10-13] MEDS: CEFTRIAXONE 1 GM/50 ML FROZ.PIGGY IV ×2 (00:55→13:02)
[2019-10-13] MEDS: PANTOPRAZOLE 40 MG TABLET PO ×2 (06:14→20:22)
[2019-10-13] MEDS: OXYCODONE IR 10 MG TABLET PO ×3 (06:29→20:17)
[2019-10-13 07:05] LABS: Blood Urea Nitrogen 13 mg/dL (7-17); Calcium 8.7 mg/dL (8.4-10.2); Carbon Dioxide 33 mmol/L (22-32); Chloride 103 mmol/L (98-107); Estimated Glomerular Filt Rate > 60.0 mL/min (>60); Glucose 90 mg/dL (80-110); HEMOLYSIS < 15 (0-50); Sodium 137 mmol/L (137-145)
[2019-10-13] MEDS: CITALOPRAM 20 MG TABLET PO (09:09)
[2019-10-13] MEDS: DABIGATRAN 75 MG CAPSULE 150 MG PO ×2 (09:09→20:18)
[2019-10-13] MEDS: METOPROLOL ER 50 MG TABLET 25 MG PO (09:09)
[2019-10-13] MEDS: FUROSEMIDE 40 MG TABLET PO ×2 (09:09→20:18)
[2019-10-13] MEDS: POTASSIUM CHLORIDE 20 MEQ TAB PO ×2 (09:14→20:17)
[2019-10-13] MEDS: NYSTATIN POWDER 15GM 1 APPLIC TOP ×2 (09:14→20:19)
[2019-10-13] MEDS: GABAPENTIN 600 MG TABLET PO (09:15)
--- NOTE | 2019-10-13 09:52 | PM.PN.1 ---
Subjective Subjective Date Patient Seen: 10/13/19 Time Patient Seen: 09:53 Interval history: UTI. Patient feeling much better this morning has the minimal appetite as per usual. Showed a problem swallowing does does not seem to be hungry. Denies any shortness of breath or chest pain. No nausea. Feeling much better than she did yesterday when she was admitted. She has no weakness of arms or legs no facial weakness. She normally does not require supplemental oxygen at home. She is pretty strong feelings about going home she feels she has a excellent health care from caregivers. She has no interest in going to longterm facility which is discussed with her. Exam Vital Signs (past 8 hours): - 10/13/19 04:13 10/13/19 07:00 10/13/19 08:35 Temperature 98.6 F 97.5 F L Pulse Rate 98 H 96 H Respiratory Rate 20 19 Blood Pressure 100/50 L 106/79 Pulse Oximetry 96 96 95 10/13/19 09:35 Temperature Pulse Rate Respiratory Rate Blood Pressure Pulse Oximetry 95 Oxygen Delivery Method Nasal Cannula Oxygen Flow Rate 2 Narrative Exam Narrative: Patient is sitting upright in her bed appears in no distress no respiratory distress a pleasant alert oriented x3. Neuro exam cranial nerves 2-12 intact. Normal strength is symmetric upper lower extremities for She has trace edema of the left leg minimal on the right. Abdominal exam is benign. Objective Labs Result Diagrams: 10/11/19 11:50 10/13/19 06:38 Labs: Laboratory Results - last 24 hr 10/13/19 06:38 Sodium 137 Potassium 4.0 D Chloride 103 Carbon Dioxide 33 H BUN 13 Creatinine 0.52 Estimated GFR > 60.0 BUN/Creatinine Ratio 25.0 H Glucose 90 Calcium 8.7 Urine culture pending Assessment & Plan Assessment & Plan narrative: 1. Apparent metabolic encephalopathy apparently resolved felt to be secondary to UTI which she has had in the past. 2. Urinary tract infection being treated with 3rd generation cephalosporin as per prior culture. 3. Urine culture pending. 4. Patient is wheelchair-bound and so has limited mobility 5. Anticipate discharge home per patient request and social service involved and confirms her is a excellent home health some concern about skin care. 6. Will discontinue IV fluids, discontinue telemetry, and discontinue the SCDs Quality VTE Deep Vein Thrombosis/Pulmonary Embolism Present on Admission: No
--- NOTE | 2019-10-13 10:39 | CM.DPC ---
DCP: continued: Spoke today with Dr. Krueger in Team Meeting. He confirmed that pt would continue her on IV antibiotics for her UTI and await sensitivities. He expects a d/c to home setting on oral antibiotics. Discussed HH resumption and the current caregiver plan in the home. OT order is obtained. PT Viktoriya did recommend snf setting but discussion today with Dr. Krueger, pt, her and their daughter Judi (works as a mental health therapist) as well as Judi's partner Judi Alberts (RN) shows no interest in snf and a plan to continue in the home setting. Judi Caban and Judi Yañez have both been encouraging Hipolito and pt to increase the caregiving hours with a presence at night. Hipolito has been changing pt's briefs at night and family can see that he is tired. They note Hipolito took a respite break at their [place] for about a week while caregivers stayed with pt. They have a pvt caregiver who can work at night to complement care with the [facility] team. Judi Yañez says she has worked in partnership with the [facility] RN as some shearing was occurring during the slide board transfers that Hipolito was doing with pt when she needed to use the BSC. She says the care plan at home was amended to only using the slide board during showers. She said the skin had greatly improved since this measure was put in place a couple of weeks ago. Transport: discussed with Hipolito. He confirms that pt did come over via ambulance on the [facility] run and that he could bring is 's motorized w/c to the hospital if this was needed for work with the therapists but that he thought it best if she went back via ambulance. He is aware that [facility] may not pay for this but wishes this as it is best for his (and he says also that [facility] has pd for the ambulance before with no charge to them.) P: at this point: plan remains home with above services, continued family support and recommendation to increase in caregiver hours. Ambulance transport: [facility] vendor.
--- NOTE | 2019-10-13 11:38 | PT.IPTN ---
Current Diagnoses Cerebral infarction, unspecified (10/12/19) Physical Therapy Treatment Note M2 PT-IP Current Condition Start: 10/12/19 08:38 Freq: NEEDED Status: Active Protocol: Document 10/12/19 14:55 AB (Rec: 10/12/19 16:59 AB [id number]) Physical Therapy Current Condition Current Condition Evaluation Date 10/12/19 Treatment Diagnosis UTI; possible stroke; generalized weakness Onset Date 10/12/19 M3 PT-IP Subjective Start: 10/12/19 08:38 Freq: NEEDED Status: Active Protocol: Document 10/13/19 11:38 AB (Rec: 10/13/19 14:09 AB [id number]) Subjective Physical Therapy Visit Type Type Treatment Note Visit Start Time 11:38 Visit Stop Time 12:47 Total Visit Minutes 69 Number of MOBILE MANAGER Visits 0 Physical Therapy Visit Comments Patient Comments c/o knee pain and is initially hesitant to do PT Therapy Pain Assessment Pain When Pain Assessed At Rest Pain Present Pain Present Pain Reported Location Bilateral Knee Scale Used pain scale not stated M4 PT-IP Mobility and Gait Start: 10/12/19 08:38 Freq: NEEDED Status: Active Protocol: Document 10/13/19 11:38 AB (Rec: 10/13/19 14:09 AB [id number]) PT-Bed Mobility Assessment Supine to Sit Supine to Sit Maximum Assistance,2 Person Assistance,Head of Bed Elevated,Bedrails Scooting Scooting to Edge of Bed Dependent PT-Transfer Assessment Equipment Transfer Assistive Device Mechanical Lift Orthotic/Prosthetic Devices or Brace: No Transfers Transfer Destination Chair Transfer Technique Mechanical Lift Transfer Ability Level of Assist Total Assistance,2 Person Assistance Comments Mobility Comments spouse in room with pt. Assessed appropriateness of power stander for pt. pt completed supine to sit max A x 2 and max cues. positioned sling and equipement to pt. completed transfer to chair using stander. pt tolerated the stander. pt needed to be cleaned up and change her brief. power stander used to stand and NAC assisted with hygiene care and brief change. pt tolerated 3 more standing with use of power stander. positioned on chair afterwards for lunch. call light and table placed within reach. informed pt and spouse regarding advantages/ disadvantages of using power stander vs jael lift. pt and spouse confirmed they do a slide board transfer from power w/c<>bedside commode. asked spouse on how he assists pt with hygiene care and brief change as pt requires 2 person for sit to stand. spouse stated that it is hard to do but they are able to manage and pt helps by pushing up from the bedside commode. spouse stated that he pulls on pt's trousers to do the slide board transfer. spouse stated that he is not comfortable or a professional do assist pt with hygiene care /brief change in bed and does those when pt is on the bedside commode. Showed pt and spouse regarding possible benefit of power stander as an option to decrease burden of care on spouse. both pt and spouse understood. Asked pt and spouse regarding slide board transfer and if PT can see how they do slide board transfer to determine if PT will be able to show techniques on how to make it easier for both of them to do. Pt and spouse both declined and stated that they are confident on how to they do it . informed pt and spouse that no further PT intervention needed at this time as pt is at prior level of function. pt and spouse understood and agreed. M5 PT-IP Objective Assessments Start: 10/12/19 08:38 Freq: NEEDED Status: Active Protocol: Document 10/12/19 14:55 AB (Rec: 10/12/19 16:59 AB [id number]) Orientation Orientation/Cognition Level of Alertness Alert Orientation Name,Place,Situation Safety Awareness Decreased Safety Awareness Gross Range of Motion Lower Extremity ROM Assessment Within Functional Limits Strength Lower Extremity Strength Assessment Bilaterally Impaired Hip 3+/5 Knee 3+/5 Ankle 3+/5 M6 PT-IP Treatment Start: 10/12/19 08:38 Freq: NEEDED Status: Active Protocol: Document 10/13/19 11:38 AB (Rec: 10/13/19 14:09 AB [id number]) Physical Therapy Treatment Education Education Provided Safety M7 PT-IP Assessment and Plan Start: 10/12/19 08:38 Freq: NEEDED Status: Active Protocol: Document 10/13/19 11:38 AB (Rec: 10/13/19 14:09 AB [id number]) PT Summary Assessment and Plan Potential Rehabilitation Potential Fair Summary Impairments Pain,ROM,Strength,Balance, Coordination,Sensation, Cognition,Bed Mobility, Transfers,Gait,Activity Tolerance Progress Towards Goals Slow Progress due to Medical Issues,Slow Progress due to Activity Tolerance,Slow Progress - Other Assessment Summary Assessed appropriateness of use of power stander for pt as another option for transfer and to decrease burden of care on spouse for pt's toileting needs. Informed both pt and spouse regarding advantages/ disadvantages and both understood and know that whatever they decided, they have to go through their doctor and insurance as well. pt is at prior level of function and no further PT intervention indicated at this time. Both pt and spouse are aware of PT d/c and agreed. Goals Bed Mobility Goal Minimal Assistance Transfer Goal Minimal Assistance,Slide Board Days to Meet Goals 5 Frequency of Treatment Frequency Of Treatment Discharge Treatment Plan Physical Therapy Treatment Plan Bed Mobility Training,Transfer Training,Gait Training, Therapeutic Exercise,Balance Retraining,Post Op Education, Discharge Planning,Hot or Cold Pack,Neuromuscular Re-ed, Coordination Retraining,Manual Therapy Recommendations To Nursing Amount of Assist Needed Mechanical Lift Discharge Recommendations PT Discharge Recommendations Home with 11/10 Assist,Home Health Transportation Needs at Discharge Wheelchair/Cabulance,Stretcher /Ambulance
--- NOTE | 2019-10-13 12:31 | PC.NURSE ---
Patient up to chair using [id number] with PT/OT assist. Patient is A/O to self and situation and knew where to look for the date. Speech is clear, no difficulty finding words. Tele d/c'd, SCD's off for activity. Bilateral LE edema +2, pulses equal, heels red but blanchable. Patient reports feeling SOB when reclined, O2 remains at 96% on 2 L. Trial on room air, patient remains low 90's while awake. Fine crackles noted in right posterior base of lung. Will continue to monitor. Patient saline locked. Patient reports feeling 6/10 pain in back, medicated with prescribed gabapentin until next scheduled Oxy 10mg. Oxy given before patient up with OT/PT. Patients brief changed, coccyx red and excoriated, inner thigh red. Barrier cream applied to both areas and patient up to chair. Chair alarm on, call light in reach.
--- NOTE | 2019-10-13 12:42 | OT.IP.EVAL ---
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) Surgical History (Last Reviewed 10/12/19 @ 08:15 by Oj Bland MD) Anesthesia (Resolved) History of cholecystectomy (Resolved) History of gastric bypass (~03/2004) S/P total abdominal hysterectomy and bilateral salpingo-oophorectomy Status post appendectomy Status post discectomy Occupational Therapy Inpatient Evaluation/Re-Eval M1 PT/OT-IP Prior Functional Status Start: 10/12/19 08:38 Freq: NEEDED Status: Active Protocol: Document 10/13/19 14:38 CGR (Rec: 10/13/19 14:51 CGR [email or web address]) Medical Review Prior Functional Status Medical History Reviewed Yes Communication able to make needs known Mobility and Gait pt stated that she is usually on her power w/c at home. spouse assists pt with transfers: uses jael lift to transfer power w/c <>bed but uses a slide board to transfer to the bedside comode. pt stated that she does not ambulate but able to stand with assist with her caregivers assisting her. All of this information was originally obtained by the P.T . and reconfirmed with pt and at time of OT eval. Activities of Daily Living and IADL's spouse assists with hygiene care/brief change spouse stated that pt is incontinent of bladder but is continent with her bowel. spouse stated that the HH aides usually uses the jael lift to assist pt to bedside commode or just change the pt in bed but spouse stated that he usually assists pt on to the bedside commode using a slide board transfer and assists pt with hygiene care and brief change from there. All of this information was originally obtained by the P.T . and reconfirmed with pt and at time of OT eval. Social History Household Members spouse Living Arrangements House Number of Floors (Floors) One Floor Number of Stairs To Enter/Railing? ramp to enter Home Environment High Toilet,Walk in Shower, Ramp Home Equipment Front Wheel Walker,Four Wheel Walker,Power Wheelchair/ Scooter,Slide Board,Bedside Commode,Mechanical Lift,Grab Bars In Shower Employment Status Retired Additional Social History Comment Pt's is able to be present all of the time. M2 OT-IP Current Condition Start: 10/13/19 14:38 Freq: Status: Active Protocol: Document 10/13/19 14:38 CGR (Rec: 10/13/19 14:51 CGR [email or web address]) Occupational Therapy Current Condition Current Condition Evaluation Date 10/13/19 Treatment Diagnosis CVA vs UTI Diagnosis Onset Date 10/12/19 M3 OT- IP Subjective and Pain Start: 10/13/19 14:38 Freq: Status: Active Protocol: Document 10/13/19 14:38 CGR (Rec: 10/13/19 14:51 CGR [email or web address]) OT- Subjective Occupational Therapy Visit Type Type Initial Evaluation Visit Start Time 11:37 Visit Stop Time 12:42 Total Visit Minutes 65 Notes [place]reat with P.T. OT Pain Assessment Pain When Pain Assessed At Rest Pain Present Pain Present Pain Reported Location Bilateral Knee Scale Used did not rate but states pain to the knees M4 OT- IP ADL's Start: 10/13/19 14:38 Freq: Status: Active Protocol: Document 10/13/19 14:38 CGR (Rec: 10/13/19 14:51 CGR [email or web address]) OT [id number]-Dadl-Xhfmoen General Evaluation Self-Feeding Ability Independent Comments OT Self-Feeding Comments lunch OT ADL-Grooming Comments OT Grooming Comments pt declined OT ADL-Oral Care Comments Oral Care Comments pt declined OT ADL-Dressing General Eval Lower Body Dressing Ability Total Assistance Areas Needing Assistance Socks Comments OT Dressing Comments This is her baseline OT ADL-Toileting General Evaluation Toileting Ability Total Assistance Areas Needing Assistance Manage Clothing,Perform Perineal Hygiene Comments OT Toileting Comments This is her baseline OT ADL-Bathing Comments OT Bathing Comments Not performed M5 OT- IP IADL's Start: 10/13/19 14:38 Freq: Status: Active Protocol: Document 10/13/19 14:38 CGR (Rec: 10/13/19 14:51 CGR [email or web address]) OT-Instrumental Activities of Daily Living Deficits IADL Deficits Identified No Deficits Home Safety Awareness Awareness of Need for Assistance at Home Good Awareness Ability to Problem Solve Emergency Able to Problem Solve Situations Medication Management Medication Management Caregiver Administers Money Management Money Management Caregiver Provides Assistance Meal Preparation Meal Preparation Caregiver Provides Assist Ice Skating Coach Ice Skating Coach Caregiver Provides Assist Driving Driving Caregiver Provides Assist M6 OT- IP Functional Cognition Start: 10/13/19 14:38 Freq: Status: Active Protocol: Document 10/13/19 14:38 CGR (Rec: 10/13/19 14:51 CGR [email or web address]) Cognitive Factors Limiting Selfcare Function Cognitive Ability Level of Alertness Alert Patient Orientation Name,Age,Birthday,Month,Date, Year,Day of Week,Place, Situation Attention Span Ability Capable of Focused Attention, Capable of Sustained Attention Ability to Follow Commands Able to Follow Multi-Step Commands Memory Description No Deficits Noted Safety Awareness No Deficits Noted Problem Solving Ability No deficits Noted OT- Vision and Hearing OT- Hearing Assessment OT- Hearing Assessment WFL M7 OT- IP Mobility and Balance Start: 10/13/19 14:38 Freq: Status: Active Protocol: Document 10/13/19 14:38 CGR (Rec: 10/13/19 14:51 CGR [email or web address]) OT- Bed Mobility Assessment Supine to Sit Supine to Sit Assist Total Assistance,2 Person Assistance,Head of Bed Elevated,Bedrails Scooting Scooting to Edge of Bed Total Assistance,2 Person Assistance,Head of Bed Elevated,Bedrails Scooting Up and Down in Bed Total Assistance,2 Person Assistance,Head of Bed Elevated,Bedrails OT-Transfer Assessment Sit to and From Stand Sit to and from Stand Total Assistance Transfers Transfer Ability Total Assistance Technique Transfer Destination Bed,Chair Transfer Technique standing lift Comments Mobility Comments Pt was interested in trying the standing lift for increased ease of transfers at home for pericare. Performed sit to stand x5 times with the lift and administered pericare. OT- Gait Assessment Comments Gait Ability Comments Pt is not able to ambulate. OT- Balance Assessment Sitting Balance and Reactions Static Sitting Balance Ability Fair Dynamic Sitting Balance Ability Poor M8 OT- IP Objective Assessments Start: 10/13/19 14:38 Freq: Status: Active Protocol: Document 10/13/19 14:38 CGR (Rec: 10/13/19 14:51 CGR [email or web address]) OT Gross Range of Motion Upper Extremity Range of Motion Assessment Within Functional Limits OT Strength Upper Extremity Strength Assessment Within Functional Limits Comments Strength Comments grossly 4-/5 OT- Coordination Assessment Upper Extremity Finger to Nose Test Within Functional Limits Finger Tapping Test Within Functional Limits OT-Muscle Tone Assessment Muscle Tone WNL Yes M9 OT- IP Assessment and Plan Start: 10/13/19 14:38 Freq: Status: Active Protocol: Document 10/13/19 14:38 CGR (Rec: 10/13/19 14:51 CGR [email or web address]) OT Summary Assessment and Plan Potential Analytic Complexity at Evaluation Low Summary Progress Towards Goals Safe For Discharge Assessment Summary Pt appears to be at her baseline of dependent for most care. Pt and declined to practive sliding board transfer stating that they feel confident in that transfer but were appreciative of the practice with the sit to stand machine. No furhter Ot needs at this time. Frequency of Treatment Frequency Of Treatment Discharge Discharge Recommendations OT Discharge Recommendations Home with 11/10 Assist Other Discharge Recommendations recommend increased assist at home for pt's . Per CM, family is already aware and working on increased care. Transportation Needs at Discharge Wheelchair/Cabulance,Stretcher /Ambulance
--- NOTE | 2019-10-13 14:51 | ST.IPDYTX ---
Visit Care Team Role Provider Type Remi Farah DO Emergency Provider Physician Referring Provider Specialty: Emergency Medicine Address: [address] [place] [address], [id number] Email: [email or web address] Oj Bland MD Admit Provider Physician Attending Provider Primary Care Provider Specialty: Internal Medicine Address: [address] [place] [address], [address], [place], [address] Email: [email or web address] BEHAVIORAL PEDIATRICIAN Dysphagia Treatment BEHAVIORAL PEDIATRICIAN Dysphagia Treatment Start: 10/12/19 14:33 Freq: Status: Active Protocol: Document 10/13/19 14:38 MG (Rec: 10/13/19 14:51 MG [id number]) Dysphagia Treatment Session Time Visit Start Time 13:45 Visit Stop Time 14:05 Total Visit Minutes 20 Visit Information Visit Number 2 Setting Assessment Location Acute Care Visit Type Note Type Treatment Note Patient Information Identification Type Name,ID Wristband Subjective Observations Pt was sitting upright in chair beside bed. Pt's spouse was present in the room. Pt was agreeable to BEHAVIORAL PEDIATRICIAN entering the room. BEHAVIORAL PEDIATRICIAN spoke with nurse prior to entering the room. Per nurse, pt did not have any difficulties consuming her lunch and did not hear any coughing or choking. Nurse note from yesterday reported frequent coughing when trying to take pills with water and no strategies used. Treatment Liquids Trialed Thin Administration Type Straw,Self-Feeding Oral Strategies Upright at 90 degrees Pharyngeal Strategies Sitting Upright (90 deg),Chin Tuck Additional Dysphagia Treatment Pills in carrier Strategies Treatment Activities BEHAVIORAL PEDIATRICIAN and pt spoke about utilizing a carrier (e.g., applesauce) to assist with taking pills. Pt appeared agreeable to trying to take pills with carrier to prevent coughing/choking. BEHAVIORAL PEDIATRICIAN provided education about the swallowing mechanism and demonstrated the chin tuck strategy to also assist with swallowing. Pt performed the strategy independently with thin liquid x3. No overt s/sx of aspiration noted on all trials. Pt was agreeable to using strategy. Pt and pt's spouse were agreeable to new recommendations. Assessment Patient Response to Treatment Good Rehab Potential Good Assessment of Improvement Pt appears to still be tolerating diet recommendations at this time. Utilization of strategies (i.e ., chin tuck) were performed independently in front of the BEHAVIORAL PEDIATRICIAN. Taking medication in a carrier and using the chin tuck strategy will assist in reducing pt's risk of aspiration. Both should be used going forward. Diet Recommendations Recommendations Continue Current Diet Liquids Order Thin Diet Order Regular Medication Recommendations Whole in Carrier Comments Utilize chin tuck as well Additional Dietary Needs Reminders to Use Strategies Aspiration Precautions Recommended Precautions Upright at 90 Degrees, Alternate Liquids/Solids,Small Bites/Sips,Chin Tuck,Check for Pocketing Treatment Plan Placement Recommendation after Discharge Home Therapy Recommendations Pt may discharge over the weekend. If pt is still here on Tuesday, ST should follow up with nurse to assess how pt did and if further strategies/ education are needed. Dysphagia Goals Pt will tolerate least restrictive diet with no overt s/sx of aspiration noted.
[2019-10-13] MEDS: SOLIFENACIN 5 MG TABLET 10 MG PO (20:18)
[2019-10-13] MEDS: SODIUM CHLORIDE 0.9% FLUSH 10 ML IV (21:28)
--- NOTE | 2019-10-13 22:44 | PC.NURSE ---
Assumed care of pt at 1500. Pt resting in bed during bedside hand-off. A/Ox3. BP noted to be running low, pt declines symptoms, MD notified; No new orders. Incontinent of urine. Briefs changed PRN and repositioned for pressure injury prevention/healing. Pt noted to have a few loose pills in her cosmetic bag she states she did not take any medications but was planning on taking them. This procedure writer disposed of medications and reminded pt that the hospital will provide all medications. No other medications appears to be in pt's room. Pt verbalized understanding.
[2019-10-13] MEDS: OXYCODONE IR 5 MG TABLET PO (23:47)
[2019-10-14 00:15] VITALS: BP 121/82; PULSE 105; RESP 18; TEMP 36.6; O2SAT 94
[2019-10-14] MEDS: SODIUM CHLORIDE 0.9% FLUSH 10 ML IV ×2 (00:27→08:28)
[2019-10-14] MEDS: CEFTRIAXONE 1 GM/50 ML FROZ.PIGGY IV (00:27)
--- NOTE | 2019-10-14 00:42 | PC.NURSE ---
Addendum entered by Kristina Iraheta R.N. 10/14/19 02:20: Complains of left leg hurting; repositioned and medicated with Gabapentin. Original Note: Patient is alert and oriented except does not know day of month. Breath sounds diminished at bases but CTA. Oxygen at 2L/min per NC with sat of 95%; patient had removed oxygen earlier and was 90% on RA. HR irregular with rate of 105; hx of afib. Denies nausea. BT present and abdomen is soft; evening RN and patient report she had a BM on previous shift. Incontinent of urine. Needs help to reposition/brief change q2h. Is non ambulatory which she reports is due to osteoarthritis. Is exhibiting improved strength in left extremities tonight compared to admission but still with limited ROM. Complained of headache earlier and was given Oxycodone and pain is improved at 5/10 per patient. No change in appearance of pressure wound on coccyx/inner right thigh. Fall risk score is high and bed alarm is activated.
[2019-10-14] MEDS: GABAPENTIN 600 MG TABLET PO (02:16)
[2019-10-14] MEDS: PANTOPRAZOLE 40 MG TABLET PO (06:15)
[2019-10-14] MEDS: OXYCODONE IR 10 MG TABLET PO ×2 (06:15→12:54)
[2019-10-14 07:00] VITALS: O2SAT 93
[2019-10-14 08:00] VITALS: BP 104/67; PULSE 77; RESP 18; TEMP 36.9; O2SAT 91
[2019-10-14 08:17] VITALS: O2SAT 97
[2019-10-14 08:26] VITALS: BP 104/67; PULSE 74
[2019-10-14] MEDS: CITALOPRAM 20 MG TABLET PO (08:26)
[2019-10-14] MEDS: METOPROLOL ER 50 MG TABLET 25 MG PO (08:26)
[2019-10-14] MEDS: DABIGATRAN 75 MG CAPSULE 150 MG PO (08:26)
[2019-10-14] MEDS: FUROSEMIDE 40 MG TABLET PO (08:26)
[2019-10-14] MEDS: POTASSIUM CHLORIDE 20 MEQ TAB PO (08:28)
--- NOTE | 2019-10-14 09:41 | P.DS_ITS ---
History of Present Illness History of Present Illness Chief complaint: Code Stroke Discharge Providers Provider Date of admission: 10/12/19 01:29 Discharge Date: 10/14/19 Primary care physician: Oj Bland MD Consults: 10/12/19 02:50 Consult to Dietitian, Adult Routine Comment: Reason For Exam: MNA score = 11 10/12/19 05:34 Consult to Pastoral Services Routine Comment: would like to have Rastafari paper stripper to visit 10/12/19 08:08 Consult to Physical Therapy Evaluate & Treat Comment: Physician Instructions: Evaluate and Treat 10/12/19 08:45 Consult to Speech Therapy Evaluate & Treat Comment: Physician Instructions: Evaluate and treat 10/12/19 17:15 Consult to Dietitian, Adult Routine Comment: Reason For Exam: difficulty with swallow 10/13/19 10:06 Consult to Occupational Therapy Evaluate & Treat Comment: Physician Instructions: Evaluate and treat 10/13/19 18:57 Consult to Respiratory Therapy Evaluate & Treat Comment: Physician Instructions: Evaluate and treat Discharge provider: Jonathan Krueger MD Summary Hospital Course Discharge Diagnosis: 1. Urinary tract infection. 2. Metabolic encephalopathy secondary to urinary tract infection. Resolved 3. Pre-existing sleep disorder presumably hypoventilation during night. Patient has done overnight oxygen study apparently at home results apparently known yet determined as per Dr. Bland. 4. Pre-existing hypertension Pre-existing hyperlipidemia. 5. Pre-existing low back pain requiring oxycodone. 6. Pre-existing wheelchair-bound Hospital Course: Patient was evaluated in the emergency room for mental status change felt to be metabolic is of up all the secondary to urinary tract infection. She was placed on intravenous ceftriaxone pending culture. Culture report came back Enterococcus sensitive to ampicillin she was discharged home on Augmentin since it twice a day drug. During the course of her stay she improved where she is back to her baseline. She She was found to have a decrease O2 sats during the night and did improved oxygenation via nasal cannula. At this will be arranged as outpatient as per Dr. Bland. Status at Discharge Cognitive/behavioral status at discharge: at baseline, oriented Functional status at discharge: wheelchair bound Overall status at discharge: patient is back to baseline Exam Vital Signs (past 8 hours): - 10/14/19 08:00 10/14/19 08:17 10/14/19 08:26 Temperature 98.5 F Pulse Rate 77 74 Respiratory Rate 18 Blood Pressure 104/67 104/67 Pulse Oximetry 91 97 Oxygen Delivery Method Nasal Cannula Oxygen Flow Rate 2 Objective Labs Result Diagrams: 10/11/19 11:50 10/13/19 06:38 Discharge Plan Discharge Plan Patient Disposition: Home Discharge comment: home health Discharge orders & Medications Prescriptions: New amoxicillin-pot clavulanate 875-125 mg tablet 1 tab PO BID Qty: 28 RF: 5 Continued nystatin 100,000 unit/gram powder 1 applictn TOP BID Qty: 30 RF: 1 solifenacin 10 mg tablet See Rx Instructions .ROUTE .COMPLEX Qty: 90 RF: 3 furosemide 40 mg tablet 40 mg PO BID Qty: 180 RF: 1 potassium chloride 20 mEq tablet extended release 20 meq PO BID Qty: 60 RF: 8 pantoprazole 40 mg tablet,delayed release (DR/EC) See Rx Instructions .ROUTE .COMPLEX Qty: 60 RF: 3 gabapentin [Neurontin] 600 mg tablet 600 mg PO QIDP PRN (Reason: pain) Qty: 120 RF: 11 dabigatran etexilate 150 mg capsule 150 mg PO BID Qty: 180 RF: 1 oxycodone 10 mg tablet 10 - 20 mg PO Q4HP PRN (Reason: pain) Qty: 168 RF: 0 citalopram 20 mg tablet 20 mg PO DAILY Qty: 90 RF: 3 d-mannose Powder See Rx Instructions PO BID RF: 0 metoprolol succinate [Toprol XL] 50 mg tablet extended release 24 hr 25 mg PO QAM Qty: 100 RF: 3 fluticasone propionate 50 mcg/actuation spray,suspension 2 spray NASAL BEDTIME Qty: 16 RF: 4 triamcinolone acetonide 0.025 % cream 1 applictn TOP TID PRN (Reason: rash) Qty: 80 RF: 3 Wheelchair: Manual Lightweight 1 ea miscellaneous DIRECTED RF: 0 Discontinued cefuroxime axetil 500 mg tablet 500 mg PO BID Qty: 20 RF: 1 nitrofurantoin macrocrystal 100 mg capsule 100 mg PO BEDTIME Qty: 90 RF: 3 No Action (DME) [place] Lift Qty: 1 RF: 0 (DME) Wheelchair - Manual Qty: 1 RF: 0 Follow up/Referrals: Oj Bland MD [Primary Care Provider] - Discharge Health Status Multidrug resistant organism: No MDRO Diet/Activity/Treatments Diet: Diet as Tolerated Discharge Data Primary Care Provider: Oj Bland VTE Deep Vein Thrombosis/Pulmonary Embolism Present on Admission: No
--- NOTE | 2019-10-14 11:26 | CM.DPC ---
Addendum entered by Anabela Medina LPN 10/14/19 11:45: Have added PT/OT and DCPlanning notes to the [facility] fax. Original Note: DCP: continued: Spoke with Dr. Krueger this morning and plan is now for a d/c to home setting today on oral antibiotics, resumption of [facility] services, caregivers with a plan to increase these to better support pt and her spouse Hipolito (see yesterday's dcp notes for more details). Met with pt and Hipolito again to coordinate the final d/c details. Hipolito confirms his desire for ambulance transport and will assume any financial risk if this is not paid for by [place]. Referral is now given to [facility] and am waiting for call back on specifics. [place] service to [facility] is very limited on Tuesday. Have asked for a sheepskin pickler [place] 1330 [place]. Hipolito has gone to get medications at [facility] pharmacy. Will need to hand off details to RN Trinity, caring for pt today, as caseload triage dictates need for this DCPlanner to leave for the day. Am faxing resumeHH orders to [facility] as well as the d/c summary.
--- NOTE | 2019-10-14 12:23 | PC.NURSE ---
Addendum entered by Trinity Sandoval R.N. 10/14/19 14:33: Administered Oxy 10mg to patient before BLS transfer. Items gathered and given to . Abx prescription has been picked up per . Brief changed, barrier cream applied, gown changed. Patient transferred to [facility], patient tolerated well. Original Note: Patient A/O x3 this morning, pleasant and communicating without difficulty. Reports pain as annoying, 2/10 in her back and buttocks. Patient repositioned Q2 hours, barrier cream and nystatin applied to trisha area and on coccyx, brief changed. Patient voiding and reports BM from last night. Bowel sounds active x4, lung sounds clear, patient denies chest pain, dizziness, N/V. Bilateral pitting edema noted in LE. Floated heels. Patient is on RA while awake, drops to mid 80's while asleep, O2 2L NC applied. Patient's reports this is being followed up in an outpatient setting. IV removed for discharge, patient tolerated well. Will administer patient's prescribed pain medication before transfer via BLS.
[2019-10-14] MEDS: NYSTATIN POWDER 15GM 1 APPLIC TOP (12:53)
--- NOTE | 2019-10-17 12:46 | CM.DPC ---
DCP cont: Faxed H&P, discharge summary and HH order to [facility] at fax # [phone]. Fax confirmation scanned in. Kimberlee Huggins, Care Back Strip Machine Operator
--- NOTE | 2019-10-22 18:37 | PC.NURSE ---
Late entry: Normal Saline infusion initiated on 10/11 at 20:40 complete at 10/12 at 06:40.
== END 2019-10-14 13:45 | disposition home or self-care (01) ==
LOC: ED 00:11 → AC 03:36
PROVIDERS: Admitting Provider Internal Medicine; Emergency Provider Emergency Medicine; PCP Internal Medicine; Referring Provider Emergency Medicine; Visit Provider Internal Medicine
DX: N39.0 Urinary tract infection, site not specified (principal); R29.818 Other symptoms and signs involving the nervous system; B96.20 Unspecified Escherichia coli [E. coli] as the cause of diseases classified elsewhere; G93.41 Metabolic encephalopathy; I48.20 Chronic atrial fibrillation, unspecified; E66.9 Obesity, unspecified; Z68.37 Body mass index [BMI] 37.0-37.9, adult; Z79.01 Long term (current) use of anticoagulants; E78.5 Hyperlipidemia, unspecified; G47.9 Sleep disorder, unspecified; I10 Essential (primary) hypertension; M54.9 Dorsalgia, unspecified; Z79.891 Long term (current) use of opiate analgesic; Z99.3 Dependence on wheelchair; Z11.59 Encounter for screening for other viral diseases
CPT/HCPCS: 36415; 70450; 80048; 80305; 81001; 85025; 85610; 85730; 87077; 87086; 87185; 87186; 87635; 92526; 92610; 93005; 93010; 94760; 96361; 96365; 96366; 97162; 97165; 97530; 99217; 99220; 99224; 99284; 99406; G0378

== ENCOUNTER → 2019-11-27 12:23 | Outpatient (ROUT) | payer OTHER, SELFPAY ==
[2019-10-12 02:37] VITALS: BMI 37.2
[2019-11-27 13:41] LABS: Appearance Urine UA CLEAR; Bilirubin Urine UA NEGATIVE (NEGATIVE); Color Urine UA YELLOW; Glucose Urine UA TRACE g/dL (Negative); Ketones Urine UA NEGATIVE (NEGATIVE); Leukocyte Esterase Urine UA 2+ (NEGATIVE); Nitrite Urine UA POSITIVE (Negative); Occult Blood Urine UA 2+ (Negative); Protein Urine UA 1+ (Negative)
[2019-11-27 13:42] LABS: Bacteria Urine Moderate (10-30); RBC Urine 1-5/HPF (0-5/HPF); Renal Epithelial Cells Urine 0-1/HPF (0-1/HPF); Squamous Epithelial Cell Urine 0-1 /HPF (0-5/HPF); Transitional Epi Cells Urine 0-1/HPF (0-5/HPF); WBC Urine >100/HPF (0-5/HPF); pH Urine UA 7.5 (4.5-8.0)
[2019-11-27 13:43] LABS: Culture Indicated Urine Specimen Cultured
== END ==
PROVIDERS: PCP Internal Medicine; Visit Provider Internal Medicine
DX: N39.0 Urinary tract infection, site not specified (principal)
CPT/HCPCS: 81001; 87077; 87086; 87186

== ENCOUNTER → 2019-12-27 13:52 | Outpatient (CLI) | payer OTHER, SELFPAY ==
[2019-10-12 02:37] VITALS: BMI 37.2
--- NOTE | 2019-12-27 13:54 | DI.RAD.S_ITS ---
PROCEDURE: XR CHEST 2V INDICATIONS: hypoxia/chf TECHNIQUE: 2 views of the chest were acquired. COMPARISON: [facility], CR, XR CHEST 2V, 01/10/2019, 16:09. [facility], CR, XR CHEST 1V, 09/13/2019, 14:15. FINDINGS: Surgical changes and devices: Cervical fixation hardware is grossly intact where visualized. Lungs and pleura: Pulmonary radiopacities at the left lung base appear increased when compared with the study dated September 13, 2019. As before, there is elevation of the left hemidiaphragm and blunting of the left costophrenic sulcus. Right lung is clear. Mediastinum: Mediastinal contours are normal. Heart size is normal. Bones and chest wall: No suspicious bony abnormalities. Soft tissues appear unremarkable. IMPRESSION: Volume loss and left basilar radiopacities. Differential considerations include pulmonary scar versus consolidation. Short interval followup is recommended with resolution of the patient's symptoms to ensure there is no underlying pulmonary neoplasm. Dictated by: Sanjuanita Elliott M.D. on 12/27/2019 at 15:30 Approved by: Sanjuanita Elliott M.D. on 12/27/2019 at 15:32
[2019-12-27 16:09] LABS: Add Manual Diff / Slide Review NO; Basophils Absolute Auto 0 /uL (0-100); Basophils Percent Auto 0.6 % (0-2); Eosinophils Absolute Auto 200 /uL (0-450); Eosinophils Percent Auto 3.6 % (2-4); Hematocrit 39.9 % (36-46); Hemoglobin 12.7 g/dL (12.0-16.0); Lymphocytes Absolute Auto 1300 /uL (1100-4500); Lymphocytes Percent Auto 24.4 % (25-40); Mean Corpuscular HGB Conc 31.8 % (30-36); Mean Corpuscular Hemoglobin 26.9 PG (26-34); Mean Corpuscular Volume 84.5 fL (80-100); Monocytes Absolute Auto 700 /uL (0-900); Monocytes Percent Auto 12.7 % (3-14); Neutrophils Absolute Auto 3100 /uL (1500-7000); Neutrophils Percent Auto 58.7 % (50-75); Platelet Count 135 X10^3/uL (150-400); Red Blood Cell Count 4.72 X10^6/uL (4.0-5.2); Red Cell Distribution Width 15.8 % (11.6-14.8); White Blood Cell Count 5.3 X10^3/uL (4.5-11.0)
[2019-12-27 16:33] LABS: Alanine Aminotransferase 20 IU/L (<35); Albumin 4.1 g/dL (3.5-5.0); Albumin Globulin Ratio 1.2 (1.0-2.8); Alkaline Phosphatase 125 U/L (38-126); Aspartate Aminotransferase 39 IU/L (14-36); BUN Creatinine Ratio 23.3 (6-22); Bilirubin Total 0.7 mg/dL (0.2-1.3); Blood Urea Nitrogen 14 mg/dL (7-17); Calcium 8.9 mg/dL (8.4-10.2); Chloride 93 mmol/L (98-107); Estimated Glomerular Filt Rate > 60.0 mL/min (>60); Globulin 3.3 g/dL (1.7-4.1); Glucose 82 mg/dL (80-110); HEMOLYSIS < 15 (0-50); Potassium 4.1 mmol/L (3.4-5.1); Sodium 140 mmol/L (137-145); Total Protein 7.4 g/dL (6.3-8.2)
[2019-12-27 16:35] LABS: NT-proBNP (BNP-Adult 18+) 1150 pg/mL (<450)
[2019-12-27 17:18] LABS: Carbon Dioxide 39 mmol/L (22-32)
== END ==
PROVIDERS: PCP Internal Medicine; Referring Provider Internal Medicine; Visit Provider Internal Medicine
DX: I48.20 Chronic atrial fibrillation, unspecified (principal); I50.9 Heart failure, unspecified; E78.2 Mixed hyperlipidemia; I10 Essential (primary) hypertension
CPT/HCPCS: 36415; 71046; 80053; 83880; 85025

== ENCOUNTER → 2020-02-18 11:46 | Outpatient (CLI) | payer OTHER, SELFPAY ==
[2019-10-12 02:37] VITALS: BMI 37.2
[2020-02-18 12:37] LABS: Bilirubin Urine UA NEGATIVE (NEGATIVE); Color Urine UA YELLOW; Glucose Urine UA NEGATIVE (Negative); Ketones Urine UA NEGATIVE (NEGATIVE); Leukocyte Esterase Urine UA 1+ (NEGATIVE); Nitrite Urine UA POSITIVE (Negative); Occult Blood Urine UA 3+ (Negative); Protein Urine UA 1+ (Negative); Urobilinogen Urine UA 0.2 E.U./dL (0.2)
[2020-02-18 12:40] LABS: Appearance Urine UA Slightly Cloudy; pH Urine UA 6.5 (4.5-8.0)
[2020-02-18 12:44] LABS: Amorphous Sediment Urine 1+; RBC Urine 30-100/HPF (0-5/HPF); Squamous Epithelial Cell Urine 1-5 /HPF (0-5/HPF); WBC Urine 10-30/HPF (0-5/HPF)
[2020-02-18 12:45] LABS: Bacteria Urine Many (>30); Calcium Oxalate Crystals Urine Few; Culture Indicated Urine Specimen Cultured; Mucus Urine 1+ (Negative)
== END ==
PROVIDERS: PCP Internal Medicine; Referring Provider Internal Medicine; Visit Provider Internal Medicine
DX: R30.0 Dysuria (principal); R82.71 Bacteriuria
CPT/HCPCS: 81001; 87077; 87086; 87186

== ENCOUNTER → 2020-06-17 11:40 | Outpatient (ROUT) | payer OTHER, SELFPAY ==
[2019-10-12 02:37] VITALS: BMI 37.2
[2020-06-17 11:53] LABS: Appearance Urine UA SL CLOUDY; Bilirubin Urine UA NEGATIVE (NEGATIVE); Color Urine UA YELLOW; Glucose Urine UA NEGATIVE (Negative); Ketones Urine UA NEGATIVE (NEGATIVE); Leukocyte Esterase Urine UA 2+ (NEGATIVE); Nitrite Urine UA POSITIVE (Negative); Occult Blood Urine UA TRACE-INTACT (Negative); Protein Urine UA NEGATIVE (Negative); Specific Gravity Urine UA 1.015 (1.000-1.035); Urobilinogen Urine UA 0.2 E.U./dL (0.2)
[2020-06-17 12:09] LABS: Calcium Oxalate Crystals Urine Many; RBC Urine 1-5/HPF (0-5/HPF); Renal Epithelial Cells Urine 0-1/HPF (0-1/HPF); Squamous Epithelial Cell Urine 0-1 /HPF (0-5/HPF); WBC Urine >100/HPF (0-5/HPF)
[2020-06-17 12:10] LABS: Bacteria Urine Many (>30); Culture Indicated Urine Specimen Cultured
== END ==
PROVIDERS: PCP Internal Medicine; Visit Provider Internal Medicine
DX: N39.0 Urinary tract infection, site not specified (principal)
CPT/HCPCS: 81001; 87077; 87086; 87186